=== PATIENT | female | born 1955 | race Caucasian/White ===

== ENCOUNTER 2019-11-18 14:46 | Emergency (ER) | payer MEDICARE, OTHER, SELFPAY ==
[2019-11-18] VITALS (7 sets, daily range): BP systolic 114–148; BP diastolic 52–115; PULSE 96–102; RESP 20–22; TEMP 37.2; O2SAT 92–94; BMI 24.9
--- NOTE | 2019-11-18 15:27 | XR_ITS ---
WS: [id number] PA and lateral chest, 11/18/2019 Clinical Data: SHORTNESS OF BREATH Comparison: Portable chest, 06/24/2019. Findings: No nodules, masses or effusions are seen. The heart is normal. The pulmonary vascularity is not increased. No pneumonia or pneumothorax is seen. There is blunting the left costophrenic angle f rom pleural reaction. There is a hiatal hernia behind the heart. The left diaphragm is elevated. The aortic arch and descending aorta is minimally tortuous. XR/XR chest 2V* [id number] Impression: 1. Negative for acute cardiopulmonary disease. 2. Hiatal hernia and left pleural reaction.
[2019-11-18 16:17] LABS: Basophils # 0.1 10^3/uL (0.0-0.1); Basophils % 0.7 %; Eosinophils % 0.4 %; Hematocrit 42.6 % (37.0-47.0); Hemoglobin 13.4 g/dL (11.5-15.3); Lymphocytes % 12.7 %; Mean Corpuscular HGB Conc 31.5 g/dL (30.0-36.0); Mean Corpuscular Hemoglobin 28.5 pg (28.0-34.0); Mean Corpuscular Volume 90.6 fL (81-99); Mean Platelet Volume 10.6 fL (7.4-10.4); Monocytes # 0.7 10^3/uL (0.2-0.9); Monocytes % 8.9 %; Neutrophils # 5.9 10^3/uL (1.8-7.7); Neutrophils % 76.6 %; Nucleated Red Blood Cells % 0 %; Platelet Count 240 10^3/cmm (130-400); Red Cell Distribution Width 13.2 % (12.1-15.1); White Blood Count 7.6 10^3/uL (4.0-10.0)
[2019-11-18 16:49] LABS: Alanine Aminotransferase 25 U/L (0-33); Albumin Level 4.2 g/dL (3.5-5.2); Alkaline Phosphatase 164 IU/L (35-105); Anion Gap 17.7 (5-19); Aspartate Amino Transferase 35 U/L (0-32); Blood Urea Nitrogen 8 mg/dL (8-23); Calcium 10.3 mg/Dl (8.8-10.2); Carbon Dioxide 28 mmol/L (22-29); Chloride 92 mmol/L (98-107); Globulin 3.4 g/dL (1.3-4.6); Glomerular Filtration Rate 55.5 mL/min (90-130); Glucose 83 mg/dL (74-106); Potassium 3.7 mmol/L (3.5-5.1); Sodium 134 mmol/L (136-145); Total Bilirubin 0.4 mg/dL (0.15-1.2); Total Protein 7.6 g/dL (6.6-8.7)
[2019-11-18] MEDS: azithromycin 250 mg Tablet 500 MG PO (19:57)
--- NOTE | 2019-11-18 20:05 | ED_ITS ---
HPI - General Adult General: Chief complaint: Shortness of Breath/Dyspnea Stated complaint: SOB Time Seen by Provider: 11/18/19 19:24 History of Present Illness: Associated symptoms: Reports dyspnea; Deny chest pain, headache(s), nausea, rash or vomiting Review of Systems Const: Reports: fever; Denies: chills or body aches Eyes: Denies: change in vision or blurry vision ENMT: Denies: throat pain or nasal congestion Card: Denies: chest pain or shortness of breath on exertion Resp: Reports: shortness of breath, non-productive cough, wheezing, pain on inspiration and chest congestion; Denies: productive cough or coughing up blood GI: Denies: abdominal pain, nausea or vomiting Musc: Denies: extremity pain Skin/Breast: Denies: rash Neuro: Denies: headache Psych: Denies: anxiety or depression Santos/Lymph: Denies: easy bruising PFSH ED PFSH: Statuses (acute, chronic, etc) shown below reflect problem list status as previously entered and may not be historically accurate Social History Smoking and tobacco status: former smoker Physical Exam Const: COMMON NORMALS: no apparent distress, average body habitus and oriented x3 HENMT: COMMON NORMALS: normocephalic HEAD & SCALP: normal to inspection and normocephalic FACE & SINUS: normal facial exam Eye: COMMON NORMALS: conjunctivae normal GENERAL EYE: normal appearance of both eyes CONJUNCTIVA: Yes conjunctivae normal Neck/C-Spine: COMMON NORMALS: no JVD Chest: COMMONS NORMALS: inspection of chest normal Resp: COMMON NORMALS: normal respiratory effort and no use of accessory muscles EFFORT & INSPECTION: No pursed lip breathing and No labored AUSCULTATION: rhonchi and wheezes expiratory wheezes, inspiratory wheezes and throughout Cardio: COMMON NORMALS: no JVD, regular rate and regular rhythm RATE: regular rate RHYTHM: regular rhythm GI: COMMON NORMALS: normal to inspection, nondistended, normoactive bowel sounds Extremity: COMMON NORMALS: normal to inspection and full ROM Neuro: COMMON NORMALS: oriented x3 Course Vital Signs: Vital signs: Vital Signs Temperature 98.9 F 11/18/19 15:22 Pulse Rate 100 11/18/19 20:29 Respiratory Rate 20 H 11/18/19 20:25 Blood Pressure 144/115 11/18/19 19:33 Pulse Oximetry 93 01/02/20 20:25 [facility] - General Adult Lab Data: Labs: Lab Results 11/18/19 11/18/19 11/18/19 Range/Units 16:08 16:08 20:05 WBC 7.6 (4.0-10.0) 10^3/ uL RBC 4.70 (4.1-5.3) 10^6/u L Hgb 13.4 (11.5-15.3) g/dL Hct 42.6 (37.0-47.0) % MCV 90.6 (81-99) fL MCH 28.5 (28.0-34.0) pg MCHC 31.5 (30.0-36.0) g/dL RDW 13.2 (12.1-15.1) % Plt Count 240 (130-400) 10^3/c mm MPV 10.6 H (7.4-10.4) fL Neut % (Auto) 76.6 % Lymph % (Auto) 12.7 % [place] % (Auto) 8.9 % Eos % (Auto) 0.4 % Baso % (Auto) 0.7 % Neut # (Auto) 5.9 (1.8-7.7) 10^3/u L Lymph # (Auto) 1.0 (0.8-4.8) 10^3/u L [place] # (Auto) 0.7 (0.2-0.9) 10^3/u L Eos # (Auto) 0.0 (0.0-0.8) 10^3/u L Baso # (Auto) 0.1 (0.0-0.1) 10^3/u L Nucleated RBC % (a uto) 0 % Nucleated RBCs # 0.0 /100WBC Sodium 134 L (136-145) mmol/L Potassium 3.7 (3.5-5.1) mmol/L Chloride 92 L (98-107) mmol/L Carbon Dioxide 28 (22-29) mmol/L Anion Gap 17.7 (5-19) BUN 8 (8-23) mg/dL Creatinine 1.0 H (0.5-0.9) mg/dL GFR Calculation 55.5 L (90-130) mL/min Glucose 83 (74-106) mg/dL Calcium 10.3 H (8.8-10.2) mg/Dl Total Bilirubin 0.4 (0.15-1.2) mg/dL AST 35 H (0-32) U/L ALT 25 (0-33) U/L Alkaline Phosphata se 164 H (35-105) IU/L Total Protein 7.6 (6.6-8.7) g/dL Albumin 4.2 (3.5-5.2) g/dL Globulin 3.4 (1.3-4.6) g/dL Influenza Type A A g Negative (Negative) POC Influenza B Ag Negative (Negative) Discharge Plan Discharge Patient Disposition: Home, Self-Care Clinical Impression: Acute exacerbation of chronic obstructive airways disease Condition: Stable Prescriptions: New azithromycin [Zithromax Z-He] 250 mg tablet See Rx Instructions .ROUTE .COMPLEX Qty: 6 RF: 0 prednisolone 5 mg tablet 10 mg PO DAILY Qty: 20 RF: 0 No Action Pending RF: 0 Referrals: Kanchan Park MD [Primary Care Provider] - Discharge Diet: Usual diet Discharge Activity: Resume usual activity Patient Instructions: Chronic Obstructive Pulmonary Disease (ED) Activity Restrictions/Additional Instructions: follow up here or PCP if not better Coding Level of Care Code ED [place] Operator for Chg Fwd Exam Problem Focused
[2019-11-18] MEDS: ipratropium-albuterol 3 mL Neb INHALATION (20:24)
[2019-11-18 20:41] LABS: Influenza A by IFA Negative (Negative); Influenza B by IFA Negative (Negative)
== END 2019-11-18 21:37 | disposition home or self-care (01) ==
PROVIDERS: Family Medicine; Emergency Provider Nurse Practitioner Family; Family Provider Family Medicine; PCP Family Medicine
DX: J44.1 Chronic obstructive pulmonary disease with (acute) exacerbation (principal); Z87.891 Personal history of nicotine dependence
CPT/HCPCS: 36415; 71046; 80053; 85025; 87804; 96374; 99000; 99282; J2930; Q0144

== ENCOUNTER → 2019-11-25 10:31 | Outpatient (BNVA) | payer MEDICARE, OTHER, SELFPAY | PROVIDERS: Family Provider Family Medicine; PCP Family Medicine; Visit Provider Internal Medicine Rheumatology | DX: M05.79 Rheumatoid arthritis with rheumatoid factor of multiple sites without organ or systems involvement (principal); Z79.52 Long term (current) use of systemic steroids; Z79.899 Other long term (current) drug therapy; J44.9 Chronic obstructive pulmonary disease, unspecified; Z87.891 Personal history of nicotine dependence | CPT/HCPCS: 99214 ==

== ENCOUNTER 2020-01-27 07:54 | Outpatient (CLI) | payer MEDICARE, OTHER, SELFPAY ==
--- NOTE | 2020-01-27 07:59 | MM_ITS ---
WS: [id number] SCREENING DIGITAL MAMMOGRAM WITH CAD HISTORY: SCREENING COMPARISON: 08/16/2019, 01/14/2019, 10/28/2018 and 04/26/2010. Bilateral CC and MLO views submitted. Computer aided detection analyzed. Breast composition: There are scattered areas of fibroglandular density. Previously described nodule posterior to the nipple measuring 6.3 mm is still identified. Diagnostic imaging and ultrasound were recommended of this nodule to document continued stability on the prior study. Otherwise the breast p arenchyma is stable. RIGHT breast: Spot compression views (CC and MLO). True ML. Ultrasound to follow if abnormality persi sts. Nodule in the anterior RIGHT breast has been undergoing follow-up. Diagnostic imaging was recommended on the prior examination of this nodule. Spot compression views and ultrasound evaluation are recomm ended. MM/[place] [id number] IMPRESSION: BI-RADS: 0-Incomplete: Need additional imaging evaluation FOLLOW UP: Need Additional Imaging
== END 2020-01-27 07:55 | disposition home or self-care (01) ==
LOC: RADSHAW 07:56
PROVIDERS: Family Provider Family Medicine; PCP Family Medicine; Visit Provider Family Medicine
DX: Z12.31 Encounter for screening mammogram for malignant neoplasm of breast (principal)
CPT/HCPCS: 77067

== ENCOUNTER 2020-02-03 15:00 | Outpatient (CLI) | payer MEDICARE, OTHER, SELFPAY ==
--- NOTE | 2020-02-03 15:30 | US_ITS ---
WS: [id number] RIGHT DIGITAL MAMMOGRAPHY WITH CAD CLINICAL INFORMATION: Abnormal Mammogram COMPARISON: January 27, 2020 TECHNIQUE: 3 views of the right breast were obtained. FINDINGS: The right breast is composed of heterogeneous fibroglandular density tissue, which can limit the dete ction of small underlying mass lesions. Again seen is the asymmetric density in the anterior right breast just above and posterior to the nip ple near the 12:00 position. This appears unchanged compared to previous. Ultrasound is pending. ULTRASOUND BREAST RIGHT TECHNIQUE: Ultrasound right breast focused area of concern. CLINICAL INFORMATION: Abnormal Mammogram COMPARISON: August 16, 2019 FINDINGS: In the anterior breast, at the 12:00 position, again seen is an ill-defined band of tissue with varia ble echogenicity. More focal vague hypoechoic area measuring 1.1 x 0.3 cm similar to previous. A few dilated ducts at the areola. Findings appear unchanged from previous. Recommend additional six-month follow-up right diagnostic mammography and ultrasound to confirm stability. US/US breast RT limited* [id number] IMPRESSION: BI-RADS: 3-Probably Benign FOLLOW UP: 6 Month Follow-up
== END 2020-02-03 15:01 | disposition home or self-care (01) ==
LOC: RADSHAW 15:00
PROVIDERS: Family Provider Family Medicine; PCP Family Medicine; Visit Provider Family Medicine
DX: N64.89 Other specified disorders of breast (principal); R92.8 Other abnormal and inconclusive findings on diagnostic imaging of breast
CPT/HCPCS: 76642; 77065

== ENCOUNTER → 2020-02-23 09:23 | Outpatient (BNVA) | payer MEDICARE, OTHER, SELFPAY | PROVIDERS: Family Provider Family Medicine; PCP Family Medicine; Visit Provider Internal Medicine Rheumatology | DX: Z79.899 Other long term (current) drug therapy (principal); M05.79 Rheumatoid arthritis with rheumatoid factor of multiple sites without organ or systems involvement | CPT/HCPCS: 82565; 84460; 85025; 85651; 86140 ==

== ENCOUNTER 2020-03-29 06:46 | Inpatient (IN) | payer MEDICARE, OTHER, SELFPAY ==
[2020-03-29] VITALS (19 sets, daily range): BP systolic 122–188; BP diastolic 74–106; PULSE 69–112; RESP 17–40; TEMP 36.7–37.2; O2SAT 76–98; BMI 25.2
--- NOTE | 2020-03-29 07:03 | W.ED.SOB ---
HPI - SOB/Dyspnea General: Chief Complaint: Shortness of Breath/Dyspnea Stated Complaint: SOB Time Seen by Provider: 03/29/20 07:03 History of Present Illness: HPI Narrative: 64 yo female 64-year-old female comes in complaining of dyspnea. She is brought in by ambulance states that at 2 AM she suddenly woke up and was short of breath. On arrival here when she is on room air for just a few minutes she desats to 76% on 3 L by nasal cannula she is 89 to 92% she did report a nonproductive cough and a low-grade fever. She denies any chest pain for the last 3 weeks she has had shoulder and neck pain this is been chronic and she relates it to her rheumatoid arthritis. She denies history of chest pain DVT or PE. She has not had any sick contacts in her home she has been conscientious about quarantining herself the last several weeks. She is on several inhaled medication she denies any recent medication changes or missing any doses of medications. Of interesting note she is on hydroxychloroquine for her rheumatoid arthritis. Associated symptoms: Deny abdominal pain, chest pain, fever(s), nausea, orthopnea or vomiting Review of Systems Const: Denies: fever(s), chills, body aches, change in appetite, fatigue or malaise ENMT: Denies: throat pain, ear or mastoid pain, nasal discharge or nasal congestion Card: Denies: chest pain, edema, dyspnea on exertion or orthopnea Resp: Reports: dyspnea and non-productive cough; Denies: productive cough GI: Denies: abdominal pain, nausea, vomiting, hematemesis, coffee ground emesis, diarrhea, constipation, bloating, hematochezia or melena : Denies: flank pain, difficulty voiding, dysuria, urinary frequency or urinary urgency Musc: Reports: neck pain and joint pain Skin/Breast: Denies: rash or pruritus PFSH ED PFSH: Medical History (Updated 04/01/20 @ 06:55 by Delroy Ching DO) COPD (chronic obstructive pulmonary disease) Uses home trilogy device, PRN oxygen Depression GERD (gastroesophageal reflux disease) History of aspiration pneumonia Hyperlipidemia Hypertension Hypothyroidism Immunization counseling Iron deficiency anemia Rheumatoid arthritis with rheumatoid factor of multiple sites without organ or systems involvement leflunomide, hydroxychloroquine, prn prednisone for flares Surgical History (Updated 03/29/20 @ 21:32 by Felicia Espinal MD) H/O arthroscopy of knee left knee H/O esophagectomy History of cataract surgery 2017 History of gastric surgery age 6 History of skin graft left knee History of tubal ligation Previous back surgery right L3-L4, right L5-S1 hemilaminotomy foraminotomy/ discectomy/ Family History Other CAD (coronary artery disease) Cancer Hypertension Denies family history of Rheumatoid arthritis Diabetes Chronic kidney disease (CKD) Systemic lupus erythematosus (SLE) in adult Lung disease Social History Smoking and tobacco status: former smoker Quit status (tobacco): has quit using tobacco Year quit tobacco: 2000 Alcohol intake: current Alcohol type: beer Lives independently: No (lives with boyfriend) Marital status: History of recent travel: No Physical Exam Const: COMMON NORMALS: no acute distress GENERAL APPEARANCE: cooperative and comfortable ORIENTATION/CONSCIOUSNESS: Yes awake, Yes oriented to person, Yes oriented to place and Yes oriented to time HENMT: COMMON NORMALS: normocephalic, atraumatic, hearing grossly normal bilaterally, external ears normal, EAC's normal, TM's normal bilaterally, Normal nasal mucous membranes and turbinates present, moist oral mucous membranes and oropharynx normal HEAD & SCALP: normocephalic and atraumatic NOSE: Normal nasal mucous membranes and turbinates present EXTERNAL EAR: Yes external ears normal EXTERNAL AUDITORY CANAL: EAC's normal TYMPANIC MEMBRANE: TM's normal bilaterally Eye: COMMON NORMALS: Equal, round and reactive pupils present, EOMs intact bilaterally, conjunctivae normal and no scleral icterus CONJUNCTIVA: Yes conjunctivae normal PUPIL: Yes Equal, round and reactive pupils present Neck/C-Spine: COMMON NORMALS: full ROM, no lymphadenopathy, supple and no JVD Lymph: LYMPHATIC: no lymphadenopathy noted and no lymphedema noted Resp: EFFORT & INSPECTION: Yes tachypneic, Yes respiratory distress and Yes Actively coughing AUSCULTATION: rhonchi throughout and wheezes expiratory wheezes and throughout Cardio: COMMON NORMALS: no JVD, regular rhythm and No murmurs present (Cardio) RATE: tachycardic RHYTHM: regular rhythm GI: COMMON NORMALS: Soft to palpation and No hepatosplenomegaly present AUSCULTATION: Yes normoactive bowel sounds PALPATION: Yes Soft to palpation, No Tenderness to palpation present (GI), No Guarding due to palpation present (GI) and Yes No hepatosplenomegaly present Extremity: COMMON NORMALS: normal to inspection, capillary refill normal, no clubbing, cyanosis or edema, no calf tenderness and no pedal edema Neuro: SENSORIUM/ORIENTATION: Yes oriented to person, Yes oriented to place and Yes oriented to time Skin: COMMON NORMALS: no rashes or lesions noted GENERAL SKIN EXAM: no rashes or lesions noted Course Vital Signs: Vital signs: Vital Signs Temperature 96.7 F L 04/01/20 04:00 Pulse Rate 73 04/01/20 04:00 Respiratory Rate 27 H 04/01/20 06:27 Blood Pressure 138/65 04/01/20 04:00 Pulse Oximetry 94 04/01/20 06:27 MDM - SOB/Dyspnea MDM Narrative: Medical decision making narrative: Patient comes in hypercapnic respiratory failure she is improving we will would start her on antibiotics and admit. Discussed Dr. Espinal she will be admitting physician. Lab Data: Labs: Lab Results 03/29/20 03/29/20 03/29/20 Range/Units 07:20 07:25 07:25 WBC 14.8 H (4.0-10.0) 10^3/ uL RBC 4.41 (4.1-5.3) 10^6/u L Hgb 12.9 (11.5-15.3) g/dL Hct 42.2 (37.0-47.0) % MCV 95.7 (81-99) fL MCH 29.3 (28.0-34.0) pg MCHC 30.6 (30.0-36.0) g/dL RDW 13.8 (12.1-15.1) % Plt Count 247 (130-400) 10^3/c mm MPV 11.5 H (7.4-10.4) fL Neut % (Auto) 91.1 % Lymph % (Auto) 2.5 % [place] % (Auto) 4.9 % Eos % (Auto) 0.6 % Baso % (Auto) 0.4 % Neut # (Auto) 13.5 H (1.8-7.7) 10^3/u L Lymph # (Auto) 0.4 L (0.8-4.8) 10^3/u L [place] # (Auto) 0.7 (0.2-0.9) 10^3/u L Eos # (Auto) 0.1 (0.0-0.8) 10^3/u L Baso # (Auto) 0.1 (0.0-0.1) 10^3/u L Nucleated RBC % (a uto) 0 % Nucleated RBCs # 0.0 /100WBC Specimen Type Arterial Sample Site Brachial, right ABG pH 7.40 (7.35-7.45) ABG pCO2 48.2 H (35-45) mmHg ABG pO2 77.4 L (80.0-100.0) mmH g ABG HCO3 30.1 H (22-26) mmol/L ABG O2 Saturation 94.0 ABG Base Excess 4.4 H (-2.0-2.0) mmol/ L Antony Test Pos A-a O2 Gradient 89.9 H (5-10) mmHg Hematocrit 40.8 (37-47) % Hgb O2 Saturation 93.3 L (95-100) % Methemoglobin 1.1 (0.4-1.5) % Total Hemoglobin 13.3 (12-16) g/dL Sodium 142.0 139 (131-143) mmol/L Potassium 3.5 3.7 (3.5-5.0) mmol/L Glucose 116.0 H 108 (70-115) mg/dL Ionized Calcium 1.2 (1.1-1.4) mmol/L O2 Delivery Device Nc O2 Liters/Min 3.0 % FiO2 32.0 % Compound Filler ID bd Chloride 102 (98-107) mmol/L Carbon Dioxide 27 (22-29) mmol/L Anion Gap 13.7 (5-19) BUN 16 (8-23) mg/dL Creatinine 0.9 (0.5-0.9) mg/dL GFR Calculation 62.6 L (90-130) mL/min Calculated Osmolal ity 285 (285-295) mOsm/k g Lactate (0.5-2.2) mmol/L Calcium 9.8 (8.5-10.5) mg/dL Total Bilirubin 0.3 (0.15-1.2) mg/dL AST 33 H (0-32) U/L ALT 29 (0-33) U/L Alkaline Phosphata se 141 H (35-105) IU/L Troponin T Baselin e (0-10) ng/mL Total Protein 5.5 L (6.6-8.7) g/dL Albumin 3.7 (3.5-5.2) g/dL Globulin 1.8 (1.3-4.6) g/dL Lipase 9 L (13-60) U/L Nasal/Oral COVID-1 9 PCR Influenza Type A A g (Negative) Influenza Type B A g (Negative) 03/29/20 03/29/20 03/29/20 Range/Units 07:25 07:25 07:25 WBC (4.0-10.0) 10^3/ uL RBC (4.1-5.3) 10^6/u L Hgb (11.5-15.3) g/dL Hct (37.0-47.0) % MCV (81-99) fL MCH (28.0-34.0) pg MCHC (30.0-36.0) g/dL RDW (12.1-15.1) % Plt Count (130-400) 10^3/c mm MPV (7.4-10.4) fL Neut % (Auto) % Lymph % (Auto) % [place] % (Auto) % Eos % (Auto) % Baso % (Auto) % Neut # (Auto) (1.8-7.7) 10^3/u L Lymph # (Auto) (0.8-4.8) 10^3/u L [place] # (Auto) (0.2-0.9) 10^3/u L Eos # (Auto) (0.0-0.8) 10^3/u L Baso # (Auto) (0.0-0.1) 10^3/u L Nucleated RBC % (a uto) % Nucleated RBCs # /100WBC Specimen Type Sample Site ABG pH (7.35-7.45) ABG pCO2 (35-45) mmHg ABG pO2 (80.0-100.0) mmH g ABG HCO3 (22-26) mmol/L ABG O2 Saturation ABG Base Excess (-2.0-2.0) mmol/ L Antony Test A-a O2 Gradient (5-10) mmHg Hematocrit (37-47) % Hgb O2 Saturation (95-100) % Methemoglobin (0.4-1.5) % Total Hemoglobin (12-16) g/dL Sodium (131-143) mmol/L Potassium (3.5-5.0) mmol/L Glucose (70-115) mg/dL Ionized Calcium (1.1-1.4) mmol/L O2 Delivery Device O2 Liters/Min % FiO2 % Compound Filler ID Chloride (98-107) mmol/L Carbon Dioxide (22-29) mmol/L Anion Gap (5-19) BUN (8-23) mg/dL Creatinine (0.5-0.9) mg/dL GFR Calculation (90-130) mL/min Calculated Osmolal ity (285-295) mOsm/k g Lactate 1.3 (0.5-2.2) mmol/L Calcium (8.5-10.5) mg/dL Total Bilirubin (0.15-1.2) mg/dL AST (0-32) U/L ALT (0-33) U/L Alkaline Phosphata se (35-105) IU/L Troponin T Baselin e 35 H (0-10) ng/mL Total Protein (6.6-8.7) g/dL Albumin (3.5-5.2) g/dL Globulin (1.3-4.6) g/dL Lipase (13-60) U/L Nasal/Oral COVID-1 9 PCR Influenza Type A A g Negative (Negative) Influenza Type B A g Negative (Negative) 03/29/20 Range/Units 08:15 WBC (4.0-10.0) 10^3/ uL RBC (4.1-5.3) 10^6/u L Hgb (11.5-15.3) g/dL Hct (37.0-47.0) % MCV (81-99) fL MCH (28.0-34.0) pg MCHC (30.0-36.0) g/dL RDW (12.1-15.1) % Plt Count (130-400) 10^3/c mm MPV (7.4-10.4) fL Neut % (Auto) % Lymph % (Auto) % [place] % (Auto) % Eos % (Auto) % Baso % (Auto) % Neut # (Auto) (1.8-7.7) 10^3/u L Lymph # (Auto) (0.8-4.8) 10^3/u L [place] # (Auto) (0.2-0.9) 10^3/u L Eos # (Auto) (0.0-0.8) 10^3/u L Baso # (Auto) (0.0-0.1) 10^3/u L Nucleated RBC % (a uto) % Nucleated RBCs # /100WBC Specimen Type Sample Site ABG pH (7.35-7.45) ABG pCO2 (35-45) mmHg ABG pO2 (80.0-100.0) mmH g ABG HCO3 (22-26) mmol/L ABG O2 Saturation ABG Base Excess (-2.0-2.0) mmol/ L Antony Test A-a O2 Gradient (5-10) mmHg Hematocrit (37-47) % Hgb O2 Saturation (95-100) % Methemoglobin (0.4-1.5) % Total Hemoglobin (12-16) g/dL Sodium (131-143) mmol/L Potassium (3.5-5.0) mmol/L Glucose (70-115) mg/dL Ionized Calcium (1.1-1.4) mmol/L O2 Delivery Device O2 Liters/Min % FiO2 % Compound Filler ID Chloride (98-107) mmol/L Carbon Dioxide (22-29) mmol/L Anion Gap (5-19) BUN (8-23) mg/dL Creatinine (0.5-0.9) mg/dL GFR Calculation (90-130) mL/min Calculated Osmolal ity (285-295) mOsm/k g Lactate (0.5-2.2) mmol/L Calcium (8.5-10.5) mg/dL Total Bilirubin (0.15-1.2) mg/dL AST (0-32) U/L ALT (0-33) U/L Alkaline Phosphata se (35-105) IU/L Troponin T Baselin e (0-10) ng/mL Total Protein (6.6-8.7) g/dL Albumin (3.5-5.2) g/dL Globulin (1.3-4.6) g/dL Lipase (13-60) U/L Nasal/Oral COVID-1 9 PCR Not detected Influenza Type A A g (Negative) Influenza Type B A g (Negative) Discharge Plan Discharge Patient Disposition: Admitted As Inpatient Admit Provider: Felicia Espinal Clinical Impression: Respiratory failure with hypoxia and hypercapnia, Rheumatoid arthritis with rheumatoid factor of multiple sites without organ or systems involvement, COPD (chronic obstructive pulmonary disease), Pneumonia Condition: Stable Referrals: Ladonna Rutledge MD [Primary Care Provider] - Interventions: ED Discharge Assessment Last Done: 03/29/20 11:37 ED Charges Last Done: 03/29/20 09:56 Discharge Date/Time: 03/29/20 12:00 Coding Level of Care Code ED Radiology Interventional Physician for Chg Fwd Exam Comprehensive
--- NOTE | 2020-03-29 07:05 | XR_ITS ---
WS: [id number] PORTABLE CHEST HISTORY: dyspnea/cough COMPARISON: 1 2019 New patchy consolidations bilaterally, greatest throughout the RIGHT lung. There are additional small nodules and more focal areas of consolidation. No pleural effusion or pneumothorax. Cardiac size: Normal. Mediastinum/Aorta: Mild atherosclerosis aorta. No osseous abnormality seen. Slight elevation LEFT hemidiaphragm. XR/XR chest 1V portable [id number] IMPRESSION: 1. New bilateral, multilobar consolidations and nodules. May all BE related to pneumonia and pneumonitis. 2. Recommend follow-up imaging to resolution. If the nodular opacities do not improve chest CT with IV contrast should be performed. Metastasis needs to be e xcluded.
--- NOTE | 2020-03-29 07:06 | ECG_ITS ---
Measurements Intervals [place] Rate: 105 P: 52 KS: 142 QRS: -56 QRSD: 105 T: 58 QT: 342 QTc: 452 SINUS TACHYCARDIA POSSIBLE LEFT ATRIAL ENLARGEMENT [-0.1mV P WAVE IN V1/V2] LEFT AXIS DEVIATION [QRS AXIS < -30] NONSPECIFIC ST & T-WAVE ABNORMALITY Compared to ECG 04/01/2019 14:46:49 Left-axis deviation now present T-wave abnormality now present Sinus rhythm no longer present Intraventricular conduction delay no longer present Electronically Signed On 03-29-2020 20:30:53 CDT by Luis Conde M.D. [email or web address]
--- NOTE | 2020-03-29 07:14 | ECG_ITS ---
Measurements Intervals [place] Rate: 114 P: 52 DE: 132 QRS: -58 QRSD: 106 T: 67 QT: 344 QTc: 475 SINUS TACHYCARDIA LEFT ATRIAL ENLARGEMENT [-0.15mV P WAVE IN V1/V2] LEFT AXIS DEVIATION [QRS AXIS < -30] INTERPRETATION BASED ON A DEFAULT AGE OF 40 YEARS Compared to ECG 04/01/2019 14:46:49 Left-axis deviation now present Sinus rhythm no longer present Intraventricular conduction delay no longer present Electronically Signed On 03-29-2020 20:30:23 CDT by Luis Conde M.D. [email or web address]
[2020-03-29 07:32] LABS: ABG PCO2 48.2 mmHg (35-45); Alveolar-Arterial Oxygen Gradi 89.9 mmHg (5-10); Arterial Blood Gas Hematocrit 40.8 % (37-47); Base Excess ABG 4.4 mmol/L (-2.0-2.0); Blood Gas Allen Test Pos; Blood Gas Sample Site Brachial, right; Blood Gas Sample Type Arterial; HCO3 ABG 30.1 mmol/L (22-26); HGB O2 Sat 93.3 % (95-100); Ionized Calcium Level - ABG 1.2 mmol/L (1.1-1.4); Methemoglobin 1.1 % (0.4-1.5); Oxygen Device NC; PO2 ABG 77.4 mmHg (80.0-100.0); Potassium Level - ABG 3.5 mmol/L (3.5-5.0); Total Hemoglobin 13.3 g/dL (12-16)
[2020-03-29] MEDS: cefTRIAXone 1,000 MG in sodium chloride 0.9% (plus) 50 ML 100 MG IV ×2 (08:14→20:45)
[2020-03-29 08:16] LABS: Basophils # 0.1 10^3/uL (0.0-0.1); Basophils % 0.4 %; Eosinophils # 0.1 10^3/uL (0.0-0.8); Eosinophils % 0.6 %; Hematocrit 42.2 % (37.0-47.0); Hemoglobin 12.9 g/dL (11.5-15.3); Lymphocytes # 0.4 10^3/uL (0.8-4.8); Lymphocytes % 2.5 %; Mean Corpuscular HGB Conc 30.6 g/dL (30.0-36.0); Mean Corpuscular Hemoglobin 29.3 pg (28.0-34.0); Mean Corpuscular Volume 95.7 fL (81-99); Mean Platelet Volume 11.5 fL (7.4-10.4); Monocytes # 0.7 10^3/uL (0.2-0.9); Monocytes % 4.9 %; Neutrophils # 13.5 10^3/uL (1.8-7.7); Neutrophils % 91.1 %; Nucleated Red Blood Cells % 0 %; Platelet Count 247 10^3/cmm (130-400); Red Blood Count 4.41 10^6/uL (4.1-5.3); Red Cell Distribution Width 13.8 % (12.1-15.1); White Blood Count 14.8 10^3/uL (4.0-10.0)
[2020-03-29 08:29] LABS: Lactate (Lactic Acid level) 1.3 mmol/L (0.5-2.2)
[2020-03-29 08:30] LABS: Alanine Aminotransferase 29 U/L (0-33); Albumin Level 3.7 g/dL (3.5-5.2); Alkaline Phosphatase 141 IU/L (35-105); Anion Gap 13.7 (5-19); Aspartate Amino Transferase 33 U/L (0-32); Blood Urea Nitrogen 16 mg/dL (8-23); Calcium 9.8 mg/dL (8.5-10.5); Carbon Dioxide 27 mmol/L (22-29); Chloride 102 mmol/L (98-107); Globulin 1.8 g/dL (1.3-4.6); Glomerular Filtration Rate 62.6 mL/min (90-130); Glucose 108 mg/dL (65-115); Lipase 9 U/L (13-60); Osmolality Calculated 285 mOsm/kg (285-295); Potassium 3.7 mmol/L (3.5-5.1); Sodium 139 mmol/L (136-145); Total Bilirubin 0.3 mg/dL (0.15-1.2); Total Protein 5.5 g/dL (6.6-8.7)
[2020-03-29 08:33] LABS: Troponin(5th) Baseline 35 ng/mL (0-10)
[2020-03-29 08:52] LABS: Influenza A by IFA Negative (Negative); Influenza B by IFA Negative (Negative)
[2020-03-29] MEDS: azithromycin 500 MG in sodium chloride 0.9% 250 ML 250 MG IV (09:47)
[2020-03-29 10:54] LABS: Troponin 5 2HR 27.21 ng/mL (0-10)
[2020-03-29 11:04] LABS: Troponin 5 2HR Delta -7.79 ABS# (0-10)
--- NOTE | 2020-03-29 11:27 | PC.NURSE ---
attempted to call report to ICU. Nurse will call back when ready for report
[2020-03-29 12:03] LABS: Add Urine Microscopic? YES; Bilirubin Urine 1+ (NEGATIVE); Blood Urine Neg (Negative); Glucose Urine UA Norm (Normal); Ketones Urine Negative (Negative); Leukocyte Esterase Urine Negative (Negative); Nitrate Urine Negative (Negative); Protein Urine Trace (Negative); Urine Appearance Clear (CLEAR); Urine Color Amber (Yellow); Urobilinogen Urine 1 mg/dL (Negative)
[2020-03-29 12:16] LABS: Bacteria Urine 1+; Mucus Urine 1+
[2020-03-29 12:17] LABS: Add Urine Culture? No
[2020-03-29] MEDS: sodium chloride 0.9% 1,000 ML 100 ML IV (16:30)
[2020-03-29] MEDS: albuterol 8 gm MDI 2 PUFF INHALATION ×2 (16:49→21:04)
--- NOTE | 2020-03-29 18:07 | PM.HP ---
Providers/Chief Complaint Admitting Physician: Felicia Espinal MD Primary Care Provider: Ladonna Rutledge MD Chief Complaint: SOB History of Present Illness Gabby Garcia is a 64 year old female who presented to the emergency room via EMS with a complaint of difficulty breathing. She states that she had a little bit of a cough and intermittent difficulty breathing over the last week or so. She woke up at around 2 AM with significant difficulty breathing last night. She started coughing and then got to place that she could not breathe. She notes that she got anxious. She vomited at least 3 times. From her description it sounds almost like the vomiting was posttussive in nature. She continued to struggle to breathe after this. She has had issues with reflux and aspiration in the past as well as hospitalizations for pneumonia. She has a pulse oximeter at home and at the peak of her difficulty breathing she noted her oxygen saturations were 72%. She does not wear oxygen [id number] but she does have oxygen available should it be needed. She tried to use the 2 to 3 L by nasal cannula that she had access to but saturations would only come up into the low to mid 80s. She tried to take a breathing treatment but was unable to really do any inhalation for this to be successful. She ultimately ended up having EMS be called by her son. On arrival to the emergency room, initial saturations were 76% by peripheral pulse oximetry. On 4 L by nasal cannula saturations have come up to the low to mid 90s. ABG showed 7. 40/48/77/30. Chest x-ray showed multi lobar consolidations related to pneumonia versus pneumonitis. Patient denies any fevers. She has been maintaining social distancing by her report. No known sick contacts. She denies any sore throat, upper respiratory symptoms. Her cough is occasionally productive but no hemoptysis. No chest pain apart from when she coughs. Patient does have rheumatoid arthritis and is on chronic immunosuppressive therapy including leflunomide and hydroxychloroquine along with prednisone as needed for flares. She has been in the midst of a flare lately and is currently on 10 mg of prednisone a day. She is not on a biologic agent. She denies any pulmonary involvement with her rheumatoid arthritis. She has regular appointments including telehealth visit last month. Patient being admitted for further evaluation and treatment. COVID testing was sent and she has been maintained in isolation. Review of Systems Const: Reports: chills; Denies: fever(s) or change in appetite Eyes: Denies: change in vision ENMT: Denies: throat pain, dry mouth or nasal congestion Card: Denies: chest pain, palpitations or edema Resp: Reports: dyspnea, productive cough, non-productive cough, wheezing and chest congestion; Denies: pain on inspiration, change in phlegm color or hemoptysis GI: Reports: abdominal pain, nausea and vomiting; Denies: diarrhea or constipation : Denies: difficulty voiding Skin/Breast: Reports: rash (Face is red); Denies: pruritus Neuro: Reports: weakness in extremities (General); Denies: headache(s), numbness in extremities or dizziness Psych: Reports: anxiety (Particularly when she cannot breathe); Denies: depression Santos/Lymph: Denies: easy bruising or easy bleeding Medications/Allergies Home Medications Medication Instructions Recorded Confirmed Last Taken Type albuterol sulfate 2.5 mg INHALATION QID PRN 11/19/19 03/29/20 Unknown History albuterol sulfate 90 mcg/actuation 2 puff INHALATION QID PRN 11/19/19 03/29/20 Unknown History aerosol inhaler aspirin 81 mg tablet,delayed 81 mg PO DAILY tab 11/19/19 03/29/20 Unknown History release ergocalciferol (vitamin D2) 1,250 50,000 unit PO .COMPLEX 11/19/19 03/29/20 Unknown History mcg (50,000 unit) capsule ferrous sulfate 325 mg (65 mg 325 mg PO DAILY tab 11/19/19 03/29/20 Unknown History iron) tablet furosemide 20 mg tablet 20 mg PO QAM 11/19/19 03/29/20 Unknown History levothyroxine 112 mcg tablet 112 mcg PO DAILY tab 11/19/19 03/29/20 Unknown History losartan 25 mg tablet 25 mg PO DAILY tab 11/19/19 03/29/20 Unknown History pantoprazole 40 mg tablet,delayed 40 mg PO BID tab 11/19/19 03/29/20 Unknown History release potassium chloride 10 mEq 10 meq PO DAILY cap 11/19/19 03/29/20 Unknown History capsule,extended release pravastatin 40 mg tablet 40 mg PO DAILY tab 11/19/19 03/29/20 Unknown History trazodone 100 mg tablet 100 mg PO .COMPLEX 11/19/19 03/29/20 Unknown History verapamil 180 mg tablet,extended 180 mg PO QAM 11/19/19 03/29/20 Unknown History release budesonide 0.5 mg/2 mL suspension 0.25 mg INHALATION BID 11/25/19 03/29/20 Unknown History for nebulization citalopram 20 mg tablet 20 mg PO DAILY tab 11/25/19 03/29/20 Unknown History fexofenadine 180 mg tablet 180 mg PO Q24H 11/25/19 03/29/20 Unknown History formoterol fumarate 20 mcg/2 mL 20 mcg INHALATION BID ml 11/25/19 03/29/20 Unknown History solution for nebulization umeclidinium 62.5 mcg-vilanterol 1 inh INHALATION Q24H 11/25/19 03/29/20 Unknown History 25 mcg/actuation powdr for inhalation hydroxychloroquine 200 mg tablet 400 mg PO DAILY #180 tab 03/07/20 03/29/20 Unknown Rx leflunomide 20 mg tablet 20 mg PO DAILY #30 tab 03/07/20 03/29/20 Unknown Rx prednisone 2.5 mg tablet 10 mg PO DAILY #120 tab 03/07/20 03/29/20 Unknown Rx Allergies Allergy/AdvReac Type Severity Reaction Status Date / Time REINA Inhibitors Allergy ADR-Cough Verified 03/29/20 08:03 codeine Allergy ADR-Nausea Verified 03/29/20 08:03 sulfamethoxazole Allergy ALGY-Anaphy Verified 03/29/20 08:03 [From Bactrim] laxis trimethoprim [From Bactrim] Allergy ALGY-Anaphy Verified 03/29/20 08:03 laxis PFSH Acute PFSH: Medical History (Updated 03/29/20 @ 21:45 by Felicia Espinal MD) COPD (chronic obstructive pulmonary disease) Uses home trilogy device, PRN oxygen Depression GERD (gastroesophageal reflux disease) History of aspiration pneumonia Hyperlipidemia Hypertension Hypothyroidism Immunization counseling Iron deficiency anemia Rheumatoid arthritis with rheumatoid factor of multiple sites without organ or systems involvement leflunomide, hydroxychloroquine, prn prednisone for flares Surgical History (Updated 03/29/20 @ 21:32 by Felicia Espinal MD) H/O arthroscopy of knee left knee H/O esophagectomy History of cataract surgery 2017 History of gastric surgery age 6 History of skin graft left knee History of tubal ligation Previous back surgery right L3-L4, right L5-S1 hemilaminotomy foraminotomy/ discectomy/ Family History Other CAD (coronary artery disease) Cancer Hypertension Denies family history of Rheumatoid arthritis Diabetes Chronic kidney disease (CKD) Systemic lupus erythematosus (SLE) in adult Lung disease Social History Smoking and tobacco status: former smoker Quit status (tobacco): has quit using tobacco Year quit tobacco: 2000 Alcohol intake: current Alcohol type: beer Lives independently: No (lives with boyfriend) Marital status: History of recent travel: No Vitals/I&O/Wt Last Vital Signs Temp 98.9 F 03/29/20 12:45 Pulse 80 03/29/20 16:58 Resp 20 H 03/29/20 16:58 BP 188/85 03/29/20 16:00 Pulse Ox 94 03/29/20 16:58 03/29/20 03/29/20 03/29/20 06:59 14:59 22:59 Intake Total 300 / 300 460 / 760 Balance 300 / 300 460 / 760 Weight last 48 hrs Weight 66.678 kg Physical Exam Const: OTHER: Alert, oriented x3, cooperative, ill-appearing HENMT: OTHER: Normocephalic atraumatic, flushed face with some broken vessels noted on both cheeks, moist mucus membranes Eye: OTHER: Pupils equally round and reactive to light, conjunctive a injected Neck/C-Spine: OTHER: supple Resp: OTHER: Diffuse wheezes, active cough, currently no accessory muscle use, but is tachypneic Cardio: OTHER: Tachycardic, regular rhythm GI: OTHER: Abdomen soft, nontender, nondistended with positive bowel sounds Extremity: NARRATIVE EXTREMITY EXAM: No pitting edema in the pretibial area, chronic bony changes Neuro: OTHER: Face symmetric, speech clear, moves all extremities Psych: OTHER: Normal affect, appropriate responses to questions Skin: OTHER: Flushed face as already noted, some petechial lesions on the cheeks, ask him, brisk capillary refill Data : 03/30/20 03:10 03/30/20 03:10 Micro: Microbiology 03/29/20 16:20 Blood Culture - Preliminary Blood SPECIMEN COLLECTED 03/29/20 07:25 Blood Culture - Preliminary Blood SPECIMEN COLLECTED A&P Assessment and plan (1) Respiratory failure with hypoxia and hypercapnia: Status: Acute Qualifiers: Chronicity: acute Qualified Code(s): J96.01 - Acute respiratory failure with hypoxia; J96.02 - Acute respiratory failure with hypercapnia (2) Suspected COVID-19 virus infection: Status: Acute (3) Pneumonia: Status: Acute Qualifiers: Laterality: bilateral Lung location: lower lobe of lung Pneumonia type: due to unspecified organism Qualified Code(s): J18.9 - Pneumonia, unspecified organism (4) COPD (chronic obstructive pulmonary disease): Status: Acute Qualifiers: COPD type: emphysema Emphysema type: panlobular Qualified Code(s): J43.1 - Panlobular emphysema (5) Rheumatoid arthritis with rheumatoid factor of multiple sites without organ or systems involvement: Status: Chronic (6) Current chronic use of systemic steroids: Status: Chronic (7) Hypertension: Status: Chronic Qualifiers: Hypertension type: essential hypertension Qualified Code(s): I10 - Essential (primary) hypertension (8) Hyperlipidemia: Status: Chronic Qualifiers: Hyperlipidemia type: unspecified Qualified Code(s): E78.5 - Hyperlipidemia, unspecified (9) Hypothyroidism: Status: Chronic Qualifiers: Hypothyroidism type: unspecified Qualified Code(s): E03.9 - Hypothyroidism, unspecified (10) GERD (gastroesophageal reflux disease): Status: Chronic Qualifiers: Esophagitis presence: without esophagitis Qualified Code(s): K21.9 - Gastro-esophageal reflux disease without esophagitis Additional A&P Information Inpatient admission Rocephin and doxycycline Continue home hydroxychloroquine and 10 mg p.o. prednisone but will hold leflunomide currently Inhalers currently with transition to nebulizer treatments if needed Continue oxygen therapy Pending results of COVID testing will need to make decision about trilogy device. She does not know her home settings. She understands that we are not using it currently Follow-up pending COVID results Check EKG in the morning Limit Zofran and other medicines that can contribute to QT prolongation in the setting of chronic hydroxychloroquine use. Telemetry monitoring Monitor for need for stress dose steroids Continue home statin, diuretic and verapamil Continue levothyroxine Chronically on PPI Add lactobacillus Lovenox for DVT prophylaxis Supportive care otherwise Currently anticipate disposition back home when medically stable Full code Attestations Medical Necessity Statement*: Anticipated stay greater than 2 midnights given the degree of respiratory distress patient presented with as well as findings on chest x-ray combined with comorbid chronic conditions. Plans are as noted above. Coding Level of Care Code Acute Porcelain Slusher for Chg Fwd Diagnoses Respiratory failure with hypoxia and hypercapnia J96.01; J96.02 Chronicity: acute Suspected COVID-19 virus infection Z20.828 Pneumonia J18.9 Laterality: bilateral Lung location: lower lobe of lung Pneumonia type: due to unspecified organism COPD (chronic obstructive pulmonary disease) J43.1 COPD type: emphysema Emphysema type: panlobular Rheumatoid arthritis with rheumatoid factor of multiple sites without organ or systems involvement M05.79 Current chronic use of systemic steroids Z79.52 Hypertension I10 Hypertension type: essential hypertension Hyperlipidemia E78.5 Hyperlipidemia type: unspecified Hypothyroidism E03.9 Hypothyroidism type: unspecified GERD (gastroesophageal reflux disease) K21.9 Esophagitis presence: without esophagitis
[2020-03-29] MEDS: trazodone 100 mg Tablet PO (20:46)
[2020-03-29] MEDS: enoxaparin 40 mg/0.4 mL Syringe SUBCUT (20:46)
--- NOTE | 2020-03-29 20:54 | PC.NURSE ---
Patient BP 175/98. Patient states that she takes Cozaar 25 mg PO at bedtime, med is currently ordered for 0900 03/30/2020. Dr Ferrari updated, orders received to change Cozaar 25 mg PO to be administered at 2100 daily.
[2020-03-29] MEDS: guaiFENesin 100 mg/5 mL UDC 10 mL 400 MG PO (21:15)
[2020-03-29] MEDS: losartan 50 mg Tablet 25 MG PO (21:16)
[2020-03-29] MEDS: FUROsemide 10 mg/mL SDV 4mL 40 MG IVP (22:01)
--- NOTE | 2020-03-29 22:12 | PC.NURSE ---
Dr Ferrari paged at [id number] regarding patient's increased RR and work of breathing. Orders received for 40 mg IV lasix, rasheed catheter placement, and BiPap.
[2020-03-30] VITALS (23 sets, daily range): BP systolic 136–173; BP diastolic 68–103; PULSE 70–106; RESP 16–22; TEMP 36.6–37.1; O2SAT 94–98
[2020-03-30 04:07] LABS: Basophils % 0.2 %; Hematocrit 39.3 % (37.0-47.0); Hemoglobin 11.9 g/dL (11.5-15.3); Lymphocytes # 0.6 10^3/uL (0.8-4.8); Lymphocytes % 2.5 %; Mean Corpuscular HGB Conc 30.3 g/dL (30.0-36.0); Mean Corpuscular Hemoglobin 28.3 pg (28.0-34.0); Mean Corpuscular Volume 93.3 fL (81-99); Mean Platelet Volume 11.6 fL (7.4-10.4); Monocytes # 0.9 10^3/uL (0.2-0.9); Monocytes % 3.9 %; Neutrophils # 22.1 10^3/uL (1.8-7.7); Neutrophils % 92.8 %; Nucleated Red Blood Cells % 0 %; Platelet Count 267 10^3/cmm (130-400); Red Blood Count 4.21 10^6/uL (4.1-5.3); Red Cell Distribution Width 13.8 % (12.1-15.1); White Blood Count 23.8 10^3/uL (4.0-10.0)
[2020-03-30] MEDS: albuterol 8 gm MDI 2 PUFF INHALATION ×5 (04:13→20:37)
[2020-03-30 04:28] LABS: Alanine Aminotransferase 24 U/L (0-33); Albumin Level 3.5 g/dL (3.5-5.2); Alkaline Phosphatase 120 IU/L (35-105); Anion Gap 17.9 (5-19); Aspartate Amino Transferase 23 U/L (0-32); Blood Urea Nitrogen 17 mg/dL (8-23); Calcium 10.4 mg/dL (8.5-10.5); Carbon Dioxide 27 mmol/L (22-29); Chloride 99 mmol/L (98-107); Glomerular Filtration Rate 71.8 mL/min (90-130); Glucose 101 mg/dL (65-115); Osmolality Calculated 287 mOsm/kg (285-295); Potassium 3.9 mmol/L (3.5-5.1); Sodium 140 mmol/L (136-145); Total Bilirubin 0.2 mg/dL (0.15-1.2); Total Protein 6.5 g/dL (6.6-8.7)
[2020-03-30 04:29] LABS: NT Pro B Type Natriuretic Pept 1528 pg/mL (0-125); Procalcitonin 4.29 ng/mL (0-0.5)
[2020-03-30 04:42] LABS: Lactate Dehydrogenase 282 U/L (135-214)
[2020-03-30] MEDS: verapamil ER 180 mg Tablet PO (05:39)
[2020-03-30] MEDS: FUROsemide 20 mg Tablet PO (05:39)
[2020-03-30] MEDS: cefTRIAXone 1,000 MG in sodium chloride 0.9% (plus) 50 ML 100 MG IV ×2 (07:43→20:05)
[2020-03-30] MEDS: ferrous sulfate EC 325 mg Tablet PO (07:45)
--- NOTE | 2020-03-30 08:43 | PM.PN ---
Subjective Subjective: Interval history: AM evaluation with nursing/Chart review: Patient required some IV Lasix last night. IV fluids were decreased. Vora catheter was placed. She is about 2500 cc of urine output after that. Procalcitonin level has come back elevated making COVID-19 less likely. Results are still pending however. Overall patient is doing better this morning. Will reevaluate later today pending official COVID results. PM visit: Patient is feeling much better. Has tolerated some oral intake. Occasionally with some nausea but not near like she had been. Breathing has improved significantly. No new complaints. COVID testing came back negative today Vitals/I&O/Wt Last Vital Signs Temp 98.3 F 03/30/20 06:00 Pulse 93 03/30/20 07:57 Resp 16 03/30/20 07:57 BP 145/72 03/30/20 07:57 Pulse Ox 97 03/30/20 07:57 03/29/20 03/30/20 03/30/20 22:59 06:59 14:59 Intake Total 750 / 1050 50 / 1100 Output Total 75 / 75 2300 / 2375 Balance 675 / 975 -2250 / -1275 Weight last 48 hrs Weight 66.406 kg Weight 66.678 kg Physical Exam Const: OTHER: Alert, oriented x3, cooperative, not near as ill-appearing HENMT: OTHER: Normocephalic atraumatic, cheeks are not as red Neck/C-Spine: OTHER: Supple Resp: OTHER: Decreased cough today, no accessory muscle use, scattered wheezes remain Cardio: OTHER: Regular rhythm GI: OTHER: Abdomen soft, nontender, positive bowel sounds : OTHER: Catheter noted Extremity: NARRATIVE EXTREMITY EXAM: No pitting edema Neuro: OTHER: Face symmetric, speech clear, moves all extremities Psych: OTHER: Normal affect, appropriate responses to questions, more eager to communicate today Skin: OTHER: Dry skin, no new findings l Urinary Catheter Management^: Vora: Cath Placed During This Visit: yes Reason for Continuing Indwelling Catheter: Accurate Measurement of Urinary Output in Critically Ill Patients Urinary Catheter Date of Insertion: 03/29/20 Urinary Catheter Time of Insertion: 21:45 Data : 03/30/20 03:10 03/30/20 03:10 Micro: Microbiology 03/29/20 07:25 Blood Culture - Preliminary Blood NEGATIVE TO DATE 03/29/20 16:20 Blood Culture - Preliminary Blood SPECIMEN COLLECTED A&P Assessment and plan (1) Respiratory failure with hypoxia and hypercapnia: Status: Acute Qualifiers: Chronicity: acute Qualified Code(s): J96.01 - Acute respiratory failure with hypoxia; J96.02 - Acute respiratory failure with hypercapnia (2) Pneumonia: Status: Acute Qualifiers: Pneumonia type: due to unspecified organism Laterality: bilateral Lung location: lower lobe of lung Qualified Code(s): J18.9 - Pneumonia, unspecified organism (3) COPD (chronic obstructive pulmonary disease): Status: Acute Qualifiers: COPD type: emphysema Emphysema type: panlobular Qualified Code(s): J43.1 - Panlobular emphysema (4) Rheumatoid arthritis with rheumatoid factor of multiple sites without organ or systems involvement: Status: Chronic (5) Current chronic use of systemic steroids: Status: Chronic (6) Hypertension: Status: Chronic Qualifiers: Hypertension type: essential hypertension Qualified Code(s): I10 - Essential (primary) hypertension (7) Hyperlipidemia: Status: Chronic Qualifiers: Hyperlipidemia type: unspecified Qualified Code(s): E78.5 - Hyperlipidemia, unspecified (8) Hypothyroidism: Status: Chronic Qualifiers: Hypothyroidism type: unspecified Qualified Code(s): E03.9 - Hypothyroidism, unspecified (9) GERD (gastroesophageal reflux disease): Status: Chronic Qualifiers: Esophagitis presence: without esophagitis Qualified Code(s): K21.9 - Gastro-esophageal reflux disease without esophagitis (10) Suspected COVID-19 virus infection: Status: Ruled-out Additional A&P Information Transfer to floor today Continue Rocephin and doxycycline Resume hydroxychloroquine as per my discussion with pharmacy, on home 10 mg p.o. prednisone dosing but currently holding leflunomide And nebulizer treatments if needed Continue oxygen therapy Resume trilogy use We will give an additional dose of IV Lasix and resume oral in the morning Likely discontinue catheter tomorrow Echocardiogram EKG in the morning Limit medicines that can contribute to QT prolongation in the setting of chronic hydroxychloroquine use Telemetry monitoring Monitor for need for stress dose steroids Continue home statin, diuretic and verapamil Continue levothyroxine Chronically on citalopram, aware of interaction with hydroxychloroquine Chronically on PPI On lactobacillus Lovenox for DVT prophylaxis Supportive care otherwise Currently anticipate disposition back home when medically stable Full code Attestations Medical Necessity Statement*: Requires ongoing inpatient stay for continued management as noted above Coding Level of Care Code Acute Scientist/Engineer for Chg Fwd Diagnoses Respiratory failure with hypoxia and hypercapnia J96.01; J96.02 Chronicity: acute Pneumonia J18.9 Pneumonia type: due to unspecified organism Laterality: bilateral Lung location: lower lobe of lung COPD (chronic obstructive pulmonary disease) J43.1 COPD type: emphysema Emphysema type: panlobular Rheumatoid arthritis with rheumatoid factor of multiple sites without organ or systems involvement M05.79 Current chronic use of systemic steroids Z79.52 Hypertension I10 Hypertension type: essential hypertension Hyperlipidemia E78.5 Hyperlipidemia type: unspecified Hypothyroidism E03.9 Hypothyroidism type: unspecified GERD (gastroesophageal reflux disease) K21.9 Esophagitis presence: without esophagitis Suspected COVID-19 virus infection Z20.828
--- NOTE | 2020-03-30 10:00 | ECG_ITS ---
"Measurements Intervals [place] Rate: 101 P: 57 IA: 135 QRS: -52 QRSD: 108 T: 78 QT: 366 QTc: 475 SINUS TACHYCARDIA POSSIBLE LEFT ATRIAL ENLARGEMENT [-0.1mV P WAVE IN V1/V2] MARKED LEFT AXIS DEVIATION [QRS AXIS < -30] Compared to ECG 03/29/2020 08:15:44 T-wave abnormality no longer present Electronically Signed On 03-30-2020 11:49:39 CDT by Tobi Phillips M.D. [email or web address]"
[2020-03-30] MEDS: atorvastatin 40 mg Tablet 20 MG PO (10:02)
[2020-03-30] MEDS: levothyroxine 112 mcg Tablet PO (10:03)
[2020-03-30] MEDS: lactobacillus 1 Tablet 1 TAB PO ×2 (10:03→17:32)
[2020-03-30] MEDS: pantoprazole DR 40 mg Tablet PO ×2 (10:03→17:32)
[2020-03-30] MEDS: predniSONE 10 mg Tablet PO (10:03)
[2020-03-30] MEDS: doxycycline 100 mg Tablet PO ×2 (10:03→17:32)
[2020-03-30] MEDS: fexofenadine 60 mg Tablet 180 MG PO (10:04)
[2020-03-30] MEDS: aspirin 81 mg EC Tablet PO (10:04)
[2020-03-30 12:02] LABS: Coronavirus Lab Test PTC NOT DETECTED
[2020-03-30] MEDS: trazodone 100 mg Tablet PO (20:04)
[2020-03-30] MEDS: losartan 50 mg Tablet 25 MG PO (20:04)
[2020-03-30] MEDS: enoxaparin 40 mg/0.4 mL Syringe SUBCUT (20:05)
[2020-03-30] MEDS: sodium chloride 0.9% 1,000 ML 25 ML IV (20:05)
[2020-03-30] MEDS: FUROsemide 10 mg/mL SDV 4mL 40 MG IVP (21:13)
--- NOTE | 2020-03-30 21:39 | PC.NURSE ---
Report called to AARON Wang on med-surg floor.
[2020-03-31] VITALS (12 sets, daily range): BP systolic 127–162; BP diastolic 73–81; PULSE 76–94; RESP 16–21; TEMP 36.4–36.7; O2SAT 92–97
[2020-03-31 05:21] LABS: Basophils % 0.2 %; Eosinophils % 0.1 %; Hematocrit 37.8 % (37.0-47.0); Hemoglobin 11.6 g/dL (11.5-15.3); Lymphocytes # 1.1 10^3/uL (0.8-4.8); Lymphocytes % 6.6 %; Mean Corpuscular HGB Conc 30.7 g/dL (30.0-36.0); Mean Corpuscular Hemoglobin 28.9 pg (28.0-34.0); Mean Platelet Volume 11.5 fL (7.4-10.4); Monocytes # 0.6 10^3/uL (0.2-0.9); Monocytes % 3.7 %; Neutrophils # 15.2 10^3/uL (1.8-7.7); Neutrophils % 88.6 %; Nucleated Red Blood Cells % 0 %; Platelet Count 228 10^3/cmm (130-400); Red Blood Count 4.02 10^6/uL (4.1-5.3); Red Cell Distribution Width 13.7 % (12.1-15.1); White Blood Count 17.1 10^3/uL (4.0-10.0)
[2020-03-31 05:41] LABS: Anion Gap 17.5 (5-19); Blood Urea Nitrogen 18 mg/dL (8-23); Calcium 9.9 mg/dL (8.5-10.5); Carbon Dioxide 28 mmol/L (22-29); Chloride 96 mmol/L (98-107); Glomerular Filtration Rate 71.8 mL/min (90-130); Glucose 95 mg/dL (65-115); Magnesium 1.9 mg/dL (1.7-2.3); Osmolality Calculated 282 mOsm/kg (285-295); Potassium 3.5 mmol/L (3.5-5.1); Sodium 138 mmol/L (136-145)
[2020-03-31] MEDS: FUROsemide 20 mg Tablet PO (06:11)
[2020-03-31] MEDS: acetaminophen 325 mg Tablet 650 MG PO ×2 (06:12→09:52)
[2020-03-31] MEDS: verapamil ER 180 mg Tablet PO (06:12)
--- NOTE | 2020-03-31 08:00 | ECG_ITS ---
Measurements Intervals [place] Rate: 89 P: 47 MA: 132 QRS: -44 QRSD: 110 T: 71 QT: 372 QTc: 454 SINUS RHYTHM LEFT ATRIAL ENLARGEMENT [-0.15mV P WAVE IN V1/V2] MARKED LEFT AXIS DEVIATION [QRS AXIS < -30] Compared to ECG 03/30/2020 09:07:21 Sinus tachycardia no longer present Electronically Signed On 04-01-2020 16:29:20 CDT by Sandy Glynn M.D. [email or web address]
[2020-03-31] MEDS: albuterol 8 gm MDI 2 PUFF INHALATION ×2 (08:02→20:07)
[2020-03-31] MEDS: doxycycline 100 mg Tablet PO ×2 (09:52→17:09)
[2020-03-31] MEDS: pantoprazole DR 40 mg Tablet PO ×2 (09:52→17:08)
[2020-03-31] MEDS: lactobacillus 1 Tablet 1 TAB PO ×2 (09:52→17:09)
[2020-03-31] MEDS: levothyroxine 112 mcg Tablet PO (09:53)
[2020-03-31] MEDS: aspirin 81 mg EC Tablet PO (09:53)
[2020-03-31] MEDS: ferrous sulfate EC 325 mg Tablet PO (09:53)
[2020-03-31] MEDS: predniSONE 10 mg Tablet PO (09:53)
[2020-03-31] MEDS: cefTRIAXone 1,000 MG in sodium chloride 0.9% (plus) 50 ML 100 MG IV ×2 (09:53→21:06)
[2020-03-31] MEDS: atorvastatin 40 mg Tablet 20 MG PO (09:53)
[2020-03-31] MEDS: citalopram 20 mg Tablet PO (09:53)
[2020-03-31] MEDS: hydroxychloroquine 200 mg Tablet 400 MG PO (09:58)
[2020-03-31] MEDS: fexofenadine 60 mg Tablet 180 MG PO (09:58)
[2020-03-31] MEDS: TRAMadol 50 mg Tablet PO ×3 (12:31→20:23)
[2020-03-31] MEDS: enoxaparin 40 mg/0.4 mL Syringe SUBCUT (17:09)
[2020-03-31] MEDS: losartan 50 mg Tablet 25 MG PO (20:22)
[2020-03-31] MEDS: trazodone 100 mg Tablet PO (20:23)
--- NOTE | 2020-03-31 20:35 | USCV_ITS ---
Gabby Garcia Age: 64 Gender: F : 1955 Exam Date: 03/31/2020 09:09 Ordering Phys: Felicia Espinal MD Technologist: Ana August Exam Location: [facility] [place] Indication: CHF, RESP DISTRESS BP: 144 / 81 HR: 90 Rhythm: Sinus Technical Quality: Fair MEASUREMENTS (Male / Female) Normal Values 2D ECHO LV Diastolic Diameter PLAX 3.8 cm 4.2 - 5.9 / 3.9 - 5.3 cm LV Systolic Diameter PLAX 2.5 cm LV Chamber Size 2.8 cm IVS Diastolic Thickness 1.8 cm 0.6 - 1.0 / 0.6 - 0.9 cm IVS Systolic Thickness 2.1 cm LVPW Diastolic Thickness 2.1 cm 0.6 - 1.0 / 0.6 - 0.9 cm LVPW Systolic Thickness 2.5 cm RV Chamber Size 2.6 cm LVOT Diameter 2.0 cm LV Ejection Fraction 2D Teich 64.9 % LV Ejection Fraction MOD 2C 42.2 % LV Ejection Fraction 2C AL 45.9 % LA Diameter 3.6 cm LA Width 4.5 cm LA Height 3.8 cm RA Width 3.3 cm RA Height 4.8 cm M-MODE LV Diastolic Diameter MM 4.6 cm 4.2 - 5.9 / 3.9 - 5.3 cm LV Systolic Diameter MM 2.9 cm LV Ejection Fraction MM Teich 65.5 % IVS Diastolic Thickness MM 1.1 cm 0.6 - 1.0 / 0.6 - 0.9 cm IVS Systolic Thickness MM 1.2 cm LVPW Diastolic Thickness MM 1.1 cm 0.6 - 1.0 / 0.6 - 0.9 cm LVPW Systolic Thickness MM 1.6 cm Aortic Annulus Diameter 3.5 cm LA Ao Ratio MM 1.1 MV E Point Septal Separation 0.5 cm DOPPLER AV Peak Velocity 184.0 cm/s LVOT Peak Velocity 128.0 cm/s AV Area Cont Eq vti 2.7 cm squared AV Area Cont Eq pk 2.2 cm squared MV Area PHT 4.5 cm squared Mitral E to A Ratio 0.7 MV E' Velocity 9.0 cm/s Mitral E to MV E' Ratio 11.2 Mitral E to LV E' Lateral Ratio 10.1 Mitral E to LV E' Septal Ratio 12.6 TR Peak Velocity 204.0 cm/s TR Peak Gradient 16.7 mmHg TV Peak E Velocity 53.0 cm/s Right Atrial Pressure 3.0 mmHg Pulmonary Artery Systolic Pressu 19.6 mmHg PV Peak Velocity 108.0 cm/s RV Acceleration Time 0.1 s RV Ejection Time 0.3 s RV AcT/ET 0.4 FINDINGS Left Ventricle Normal left ventricular cavity size. Normal left ventricular systolic function. Moderate concentric left ventricular hypertrophy. Left ventricular ejection fraction is estimated at 75%. No regional wall motion abnormalities. Grade I diastolic dysfunction (abnormal relaxation filling pattern), normal to mildly elevated filling pressures. Right Ventricle Normal right ventricular size and systolic function, RVSP 19.6 mmHg. Right Atrium Normal right atrial size. Right atrial pressure estimated at 3 mmHg. Left Atrium Normal left atrial size. Mitral Valve Structurally normal mitral valve. No mitral valve stenosis. No significant mitral valve regurgitation. Aortic Valve Aortic valve not well visualized. No aortic valve stenosis. No aortic valve regurgitation. Tricuspid Valve Structurally normal tricuspid valve. Trace tricuspid valve regurgitation. Pulmonic Valve Pulmonic valve not well visualized. No pulmonary valve stenosis. Pericardium No pericardial effusion. Aorta Normal-sized aortic root. CONCLUSIONS 1. Normal left ventricular cavity size and systolic function. Moderate concentric left ventricular hypertrophy. Left ventricular ejection fraction is estimated at 75%. No regional wall motion abnormalities. Grade I diastolic dysfunction (abnormal relaxation filling pattern), normal to mildly elevated filling pressures. 2. Normal right ventricular size and systolic function, RVSP 19.6 mmHg. 3. No significant valvular abnormality. 4. When compared to previous echocardiogram dated 11/21/2018, there has been no significant change. Sandy Glynn MD (Electronically Signed) Final Date: 31 Mar 2020 13:55 S
--- NOTE | 2020-03-31 21:21 | PM.PN ---
Subjective Subjective: Interval history: Patient overall doing better. She has not been up walking around very much. Still requiring oxygen around the clock. Cough is less productive. Tolerating oral intake Vitals/I&O/Wt Last Vital Signs Temp 97.9 F 03/31/20 19:56 Pulse 81 03/31/20 20:08 Resp 16 03/31/20 20:08 BP 127/75 03/31/20 20:22 Pulse Ox 95 03/31/20 20:08 03/31/20 03/31/20 03/31/20 06:59 14:59 22:59 Intake Total 490 / 490 240 / 730 Output Total 2250 / 2450 Balance -2250 / -1989 490 / 490 240 / 730 Weight last 48 hrs Weight 70.08 kg Weight 66.406 kg Physical Exam Const: OTHER: Alert, oriented x3 HENMT: OTHER: Cheeks less red today Eye: OTHER: P Neck/C-Spine: OTHER: Supple Resp: OTHER: Significant decrease in wheezing, still with some rhonchi at right base Cardio: OTHER: Regular rhythm GI: OTHER: Abdomen soft, nontender, positive bowel sounds Extremity: NARRATIVE EXTREMITY EXAM: No pitting edema Neuro: OTHER: Face symmetric, speech clear, moves all extremities Urinary Catheter Management^: Vora: Cath Placed During This Visit: yes, but has since been removed by the nurse Reason for Continuing Indwelling Catheter: Other Urinary Catheter Date of Insertion: 03/29/20 Urinary Catheter Time of Insertion: 21:45 Date Urinary Catheter Removed: 03/31/20 Data : 03/31/20 04:48 03/31/20 04:48 Micro: Microbiology 03/29/20 16:10 Gram Stain - Final Sputum - Expectorated Sputum 03/29/20 16:20 Blood Culture - Preliminary Blood NEGATIVE TO DATE A&P Assessment and plan (1) Respiratory failure with hypoxia and hypercapnia: Status: Acute Qualifiers: Chronicity: acute Qualified Code(s): J96.01 - Acute respiratory failure with hypoxia; J96.02 - Acute respiratory failure with hypercapnia (2) Pneumonia: Status: Acute Qualifiers: Pneumonia type: due to unspecified organism Laterality: bilateral Lung location: lower lobe of lung Qualified Code(s): J18.9 - Pneumonia, unspecified organism (3) COPD (chronic obstructive pulmonary disease): Status: Acute Qualifiers: COPD type: emphysema Emphysema type: panlobular Qualified Code(s): J43.1 - Panlobular emphysema (4) Rheumatoid arthritis with rheumatoid factor of multiple sites without organ or systems involvement: Status: Chronic (5) Current chronic use of systemic steroids: Status: Chronic (6) Hypertension: Status: Chronic Qualifiers: Hypertension type: essential hypertension Qualified Code(s): I10 - Essential (primary) hypertension (7) Hyperlipidemia: Status: Chronic Qualifiers: Hyperlipidemia type: unspecified Qualified Code(s): E78.5 - Hyperlipidemia, unspecified (8) Hypothyroidism: Status: Chronic Qualifiers: Hypothyroidism type: unspecified Qualified Code(s): E03.9 - Hypothyroidism, unspecified (9) GERD (gastroesophageal reflux disease): Status: Chronic Qualifiers: Esophagitis presence: without esophagitis Qualified Code(s): K21.9 - Gastro-esophageal reflux disease without esophagitis (10) Suspected COVID-19 virus infection: Status: Ruled-out Additional A&P Information Continue Rocephin and doxycycline Continue breathing treatments and oxygen therapy Discussed with patient she will need to wear oxygen [id number] at home Continue trilogy On home hydroxychloroquine and prednisone, currently holding leflunomide On home citalopram Vora catheter discontinue today Echocardiogram demonstrated ejection fraction at 75% with grade 1 diastolic dysfunction, normal right ventricular systolic pressures Limit medicines that can contribute to QT prolongation in the setting of chronic hydroxychloroquine use Telemetry monitoring Add tramadol for neck pain, encourage patient to discuss the development of neck pain with rheumatology upon follow-up Continue home statin and verapamil, resume oral Lasix Continue levothyroxine Chronically on citalopram, aware of interaction with hydroxychloroquine Chronically on PPI On lactobacillus Lovenox for DVT prophylaxis Supportive care otherwise Currently anticipate disposition back home, with home oxygen, likely tomorrow Full code Attestations Medical Necessity Statement*: Requires ongoing inpatient stay for continued treatment while patient increases her activity level gets back on her regular diuretic dosing Coding Level of Care Code Acute [employer] Diagnoses Respiratory failure with hypoxia and hypercapnia J96.01; J96.02 Chronicity: acute Pneumonia J18.9 Pneumonia type: due to unspecified organism Laterality: bilateral Lung location: lower lobe of lung COPD (chronic obstructive pulmonary disease) J43.1 COPD type: emphysema Emphysema type: panlobular Rheumatoid arthritis with rheumatoid factor of multiple sites without organ or systems involvement M05.79 Current chronic use of systemic steroids Z79.52 Hypertension I10 Hypertension type: essential hypertension Hyperlipidemia E78.5 Hyperlipidemia type: unspecified Hypothyroidism E03.9 Hypothyroidism type: unspecified GERD (gastroesophageal reflux disease) K21.9 Esophagitis presence: without esophagitis Suspected COVID-19 virus infection Z20.828
[2020-04-01] VITALS (10 sets, daily range): BP systolic 123–145; BP diastolic 64–81; PULSE 65–84; RESP 16–27; TEMP 35.9–36.8; O2SAT 92–97
[2020-04-01] MEDS: morphine 4 mg/mL SDV 1 mL 2 MG IVP ×2 (00:41→06:27)
[2020-04-01 05:29] LABS: Add Urine Microscopic? YES; Bilirubin Urine Neg (NEGATIVE); Blood Urine 3+ (Negative); Glucose Urine UA Norm (Normal); Ketones Urine Negative (Negative); Leukocyte Esterase Urine 1+ (Negative); Nitrate Urine Negative (Negative); Protein Urine 1+ (Negative); Urine Appearance Cloudy (CLEAR); Urine Color Red (Yellow); Urobilinogen Urine Norm (Negative); pH Urine 5 (5-7)
[2020-04-01 05:30] LABS: Add Urine Culture? Yes; Bacteria Urine 1+; RBC Urine >100 /hpf (0-2); Squamous Epithelial Cell Urine 0-4 (0-5)
[2020-04-01] MEDS: FUROsemide 20 mg Tablet PO (06:18)
[2020-04-01] MEDS: verapamil ER 180 mg Tablet PO (06:18)
[2020-04-01] MEDS: albuterol 8 gm MDI 2 PUFF INHALATION ×3 (07:55→12:55)
[2020-04-01] MEDS: cefTRIAXone 1,000 MG in sodium chloride 0.9% (plus) 50 ML 100 MG IV (08:35)
[2020-04-01] MEDS: lactobacillus 1 Tablet 1 TAB PO (08:36)
[2020-04-01] MEDS: predniSONE 10 mg Tablet PO (08:36)
[2020-04-01] MEDS: pantoprazole DR 40 mg Tablet PO (08:36)
[2020-04-01] MEDS: aspirin 81 mg EC Tablet PO (08:36)
[2020-04-01] MEDS: levothyroxine 112 mcg Tablet PO (08:36)
[2020-04-01] MEDS: citalopram 20 mg Tablet PO (08:36)
[2020-04-01] MEDS: hydroxychloroquine 200 mg Tablet 400 MG PO (08:37)
[2020-04-01] MEDS: doxycycline 100 mg Tablet PO (08:37)
[2020-04-01] MEDS: fexofenadine 60 mg Tablet 180 MG PO (08:37)
[2020-04-01] MEDS: atorvastatin 40 mg Tablet 20 MG PO (08:38)
[2020-04-01] MEDS: ferrous sulfate EC 325 mg Tablet PO (08:43)
--- NOTE | 2020-04-01 11:32 | PC.NURSE ---
Doctor at bedside and order for discontinuation of catheter and walk patient. Catheter was removed with no complications and patient tolerated well. Balloon intact and 400mL output recorded.
--- NOTE | 2020-04-01 12:05 | PC.SOCIAL ---
Pg 2 IMM Explained to Pt Pg 2 IMM. Pt verbally understands. No questions voiced. Provided pt a copy & left on pt's bedside table. Signed, dated, & timed a copy & placed in pt's chart.
--- NOTE | 2020-04-01 12:42 | PM.DCS ---
Discharge Providers Date of Admission: 03/29/20 10:04 Date of Discharge: April 01, 2020 Attending Provider at Admission: Felicia Espinal MD Attending Provider at Discharge: Felicia Espinal MD Primary Care Provider: Ladonna Rutledge MD Diagnoses at Discharge Discharge Diagnosis (1) Respiratory failure with hypoxia and hypercapnia: Status: Resolved (2) Pneumonia: Status: Acute (3) COPD (chronic obstructive pulmonary disease): Status: Chronic Problem details: Uses home trilogy device, PRN oxygen (4) Rheumatoid arthritis with rheumatoid factor of multiple sites without organ or systems involvement: Status: Chronic Problem details: leflunomide, hydroxychloroquine, prn prednisone for flares (5) Current chronic use of systemic steroids: Status: Chronic (6) Hypertension: Status: Chronic Qualifiers: Hypertension type: essential hypertension Qualified Code(s): I10 - Essential (primary) hypertension (7) Hyperlipidemia: Status: Chronic Qualifiers: Hyperlipidemia type: unspecified Qualified Code(s): E78.5 - Hyperlipidemia, unspecified (8) Hypothyroidism: Status: Chronic Qualifiers: Hypothyroidism type: unspecified Qualified Code(s): E03.9 - Hypothyroidism, unspecified (9) GERD (gastroesophageal reflux disease): Status: Chronic Qualifiers: Esophagitis presence: without esophagitis Qualified Code(s): K21.9 - Gastro-esophageal reflux disease without esophagitis (10) Suspected COVID-19 virus infection: Status: Ruled-out Reason for Visit Reason for Visit: Reason For Visit: SOB Hospital Course Hospital Course: her usual steroid dose.Mrs. Garcia presented to the emergency room with significant shortness of breath and difficulty breathing. Episode of shortness of breath was preceded by some vomiting. She attributes that to her severe reflux. She has had a history of aspiration events in the past and felt like she had aspirated again. With the difficulty breathing she had some further vomiting and struggled to breathe even more prompting the EMS visit. She was noted to be in significant distress by ED. She does not normally wear oxygen during the day, usually just at night but she was requiring 4 L. Initial ABG showed 7.40/48/77/30. Saturations in the field were as low as 72 to 76%. Patient was found to have evidence right lower lobe pneumonia felt to be aspiration pneumonia. She is chronically on immunosuppressive therapy with leflunomide, hydroxychloroquine and prednisone. She is admitted for further care. She was tested for COVID-19 and was found to be negative. She received antibiotics of clindamycin and Rocephin. She received her usual prednisone dosing. I did not increase it at this time as she showed improvement and did not have any significant changes in heart rate or blood pressure. She remained afebrile throughout the stay. She did require some Lasix. Vora catheter was placed when the Lasix was given. She had significant output from this and in some respects I think the diuresis probably helped her as much if not more than anything. Echocardiogram was done that showed normal left ventricular size and systolic function although she was noted to have moderate concentric left ventricular hypertrophy. Left ventricular ejection fraction was estimated at 75%. No regional wall motion abnormalities were noted. She did have grade 1 diastolic dysfunction with normal to mildly elevated filling pressures. Normal right ventricular systolic function was also noted at 19 mmHg. No valve abnormalities were identified. Later in the hospital stay she started having some neck discomfort. She attributed it to the pillows here at the hospital. I asked her to make sure to let Rheumatology know about the neck pain. That is not an area that she has been previously known to have issues with but as all people with rheumatoid arthritis are she is at risk of complications there. Count trended down but was not back to normal prior to discharge. Electrolytes were normal. Physical Exam Narrative: EXAM NARRATIVE: Patient was awake and alert. Much less ill-appearing. Still has slightly flushed cheeks but she later told me that that was baseline for her. She has some scattered wheezes and some persistent rhonchi at the right base but no accessory muscle use, not tachypneic. She has a regular rhythm. Episode of shortness of breath was preceded by some vomiting. She attributes that to her severe reflux. She has had a history of aspiration events in the past and felt like she had aspirated again. With the difficulty breathing she had some further vomiting and struggled to breathe even more prompting the EMS visit. Urinary Catheter Management^: Vora: Cath Placed During This Visit: yes, but has since been removed by the nurse Reason for Continuing Indwelling Catheter: Decision to DC Catheter Urinary Catheter Date of Insertion: 03/29/20 Urinary Catheter Time of Insertion: 21:45 Date Urinary Catheter Removed: 04/01/20 Time Urinary Catheter Discontinued: 11:46 Discharge Data Data Completed and Pending: Completed Studies During Hospitalization Category Date Time Status XR chest 1V quang ble [id number] Stat Exams 03/29/20 07:05 Completed CV echo complete* [id number] Routine Ultrasound 03/31/20 20:35 Completed Pending at discharge Category Date Time Status Arterial Blood Ga s Full Stat Lab 03/29/20 07:20 Results Blood Culture Sta t Lab 03/29/20 16:20 Results Sputum Culture an d Gram Stain Stat Lab 03/29/20 16:10 Results Urine Culture Rou bonilla Lab 04/01/20 04:30 Received Labs from last 24 hours 04/01/20 04:30 Urine Color Red Urine Appearance Cloudy Urine pH 5 Ur Specific Gravit y 1.030 Urine Protein 1+ H Urine Glucose (UA) Norm Urine Ketones Negative Urine Blood 3+ H Urine Nitrate Negative Urine Bilirubin Neg Urine Urobilinogen Norm Ur Leukocyte Gillian ase 1+ H Urine RBC >100 H Urine WBC 10-15 H Ur Squamous Epith Cells 0-4 H Urine Bacteria 1+ H Laboratory Tests 04/01/19 03/29/20 03/29/20 08:11 07:20 07:25 WBC Hgb Hct Plt Count D-Dimer 3.16 H ABG pH 7.40 ABG pCO2 48.2 H ABG pO2 77.4 L ABG HCO3 30.1 H Sodium Potassium Chloride Carbon Dioxide Anion Gap BUN Creatinine GFR Calculation Glucose Calculated Osmolal ity Calcium Magnesium Lactate Dehydrogen ase Troponin T Baselin e 35 H Troponin T 120 Min sh[place]cock Delta Troponin T NT-Pro-B Natriuret Pep Procalcitonin Nasal/Oral COVID-1 9 PCR Influenza Type A A g Influenza Type B A g 03/29/20 03/29/20 03/29/20 07:25 08:15 10:30 WBC Hgb Hct Plt Count D-Dimer ABG pH ABG pCO2 ABG pO2 ABG HCO3 Sodium Potassium Chloride Carbon Dioxide Anion Gap BUN Creatinine GFR Calculation Glucose Calculated Osmolal ity Calcium Magnesium Lactate Dehydrogen ase Troponin T Baselin e Troponin T 120 Min [place] 27.21 H Delta Troponin T -7.79 L NT-Pro-B Natriuret Pep Procalcitonin Nasal/Oral COVID-1 9 PCR Not detected Influenza Type A A g Negative Influenza Type B A g Negative 05/14/20 05/14/20 05/15/20 03:10 03:10 04:48 WBC 23.8 H 17.1 H Hgb 11.6 Hct 37.8 Plt Count 228 D-Dimer ABG pH ABG pCO2 ABG pO2 ABG HCO3 Sodium Potassium Chloride Carbon Dioxide Anion Gap BUN Creatinine GFR Calculation Glucose Calculated Osmolal ity Calcium Magnesium Lactate Dehydrogen ase 282 H Troponin T Baselin e Troponin T 120 Min [place] Delta Troponin T NT-Pro-B Natriuret Pep 1528 H Procalcitonin 4.29 H Nasal/Oral COVID-1 9 PCR Influenza Type A A g Influenza Type B A g 03/31/20 04:48 WBC Hgb Hct Plt Count D-Dimer ABG pH ABG pCO2 ABG pO2 ABG HCO3 Sodium 138 Potassium 3.5 Chloride 96 L Carbon Dioxide 28 Anion Gap 17.5 BUN 18 Creatinine 0.8 GFR Calculation 71.8 L Glucose 95 Calculated Osmolal ity 282 L Calcium 9.9 Magnesium 1.9 Lactate Dehydrogen ase Troponin T Baselin e Troponin T 120 Min [place] Delta Troponin T NT-Pro-B Natriuret Pep Procalcitonin Nasal/Oral COVID-1 9 PCR Influenza Type A A g Influenza Type B A g Vitals: Last Vital Signs Temp 97.8 F 04/01/20 11:22 Pulse 79 04/01/20 11:49 Resp 16 04/01/20 11:49 BP 123/64 04/01/20 11:22 Pulse Ox 97 04/01/20 11:49 Discharge Plan Discharge Patient Disposition: Home, Self-Care Condition: Stable Prescriptions: New acetaminophen 325 mg Tablet 650 mg PO Q6H PRN (Reason: Mild/Mod Pain Or Temp >/= 101) Qty: 0 RF: 0 doxycycline monohydrate 100 mg Tablet 100 mg PO BID Qty: 14 RF: 0 tramadol 50 mg Tablet 50 mg PO Q4H PRN (Reason: Moderate Pain) Qty: 10 RF: 0 Floranex 1 million cell Tablet 1 tab PO BID Qty: 30 RF: 0 cefdinir 300 mg capsule 300 mg PO BID 7 Days Qty: 14 RF: 0 Continued hydroxychloroquine 200 mg tablet 400 mg PO DAILY Qty: 180 RF: 1 prednisone 2.5 mg tablet 10 mg PO DAILY Qty: 120 RF: 2 ergocalciferol (vitamin D2) 50,000 unit capsule 50,000 unit PO .COMPLEX RF: 0 albuterol sulfate [ProAir HFA] 90 mcg/actuation HFA aerosol inhaler 2 puff INHALATION QID PRN (Reason: Shortness Of Breath) RF: 0 pantoprazole [Protonix] 40 mg tablet,delayed release (DR/EC) 40 mg PO BID RF: 0 furosemide [Lasix] 20 mg tablet 20 mg PO QAM RF: 0 levothyroxine [Synthroid] 112 mcg tablet 112 mcg PO DAILY RF: 0 potassium chloride 10 mEq capsule, extended release 10 meq PO DAILY RF: 0 verapamil 180 mg tablet extended release 180 mg PO QAM RF: 0 losartan 25 mg tablet 25 mg PO DAILY RF: 0 pravastatin 40 mg tablet 40 mg PO DAILY RF: 0 trazodone 100 mg tablet 100 mg PO .COMPLEX RF: 0 albuterol sulfate 2.5 mg /3 mL (0.083 %) solution for nebulization 2.5 mg INHALATION QID PRN (Reason: Shortness Of Breath) RF: 0 ferrous sulfate 325 mg (65 mg iron) tablet 325 mg PO DAILY RF: 0 aspirin [Adult Aspirin Regimen] 81 mg tablet,delayed release (DR/EC) 81 mg PO DAILY RF: 0 Perforomist 20 mcg/2 mL solution for nebulization 20 mcg INHALATION BID RF: 0 budesonide 0.5 mg/2 mL suspension for nebulization 0.25 mg INHALATION BID RF: 0 umeclidinium-vilanterol 62.5-25 mcg/actuation blister with device 1 inh INHALATION Q24H RF: 0 citalopram 20 mg tablet 20 mg PO DAILY RF: 0 fexofenadine 180 mg tablet 180 mg PO Q24H RF: 0 Held leflunomide 20 mg tablet 20 mg PO DAILY Qty: 30 RF: 3 Hold Instructions: Resume on 04/10/20. or when directed by Rheumatology Discharge Orders: Discharge Order (Routine); Ordered 04/01/20 Ordered By: Felicia Espinal Referrals: Gerson Esparza MD [Physician] - (You have an appointment with Dr. Esparza and we want you to keep it as scheduled.) Ladonna Rutledge MD [Primary Care Provider] - 7-10 days (Call Friday and schedule a hospital follow up appoinment with Dr. Rutledge in 7-10 days.) Discharge Diet: Usual diet Discharge Activity: Increase activity as tolerated Patient Instructions: Doxycycline (By mouth), Tramadol (By mouth), Cefdinir (By mouth), Viral Pneumonia (DC), Chronic Obstructive Pulmonary Disease (DC), COPD Stoplight Activity Restrictions/Additional Instructions: Wear oxygen at all times presently rather than just at night Use home trilogy as prescribed Discharge Date/Time: 04/01/20 16:08 Discharge Attestations Time Spent in Discharge Care*: greater than 30 min Specific Discharge Activities: Specific discharge activities: educating patient, discussing with director case management/social workers/dc planners, documenting/other paperwork and evaluating patient/reviewing data Quality Metrics Clinical Quality Measures During this hospital stay, did patient experience: None Coding Level of Care Code Acute [employer] for [employer] Diagnoses Respiratory failure with hypoxia and hypercapnia J96.91; J96.92 Pneumonia J18.9 COPD (chronic obstructive pulmonary disease) J44.9 Rheumatoid arthritis with rheumatoid factor of multiple sites without organ or systems involvement M05.79 Current chronic use of systemic steroids Z79.52 Hypertension I10 Hypertension type: essential hypertension Hyperlipidemia E78.5 Hyperlipidemia type: unspecified Hypothyroidism E03.9 Hypothyroidism type: unspecified GERD (gastroesophageal reflux disease) K21.9 Esophagitis presence: without esophagitis Suspected COVID-19 virus infection Z20.828
--- NOTE | 2020-04-01 13:27 | PC.RESP ---
Pulmonary Rehab information given to patient.
--- NOTE | 2020-04-01 14:47 | PC.NURSE ---
Pt. up ambulating around the nurse's station with no difficulties noted at this time. Patient's oxygen remained stable. Already had oxygen at home and family member to pick her up at discharge. Discharge note: Patient discharged via wheelchair and private vehicle with all belongings. IV discontinued, catheter intact.
== END 2020-04-01 16:08 | disposition home or self-care (01) | DRG 177 ==
LOC: ER 09:25 → ICU 12:04 → MEDSURG 03-30 21:50
PROVIDERS: Family Medicine; Internal Medicine; Admitting Provider Hospitalist; PCP Family Medicine; Visit Provider Hospitalist
DX: J69.0 Pneumonitis due to inhalation of food and vomit (principal); J96.02 Acute respiratory failure with hypercapnia; J96.01 Acute respiratory failure with hypoxia; Z87.01 Personal history of pneumonia (recurrent); M06.9 Rheumatoid arthritis, unspecified; D89.9 Disorder involving the immune mechanism, unspecified; Z20.828 Contact with and (suspected) exposure to other viral communicable diseases; F32.9 Major depressive disorder, single episode, unspecified; K21.9 Gastro-esophageal reflux disease without esophagitis; E78.5 Hyperlipidemia, unspecified; I10 Essential (primary) hypertension; E03.9 Hypothyroidism, unspecified; D50.9 Iron deficiency anemia, unspecified; Z98.1 Arthrodesis status; Z87.891 Personal history of nicotine dependence; Z72.89 Other problems related to lifestyle; J43.9 Emphysema, unspecified; Z79.52 Long term (current) use of systemic steroids; Z79.51 Long term (current) use of inhaled steroids
CPT/HCPCS: 12345; 36415; 36600; 51702; 71045; 80048; 80051; 80053; 81001; 82810; 83605; 83615; 83690; 83735; 83880; 83986; 84145; 84484; 85025; 87040; 87070; 87077; 87086; 87186; 87205; 87635; 87804; 93005; 93306; 94640; 96372; 96375; 99284; J0456; J0696; J1650; J1940; J2270; J2930; J3535; J7030; J7050; J7512

== ENCOUNTER 2020-04-07 10:45 | Outpatient (CLI) | payer MEDICARE, OTHER, SELFPAY ==
--- NOTE | 2020-04-07 15:30 | XR_ITS ---
WS: [id number] DEXA (DUAL ENERGY X-RAY ABSORPTIOMETRY) Bone mineral density was performed using a [employer] machine. HISTORY: Chronic steroid use COMPARISON: None available. Lumbar spine BMD (L1-L4): 1.074 g/cm2 T score: -0.9 Z score: 0.7 Total hip BMD: Left: 0.844 g/cm2. T score: -1.3 Z score: -0.1 Right: 0.841 g/cm2. T score: -1.3 Z score: -0.1 10 year probability of a major osteoporotic fracture is 21%. XR/XR DEXA axial skeleton* [id number] IMPRESSION: OSTEOPENIA based upon the WHO classification for females.
== END 2020-04-07 10:46 | disposition home or self-care (01) ==
LOC: RADWPI 10:50
PROVIDERS: PCP Family Medicine; Visit Provider Internal Medicine Rheumatology
DX: Z79.52 Long term (current) use of systemic steroids (principal); M85.89 Other specified disorders of bone density and structure, multiple sites
CPT/HCPCS: 77080

== ENCOUNTER → 2020-04-14 11:57 | Outpatient (BNVA) | payer MEDICARE, OTHER, SELFPAY | PROVIDERS: PCP Family Medicine; Visit Provider Family Medicine | DX: E78.5 Hyperlipidemia, unspecified (principal); E03.9 Hypothyroidism, unspecified; I10 Essential (primary) hypertension; K21.9 Gastro-esophageal reflux disease without esophagitis; J44.9 Chronic obstructive pulmonary disease, unspecified; F32.9 Major depressive disorder, single episode, unspecified | CPT/HCPCS: 80053; 80061; 84443; 85025 ==

== ENCOUNTER → 2020-05-30 10:02 | Outpatient (BNVA) | payer MEDICARE, OTHER, SELFPAY | PROVIDERS: PCP Family Medicine; Visit Provider Internal Medicine Rheumatology | DX: M05.79 Rheumatoid arthritis with rheumatoid factor of multiple sites without organ or systems involvement (principal); E03.9 Hypothyroidism, unspecified; E78.5 Hyperlipidemia, unspecified; K21.9 Gastro-esophageal reflux disease without esophagitis; F32.9 Major depressive disorder, single episode, unspecified; Z79.899 Other long term (current) drug therapy; Z79.52 Long term (current) use of systemic steroids | CPT/HCPCS: 36415; 80076; 82565; 85025; 85651; 86140 ==

== ENCOUNTER → 2020-06-06 15:23 | Outpatient (BNVA) | payer MEDICARE, OTHER, SELFPAY | PROVIDERS: PCP Family Medicine; Visit Provider Internal Medicine Rheumatology | DX: M05.79 Rheumatoid arthritis with rheumatoid factor of multiple sites without organ or systems involvement (principal); Z79.899 Other long term (current) drug therapy; Z79.52 Long term (current) use of systemic steroids | CPT/HCPCS: 99214 ==

== ENCOUNTER → 2020-06-20 09:12 | Outpatient (BNVA) | payer MEDICARE, OTHER, SELFPAY | PROVIDERS: PCP Family Medicine; Visit Provider Internal Medicine Rheumatology | DX: Z79.899 Other long term (current) drug therapy (principal); I10 Essential (primary) hypertension | CPT/HCPCS: 82306; 85025 ==

== ENCOUNTER 2020-06-22 04:55 | Emergency (ER) | payer MEDICARE, OTHER, SELFPAY ==
[2020-06-22] VITALS (13 sets, daily range): BP systolic 103–183; BP diastolic 54–97; PULSE 104–131; RESP 22–29; TEMP 37.1–39.6; O2SAT 90–98; BMI 25.7
--- NOTE | 2020-06-22 05:19 | XRR_ITS ---
PROCEDURE INFORMATION: Exam: XR Chest, 1 View Exam date and time: 06/22/2020 6:09 AM Age: 64 years old Clinical indication: Cough and fever and shortness of breath; Prior surgery; Surgery type: Esophagus; Additional info: Cough/fever, SOB, n/v TECHNIQUE: Imaging protocol: XR of the chest Views: 1 view. COMPARISON: CR XR chest 1V portable [id number] 03/29/2020 7:28 AM FINDINGS: Lungs: Reticular nodular pattern within the lung parenchyma less conspicuous than the prior exam dated 03-29-20. Pleural space: Unremarkable. No pleural effusion. No pneumothorax. Heart/Mediastinum: Unremarkable. No cardiomegaly. Diaphragm: Elevation left hemidiaphragm. Subtle airspace disease versus atelectasis left retrocardiac region and right lung base. Bones/joints: Unremarkable. XR/XR chest 1V portable [id number] IMPRESSION: 1. Elevation left hemidiaphragm. Subtle airspace disease versus atelectasis left retrocardiac region and right lung base. 2. Reticular nodular pattern within the lung parenchyma less conspicuous than the prior exam dated 03-29-20.
--- NOTE | 2020-06-22 05:20 | ECG_ITS ---
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 Measurements Intervals [place] Rate: 120 P: 59 AL: 137 QRS: -79 QRSD: 100 T: 75 QT: 313 QTc: 443 Interpretive Statements SINUS TACHYCARDIA LEFT AXIS DEVIATION [QRS AXIS < -30] Compared to ECG 03/31/2020 10:29:23 Sinus rhythm no longer present Atrial abnormality no longer present Electronically Signed On 06-22-2020 21:06:29 CDT by Luis Conde M.D. [email or web address]
[2020-06-22] MEDS: piperacillin-tazobactam 3.375 GM in sodium chloride 0.9% (plus) 50 ML IV (05:30)
--- NOTE | 2020-06-22 05:36 | W.ED.SOB ---
Documented by User: Gracy Marshall 06/22/20 05:43 HPI - SOB/Dyspnea General: Chief Complaint: Shortness of Breath/Dyspnea Stated Complaint: SOB FEVER Time Seen by Provider: 06/22/20 05:07 Source: patient Mode of arrival: ambulatory Limitations: no limitations History of Present Illness: HPI Narrative: Gabby is a nice 64-year-old female who comes in complaining of fever, shortness of breath, cough and vomiting. Patient states that she woke up feeling this way and is vomited several times. She denies any abdominal pain or diarrhea. Patient denies any vomiting of blood. Patient denies any known covert exposures or other ill type exposures. Patient is currently on prednisone 2.5 mg daily and Enbrel. Patient has history of rheumatoid arthritis and that is why she takes his medications. Patient denies any headache or diarrhea. She denies any abdominal pain. She denies any other complaints. Patient's history is somewhat limited secondary to her shortness of breath at this time. Associated symptoms: Reports diaphoresis, fever(s), nausea and vomiting; Deny abdominal pain, chest pain, dizziness, extremity pain, hemoptysis, lightheadedness, orthopnea, palpitations or syncope Review of Systems Const: Reports: fever(s), chills, body aches, fatigue, malaise and diaphoresis Eyes: Denies: change in vision, blurry vision, blind spots, photophobia, eye discharge or eye redness ENMT: Denies: throat pain, odynophagia, hoarseness, swelling of lips/tongue, oral sores, ear or mastoid pain, ear discharge, change in hearing or nasal discharge Card: Denies: chest pain, palpitations, irregular heart rhythm, edema, lightheadedness, syncope, pre-syncope, dyspnea on exertion or orthopnea Resp: Reports: dyspnea, productive cough and wheezing; Denies: non-productive cough or hemoptysis GI: Reports: nausea and vomiting; Denies: abdominal pain, hematemesis, coffee ground emesis, heartburn, diarrhea, constipation, GI cramping, hematochezia or melena : Denies: flank pain, dysuria, urinary frequency, urinary urgency or hematuria Musc: Denies: neck pain, back pain, extremity pain, extremity swelling, joint pain, joint swelling, joint redness, joint warmth or joint stiffness Skin/Breast: Denies: rash, pruritus, erythema, skin tenderness or jaundice Neuro: Denies: headache(s), numbness in extremities, weakness in extremities, sensory changes, lack of coordination, difficulty walking, dizziness, vertigo, confusion, Slurred speech present or seizure-like activity Santos/Lymph: Denies: easy bruising, easy bleeding, petechiae, purpura or enlarged lymph nodes All/Imm: Denies: urticaria, throat swelling, tongue swelling, facial swelling or acute wheezing PFSH ED PFSH: Medical History Chronic steroid use COPD (chronic obstructive pulmonary disease) Uses home trilogy device, PRN oxygen Depression GERD (gastroesophageal reflux disease) History of aspiration pneumonia Hyperlipidemia Hypertension Hypothyroidism Immunization counseling Iron deficiency anemia Rheumatoid arthritis with rheumatoid factor of multiple sites without organ or systems involvement Surgical History H/O arthroscopy of knee left knee H/O esophagectomy History of cataract surgery 2017 History of gastric surgery age 6 History of skin graft left knee History of tubal ligation Previous back surgery right L3-L4, right L5-S1 hemilaminotomy foraminotomy/ discectomy/ Family History (Updated 06/22/20 @ 09:59 by Amie Christie DO) Father Cancer Pancreatic cancer Mother Cancer Lung cancer with brain mets Daughter Cancer Lung cancer with brain mets Other CAD (coronary artery disease) Hypertension Denies family history of Rheumatoid arthritis Diabetes Chronic kidney disease (CKD) Systemic lupus erythematosus (SLE) in adult Lung disease Social History Smoking and tobacco status: former smoker Quit status (tobacco): has quit using tobacco Year quit tobacco: 2000 Alcohol intake: current Alcohol type: beer Lives independently: No (lives with boyfriend) Marital status: History of recent travel: No Physical Exam Const: COMMON NORMALS: patient oriented x3 GENERAL APPEARANCE: in distress, ill appearing and diaphoretic HENMT: COMMON NORMALS: normocephalic, atraumatic, external ears normal, EAC's normal and Normal external nose present HEAD & SCALP: normal to inspection, normocephalic and atraumatic FACE & SINUS: normal facial exam and face symmetric NOSE: Normal external nose present and Normal nares present EXTERNAL EAR: Yes external ears normal EXTERNAL AUDITORY CANAL: EAC's normal MOUTH: Normal oral and palatal mucosa present, lip normal and tongue normal Eye: COMMON NORMALS: Equal, round and reactive pupils present and conjunctivae normal GENERAL EYE: appearance normal, both eyes and all related structures ALIGNMENT: Yes alignment normal PERIORBITAL: periorbital findings normal EYELID: eyelids normal CONJUNCTIVA: Yes conjunctivae normal SCLERA: sclerae normal PUPIL: Yes Equal, round and reactive pupils present Neck/C-Spine: COMMON NORMALS: full ROM, no lymphadenopathy, supple, no meningeal signs and no JVD GENERAL: Yes normal visual inspection and Yes trachea midline Chest: COMMONS NORMALS: normal inspection of the chest and normal palpation of entire chest wall Resp: EFFORT & INSPECTION: Yes able to speak in complete sentences, Yes symmetric chest movement, Yes respiratory distress, Yes labored and Yes Actively coughing AUSCULTATION: no crackles, no rales, rhonchi and wheezes Cardio: COMMON NORMALS: no JVD, regular rhythm, S1 normal heart sound present and S2 normal heart sound present RATE: tachycardic RHYTHM: regular rhythm HEART SOUNDS: S1 normal heart sound present, S2 normal heart sound present, no click, no gallops, no murmurs, no rubs and abnormal split S2 GI: COMMON NORMALS: Soft to palpation and No hepatosplenomegaly present PALPATION: Yes Soft to palpation, No Tenderness to palpation present (GI), No Guarding due to palpation present (GI), No Rigid due to palpation, Yes No hepatosplenomegaly present, No Hernia present, No Palpable mass present and No Pulsatile mass present : COMMON NORMALS: Yes no CVA tenderness BLADDER/KIDNEY EXAM: Yes no CVA tenderness EXTERNAL FEMALE EXAM: No Hernia present Back/Pelvis: COMMON NORMALS: no CVA tenderness, thoracic and lumbar spine normal to inspection, no thoracic nor lumbar tenderness and thoraco-lumbar ROM normal Extremity: COMMON NORMALS: normal to inspection, full ROM, capillary refill normal, no joint enlargement, no clubbing, cyanosis or edema and no calf tenderness Neuro: COMMON NORMALS: patient oriented x3, CN's II-XII intact bilaterally, moves all extremities, no focal motor deficits and no sensory deficits noted MENINGEAL SIGNS: Yes no meningeal signs SPEECH: speech normal Psych: COMMON NORMALS: mental status grossly normal, Normal thought process present, cooperative, normal affect, speech normal and activity/motor behavior normal SPEECH: Yes normal speech THOUGHT PROCESS: Normal thought process present Skin: COMMON NORMALS: no rashes or lesions noted, turgor normal, no jaundice, no petechiae and no mottling GENERAL SKIN EXAM: no rashes or lesions noted and turgor normal Course Vital Signs: Vital signs: Vital Signs Temperature 98.7 F 06/22/20 08:17 Pulse Rate 104 H 06/22/20 09:46 Respiratory Rate 29 H 06/22/20 09:46 Blood Pressure 103/57 06/22/20 09:46 Pulse Oximetry 95 06/22/20 09:46 MDM - SOB/Dyspnea Lab Data: Labs: Lab Results 06/22/20 06/22/20 06/22/20 Range/Units 05:12 05:15 05:15 WBC 0.5 L* (4.0-10.0) 10^3/ uL RBC 4.25 (4.1-5.3) 10^6/u L Hgb 12.3 (11.5-15.3) g/dL Hct 40.2 (37.0-47.0) % MCV 94.6 (81-99) fL MCH 28.9 (28.0-34.0) pg MCHC 30.6 (30.0-36.0) g/dL RDW 13.4 (12.1-15.1) % Plt Count 172 (130-400) 10^3/c mm MPV 10.2 (7.4-10.4) fL Neut % (Auto) 21.5 % Lymph % (Auto) 56.9 % [place] % (Auto) 9.8 % Eos % (Auto) 9.8 % Baso % (Auto) 2.0 % Neut # (Auto) 0.11 L* (1.8-7.7) 10^3/u L Lymph # (Auto) 0.3 L (0.8-4.8) 10^3/u L [place] # (Auto) 0.1 L (0.2-0.9) 10^3/u L Eos # (Auto) 0.1 (0.0-0.8) 10^3/u L Baso # (Auto) 0.0 (0.0-0.1) 10^3/u L Nucleated RBC % (a uto) 0 % Nucleated RBCs # 0.0 /100WBC PT 11.90 L (12.1-14.9) SECO NDS INR 0.85 (0.8-1.2) Fibrinogen (174-498) mg/dL D-Dimer (0-0.59) ug/mIFE U Specimen Type Sample Site ABG pH (7.35-7.45) ABG pCO2 (35-45) mmHg ABG pO2 (80.0-100.0) mmH g ABG HCO3 (22-26) mmol/L ABG Base Excess (-2.0-2.0) mmol/ L Antony Test Hematocrit (37-47) % O2 Delivery Device O2 Liters/Min % Administrative Appeals Tribunal Member ID Sodium (136-145) mmol/L Potassium (3.5-5.1) mmol/L Chloride (98-107) mmol/L Carbon Dioxide (22-29) mmol/L Anion Gap (5-19) BUN (8-23) mg/dL Creatinine (0.5-0.9) mg/dL GFR Calculation (90-130) mL/min Glucose (65-115) mg/dL Calculated Osmolal ity (285-295) mOsm/k g Lactic Acid (0.5-2.2) mmol/L Calcium (8.5-10.5) mg/dL Magnesium (1.7-2.3) mg/dL Ferritin (15-150) ng/mL Total Bilirubin (0.15-1.2) mg/dL AST (0-32) U/L ALT (0-33) U/L Alkaline Phosphata se (35-105) IU/L Lactate Dehydrogen ase (135-214) U/L Troponin T Baselin e (0-10) ng/L Troponin T 120 Min [place] (0-10) ng/L Delta Troponin T (0-10) ABS# C-Reactive Protein (0.0-4.9) mg/L NT-Pro-B Natriuret Pep (0-125) pg/mL Total Protein (6.6-8.7) g/dL Albumin (3.5-5.2) g/dL Globulin (1.3-4.6) g/dL Lipase (13-60) U/L Procalcitonin (0-0.5) ng/mL Urine Color Yellow (Yellow) Urine Appearance Clear (CLEAR) Urine pH 6 (5-7) Ur Specific Gravit y 1.010 (1.005-1.030) Urine Protein Neg (Negative) Urine Glucose (UA) Norm (Normal) Urine Ketones Negative (Negative) Urine Blood 2+ H (Negative) Urine Nitrate Negative (Negative) Urine Bilirubin Neg (NEGATIVE) Urine Urobilinogen Norm (Negative) mg/dL Ur Leukocyte Gillian ase Negative (Negative) Urine RBC 0-4 H (0-2) /hpf Urine WBC 0-4 H (0-5) /hpf Ur Squamous Epith Cells 10-15 H (0-5) Amorphous Sediment Not Reportable Urine Bacteria Trace (NONE) Urine Mucus Trace Influenza Type A A g (Negative) Influenza Type B A g (Negative) SARS-CoV-2 Ag (Rap id) (Negative) 06/22/20 06/22/20 06/22/20 Range/Units 05:15 05:15 05:15 WBC (4.0-10.0) 10^3/ uL RBC (4.1-5.3) 10^6/u L Hgb (11.5-15.3) g/dL Hct (37.0-47.0) % MCV (81-99) fL MCH (28.0-34.0) pg MCHC (30.0-36.0) g/dL RDW (12.1-15.1) % Plt Count (130-400) 10^3/c mm MPV (7.4-10.4) fL Neut % (Auto) % Lymph % (Auto) % [place] % (Auto) % Eos % (Auto) % Baso % (Auto) % Neut # (Auto) (1.8-7.7) 10^3/u L Lymph # (Auto) (0.8-4.8) 10^3/u L [place] # (Auto) (0.2-0.9) 10^3/u L Eos # (Auto) (0.0-0.8) 10^3/u L Baso # (Auto) (0.0-0.1) 10^3/u L Nucleated RBC % (a uto) % Nucleated RBCs # /100WBC PT (12.1-14.9) SECO NDS INR (0.8-1.2) Fibrinogen (174-498) mg/dL D-Dimer (0-0.59) ug/mIFE U Specimen Type Sample Site ABG pH (7.35-7.45) ABG pCO2 (35-45) mmHg ABG pO2 (80.0-100.0) mmH g ABG HCO3 (22-26) mmol/L ABG Base Excess (-2.0-2.0) mmol/ L Antony Test Hematocrit (37-47) % O2 Delivery Device O2 Liters/Min % Administrative Appeals Tribunal Member ID Sodium 139 (136-145) mmol/L Potassium 3.7 (3.5-5.1) mmol/L Chloride 105 (98-107) mmol/L Carbon Dioxide 25 (22-29) mmol/L Anion Gap 12.7 (5-19) BUN 12 (8-23) mg/dL Creatinine 0.9 (0.5-0.9) mg/dL GFR Calculation 62.6 L (90-130) mL/min Glucose 112 (65-115) mg/dL Calculated Osmolal ity 285 (285-295) mOsm/k g Lactic Acid 1.9 (0.5-2.2) mmol/L Calcium 9.1 (8.5-10.5) mg/dL Magnesium 1.7 (1.7-2.3) mg/dL Ferritin (15-150) ng/mL Total Bilirubin 0.3 (0.15-1.2) mg/dL AST 25 (0-32) U/L ALT 29 (0-33) U/L Alkaline Phosphata se 129 H (35-105) IU/L Lactate Dehydrogen ase (135-214) U/L Troponin T Baselin e 30 H (0-10) ng/L Troponin T 120 Min [place] (0-10) ng/L Delta Troponin T (0-10) ABS# C-Reactive Protein (0.0-4.9) mg/L NT-Pro-B Natriuret Pep 301 H (0-125) pg/mL Total Protein 6.7 (6.6-8.7) g/dL Albumin 3.7 (3.5-5.2) g/dL Globulin 3.0 (1.3-4.6) g/dL Lipase 16 (13-60) U/L Procalcitonin (0-0.5) ng/mL Urine Color (Yellow) Urine Appearance (CLEAR) Urine pH (5-7) Ur Specific Gravit y (1.005-1.030) Urine Protein (Negative) Urine Glucose (UA) (Normal) Urine Ketones (Negative) Urine Blood (Negative) Urine Nitrate (Negative) Urine Bilirubin (NEGATIVE) Urine Urobilinogen (Negative) mg/dL Ur Leukocyte Gillian ase (Negative) Urine RBC (0-2) /hpf Urine WBC (0-5) /hpf Ur Squamous Epith Cells (0-5) Amorphous Sediment Urine Bacteria (NONE) Urine Mucus Influenza Type A A g (Negative) Influenza Type B A g (Negative) SARS-CoV-2 Ag (Rap id) (Negative) 06/22/20 06/22/20 06/22/20 Range/Units 05:15 05:15 05:25 WBC (4.0-10.0) 10^3/ uL RBC (4.1-5.3) 10^6/u L Hgb (11.5-15.3) g/dL Hct (37.0-47.0) % MCV (81-99) fL MCH (28.0-34.0) pg MCHC (30.0-36.0) g/dL RDW (12.1-15.1) % Plt Count (130-400) 10^3/c mm MPV (7.4-10.4) fL Neut % (Auto) % Lymph % (Auto) % [place] % (Auto) % Eos % (Auto) % Baso % (Auto) % Neut # (Auto) (1.8-7.7) 10^3/u L Lymph # (Auto) (0.8-4.8) 10^3/u L [place] # (Auto) (0.2-0.9) 10^3/u L Eos # (Auto) (0.0-0.8) 10^3/u L Baso # (Auto) (0.0-0.1) 10^3/u L Nucleated RBC % (a uto) % Nucleated RBCs # /100WBC PT (12.1-14.9) SECO NDS INR (0.8-1.2) Fibrinogen 452 (174-498) mg/dL D-Dimer 3.71 H (0-0.59) ug/mIFE U Specimen Type Sample Site ABG pH (7.35-7.45) ABG pCO2 (35-45) mmHg ABG pO2 (80.0-100.0) mmH g ABG HCO3 (22-26) mmol/L ABG Base Excess (-2.0-2.0) mmol/ L Antony Test Hematocrit (37-47) % O2 Delivery Device O2 Liters/Min % Administrative Appeals Tribunal Member ID Sodium (136-145) mmol/L Potassium (3.5-5.1) mmol/L Chloride (98-107) mmol/L Carbon Dioxide (22-29) mmol/L Anion Gap (5-19) BUN (8-23) mg/dL Creatinine (0.5-0.9) mg/dL GFR Calculation (90-130) mL/min Glucose (65-115) mg/dL Calculated Osmolal ity (285-295) mOsm/k g Lactic Acid (0.5-2.2) mmol/L Calcium (8.5-10.5) mg/dL Magnesium (1.7-2.3) mg/dL Ferritin 206 H (15-150) ng/mL Total Bilirubin (0.15-1.2) mg/dL AST (0-32) U/L ALT (0-33) U/L Alkaline Phosphata se (35-105) IU/L Lactate Dehydrogen ase 241 H (135-214) U/L Troponin T Baselin e (0-10) ng/L Troponin T 120 Min [place] (0-10) ng/L Delta Troponin T (0-10) ABS# C-Reactive Protein 38.2 H (0.0-4.9) mg/L NT-Pro-B Natriuret Pep (0-125) pg/mL Total Protein (6.6-8.7) g/dL Albumin (3.5-5.2) g/dL Globulin (1.3-4.6) g/dL Lipase (13-60) U/L Procalcitonin (0-0.5) ng/mL Urine Color (Yellow) Urine Appearance (CLEAR) Urine pH (5-7) Ur Specific Gravit y (1.005-1.030) Urine Protein (Negative) Urine Glucose (UA) (Normal) Urine Ketones (Negative) Urine Blood (Negative) Urine Nitrate (Negative) Urine Bilirubin (NEGATIVE) Urine Urobilinogen (Negative) mg/dL Ur Leukocyte Gillian ase (Negative) Urine RBC (0-2) /hpf Urine WBC (0-5) /hpf Ur Squamous Epith Cells (0-5) Amorphous Sediment Urine Bacteria (NONE) Urine Mucus Influenza Type A A g Negative (Negative) Influenza Type B A g Negative (Negative) SARS-CoV-2 Ag (Rap id) (Negative) 06/22/20 06/22/20 06/22/20 Range/Units 05:30 05:34 08:44 WBC (4.0-10.0) 10^3/ uL RBC (4.1-5.3) 10^6/u L Hgb (11.5-15.3) g/dL Hct (37.0-47.0) % MCV (81-99) fL MCH (28.0-34.0) pg MCHC (30.0-36.0) g/dL RDW (12.1-15.1) % Plt Count (130-400) 10^3/c mm MPV (7.4-10.4) fL Neut % (Auto) % Lymph % (Auto) % [place] % (Auto) % Eos % (Auto) % Baso % (Auto) % Neut # (Auto) (1.8-7.7) 10^3/u L Lymph # (Auto) (0.8-4.8) 10^3/u L [place] # (Auto) (0.2-0.9) 10^3/u L Eos # (Auto) (0.0-0.8) 10^3/u L Baso # (Auto) (0.0-0.1) 10^3/u L Nucleated RBC % (a uto) % Nucleated RBCs # /100WBC PT (12.1-14.9) SECO NDS INR (0.8-1.2) Fibrinogen (174-498) mg/dL D-Dimer (0-0.59) ug/mIFE U Specimen Type Arterial Sample Site Radial, right ABG pH 7.41 (7.35-7.45) ABG pCO2 39.6 (35-45) mmHg ABG pO2 93.6 (80.0-100.0) mmH g ABG HCO3 25.3 (22-26) mmol/L ABG Base Excess 0.7 (-2.0-2.0) mmol/ L Antony Test Pos Hematocrit 39.4 (37-47) % O2 Delivery Device Nc O2 Liters/Min 4.0 % Administrative Appeals Tribunal Member ID ellpe Sodium (136-145) mmol/L Potassium (3.5-5.1) mmol/L Chloride (98-107) mmol/L Carbon Dioxide (22-29) mmol/L Anion Gap (5-19) BUN (8-23) mg/dL Creatinine (0.5-0.9) mg/dL GFR Calculation (90-130) mL/min Glucose (65-115) mg/dL Calculated Osmolal ity (285-295) mOsm/k g Lactic Acid (0.5-2.2) mmol/L Calcium (8.5-10.5) mg/dL Magnesium (1.7-2.3) mg/dL Ferritin (15-150) ng/mL Total Bilirubin (0.15-1.2) mg/dL AST (0-32) U/L ALT (0-33) U/L Alkaline Phosphata se (35-105) IU/L Lactate Dehydrogen ase (135-214) U/L Troponin T Baselin e (0-10) ng/L Troponin T 120 Min [place] 56.47 H (0-10) ng/L Delta Troponin T 26.47 H* (0-10) ABS# C-Reactive Protein (0.0-4.9) mg/L NT-Pro-B Natriuret Pep (0-125) pg/mL Total Protein (6.6-8.7) g/dL Albumin (3.5-5.2) g/dL Globulin (1.3-4.6) g/dL Lipase (13-60) U/L Procalcitonin (0-0.5) ng/mL Urine Color (Yellow) Urine Appearance (CLEAR) Urine pH (5-7) Ur Specific Gravit y (1.005-1.030) Urine Protein (Negative) Urine Glucose (UA) (Normal) Urine Ketones (Negative) Urine Blood (Negative) Urine Nitrate (Negative) Urine Bilirubin (NEGATIVE) Urine Urobilinogen (Negative) mg/dL Ur Leukocyte Gillian ase (Negative) Urine RBC (0-2) /hpf Urine WBC (0-5) /hpf Ur Squamous Epith Cells (0-5) Amorphous Sediment Urine Bacteria (NONE) Urine Mucus Influenza Type A A g (Negative) Influenza Type B A g (Negative) SARS-CoV-2 Ag (Rap id) Negative (Negative) 06/22/20 Range/Units 08:44 WBC (4.0-10.0) 10^3/ uL RBC (4.1-5.3) 10^6/u L Hgb (11.5-15.3) g/dL Hct (37.0-47.0) % MCV (81-99) fL MCH (28.0-34.0) pg MCHC (30.0-36.0) g/dL RDW (12.1-15.1) % Plt Count (130-400) 10^3/c mm MPV (7.4-10.4) fL Neut % (Auto) % Lymph % (Auto) % [place] % (Auto) % Eos % (Auto) % Baso % (Auto) % Neut # (Auto) (1.8-7.7) 10^3/u L Lymph # (Auto) (0.8-4.8) 10^3/u L [place] # (Auto) (0.2-0.9) 10^3/u L Eos # (Auto) (0.0-0.8) 10^3/u L Baso # (Auto) (0.0-0.1) 10^3/u L Nucleated RBC % (a uto) % Nucleated RBCs # /100WBC PT (12.1-14.9) SECO NDS INR (0.8-1.2) Fibrinogen (174-498) mg/dL D-Dimer (0-0.59) ug/mIFE U Specimen Type Sample Site ABG pH (7.35-7.45) ABG pCO2 (35-45) mmHg ABG pO2 (80.0-100.0) mmH g ABG HCO3 (22-26) mmol/L ABG Base Excess (-2.0-2.0) mmol/ L Antony Test Hematocrit (37-47) % O2 Delivery Device O2 Liters/Min % Administrative Appeals Tribunal Member ID Sodium (136-145) mmol/L Potassium (3.5-5.1) mmol/L Chloride (98-107) mmol/L Carbon Dioxide (22-29) mmol/L Anion Gap (5-19) BUN (8-23) mg/dL Creatinine (0.5-0.9) mg/dL GFR Calculation (90-130) mL/min Glucose (65-115) mg/dL Calculated Osmolal ity (285-295) mOsm/k g Lactic Acid (0.5-2.2) mmol/L Calcium (8.5-10.5) mg/dL Magnesium (1.7-2.3) mg/dL Ferritin (15-150) ng/mL Total Bilirubin (0.15-1.2) mg/dL AST (0-32) U/L ALT (0-33) U/L Alkaline Phosphata se (35-105) IU/L Lactate Dehydrogen ase (135-214) U/L Troponin T Baselin e (0-10) ng/L Troponin T 120 Min [place] (0-10) ng/L Delta Troponin T (0-10) ABS# C-Reactive Protein (0.0-4.9) mg/L NT-Pro-B Natriuret Pep (0-125) pg/mL Total Protein (6.6-8.7) g/dL Albumin (3.5-5.2) g/dL Globulin (1.3-4.6) g/dL Lipase (13-60) U/L Procalcitonin 4.68 H (0-0.5) ng/mL Urine Color (Yellow) Urine Appearance (CLEAR) Urine pH (5-7) Ur Specific Gravit y (1.005-1.030) Urine Protein (Negative) Urine Glucose (UA) (Normal) Urine Ketones (Negative) Urine Blood (Negative) Urine Nitrate (Negative) Urine Bilirubin (NEGATIVE) Urine Urobilinogen (Negative) mg/dL Ur Leukocyte Gillian ase (Negative) Urine RBC (0-2) /hpf Urine WBC (0-5) /hpf Ur Squamous Epith Cells (0-5) Amorphous Sediment Urine Bacteria (NONE) Urine Mucus Influenza Type A A g (Negative) Influenza Type B A g (Negative) SARS-CoV-2 Ag (Rap id) (Negative) EKG Data^: EKG 1: Attestation: I personally reviewed and interpreted this EKG as follows: EKG Interpretation Date: 06/22/20 EKG interpretation time: 05:20 Interpretation: Normal sinus rhythm at 120 beats a minute, no acute ST or T wave changes. Left axis deviation. Discharge Plan Discharge Prescriptions: No Action magnesium oxide 400 mg magnesium capsule 400 mg PO DAILY Qty: 90 RF: 3 citalopram 20 mg tablet 20 mg PO DAILY Qty: 90 RF: 1 ergocalciferol (vitamin D2) 1,250 mcg (50,000 unit) capsule 50,000 unit PO .COMPLEX Qty: 30 RF: 2 ferrous sulfate 325 mg (65 mg iron) tablet 325 mg PO DAILY Qty: 90 RF: 1 fexofenadine 180 mg tablet 180 mg PO Q24H Qty: 90 RF: 1 furosemide [Lasix] 20 mg tablet 20 mg PO QAM Qty: 90 RF: 1 levothyroxine [Synthroid] 112 mcg tablet 112 mcg PO DAILY Qty: 90 RF: 1 losartan 25 mg tablet 25 mg PO DAILY Qty: 90 RF: 1 pravastatin 40 mg tablet 40 mg PO DAILY Qty: 90 RF: 1 trazodone 100 mg tablet 100 mg PO .COMPLEX Qty: 90 RF: 1 verapamil 180 mg tablet extended release 180 mg PO QAM Qty: 90 RF: 1 albuterol sulfate [ProAir HFA] 90 mcg/actuation HFA aerosol inhaler 2 puff INHALATION QID PRN (Reason: Shortness Of Breath) RF: 0 albuterol sulfate 2.5 mg /3 mL (0.083 %) solution for nebulization 2.5 mg INHALATION QID PRN (Reason: Shortness Of Breath) RF: 0 aspirin [Adult Aspirin Regimen] 81 mg tablet,delayed release (DR/EC) 81 mg PO DAILY RF: 0 Perforomist 20 mcg/2 mL solution for nebulization 20 mcg INHALATION BID RF: 0 umeclidinium-vilanterol 62.5-25 mcg/actuation blister with device 1 inh INHALATION Q24H RF: 0 alendronate 70 mg tablet 70 mg PO .every 7 days Qty: 15 RF: 1 Enbrel SureClick 50 mg/mL (1 mL) pen injector 50 mg SUBCUT .Q7days Qty: 4 RF: 3 doxycycline monohydrate 100 mg Tablet 100 mg PO BID Qty: 14 RF: 0 Lactobacillus acidoph-L.bulgar [Floranex] 1 million cell Tablet 1 tab PO BID Qty: 30 RF: 0 potassium chloride 10 mEq Tablet Extended Release 10 meq PO DAILY RF: 0 prednisone 2.5 mg tablet 2.5 mg PO DAILY RF: 0 Protonix 40 mg tablet,delayed release (DR/EC) 40 mg PO BID RF: 0 Coding Level of Care Code ED Surgical Appliance Fitter for Chg Fwd Exam Comprehensive Documented by User: Jacqueline Carr MD 06/22/20 10:14 HPI - SOB/Dyspnea General: Chief Complaint: Shortness of Breath/Dyspnea Stated Complaint: SOB FEVER Time Seen by Provider: 06/22/20 05:07 PFSH ED PFSH: Medical History Chronic steroid use COPD (chronic obstructive pulmonary disease) Uses home trilogy device, PRN oxygen Depression GERD (gastroesophageal reflux disease) History of aspiration pneumonia Hyperlipidemia Hypertension Hypothyroidism Immunization counseling Iron deficiency anemia Rheumatoid arthritis with rheumatoid factor of multiple sites without organ or systems involvement Surgical History H/O arthroscopy of knee left knee H/O esophagectomy History of cataract surgery 2017 History of gastric surgery age 6 History of skin graft left knee History of tubal ligation Previous back surgery right L3-L4, right L5-S1 hemilaminotomy foraminotomy/ discectomy/ Family History (Updated 06/22/20 @ 09:59 by Amie Christie DO) Father Cancer Pancreatic cancer Mother Cancer Lung cancer with brain mets Daughter Cancer Lung cancer with brain mets Other CAD (coronary artery disease) Hypertension Denies family history of Rheumatoid arthritis Diabetes Chronic kidney disease (CKD) Systemic lupus erythematosus (SLE) in adult Lung disease Social History Smoking and tobacco status: former smoker Quit status (tobacco): has quit using tobacco Year quit tobacco: 2000 Alcohol intake: current Alcohol type: beer Lives independently: No (lives with boyfriend) Marital status: History of recent travel: No Course ED course: Assumed care of the patient from Dr. Day. She was found to have some infiltrates on chest x-ray although improved from a prior x-ray from March. She also was noted to have a white count of 0.5 and absolute neutrophil count of 0.1. Electrolytes were normal. BNP was slightly elevated at 301. Rapid COVID testing was negative and influenza was negative. Patient remained awake and alert. Her vital signs remained good with normal blood pressure and normal saturation on 3 L. Her heart rate remained around 100. Her symptoms do not suggest necessarily COVID and with the negative COVID test I think she is probably not infected however PCT COVID test was also sent. I consulted the hospitalist here for admission and she felt the patient should have ICU level care. We had no ICU beds here and I tried to transfer to [facility]. The ICU attending there did not feel like ICU was necessary. The hospitalist here again saw the patient and plan to admit her here but due to bed shortage is we have no private rooms or any way to put her in a reverse isolation situation. Called back to [facility] and she was accepted to the ER there is a transfer. Vital Signs: Vital signs: Vital Signs Temperature 98.7 F 06/22/20 08:17 Pulse Rate 104 H 06/22/20 09:46 Respiratory Rate 29 H 06/22/20 09:46 Blood Pressure 103/57 06/22/20 09:46 Pulse Oximetry 95 06/22/20 09:46 MDM - SOB/Dyspnea Lab Data: Labs: Lab Results 06/22/20 06/22/20 06/22/20 Range/Units 05:12 05:15 05:15 WBC 0.5 L* (4.0-10.0) 10^3/ uL RBC 4.25 (4.1-5.3) 10^6/u L Hgb 12.3 (11.5-15.3) g/dL Hct 40.2 (37.0-47.0) % MCV 94.6 (81-99) fL MCH 28.9 (28.0-34.0) pg MCHC 30.6 (30.0-36.0) g/dL RDW 13.4 (12.1-15.1) % Plt Count 172 (130-400) 10^3/c mm MPV 10.2 (7.4-10.4) fL Neut % (Auto) 21.5 % Lymph % (Auto) 56.9 % [place] % (Auto) 9.8 % Eos % (Auto) 9.8 % Baso % (Auto) 2.0 % Neut # (Auto) 0.11 L* (1.8-7.7) 10^3/u L Lymph # (Auto) 0.3 L (0.8-4.8) 10^3/u L [place] # (Auto) 0.1 L (0.2-0.9) 10^3/u L Eos # (Auto) 0.1 (0.0-0.8) 10^3/u L Baso # (Auto) 0.0 (0.0-0.1) 10^3/u L Nucleated RBC % (a uto) 0 % Nucleated RBCs # 0.0 /100WBC PT 11.90 L (12.1-14.9) SECO NDS INR 0.85 (0.8-1.2) Fibrinogen (174-498) mg/dL D-Dimer (0-0.59) ug/mIFE U Specimen Type Sample Site ABG pH (7.35-7.45) ABG pCO2 (35-45) mmHg ABG pO2 (80.0-100.0) mmH g ABG HCO3 (22-26) mmol/L ABG Base Excess (-2.0-2.0) mmol/ L Antony Test Hematocrit (37-47) % O2 Delivery Device O2 Liters/Min % Administrative Appeals Tribunal Member ID Sodium (136-145) mmol/L Potassium (3.5-5.1) mmol/L Chloride (98-107) mmol/L Carbon Dioxide (22-29) mmol/L Anion Gap (5-19) BUN (8-23) mg/dL Creatinine (0.5-0.9) mg/dL GFR Calculation (90-130) mL/min Glucose (65-115) mg/dL Calculated Osmolal ity (285-295) mOsm/k g Lactic Acid (0.5-2.2) mmol/L Calcium (8.5-10.5) mg/dL Magnesium (1.7-2.3) mg/dL Ferritin (15-150) ng/mL Total Bilirubin (0.15-1.2) mg/dL AST (0-32) U/L ALT (0-33) U/L Alkaline Phosphata se (35-105) IU/L Lactate Dehydrogen ase (135-214) U/L Troponin T Baselin e (0-10) ng/L Troponin T 120 Min [place] (0-10) ng/L Delta Troponin T (0-10) ABS# C-Reactive Protein (0.0-4.9) mg/L NT-Pro-B Natriuret Pep (0-125) pg/mL Total Protein (6.6-8.7) g/dL Albumin (3.5-5.2) g/dL Globulin (1.3-4.6) g/dL Lipase (13-60) U/L Procalcitonin (0-0.5) ng/mL Urine Color Yellow (Yellow) Urine Appearance Clear (CLEAR) Urine pH 6 (5-7) Ur Specific Gravit y 1.010 (1.005-1.030) Urine Protein Neg (Negative) Urine Glucose (UA) Norm (Normal) Urine Ketones Negative (Negative) Urine Blood 2+ H (Negative) Urine Nitrate Negative (Negative) Urine Bilirubin Neg (NEGATIVE) Urine Urobilinogen Norm (Negative) mg/dL Ur Leukocyte Gillian ase Negative (Negative) Urine RBC 0-4 H (0-2) /hpf Urine WBC 0-4 H (0-5) /hpf Ur Squamous Epith Cells 10-15 H (0-5) Amorphous Sediment Not Reportable Urine Bacteria Trace (NONE) Urine Mucus Trace Influenza Type A A g (Negative) Influenza Type B A g (Negative) SARS-CoV-2 Ag (Rap id) (Negative) 06/22/20 06/22/20 06/22/20 Range/Units 05:15 05:15 05:15 WBC (4.0-10.0) 10^3/ uL RBC (4.1-5.3) 10^6/u L Hgb (11.5-15.3) g/dL Hct (37.0-47.0) % MCV (81-99) fL MCH (28.0-34.0) pg MCHC (30.0-36.0) g/dL RDW (12.1-15.1) % Plt Count (130-400) 10^3/c mm MPV (7.4-10.4) fL Neut % (Auto) % Lymph % (Auto) % [place] % (Auto) % Eos % (Auto) % Baso % (Auto) % Neut # (Auto) (1.8-7.7) 10^3/u L Lymph # (Auto) (0.8-4.8) 10^3/u L [place] # (Auto) (0.2-0.9) 10^3/u L Eos # (Auto) (0.0-0.8) 10^3/u L Baso # (Auto) (0.0-0.1) 10^3/u L Nucleated RBC % (a uto) % Nucleated RBCs # /100WBC PT (12.1-14.9) SECO NDS INR (0.8-1.2) Fibrinogen (174-498) mg/dL D-Dimer (0-0.59) ug/mIFE U Specimen Type Sample Site ABG pH (7.35-7.45) ABG pCO2 (35-45) mmHg ABG pO2 (80.0-100.0) mmH g ABG HCO3 (22-26) mmol/L ABG Base Excess (-2.0-2.0) mmol/ L Antony Test Hematocrit (37-47) % O2 Delivery Device O2 Liters/Min % Administrative Appeals Tribunal Member ID Sodium 139 (136-145) mmol/L Potassium 3.7 (3.5-5.1) mmol/L Chloride 105 (98-107) mmol/L Carbon Dioxide 25 (22-29) mmol/L Anion Gap 12.7 (5-19) BUN 12 (8-23) mg/dL Creatinine 0.9 (0.5-0.9) mg/dL GFR Calculation 62.6 L (90-130) mL/min Glucose 112 (65-115) mg/dL Calculated Osmolal ity 285 (285-295) mOsm/k g Lactic Acid 1.9 (0.5-2.2) mmol/L Calcium 9.1 (8.5-10.5) mg/dL Magnesium 1.7 (1.7-2.3) mg/dL Ferritin (15-150) ng/mL Total Bilirubin 0.3 (0.15-1.2) mg/dL AST 25 (0-32) U/L ALT 29 (0-33) U/L Alkaline Phosphata se 129 H (35-105) IU/L Lactate Dehydrogen ase (135-214) U/L Troponin T Baselin e 30 H (0-10) ng/L Troponin T 120 Min [place] (0-10) ng/L Delta Troponin T (0-10) ABS# C-Reactive Protein (0.0-4.9) mg/L NT-Pro-B Natriuret Pep 301 H (0-125) pg/mL Total Protein 6.7 (6.6-8.7) g/dL Albumin 3.7 (3.5-5.2) g/dL Globulin 3.0 (1.3-4.6) g/dL Lipase 16 (13-60) U/L Procalcitonin (0-0.5) ng/mL Urine Color (Yellow) Urine Appearance (CLEAR) Urine pH (5-7) Ur Specific Gravit y (1.005-1.030) Urine Protein (Negative) Urine Glucose (UA) (Normal) Urine Ketones (Negative) Urine Blood (Negative) Urine Nitrate (Negative) Urine Bilirubin (NEGATIVE) Urine Urobilinogen (Negative) mg/dL Ur Leukocyte Gillian ase (Negative) Urine RBC (0-2) /hpf Urine WBC (0-5) /hpf Ur Squamous Epith Cells (0-5) Amorphous Sediment Urine Bacteria (NONE) Urine Mucus Influenza Type A A g (Negative) Influenza Type B A g (Negative) SARS-CoV-2 Ag (Rap id) (Negative) 06/22/20 06/22/20 06/22/20 Range/Units 05:15 05:15 05:25 WBC (4.0-10.0) 10^3/ uL RBC (4.1-5.3) 10^6/u L Hgb (11.5-15.3) g/dL Hct (37.0-47.0) % MCV (81-99) fL MCH (28.0-34.0) pg MCHC (30.0-36.0) g/dL RDW (12.1-15.1) % Plt Count (130-400) 10^3/c mm MPV (7.4-10.4) fL Neut % (Auto) % Lymph % (Auto) % [place] % (Auto) % Eos % (Auto) % Baso % (Auto) % Neut # (Auto) (1.8-7.7) 10^3/u L Lymph # (Auto) (0.8-4.8) 10^3/u L [place] # (Auto) (0.2-0.9) 10^3/u L Eos # (Auto) (0.0-0.8) 10^3/u L Baso # (Auto) (0.0-0.1) 10^3/u L Nucleated RBC % (a uto) % Nucleated RBCs # /100WBC PT (12.1-14.9) SECO NDS INR (0.8-1.2) Fibrinogen 452 (174-498) mg/dL D-Dimer 3.71 H (0-0.59) ug/mIFE U Specimen Type Sample Site ABG pH (7.35-7.45) ABG pCO2 (35-45) mmHg ABG pO2 (80.0-100.0) mmH g ABG HCO3 (22-26) mmol/L ABG Base Excess (-2.0-2.0) mmol/ L Antony Test Hematocrit (37-47) % O2 Delivery Device O2 Liters/Min % Administrative Appeals Tribunal Member ID Sodium (136-145) mmol/L Potassium (3.5-5.1) mmol/L Chloride (98-107) mmol/L Carbon Dioxide (22-29) mmol/L Anion Gap (5-19) BUN (8-23) mg/dL Creatinine (0.5-0.9) mg/dL GFR Calculation (90-130) mL/min Glucose (65-115) mg/dL Calculated Osmolal ity (285-295) mOsm/k g Lactic Acid (0.5-2.2) mmol/L Calcium (8.5-10.5) mg/dL Magnesium (1.7-2.3) mg/dL Ferritin 206 H (15-150) ng/mL Total Bilirubin (0.15-1.2) mg/dL AST (0-32) U/L ALT (0-33) U/L Alkaline Phosphata se (35-105) IU/L Lactate Dehydrogen ase 241 H (135-214) U/L Troponin T Baselin e (0-10) ng/L Troponin T 120 Min [place] (0-10) ng/L Delta Troponin T (0-10) ABS# C-Reactive Protein 38.2 H (0.0-4.9) mg/L NT-Pro-B Natriuret Pep (0-125) pg/mL Total Protein (6.6-8.7) g/dL Albumin (3.5-5.2) g/dL Globulin (1.3-4.6) g/dL Lipase (13-60) U/L Procalcitonin (0-0.5) ng/mL Urine Color (Yellow) Urine Appearance (CLEAR) Urine pH (5-7) Ur Specific Gravit y (1.005-1.030) Urine Protein (Negative) Urine Glucose (UA) (Normal) Urine Ketones (Negative) Urine Blood (Negative) Urine Nitrate (Negative) Urine Bilirubin (NEGATIVE) Urine Urobilinogen (Negative) mg/dL Ur Leukocyte Gillian ase (Negative) Urine RBC (0-2) /hpf Urine WBC (0-5) /hpf Ur Squamous Epith Cells (0-5) Amorphous Sediment Urine Bacteria (NONE) Urine Mucus Influenza Type A A g Negative (Negative) Influenza Type B A g Negative (Negative) SARS-CoV-2 Ag (Rap id) (Negative) 06/22/20 06/22/20 06/22/20 Range/Units 05:30 05:34 08:44 WBC (4.0-10.0) 10^3/ uL RBC (4.1-5.3) 10^6/u L Hgb (11.5-15.3) g/dL Hct (37.0-47.0) % MCV (81-99) fL MCH (28.0-34.0) pg MCHC (30.0-36.0) g/dL RDW (12.1-15.1) % Plt Count (130-400) 10^3/c mm MPV (7.4-10.4) fL Neut % (Auto) % Lymph % (Auto) % [place] % (Auto) % Eos % (Auto) % Baso % (Auto) % Neut # (Auto) (1.8-7.7) 10^3/u L Lymph # (Auto) (0.8-4.8) 10^3/u L [place] # (Auto) (0.2-0.9) 10^3/u L Eos # (Auto) (0.0-0.8) 10^3/u L Baso # (Auto) (0.0-0.1) 10^3/u L Nucleated RBC % (a uto) % Nucleated RBCs # /100WBC PT (12.1-14.9) SECO NDS INR (0.8-1.2) Fibrinogen (174-498) mg/dL D-Dimer (0-0.59) ug/mIFE U Specimen Type Arterial Sample Site Radial, right ABG pH 7.41 (7.35-7.45) ABG pCO2 39.6 (35-45) mmHg ABG pO2 93.6 (80.0-100.0) mmH g ABG HCO3 25.3 (22-26) mmol/L ABG Base Excess 0.7 (-2.0-2.0) mmol/ L Antony Test Pos Hematocrit 39.4 (37-47) % O2 Delivery Device Nc O2 Liters/Min 4.0 % Administrative Appeals Tribunal Member ID ellpe Sodium (136-145) mmol/L Potassium (3.5-5.1) mmol/L Chloride (98-107) mmol/L Carbon Dioxide (22-29) mmol/L Anion Gap (5-19) BUN (8-23) mg/dL Creatinine (0.5-0.9) mg/dL GFR Calculation (90-130) mL/min Glucose (65-115) mg/dL Calculated Osmolal ity (285-295) mOsm/k g Lactic Acid (0.5-2.2) mmol/L Calcium (8.5-10.5) mg/dL Magnesium (1.7-2.3) mg/dL Ferritin (15-150) ng/mL Total Bilirubin (0.15-1.2) mg/dL AST (0-32) U/L ALT (0-33) U/L Alkaline Phosphata se (35-105) IU/L Lactate Dehydrogen ase (135-214) U/L Troponin T Baselin e (0-10) ng/L Troponin T 120 Min [place] 56.47 H (0-10) ng/L Delta Troponin T 26.47 H* (0-10) ABS# C-Reactive Protein (0.0-4.9) mg/L NT-Pro-B Natriuret Pep (0-125) pg/mL Total Protein (6.6-8.7) g/dL Albumin (3.5-5.2) g/dL Globulin (1.3-4.6) g/dL Lipase (13-60) U/L Procalcitonin (0-0.5) ng/mL Urine Color (Yellow) Urine Appearance (CLEAR) Urine pH (5-7) Ur Specific Gravit y (1.005-1.030) Urine Protein (Negative) Urine Glucose (UA) (Normal) Urine Ketones (Negative) Urine Blood (Negative) Urine Nitrate (Negative) Urine Bilirubin (NEGATIVE) Urine Urobilinogen (Negative) mg/dL Ur Leukocyte Gillian ase (Negative) Urine RBC (0-2) /hpf Urine WBC (0-5) /hpf Ur Squamous Epith Cells (0-5) Amorphous Sediment Urine Bacteria (NONE) Urine Mucus Influenza Type A A g (Negative) Influenza Type B A g (Negative) SARS-CoV-2 Ag (Rap id) Negative (Negative) 06/22/20 Range/Units 08:44 WBC (4.0-10.0) 10^3/ uL RBC (4.1-5.3) 10^6/u L Hgb (11.5-15.3) g/dL Hct (37.0-47.0) % MCV (81-99) fL MCH (28.0-34.0) pg MCHC (30.0-36.0) g/dL RDW (12.1-15.1) % Plt Count (130-400) 10^3/c mm MPV (7.4-10.4) fL Neut % (Auto) % Lymph % (Auto) % [place] % (Auto) % Eos % (Auto) % Baso % (Auto) % Neut # (Auto) (1.8-7.7) 10^3/u L Lymph # (Auto) (0.8-4.8) 10^3/u L [place] # (Auto) (0.2-0.9) 10^3/u L Eos # (Auto) (0.0-0.8) 10^3/u L Baso # (Auto) (0.0-0.1) 10^3/u L Nucleated RBC % (a uto) % Nucleated RBCs # /100WBC PT (12.1-14.9) SECO NDS INR (0.8-1.2) Fibrinogen (174-498) mg/dL D-Dimer (0-0.59) ug/mIFE U Specimen Type Sample Site ABG pH (7.35-7.45) ABG pCO2 (35-45) mmHg ABG pO2 (80.0-100.0) mmH g ABG HCO3 (22-26) mmol/L ABG Base Excess (-2.0-2.0) mmol/ L Antony Test Hematocrit (37-47) % O2 Delivery Device O2 Liters/Min % Administrative Appeals Tribunal Member ID Sodium (136-145) mmol/L Potassium (3.5-5.1) mmol/L Chloride (98-107) mmol/L Carbon Dioxide (22-29) mmol/L Anion Gap (5-19) BUN (8-23) mg/dL Creatinine (0.5-0.9) mg/dL GFR Calculation (90-130) mL/min Glucose (65-115) mg/dL Calculated Osmolal ity (285-295) mOsm/k g Lactic Acid (0.5-2.2) mmol/L Calcium (8.5-10.5) mg/dL Magnesium (1.7-2.3) mg/dL Ferritin (15-150) ng/mL Total Bilirubin (0.15-1.2) mg/dL AST (0-32) U/L ALT (0-33) U/L Alkaline Phosphata se (35-105) IU/L Lactate Dehydrogen ase (135-214) U/L Troponin T Baselin e (0-10) ng/L Troponin T 120 Min [place] (0-10) ng/L Delta Troponin T (0-10) ABS# C-Reactive Protein (0.0-4.9) mg/L NT-Pro-B Natriuret Pep (0-125) pg/mL Total Protein (6.6-8.7) g/dL Albumin (3.5-5.2) g/dL Globulin (1.3-4.6) g/dL Lipase (13-60) U/L Procalcitonin 4.68 H (0-0.5) ng/mL Urine Color (Yellow) Urine Appearance (CLEAR) Urine pH (5-7) Ur Specific Gravit y (1.005-1.030) Urine Protein (Negative) Urine Glucose (UA) (Normal) Urine Ketones (Negative) Urine Blood (Negative) Urine Nitrate (Negative) Urine Bilirubin (NEGATIVE) Urine Urobilinogen (Negative) mg/dL Ur Leukocyte Gillian ase (Negative) Urine RBC (0-2) /hpf Urine WBC (0-5) /hpf Ur Squamous Epith Cells (0-5) Amorphous Sediment Urine Bacteria (NONE) Urine Mucus Influenza Type A A g (Negative) Influenza Type B A g (Negative) SARS-CoV-2 Ag (Rap id) (Negative) Discharge Plan Discharge Prescriptions: No Action magnesium oxide 400 mg magnesium capsule 400 mg PO DAILY Qty: 90 RF: 3 citalopram 20 mg tablet 20 mg PO DAILY Qty: 90 RF: 1 ergocalciferol (vitamin D2) 1,250 mcg (50,000 unit) capsule 50,000 unit PO .COMPLEX Qty: 30 RF: 2 ferrous sulfate 325 mg (65 mg iron) tablet 325 mg PO DAILY Qty: 90 RF: 1 fexofenadine 180 mg tablet 180 mg PO Q24H Qty: 90 RF: 1 furosemide [Lasix] 20 mg tablet 20 mg PO QAM Qty: 90 RF: 1 levothyroxine [Synthroid] 112 mcg tablet 112 mcg PO DAILY Qty: 90 RF: 1 losartan 25 mg tablet 25 mg PO DAILY Qty: 90 RF: 1 pravastatin 40 mg tablet 40 mg PO DAILY Qty: 90 RF: 1 trazodone 100 mg tablet 100 mg PO .COMPLEX Qty: 90 RF: 1 verapamil 180 mg tablet extended release 180 mg PO QAM Qty: 90 RF: 1 albuterol sulfate [ProAir HFA] 90 mcg/actuation HFA aerosol inhaler 2 puff INHALATION QID PRN (Reason: Shortness Of Breath) RF: 0 albuterol sulfate 2.5 mg /3 mL (0.083 %) solution for nebulization 2.5 mg INHALATION QID PRN (Reason: Shortness Of Breath) RF: 0 aspirin [Adult Aspirin Regimen] 81 mg tablet,delayed release (DR/EC) 81 mg PO DAILY RF: 0 Perforomist 20 mcg/2 mL solution for nebulization 20 mcg INHALATION BID RF: 0 umeclidinium-vilanterol 62.5-25 mcg/actuation blister with device 1 inh INHALATION Q24H RF: 0 alendronate 70 mg tablet 70 mg PO .every 7 days Qty: 15 RF: 1 Enbrel SureClick 50 mg/mL (1 mL) pen injector 50 mg SUBCUT .Q7days Qty: 4 RF: 3 doxycycline monohydrate 100 mg Tablet 100 mg PO BID Qty: 14 RF: 0 Lactobacillus acidoph-L.bulgar [Floranex] 1 million cell Tablet 1 tab PO BID Qty: 30 RF: 0 potassium chloride 10 mEq Tablet Extended Release 10 meq PO DAILY RF: 0 prednisone 2.5 mg tablet 2.5 mg PO DAILY RF: 0 Protonix 40 mg tablet,delayed release (DR/EC) 40 mg PO BID RF: 0 Coding Level of Care Code ED Surgical [employer]liance [employer] for [employer] Fwd Exam Comprehensive
[2020-06-22] MEDS: albuterol 8 gm MDI 6 PUFF INHALATION (05:37)
[2020-06-22 05:42] LABS: ABG PCO2 39.6 mmHg (35-45); ABG PH Result 7.41 (7.35-7.45); Arterial Blood Gas Hematocrit 39.4 % (37-47); Base Excess ABG 0.7 mmol/L (-2.0-2.0); Blood Gas Allen Test Pos; Blood Gas Sample Site Radial, right; Blood Gas Sample Type Arterial; HCO3 ABG 25.3 mmol/L (22-26); Oxygen Device NC; PO2 ABG 93.6 mmHg (80.0-100.0)
[2020-06-22 05:47] LABS: Eosinophils # 0.1 10^3/uL (0.0-0.8); Eosinophils % 9.8 %; Hematocrit 40.2 % (37.0-47.0); Hemoglobin 12.3 g/dL (11.5-15.3); Lymphocytes # 0.3 10^3/uL (0.8-4.8); Lymphocytes % 56.9 %; Mean Corpuscular HGB Conc 30.6 g/dL (30.0-36.0); Mean Corpuscular Hemoglobin 28.9 pg (28.0-34.0); Mean Corpuscular Volume 94.6 fL (81-99); Mean Platelet Volume 10.2 fL (7.4-10.4); Monocytes # 0.1 10^3/uL (0.2-0.9); Monocytes % 9.8 %; Neutrophils % 21.5 %; Nucleated Red Blood Cells % 0 %; Platelet Count 172 10^3/cmm (130-400); Positive M 1; Red Blood Count 4.25 10^6/uL (4.1-5.3); Red Cell Distribution Width 13.4 % (12.1-15.1)
[2020-06-22] MEDS: ondansetron 2 mg/ML SDV 2 mL 4 MG IVP (05:57)
[2020-06-22] MEDS: sodium chloride 0.9% 1,000 ML 999 ML IV ×2 (05:58→08:05)
[2020-06-22 06:10] LABS: Bilirubin Urine Neg (NEGATIVE); Blood Urine 2+ (Negative); Glucose Urine UA Norm (Normal); Ketones Urine Negative (Negative); Leukocyte Esterase Urine Negative (Negative); Nitrate Urine Negative (Negative); Protein Urine Neg (Negative); Urine Appearance Clear (CLEAR); Urine Color Yellow (Yellow); Urobilinogen Urine Norm (Negative); pH Urine 6 (5-7)
[2020-06-22 06:11] LABS: Lactic Sepsis W/Reflex 1.9 mmol/L (0.5-2.2); Troponin(5th) Baseline 30 ng/L (0-10)
[2020-06-22 06:12] LABS: Add Urine Culture? No; Bacteria Urine TRACE; Mucus Urine TRACE; RBC Urine 0-4 /hpf (0-2); WBC Urine 0-4 /hpf (0-5)
[2020-06-22 06:15] LABS: Influenza A by IFA Negative (Negative); Influenza B by IFA Negative (Negative)
[2020-06-22 06:15] LABS: Alanine Aminotransferase 29 U/L (0-33); Albumin Level 3.7 g/dL (3.5-5.2); Alkaline Phosphatase 129 IU/L (35-105); Anion Gap 12.7 (5-19); Aspartate Amino Transferase 25 U/L (0-32); Blood Urea Nitrogen 12 mg/dL (8-23); Calcium 9.1 mg/dL (8.5-10.5); Carbon Dioxide 25 mmol/L (22-29); Chloride 105 mmol/L (98-107); Glomerular Filtration Rate 62.6 mL/min (90-130); Glucose 112 mg/dL (65-115); Lipase 16 U/L (13-60); Magnesium 1.7 mg/dL (1.7-2.3); NT Pro B Type Natriuretic Pept 301 pg/mL (0-125); Osmolality Calculated 285 mOsm/kg (285-295); Potassium 3.7 mmol/L (3.5-5.1); Sodium 139 mmol/L (136-145); Total Bilirubin 0.3 mg/dL (0.15-1.2); Total Protein 6.7 g/dL (6.6-8.7)
[2020-06-22 06:15] LABS: SARS Covid-2 Antigen Negative (Negative)
[2020-06-22 06:18] LABS: INR 0.85 (0.8-1.2)
[2020-06-22 06:26] LABS: Neutrophils # 0.11 10^3/uL (1.8-7.7); White Blood Count 0.5 10^3/uL (4.0-10.0)
[2020-06-22 06:27] LABS: Slide Review Slide Review Perform
--- NOTE | 2020-06-22 07:02 | PC.NURSE ---
Rounded on patient. Patient resting in bed. No distress noted. Patient has no needs at this time. Will continue to monitor patient.
--- NOTE | 2020-06-22 07:20 | ECG_ITS ---
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 Measurements Intervals [place] Rate: 110 P: 28 AK: 147 QRS: -40 QRSD: 98 T: 72 QT: 303 QTc: 411 Interpretive Statements SINUS TACHYCARDIA LEFT AXIS DEVIATION [QRS AXIS < -30] PATTERN CONSISTENT WITH PULMONARY DISEASE NONSPECIFIC T-WAVE ABNORMALITY Compared to ECG 03/31/2020 10:29:23 T-wave abnormality now present Sinus rhythm no longer present Atrial abnormality no longer present Electronically Signed On 06-22-2020 21:15:25 CDT by Luis Conde M.D. [email or web address]
[2020-06-22 08:24] LABS: D Dimer 3.71 ug/mIFEU (0-0.59); Fibrinogen 452 mg/dL (174-498)
[2020-06-22 08:25] LABS: C Reactive Protein 38.2 mg/L (0.0-4.9); Ferritin 206 ng/mL (15-150); Lactate Dehydrogenase 241 U/L (135-214)
--- NOTE | 2020-06-22 08:44 | PC.NURSE ---
COVID swabbed collected and sent to lab at this time.
[2020-06-22 09:17] LABS: Troponin 5 2HR 56.47 ng/L (0-10)
--- NOTE | 2020-06-22 09:31 | CT_ITS ---
WS: [id number] CT CHEST ANGIOGRAPHY WITH REFORMATS HISTORY: hypoxia, lung nodules, elevated d-dimer, COPD TECHNIQUE: Contiguous axial images are obtained through the chest during arterial injection of intrav enous contrast. Images are reconstructed to evaluate the pulmonary arteries. MIP imaging also reviewe d. All CT scans at [facility] use at least one of these dose optimization techniques: aut omated exposure control; mA and/or kV adjustment per patient size (includes targeted exams where dose is matched to clinical indication); or iterative reconstruction. CONTRAST: Omnipaque 350; 95 mL IV. DLP: 547.61 mGy.cm COMPARISON: 07/26/2019 Patient is status post esophagectomy with gastric pull-through. As compared to 07/26/2019 the postsurgi chepe changes are stable. There is air, fluid and debris in the gastric pull-through as seen on the chadd or study. No recurrent mass or stricture at the surgical anastomosis. Good opacification of the pulmonary arteries through the segmental branches. No emboli are identified . Pulmonary artery size is slightly enlarged measuring 3.0 cm. Mild atherosclerosis aorta with no ane urysm. No dissection. Mild enlargement of the LEFT heart chambers with no pericardial effusion. Progression of the tree-in-bud opacification since 07/26/2019. There are scattered opacifications and m ild groundglass attenuation bilaterally. More focal consolidation at the RIGHT lung base. Minimal ate lectasis at the LEFT lung base is probably due to the elevated LEFT hemidiaphragm which is chronic. N o adenopathy. Visualized liver is negative. Negative gallbladder. No adrenal mass. Healed rib fractures in the posterior LEFT thorax. CT/CT angio chest PE protcl [id number] IMPRESSION: 1. No pulmonary embolism through the segmental branches. 2. Diffuse tree-in-bud airspace disease with additional multilobar groundglass attenuation and focal areas of more dense consolidation at the RIGHT lung base . Consider atypical pneumonia or pneumonitis. 3. Status post esophagectomy with gastric pull-through which is stable. 4. Mild atherosclerosis aorta.
[2020-06-22 09:35] LABS: Troponin 5 2HR Delta 26.47 ABS# (0-10)
--- NOTE | 2020-06-22 09:52 | P.HP_ITS ---
Providers/Chief Complaint Admitting Physician: Amie Christie DO Primary Care Provider: Ladonna Rutledge MD Chief Complaint: SOB FEVER History of Present Illness Gabby Garcia is a 64 year old female with a past medical history of COPD, chronic steroid use and immunocompromised status with rheumatoid arthritis. She reports that suddenly last night she began to have increasing shortness of breath, cough, dry cough with no sputum and no hemoptysis. She reports a fever of at home of 102 ?F, increased nausea vomiting. She denies any abdominal pain, no diarrhea or constipation. She reports that she has been out in public, to [employer] and other stores but denies any known exposure to anyone under investigation are positive for COVID-19. Patient denies any recent fevers other than what started last night, she does report that she is on chronic steroids, azithromycin but also has doxycycline listed. She stated that she is on this from her corn cutter in [facility]. She stated that she has been diagnosed with COPD she denies being on any oxygen at home but is currently on 3 L by nasal cannula. She does report that she uses a home trilogy while sleepi ng. Patient reports that she follows closely with rheumatology, is on immunocompromising medications and her last white blood cell count was around 3. She denies any history of neutropenic fever. Patient was seen and evaluated in the emergency department noted to have concern for sepsis secondary to respiratory illness with concern for atypical pneumonia versus viral pneumonia. Patient was given broad-spectrum IV antibiotics and called for admission. Patient remains on isolation precautions for COVID-19 testing and due to neutropenic fever. Review of Systems Const: Reports: fever(s), chills, body aches, fatigue and malaise Eyes: Denies: change in vision ENMT: Denies: nasal congestion Card: Denies: chest pain, palpitations or edema Resp: Reports: dyspnea and non-productive cough; Denies: productive cough or hemoptysis GI: Reports: nausea and vomiting; Denies: abdominal pain, diarrhea, constipation, hematochezia or melena : Denies: dysuria or hematuria Musc: Denies: extremity pain Skin/Breast: Denies: rash or new lesions Neuro: Denies: headache(s) or dizziness Psych: Denies: anxiety or depression Endo: Denies: polyuria or hot flashes Santos/Lymph: Denies: easy bruising or easy bleeding Medications/Allergies Home Medications Medication Instructions Recorded Confirmed Last Taken Type albuterol sulfate 2.5 mg INHALATION QID PRN 11/19/19 06/22/20 06/22/20 History albuterol sulfate 90 mcg/actuation 2 puff INHALATION QID PRN 11/19/19 06/22/20 Unknown History aerosol inhaler aspirin 81 mg tablet,delayed 81 mg PO DAILY tab 11/19/19 06/22/20 06/21/20 History release formoterol fumarate 20 mcg/2 mL 20 mcg INHALATION BID ml 11/25/19 06/22/20 06/21/20 History solution for nebulization umeclidinium 62.5 mcg-vilanterol 1 inh INHALATION Q24H 11/25/19 06/22/20 06/21/20 History 25 mcg/actuation powdr for inhalation Lactobacillus acidoph-L.bulgar 1 tab PO BID #30 tab 04/01/20 06/22/20 06/21/20 Rx [Floranex] doxycycline monohydrate 100 mg PO BID #14 tab 04/01/20 06/22/20 Unknown Rx citalopram 20 mg tablet 20 mg PO DAILY #90 tab 04/14/20 06/22/20 06/21/20 Rx ergocalciferol (vitamin D2) 1,250 50,000 unit PO .COMPLEX #30 cap 04/14/20 06/22/20 06/18/20 Rx mcg (50,000 unit) capsule ferrous sulfate 325 mg (65 mg 325 mg PO DAILY #90 tab 04/14/20 06/22/20 06/21/20 Rx iron) tablet fexofenadine 180 mg tablet 180 mg PO Q24H #90 tab 04/14/20 06/22/20 06/21/20 Rx furosemide 20 mg tablet 20 mg PO QAM #90 tab 04/14/20 06/22/20 06/21/20 Rx levothyroxine 112 mcg tablet 112 mcg PO DAILY #90 tab 04/14/20 06/22/20 06/21/20 Rx losartan 25 mg tablet 25 mg PO DAILY #90 tab 04/14/20 06/22/20 06/21/20 Rx magnesium oxide 400 mg PO DAILY #90 cap 05/29/20 08/06/20 08/05/20 Rx pravastatin 40 mg tablet 40 mg PO DAILY #90 tab 04/14/20 06/22/20 06/21/20 Rx trazodone 100 mg tablet 100 mg PO .COMPLEX #90 tab 04/14/20 06/22/20 06/21/20 Rx verapamil 180 mg tablet,extended 180 mg PO QAM #90 tab 04/14/20 06/22/20 06/21/20 Rx release alendronate 70 mg tablet 70 mg PO .every 7 days #15 tab 06/06/20 06/22/20 06/17/20 Rx etanercept 50 mg/mL (1 mL) 50 mg SUBCUT .Q7days #4 ml 06/06/20 06/22/20 06/21/20 Rx subcutaneous pen injector Protonix 40 mg PO BID 06/22/20 06/22/20 06/21/20 History potassium chloride 10 meq PO DAILY 06/22/20 06/22/20 06/21/20 History prednisone 2.5 mg PO DAILY 06/22/20 06/22/20 06/21/20 History Allergies Allergy/AdvReac Type Severity Reaction Status Date / Time REINA Inhibitors Allergy ADR-Cough Verified 06/22/20 08:29 codeine Allergy ADR-Nausea Verified 06/22/20 08:29 sulfamethoxazole Allergy ALGY-Anaphy Verified 06/22/20 08:29 [From Bactrim] laxis trimethoprim [From Bactrim] Allergy ALGY-Anaphy Verified 06/22/20 08:29 laxis PFSH Acute PFSH: Medical History Chronic steroid use COPD (chronic obstructive pulmonary disease) Uses home trilogy device, PRN oxygen Depression GERD (gastroesophageal reflux disease) History of aspiration pneumonia Hyperlipidemia Hypertension Hypothyroidism Immunization counseling Iron deficiency anemia Rheumatoid arthritis with rheumatoid factor of multiple sites without organ or systems involvement Surgical History H/O arthroscopy of knee left knee H/O esophagectomy History of cataract surgery 2017 History of gastric surgery age 6 History of skin graft left knee History of tubal ligation Previous back surgery right L3-L4, right L5-S1 hemilaminotomy foraminotomy/ discectomy/ Family History (Updated 06/22/20 @ 09:59 by Amie Christie DO) Father Cancer Pancreatic cancer Mother Cancer Lung cancer with brain mets Daughter Cancer Lung cancer with brain mets Other CAD (coronary artery disease) Hypertension Denies family history of Rheumatoid arthritis Diabetes Chronic kidney disease (CKD) Systemic lupus erythematosus (SLE) in adult Lung disease Social History Smoking and tobacco status: former smoker Quit status (tobacco): has quit using tobacco Year quit tobacco: 2000 Alcohol intake: current Alcohol type: beer Lives independently: No (lives with boyfriend) Marital status: History of recent travel: No Vitals/I&O/Wt Last Vital Signs Temp 98.7 F 06/22/20 08:17 Pulse 104 H 06/22/20 09:46 Resp 29 H 06/22/20 09:46 BP 103/57 06/22/20 09:46 Pulse Ox 95 06/22/20 09:46 06/21/20 06/22/20 06/22/20 22:59 06:59 14:59 Intake Total 1400 / 1400 Balance 1400 / 1400 Weight last 48 hrs Weight 65.771 kg Physical Exam Const: COMMON NORMALS: patient oriented x3 and alert GENERAL APPEARANCE: cooperative and ill appearing ORIENTATION/CONSCIOUSNESS: Yes awake, Yes oriented to person, Yes oriented to place and Yes oriented to time HENMT: COMMON NORMALS: normocephalic and atraumatic HEAD & SCALP: normocephalic and atraumatic Eye: COMMON NORMALS: Equal, round and reactive pupils present PUPIL: Yes Equal, round and reactive pupils present Neck/C-Spine: COMMON NORMALS: supple GENERAL: Yes normal visual inspection Resp: OTHER: Patient on 3 L nasal cannula at time of exam, mild accessory muscle use, diminished breath sounds bilaterally with prolonged expiratory phase with coarse breath sounds in the bases bilaterally, no appreciable wheezing Cardio: COMMON NORMALS: regular rhythm and No murmurs present (Cardio) RATE: tachycardic RHYTHM: regular rhythm GI: COMMON NORMALS: Soft to palpation and non-tender INSPECTION: No abdominal distension AUSCULTATION: Yes normoactive bowel sounds PALPATION: Yes Soft to palpation : COMMON NORMALS: Yes no CVA tenderness BLADDER/KIDNEY EXAM: Yes no CVA tenderness Back/Pelvis: COMMON NORMALS: no CVA tenderness Extremity: COMMON NORMALS: no clubbing, cyanosis or edema and no calf tenderness Neuro: COMMON NORMALS: patient oriented x3, CN's II-XII intact bilaterally, moves all extremities and no focal motor deficits SENSORIUM/ORIENTATION: Yes alert, Yes oriented to person, Yes oriented to place and Yes oriented to time SPEECH: speech normal Psych: COMMON NORMALS: mental status grossly normal and cooperative Skin: COMMON NORMALS: no rashes or lesions noted GENERAL SKIN EXAM: no rashes or lesions noted Data : 06/22/20 05:15 06/22/20 05:15 Micro: Microbiology 06/22/20 05:15 Blood Culture - Preliminary Blood SPECIMEN COLLECTED 06/22/20 05:20 Blood Culture - Preliminary Blood SPECIMEN COLLECTED CXR: I personally reviewed and interpreted this imaging study as follows: Radiologist's impression: FINDINGS: Lungs: Reticular nodular pattern within the lung parenchyma less conspicuous than the prior exam dated 03-29-20. Pleural space: Unremarkable. No pleural effusion. No pneumothorax. Heart/Mediastinum: Unremarkable. No cardiomegaly. Diaphragm: Elevation left hemidiaphragm. Subtle airspace disease versus atelectasis left retrocardiac region and right lung base. Bones/joints: Unremarkable. XR/XR chest 1V portable [id number] IMPRESSION: 1. Elevation left hemidiaphragm. Subtle airspace disease versus atelectasis left retrocardiac region and right lung base. 2. Reticular nodular pattern within the lung parenchyma less conspicuous than the prior exam dated 03-29-20. A&P Assessment and plan (1) Atypical pneumonia: With chronic immunocompromise state and sepsis as well as neutropenic fever Given broad-spectrum antibiotics in the ED, continued on vancomycin and Zosyn COVID-19 testing ordered and pending by PCR, patient reports nausea, vomiting, cough and generalized malaise and body aches History of Pseudomonas on prior sputum culture, history of aspiration pneumonia. Status: Acute (2) Sepsis: Continue with broad-spectrum antibiotics, gentle IV fluids, blood pressure stable at this time. With history of diastolic congestive heart failure will be cautious with IV fluids Status: Acute (3) Neutropenic fever: Continue on contact and droplet precautions due to concern for and testing for COVID-19. Patient with chronic immunocompromise state and neutropenic fever Checking procalcitonin Status: Acute (4) Chronic steroid use: On prednisone 2.5 mg daily Status: Acute (5) Hypertension: Blood pressure on the lower side at this time, holding home ARB Status: Chronic Qualifiers: Hypertension type: essential hypertension Qualified Code(s): I10 - Ess ential (primary) hypertension (6) COPD (chronic obstructive pulmonary disease): With acute exacerbation Evaluating with CT scan of the chest with PE protocol due to elevated d-dimer and chronic nodular changes on prior imaging. Patient has not had any CT scan of her chest recently also with history of immunocompromise state concern for atypical pneumonia Status: Chronic (7) Depression: Continue on home citalopram Status: Chronic (8) Hypothyroidism: Continue on home levothyroxine 112 mcg daily Status: Chronic Qualifiers: Hypothyroidism type: unspecified Qualified Code(s): E03.9 - Hypothyroidism, unspecified (9) Hyperlipidemia: Continue on home statin Status: Chronic Qualifiers: Hyperlipidemia type: unspecified Qualified Code(s): E78.5 - Hyperlipidemia, unspecified (10) Rheumatoid arthritis with rheumatoid factor of multiple sites without organ or systems involvement: Followed closely by Dr. Esparza, last seen on 06/06/20. She is on chronic leflunomide 20mg daily, prednisone daily, hydroxychloroquine 200mg BID. She had TB quant and hep panel negative in 2018 Status: Chronic Additional A&P Information Elevated troponin delta: likely secondary to hypoxia on admission, continue close monitoring on telemetry, Serial EKG and troponin. Elevated D-Dimer: with chronic COPD, testing with concern for COVID-19 and also evaluating with CTA PE protocol to rule out PE due to acute onset of dyspnea. Diastolic CHF: Euvolemic at this time, contiue home lasix DVT ppx: Lovenox Diet: Cardiac Code status: Full code, discussed with patient while in the ED UPDATE: After further discussion with the ER physician and warehouse freight handler no isolation rooms available in the hospital at this time due to significantly elevated census. Patient requires contact and isolation precautions due to testing for COVID-19 and neutropenic fever. Therefore patient transferred from ER to ER to outside facility due to bed being unavailable for patient Attestations Medical Necessity Statement*: Patient requires inpatient admission due to neutropenic fever, sepsis. Expected stay greater than 2 midnights Coding Level of Care Code Acute Director Of Knowledge Management for [facility] [place] Fwd Diagnoses Atypical pneumonia J18.9 Sepsis A41.9 Neutropenic fever D70.9; R50.81 Chronic steroid use Hypertension I10 Hypertension type: essential hypertension COPD (chronic obstructive pulmonary disease) J44.9 Depression F32.9 Hypothyroidism E03.9 Hypothyroidism type: unspecified Hyperlipidemia E78.5 Hyperlipidemia type: unspecified Rheumatoid arthritis with rheumatoid factor of multiple sites without organ or systems involvement M05.79
[2020-06-22 10:08] LABS: Procalcitonin 4.68 ng/mL (0-0.5)
[2020-06-22] MEDS: iohexol 350 mg/mL 100 mL Btl IV (10:11)
[2020-06-22] MEDS: enoxaparin 40 mg/0.4 mL Syringe SUBCUT (10:15)
[2020-06-22 10:18] LABS: Magnesium 1.6 mg/dL (1.7-2.3); Phosphorus 2.2 mg/dL (2.5-4.5)
--- NOTE | 2020-06-22 23:06 | PC.NURSE ---
lab called 2 positive preliminary results on blood cultures. Notified Dr. Marshall. Advised to wait until final blood culture reports.
[2020-06-24 11:11] LABS: Coronavirus Lab Test PTC SEE REPORT
== END 2020-06-22 11:11 | disposition short-term general hospital (02) ==
PROVIDERS: Emergency Medicine; Family Medicine; Emergency Provider Emergency Medicine; PCP Family Medicine
DX: R06.02 Shortness of breath (principal); Z79.82 Long term (current) use of aspirin; J44.9 Chronic obstructive pulmonary disease, unspecified; E78.5 Hyperlipidemia, unspecified; I10 Essential (primary) hypertension; Z87.891 Personal history of nicotine dependence; Z79.899 Other long term (current) drug therapy; R11.10 Vomiting, unspecified
CPT/HCPCS: 12345; 36600; 71045; 71275; 80053; 81001; 82728; 82803; 83605; 83615; 83690; 83735; 83880; 84100; 84145; 84484; 85025; 85378; 85384; 85610; 86140; 87040; 87077; 87086; 87186; 87205; 87426; 87635; 87804; 93005; 94640; 96360; 96361; 96365; 96366; 96368; 96372; 96375; 99284; 99285; J0131; J1650; J2405; J2543; J3370; J3535; J7030; J7050; Q9967

== ENCOUNTER 2020-08-30 11:53 | Outpatient (CLI) | payer MEDICARE, OTHER, SELFPAY ==
--- NOTE | 2020-08-30 12:00 | MM_ITS ---
WS: [id number] DIAGNOSTIC RIGHT DIGITAL MAMMOGRAM WITH CAD RIGHT breast ultrasound, limited HISTORY: 6 MO F/U HYPOECHOIC AREA RT BREAST COMPARISON: 02/03/2020, 01/27/2020 and 10/28/2018 Technique: CC, MLO and ML views. Spot compression RIGHT MLO and RIGHT CC Breast composition: There are scattered areas of fibroglandular density. Focal asymmetry persists in the anterior superior RIGHT breast. Nodular densities ill-defined greatest posterior to the nipple. On the compression views and becomes less defined and normal elongated may be a duct. There are vascu lar calcifications. RIGHT breast ultrasound limited. Ultrasound directed to the posterior nipple and at 12:00. There is fibrocystic changes and mild dilat ed ducts. No shadowing or mass. MM/[place] [id number] IMPRESSION: BI-RADS: 3-Probably Benign FOLLOW UP: 6 Month Follow-up Patient to return in January 2021 for annual mammogram. At that time additional i maging of the anterior RIGHT breast asymmetry should be performed to demonstrat e continued stability.
== END 2020-08-30 11:54 | disposition home or self-care (01) ==
LOC: RADSHAW 11:58
PROVIDERS: PCP Family Medicine; Visit Provider Family Medicine
DX: R92.8 Other abnormal and inconclusive findings on diagnostic imaging of breast (principal); Z79.899 Other long term (current) drug therapy; N64.89 Other specified disorders of breast
CPT/HCPCS: 36415; 76642; 77065; 80076; 82565; 85025; 85651; 86140

== ENCOUNTER → 2020-10-03 09:38 | Outpatient (BNVA) | payer MEDICARE, OTHER, SELFPAY | PROVIDERS: PCP Family Medicine; Visit Provider Internal Medicine Rheumatology | DX: M05.79 Rheumatoid arthritis with rheumatoid factor of multiple sites without organ or systems involvement (principal); J18.9 Pneumonia, unspecified organism; Z79.52 Long term (current) use of systemic steroids; Z87.891 Personal history of nicotine dependence; Z79.899 Other long term (current) drug therapy | CPT/HCPCS: 99214 ==

== ENCOUNTER → 2020-10-16 10:29 | Outpatient (BNVA) | payer MEDICARE, OTHER, SELFPAY | PROVIDERS: PCP Family Medicine; Visit Provider Family Medicine | DX: J18.9 Pneumonia, unspecified organism (principal); J44.9 Chronic obstructive pulmonary disease, unspecified; E03.9 Hypothyroidism, unspecified; I10 Essential (primary) hypertension; E78.5 Hyperlipidemia, unspecified; E55.9 Vitamin D deficiency, unspecified; D50.9 Iron deficiency anemia, unspecified; F51.01 Primary insomnia | CPT/HCPCS: 80053; 80061; 82306; 84443; 85025 ==

== ENCOUNTER → 2020-10-19 11:21 | Outpatient (BNVA) | payer MEDICARE, OTHER, SELFPAY | PROVIDERS: PCP Family Medicine; Visit Provider Internal Medicine Pulmonary Disease | DX: R06.02 Shortness of breath (principal) | CPT/HCPCS: 87635 ==

== ENCOUNTER 2020-10-24 08:02 | Outpatient (CLI) | payer MEDICARE, OTHER, SELFPAY ==
--- NOTE | 2020-10-24 08:37 | PFTS_ITS ---
Date of Study:10/24/20 Date of Dictation: MECHANICS: Forced vital capacity (FVC) is reduced. Forced expiratory volume in one second (FEV1) is reduced. FEV1/FVC is reduced. FLOW VOLUME LOOP: Narrow with scooping. LUNG VOLUMES: Total lung capacity (TLC) is reduced. Residual volume (RV) is normal. DIFFUSING CAPACITY FOR CARBON MONOXIDE: Mild reduced. INTERPRETATION: The pulmonary function tests are consistent with both obstructive and restrictive ventilatory defect. Spirometry is consistent with severe obstruction. The lung volumes are consistent with mild restriction. Gas exchange (DLCO) is mildly reduced. MTDD
== END 2020-10-24 08:03 | disposition home or self-care (01) ==
LOC: RT 08:06
PROVIDERS: PCP Family Medicine; Visit Provider Internal Medicine Pulmonary Disease
DX: J44.9 Chronic obstructive pulmonary disease, unspecified (principal)
CPT/HCPCS: 94010; 94618; 94726; 94729

== ENCOUNTER → 2020-12-20 09:58 | Outpatient (BNVA) | payer MEDICARE, OTHER, SELFPAY | PROVIDERS: PCP Family Medicine; Visit Provider Internal Medicine Rheumatology | DX: M05.79 Rheumatoid arthritis with rheumatoid factor of multiple sites without organ or systems involvement (principal); Z79.899 Other long term (current) drug therapy | CPT/HCPCS: 80076; 82565; 85025; 85651; 86140 ==

== ENCOUNTER → 2021-01-08 11:42 | Outpatient (BNVA) | payer MEDICARE, OTHER, SELFPAY | PROVIDERS: PCP Family Medicine; Visit Provider Family Medicine | DX: E03.9 Hypothyroidism, unspecified (principal); F51.01 Primary insomnia; E78.5 Hyperlipidemia, unspecified; I10 Essential (primary) hypertension; J98.4 Other disorders of lung | CPT/HCPCS: 80053; 80061; 84443; 85025 ==

== ENCOUNTER → 2021-02-14 14:38 | Outpatient (BNVA) | payer MEDICARE, OTHER, SELFPAY | PROVIDERS: PCP Family Medicine; Visit Provider Internal Medicine Rheumatology | DX: M05.79 Rheumatoid arthritis with rheumatoid factor of multiple sites without organ or systems involvement (principal); Z79.899 Other long term (current) drug therapy; R74.01 Elevation of levels of liver transaminase levels; Z87.891 Personal history of nicotine dependence | CPT/HCPCS: 99214 ==

== ENCOUNTER 2021-03-30 14:10 | Outpatient (CLI) | payer MEDICARE, OTHER, SELFPAY ==
--- NOTE | 2021-03-30 14:30 | MM_ITS ---
WS: [id number] BILATERAL SCREENING DIGITAL MAMMOGRAM WITH CAD HISTORY: R92.8 - Other abnormal and inconclusive findings on diagnostic imaging of breast COMPARISON: 01/27/2020, 10/28/2018 Bilateral CC and MLO views submitted. Computer aided detection analyzed. Breast composition: There are scattered areas of fibroglandular density. No suspicious masses, microc alcifications or architectural distortion. MM/[place] [id number] IMPRESSION: BI-RADS: 1-Negative FOLLOW UP: 1 Year Follow-up
== END 2021-03-30 14:11 | disposition home or self-care (01) ==
LOC: RADSHAW 14:16
PROVIDERS: PCP Family Medicine; Visit Provider Family Medicine
DX: R92.8 Other abnormal and inconclusive findings on diagnostic imaging of breast (principal)
CPT/HCPCS: 77066

== ENCOUNTER → 2021-04-12 12:30 | Outpatient (BNVA) | payer MEDICARE, OTHER, SELFPAY | PROVIDERS: PCP Family Medicine; Visit Provider Family Medicine | DX: I10 Essential (primary) hypertension (principal); E03.9 Hypothyroidism, unspecified; E78.5 Hyperlipidemia, unspecified; Z12.11 Encounter for screening for malignant neoplasm of colon; G56.01 Carpal tunnel syndrome, right upper limb; J30.9 Allergic rhinitis, unspecified | CPT/HCPCS: 80053; 80061; 84443; 85025 ==

== ENCOUNTER → 2021-04-25 09:09 | Outpatient (BNVA) | payer MEDICARE, OTHER, SELFPAY | PROVIDERS: PCP Family Medicine; Visit Provider Family Medicine | DX: E87.1 Hypo-osmolality and hyponatremia (principal); E03.9 Hypothyroidism, unspecified; E78.5 Hyperlipidemia, unspecified; I10 Essential (primary) hypertension | CPT/HCPCS: 80048; 85025 ==

== ENCOUNTER → 2021-05-08 10:24 | Outpatient (BNVA) | payer MEDICARE, OTHER, SELFPAY | PROVIDERS: PCP Family Medicine; Visit Provider Internal Medicine Rheumatology | DX: M05.79 Rheumatoid arthritis with rheumatoid factor of multiple sites without organ or systems involvement (principal); Z79.899 Other long term (current) drug therapy | CPT/HCPCS: 36415; 80076; 82565; 85025; 86140 ==

== ENCOUNTER → 2021-05-14 10:56 | Outpatient (BNVA) | payer MEDICARE, OTHER, SELFPAY | PROVIDERS: PCP Family Medicine; Visit Provider Internal Medicine | DX: Z01.812 Encounter for preprocedural laboratory examination (principal); Z86.010 Personal history of colon polyps | CPT/HCPCS: 87635 ==

== ENCOUNTER 2021-05-21 12:26 | Inpatient (IN) | payer MEDICARE, OTHER, SELFPAY ==
[2021-05-21] VITALS (10 sets, daily range): BP systolic 97–137; BP diastolic 64–79; PULSE 72–99; RESP 17–28; TEMP 36.6–37.4; O2SAT 90–98; BMI 26.0
--- NOTE | 2021-05-21 13:02 | ECG_ITS ---
[facility] Test Date: 2021-05-21 Pat Name: Gabby Garcia Department: Room: Gender: Female Team Facilitator: : 1955 Requested By: Kalia Koch Order Number: [id number] Reading MD: JESSICA GANNON Measurements Intervals [place] Rate: 96 P: 52 ND: 154 QRS: -31 QRSD: 112 T: 59 QT: 355 QTc: 450 Interpretive Statements SINUS RHYTHM INDETERMINATE AXIS MODERATE INTRAVENTRICULAR CONDUCTION DELAY [110+ ms QRS DURATION] Compared to ECG 06/22/2020 07:17:05 Indeterminate axis now present Intraventricular conduction delay now present Sinus tachycardia no longer present Left-axis deviation no longer present T-wave abnormality no longer present Electronically Signed On 05-21-2021 18:48:43 CDT by JESSICA GANNON [email or web address]
--- NOTE | 2021-05-21 13:02 | XRR_ITS ---
PROCEDURE INFORMATION: Exam: XR Chest Exam date and time: 05/21/2021 1:02 PM Age: 65 years old Clinical indication: Dyspnea TECHNIQUE: Imaging protocol: XR of the chest. Views: 1 view. COMPARISON: CR XR chest 1V portable [id number] 06/22/2020 5:56 AM FINDINGS: Lungs: Unremarkable. No consolidation. Pleural spaces: Elevated left hemidiaphragm No pleural effusion. No pneumothorax. Heart/Mediastinum: Unremarkable. No cardiomegaly. Bones/joints: Unremarkable. XR/XR chest 1V portable [id number] IMPRESSION: 1. No acute findings. 2. Elevated left hemidiaphragm
--- NOTE | 2021-05-21 13:15 | ED_ITS ---
HPI - SOB/Dyspnea General: Chief Complaint: Shortness of Breath/Dyspnea Stated Complaint: SOB Time Seen by Provider: 05/21/21 12:52 Source: patient Mode of arrival: ambulatory Limitations: other (mild sob) History of Present Illness: HPI Narrative: Patient reports she has been short of breath since yesterday. She states she had a fever to 100 degrees on Friday. She reports on Friday 1 week ago she had a negative Covid test. Complains of bilateral posterior pleuritic chest wall pain with deep breaths. She also complains of myalgias in her upper back. She denies any peripheral edema. She has had a cough productive of yellow sputum at times. Possible history includes COPD with pulmonary fibrosis, rheumatoid arthritis, essential hypertension, depression MD elicited complaint: shortness of breath, cough and pain with inspiration Pertinent past history: COPD and other (Rheumatoid arthritis, essential h ypertension) Onset (ago): day(s) (1) Context: recent illness and other (Fever to 100 degrees 3 days ago) Timing: constant Severity: moderate Exacerbating factors: nothing Relieving factors: oxygen Known history of: COPD Associated symptoms: Reports chest congestion, cough, fever(s) and myalgias; Deny abdominal pain, chest pain, nausea, palpitations or vomiting Treatment prior to arrival: none Related Data: Home oxygen amount: none Review of Systems Const: Reports: fever(s) and body aches Eyes: Denies: change in vision ENMT: Denies: throat pain Card: Denies: chest pain or palpitations Resp: Reports: productive cough, pain on inspiration and chest congestion; Denies: dyspnea or wheezing GI: Denies: abdominal pain, nausea or vomiting : Denies: flank pain Musc: Reports: back pain and other (myalgias); Denies: neck pain Skin/Breast: Denies: rash or pruritus Neuro: Denies: headache(s) or numbness in extremities Psych: Denies: anxiety Satnos/Lymph: Denies: enlarged lymph nodes PFSH ED PFSH: Medical History Chronic steroid use COPD (chronic obstructive pulmonary disease) Uses home trilogy device, PRN oxygen COVID-19 vaccine administered Depression GERD (gastroesophageal reflux disease) History of aspiration pneumonia Hyperlipidemia Hypertension Hypothyroidism Immunization counseling Iron deficiency anemia Rheumatoid arthritis with rheumatoid factor of multiple sites without organ or systems involvement Transaminitis Surgical History H/O arthroscopy of knee left knee H/O esophagectomy History of cataract surgery 2017 History of gastric surgery age 6 History of skin graft left knee History of tubal ligation Previous back surgery right L3-L4, right L5-S1 hemilaminotomy foraminotomy/ discectomy/ Family History Father Cancer Pancreatic cancer Mother Cancer Lung cancer with brain mets Daughter Cancer Lung cancer with brain mets Other CAD (coronary artery disease) Hypertension Denies family history of Rheumatoid arthritis Diabetes Chronic kidney disease (CKD) Systemic lupus erythematosus (SLE) in adult Lung disease Social History Smoking and tobacco status: former smoker Quit status (tobacco): has quit using tobacco Year quit tobacco: 2000 [id number] Second hand smoke exposure: No Smoking risk assessment/counseling performed?: Yes Alcohol intake: current Alcohol type: beer Lives independently: Yes Household members: children Housing: House Marital status: Current occupational status: retired Pets and animals: Yes History of recent travel: No Current gender identity: Female Physical Exam Const: COMMON NORMALS: patient oriented x3 and well nourished GENERAL APPEARANCE: cooperative and in distress (Mild respiratory distress) HENMT: COMMON NORMALS: normocephalic and atraumatic HEAD & SCALP: normocephalic and atraumatic FACE & SINUS: normal facial exam MOUTH: Normal oral and palatal mucosa present THROAT: posterior oropharynx normal Eye: COMMON NORMALS: EOMs intact bilaterally Neck/C-Spine: COMMON NORMALS: full ROM, no lymphadenopathy, supple, no menin geal signs and no JVD GENERAL: Yes normal visual inspection Lymph: LYMPHATIC: no lymphadenopathy noted Chest: COMMONS NORMALS: normal inspection of the chest and normal palpation of entire chest wall CHEST: No Ecchymosis present and No rash Resp: COMMON NORMALS: No retractions EFFORT & INSPECTION: Yes tachypneic, Yes respiratory distress and No retractions AUSCULTATION: rales diffuse Cardio: COMMON NORMALS: no JVD, regular rate, regular rhythm and Peripheral pulses 2+ throughout JUGULAR VENOUS DISTENTION: no JVD RATE: regular rate RHYTHM: regular rhythm PERIPHERAL PULSES: Peripheral pulses 2+ throughout OTHER: No peripheral edema GI: COMMON NORMALS: Normal to inspection, nondistended, normoactive bowel sounds present and non-tender : COMMON NORMALS: Yes no CVA tenderness (Mild pain along the paraspinous muscles of the thoracic spine.) BLADDER/KIDNEY EXAM: Yes no CVA tenderness (Mild pain along the paraspinous muscles of the thoracic spine.) Back/Pelvis: COMMON NORMALS: no CVA tenderness (Mild pain along the paraspinous muscles of the thoracic spine.) Extremity: COMMON NORMALS: normal to inspection, full ROM, capillary refill normal and no pedal edema Neuro: COMMON NORMALS: patient oriented x3, CN's II-XII intact bilaterally, no focal motor deficits and no sensory deficits noted MENINGEAL SIGNS: Yes no meningeal signs Psych: COMMON NORMALS: mental status grossly normal, Normal thought process present, cooperative, normal affect, speech normal and activity/motor behavior normal SPEECH: Yes normal speech THOUGHT PROCESS: Normal thought process present Skin: COMMON NORMALS: no rashes or lesions noted, no wounds and no jaundice GENERAL SKIN EXAM: no rashes or lesions noted Course Vital Signs: Vital signs: Vital Signs Temperature 99.4 F 05/21/21 12:45 Pulse Rate 95 05/21/21 13:44 Respiratory Rate 18 05/21/21 13:44 Blood Pressure 137/74 05/21/21 13:44 Pulse Oximetry 98 05/21/21 13:44 MDM - SOB/Dyspnea MDM Narrative: Medical decision making narrative: 1450: will get hospitalist to admit pt due to hypoxia of 88% on room air. will discuss with hospitalist to see if cta of chest is desired. 1509: d/w Dr. Mars. Will observe to telemetry bed. We will hold off on CT angiogram at this time. Lab Data: Attestation: I reviewed the patient's lab results. Labs: Lab Results 05/21/21 05/21/21 05/21/21 Range/Units 13:28 13:28 13:28 WBC (4.0-10.0) 10^3/ uL RBC (4.1-5.3) 10^6/u L Hgb (11.5-15.3) g/dL Hct (37.0-47.0) % MCV (81-99) fL MCH (28.0-34.0) pg MCHC (30.0-36.0) g/dL RDW (12.1-15.1) % Plt Count (130-400) 10^3/c mm MPV (7.4-10.4) fL Neut % (Auto) % Lymph % (Auto) % [place] % (Auto) % Eos % (Auto) % Baso % (Auto) % Neut # (Auto) (1.8-7.7) 10^3/u L Lymph # (Auto) (0.8-4.8) 10^3/u L [place] # (Auto) (0.2-0.9) 10^3/u L Eos # (Auto) (0.0-0.8) 10^3/u L Baso # (Auto) (0.0-0.1) 10^3/u L Nucleated RBC % (a uto) % Nucleated RBCs # /100WBC Specimen Type Sample Site ABG pH (7.35-7.45) ABG pCO2 (35-45) mmHg ABG pO2 (80.0-100.0) mmH g ABG HCO3 (22-26) mmol/L ABG O2 Saturation ABG Base Excess (-2.0-2.0) mmol/ L Antony Test A-a O2 Gradient (5-10) mmHg Hematocrit (37-47) % Hgb O2 Saturation (95-100) % Carboxyhemoglobin (0.4-20.1) %THgb Methemoglobin (0.4-1.5) % Total Hemoglobin (12-16) g/dL Ionized Calcium (1.1-1.4) mmol/L O2 Delivery Device O2 Liters/Min % FiO2 % Rip Machine Operator ID Sodium (136-145) mmol/L Potassium (3.5-5.1) mmol/L Chloride (98-107) mmol/L Carbon Dioxide (22-29) mmol/L Anion Gap (5-19) BUN (8-23) mg/dL Creatinine (0.5-0.9) mg/dL GFR Calculation (90-130) mL/min Glucose (65-115) mg/dL Calculated Osmolal ity (285-295) mOsm/k g Lactate (0.5-2.2) mmol/L Calcium (8.5-10.5) mg/dL Total Bilirubin (0.15-1.2) mg/dL AST (0-32) U/L ALT (0-33) U/L Alkaline Phosphata se (35-105) IU/L Troponin T Baselin e (0-10) ng/L NT-Pro-B Natriuret Pep (0-125) pg/mL Total Protein (6.6-8.7) g/dL Albumin (3.5-5.2) g/dL Globulin (1.3-4.6) g/dL Urine Color Yellow (Yellow) Urine Appearance Clear (CLEAR) Urine pH 6 (5-7) Ur Specific Gravit y 1.010 (1.005-1.030) Urine Protein Neg (Negative) Urine Glucose (UA) Norm (Normal) Urine Ketones 1+ H (Negative) Urine Blood Neg (Negative) Urine Nitrate Negative (Negative) Urine Bilirubin Neg (Negative) Urine Urobilinogen Norm (Negative) mg/dL Ur Leukocyte Gillian ase Negative (Negative) Urine RBC None (0-2) /hpf Urine WBC 0-4 H (0-5) /hpf Ur Squamous Epith Cells 0-4 H (0-5) /hpf Amorphous Sediment Not Reportable Urine Bacteria Trace (NONE) /hpf Influenza Type A A g Negative (Negative) Influenza Type B A g Negative (Negative) SARS-CoV-2 Ag (Rap id) Negative (Negative) 05/21/21 05/21/21 05/21/21 Range/Units 13:30 13:30 13:30 WBC 12.5 H (4.0-10.0) 10^3/ uL RBC 3.99 L (4.1-5.3) 10^6/u L Hgb 11.9 (11.5-15.3) g/dL Hct 37.0 (37.0-47.0) % MCV 92.7 (81-99) fL MCH 29.8 (28.0-34.0) pg MCHC 32.2 (30.0-36.0) g/dL RDW 13.2 (12.1-15.1) % Plt Count 239 (130-400) 10^3/c mm MPV 9.5 (7.4-10.4) fL Neut % (Auto) 89.9 % Lymph % (Auto) 3.5 % [place] % (Auto) 4.9 % Eos % (Auto) 0.3 % Baso % (Auto) 0.6 % Neut # (Auto) 11.20 H (1.8-7.7) 10^3/u L Lymph # (Auto) 0.4 L (0.8-4.8) 10^3/u L [place] # (Auto) 0.6 (0.2-0.9) 10^3/u L Eos # (Auto) 0.0 (0.0-0.8) 10^3/u L Baso # (Auto) 0.1 (0.0-0.1) 10^3/u L Nucleated RBC % (a uto) 0 % Nucleated RBCs # 0.0 /100WBC Specimen Type Sample Site ABG pH (7.35-7.45) ABG pCO2 (35-45) mmHg ABG pO2 (80.0-100.0) mmH g ABG HCO3 (22-26) mmol/L ABG O2 Saturation ABG Base Excess (-2.0-2.0) mmol/ L Antony Test A-a O2 Gradient (5-10) mmHg Hematocrit (37-47) % Hgb O2 Saturation (95-100) % Carboxyhemoglobin (0.4-20.1) %THgb Methemoglobin (0.4-1.5) % Total Hemoglobin (12-16) g/dL Ionized Calcium (1.1-1.4) mmol/L O2 Delivery Device O2 Liters/Min % FiO2 % Rip Machine Operator ID Sodium 129 L (136-145) mmol/L Potassium 4.3 (3.5-5.1) mmol/L Chloride 92 L (98-107) mmol/L Carbon Dioxide 23 (22-29) mmol/L Anion Gap 18.3 (5-19) BUN 6 L (8-23) mg/dL Creatinine 0.7 (0.5-0.9) mg/dL GFR Calculation 83.5 L (90-130) mL/min Glucose 65 (65-115) mg/dL Calculated Osmolal ity 264 L (285-295) mOsm/k g Lactate 1.1 (0.5-2.2) mmol/L Calcium 9.3 (8.5-10.5) mg/dL Total Bilirubin 0.5 (0.15-1.2) mg/dL AST 21 (0-32) U/L ALT 14 (0-33) U/L Alkaline Phosphata se 146 H (35-105) IU/L Troponin T Baselin e (0-10) ng/L NT-Pro-B Natriuret Pep 481 H (0-125) pg/mL Total Protein 6.9 (6.6-8.7) g/dL Albumin 3.4 L (3.5-5.2) g/dL Globulin 3.5 (1.3-4.6) g/dL Urine Color (Yellow) Urine Appearance (CLEAR) Urine pH (5-7) Ur Specific Gravit y (1.005-1.030) Urine Protein (Negative) Urine Glucose (UA) (Normal) Urine Ketones (Negative) Urine Blood (Negative) Urine Nitrate (Negative) Urine Bilirubin (Negative) Urine Urobilinogen (Negative) mg/dL Ur Leukocyte Gillian ase (Negative) Urine RBC (0-2) /hpf Urine WBC (0-5) /hpf Ur Squamous Epith Cells (0-5) /hpf Amorphous Sediment Urine Bacteria (NONE) /hpf Influenza Type A A g (Negative) Influenza Type B A g (Negative) SARS-CoV-2 Ag (Rap id) (Negative) 05/21/21 05/21/21 Range/Units 13:30 14:04 WBC (4.0-10.0) 10^3/ uL RBC (4.1-5.3) 10^6/u L Hgb (11.5-15.3) g/dL Hct (37.0-47.0) % MCV (81-99) fL MCH (28.0-34.0) pg MCHC (30.0-36.0) g/dL RDW (12.1-15.1) % Plt Count (130-400) 10^3/c mm MPV (7.4-10.4) fL Neut % (Auto) % Lymph % (Auto) % [place] % (Auto) % Eos % (Auto) % Baso % (Auto) % Neut # (Auto) (1.8-7.7) 10^3/u L Lymph # (Auto) (0.8-4.8) 10^3/u L [place] # (Auto) (0.2-0.9) 10^3/u L Eos # (Auto) (0.0-0.8) 10^3/u L Baso # (Auto) (0.0-0.1) 10^3/u L Nucleated RBC % (a uto) % Nucleated RBCs # /100WBC Specimen Type Arterial Sample Site Radial, left ABG pH 7.42 (7.35-7.45) ABG pCO2 36.6 (35-45) mmHg ABG pO2 103.0 H (80.0-100.0) mmH g ABG HCO3 23.8 (22-26) mmol/L ABG O2 Saturation 98.1 ABG Base Excess -0.3 (-2.0-2.0) mmol/ L Antony Test Pos A-a O2 Gradient 6.5 (5-10) mmHg Hematocrit 37.2 (37-47) % Hgb O2 Saturation 96.9 (95-100) % Carboxyhemoglobin 0.4 (0.4-20.1) %THgb Methemoglobin 0.8 (0.4-1.5) % Total Hemoglobin 12.1 (12-16) g/dL Ionized Calcium 1.2 (1.1-1.4) mmol/L O2 Delivery Device Nc O2 Liters/Min 2.0 % FiO2 28.0 % Rip Machine Operator ID glc Sodium 129.0 L (136-145) mmol/L Potassium 4.4 (3.5-5.1) mmol/L Chloride (98-107) mmol/L Carbon Dioxide (22-29) mmol/L Anion Gap (5-19) BUN (8-23) mg/dL Creatinine (0.5-0.9) mg/dL GFR Calculation (90-130) mL/min Glucose 69.0 L (65-115) mg/dL Calculated Osmolal ity (285-295) mOsm/k g Lactate (0.5-2.2) mmol/L Calcium (8.5-10.5) mg/dL Total Bilirubin (0.15-1.2) mg/dL AST (0-32) U/L ALT (0-33) U/L Alkaline Phosphata se (35-105) IU/L Troponin T Baselin e 9 (0-10) ng/L NT-Pro-B Natriuret Pep (0-125) pg/mL Total Protein (6.6-8.7) g/dL Albumin (3.5-5.2) g/dL Globulin (1.3-4.6) g/dL Urine Color (Yellow) Urine Appearance (CLEAR) Urine pH (5-7) Ur Specific Gravit y (1.005-1.030) Urine Protein (Negative) Urine Glucose (UA) (Normal) Urine Ketones (Negative) Urine Blood (Negative) Urine Nitrate (Negative) Urine Bilirubin (Negative) Urine Urobilinogen (Negative) mg/dL Ur Leukocyte Gillian ase (Negative) Urine RBC (0-2) /hpf Urine WBC (0-5) /hpf Ur Squamous Epith Cells (0-5) /hpf Amorphous Sediment Urine Bacteria (NONE) /hpf Influenza Type A A g (Negative) Influenza Type B A g (Negative) SARS-CoV-2 Ag (Rap id) (Negative) Imaging Data^: CXR: Attestation: I personally reviewed and interpreted this imaging study as follows: My impression: Portable chest x-ray shows diffuse pneumonitis likely viral in origin. Elevated left hemidiaphragm. Patient does have a history of COPD and pulmonary fibrosis also. Radiologist's impression: Gabby Garcia #: [id number]: 1955cct#:[id number]/Sex: 65 / FADM Date: 05/21/21Loc: ERRoom/Bed:Attending Dr: Ordering Provider/Ordering MD: Kalia Burgos MD Date of Service: 05/21/21 Procedure(s): XR chest 1V portable [id number] Accession Number(s): [id number] Report Number: [id number] PROCEDURE INFORMATION: Exam: XR Chest Exam date and time: 05/21/2021 1:02 PM Age: 65 years old Clinical indication: Dyspnea TECHNIQUE: Imaging protocol: XR of the chest. Views: 1 view. COMPARISON: CR XR chest 1V portable [id number] 06/22/2020 5:56 AM FINDINGS: Lungs: Unremarkable. No consolidation. Pleural spaces: Elevated left hemidiaphragm No pleural effusion. No pneumothorax. Heart/Mediastinum: Unremarkable. No cardiomegaly. Bones/joints: Unremarkable. XR/XR chest 1V portable [id number] IMPRESSION: 1. No acute findings. 2. Elevated left hemidiaphragm Dictated By:Levi Carver By:Levi Carver Date/Time:05/21/21 1350 EKG Data^: EKG 1: Attestation: I personally reviewed and interpreted this EKG as follows: EKG Interpretation Date: 05/21/21 EKG interpretation time: 13:38 Prior EKG tracings: not available for review Interpretation: Normal sinus rhythm with left IVCD, normal P wave, normal UT interval, normal T wave, normal ST segment, left axis, impression normal sinus rhythm with left IVCD, left axis Critical Care Time Critical Care Time: Critical Care Time: Yes Total Critical Care Time: 45 Attestation: Hypoxia, see orders, oxygen therapy, IV antibiotics Discharge Plan Discharge Patient Disposition: Placed in Observation Clinical Impression: Acute dyspnea, Hypoxia, Hyponatremia, Fever, COPD (chronic obstructive pulmonary disease), Acute bronchitis Coding Level of Care Code ED Jawbone Puller for Chg Fwd Exam Comprehensive
[2021-05-21 13:48] LABS: Basophils # 0.1 10^3/uL (0.0-0.1); Basophils % 0.6 %; Eosinophils % 0.3 %; Hemoglobin 11.9 g/dL (11.5-15.3); Lymphocytes # 0.4 10^3/uL (0.8-4.8); Lymphocytes % 3.5 %; Mean Corpuscular HGB Conc 32.2 g/dL (30.0-36.0); Mean Corpuscular Hemoglobin 29.8 pg (28.0-34.0); Mean Corpuscular Volume 92.7 fL (81-99); Mean Platelet Volume 9.5 fL (7.4-10.4); Monocytes # 0.6 10^3/uL (0.2-0.9); Monocytes % 4.9 %; Neutrophils % 89.9 %; Nucleated Red Blood Cells % 0 %; Platelet Count 239 10^3/cmm (130-400); Red Blood Count 3.99 10^6/uL (4.1-5.3); Red Cell Distribution Width 13.2 % (12.1-15.1); White Blood Count 12.5 10^3/uL (4.0-10.0)
[2021-05-21] MEDS: acetaminophen 325 mg Tablet 650 MG PO (13:50)
[2021-05-21 14:05] LABS: Lactate (Lactic Acid level) 1.1 mmol/L (0.5-2.2)
[2021-05-21 14:07] LABS: Troponin(5th) Baseline 9 ng/L (0-10)
[2021-05-21 14:10] LABS: ABG PCO2 36.6 mmHg (35-45); ABG PH Result 7.42 (7.35-7.45); Alveolar-Arterial Oxygen Gradi 6.5 mmHg (5-10); Arterial Blood Gas Hematocrit 37.2 % (37-47); Base Excess ABG -0.3 mmol/L (-2.0-2.0); Blood Gas Allen Test Pos; Blood Gas Operator Identificat glc; Blood Gas Sample Site Radial, left; Blood Gas Sample Type Arterial; Carboxyhemoglobin 0.4 %THgb (0.4-20.1); HCO3 ABG 23.8 mmol/L (22-26); HGB O2 Sat 96.9 % (95-100); Ionized Calcium Level - ABG 1.2 mmol/L (1.1-1.4); Methemoglobin 0.8 % (0.4-1.5); Oxygen Device NC; Oxygen Saturation ABG 98.1; Potassium Level - ABG 4.4 mmol/L (3.5-5.0); Total Hemoglobin 12.1 g/dL (12-16)
[2021-05-21 14:13] LABS: Alanine Aminotransferase 14 U/L (0-33); Albumin Level 3.4 g/dL (3.5-5.2); Alkaline Phosphatase 146 IU/L (35-105); Anion Gap 18.3 (5-19); Aspartate Amino Transferase 21 U/L (0-32); Blood Urea Nitrogen 6 mg/dL (8-23); Calcium 9.3 mg/dL (8.5-10.5); Carbon Dioxide 23 mmol/L (22-29); Chloride 92 mmol/L (98-107); Creatinine Clr Calc Pharmacy 62.6007; Globulin 3.5 g/dL (1.3-4.6); Glomerular Filtration Rate 83.5 mL/min (90-130); Glucose 65 mg/dL (65-115); NT Pro B Type Natriuretic Pept 481 pg/mL (0-125); Osmolality Calculated 264 mOsm/kg (285-295); Potassium 4.3 mmol/L (3.5-5.1); Sodium 129 mmol/L (136-145); Total Bilirubin 0.5 mg/dL (0.15-1.2); Total Protein 6.9 g/dL (6.6-8.7)
[2021-05-21 14:17] LABS: Urine Appearance Clear (CLEAR); Urine Color Yellow (Yellow); pH Urine 6 (5-7)
[2021-05-21 14:18] LABS: Add Urine Culture? No; Bacteria Urine TRACE /hpf; Bilirubin Urine Neg (Negative); Blood Urine Neg (Negative); Glucose Urine UA Norm (Normal); Ketones Urine 1+ (Negative); Leukocyte Esterase Urine Negative (Negative); Nitrate Urine Negative (Negative); Protein Urine Neg (Negative); Squamous Epithelial Cell Urine 0-4 /hpf (0-5); Urobilinogen Urine Norm (Negative); WBC Urine 0-4 /hpf (0-5)
[2021-05-21 14:19] LABS: Influenza A by IFA Negative (Negative); Influenza B by IFA Negative (Negative); SARS Covid-2 Antigen Negative (Negative)
[2021-05-21] MEDS: cefTRIAXone 1,000 MG in sodium chloride 0.9% (plus) 50 ML 100 MG IV (15:06)
[2021-05-21] MEDS: dextrose 50% syringe 50 mL 25 ML IVP (15:06)
[2021-05-21 15:50] LABS: D Dimer 0.79 ug/mIFEU (0-0.59)
[2021-05-21 15:59] LABS: Troponin 5 2HR 8.19 ng/L (0-10)
[2021-05-21] MEDS: azithromycin 500 MG in sodium chloride 0.9% 250 ML 250 MG IV (16:01)
[2021-05-21 16:02] LABS: Troponin 5 2HR Delta -0.81 ABS# (0-10)
--- NOTE | 2021-05-21 16:33 | PC.PHAR ---
pt states she takes care of her own medications-waiting for to fax med list-pt verified medications entered
--- NOTE | 2021-05-21 16:55 | CTR_ITS ---
PROCEDURE INFORMATION: Exam: CTA Chest With Contrast Exam date and time: 05/21/2021 4:55 PM Age: 65 years old Clinical indication: Shortness of breath; Additional info: Acute onset of SOB TECHNIQUE: Imaging protocol: Computed tomographic angiography of the chest with contrast. 3D rendering (Not supervised by radiologist): MIP and/or 3D reconstructed images were created by the technologist. Total images: 748 Radiation optimization: All CT scans at this facility use at least one of these dose optimization techniques: automated exposure control; mA and/or kV adjustment per patient size (includes targeted exams where dose is matched to clinical indication); or iterative reconstruction. Contrast material: OMNI 350; Contrast volume: 62 ml; Contrast route: INTRAVENOUS (IV); COMPARISON: CT angio chest PE protcl [id number] 06/22/2020 9:55 AM RADIATION DOSE METRICS: Total DLP (mGy-cm): 502.68 FINDINGS: Pulmonary arteries: No visible evidence of pulmonary embolism/pulmonary arterial thrombus. Aorta: The thoracic aorta is nonaneurysmal. No visible intimal flap or dissection. Mild arteriosclerosis. Tortuous thoracic aorta which can be seen in hypertensive cardiovascular disease. Lungs: Patches of bilateral ground-glass interstitial lung disease with subsegmental consolidated alveolar airspace disease medial segment right lower lobe. Findings would be consistent with active pneumonitis/pneumonia. Calcified granulomas of antecedent disease. Pleural spaces: Unremarkable. No pneumothorax. No pleural effusion. Heart: No cardiomegaly. No visible pericardial effusion. Mild coronary artery disease. Mediastinal space: Previous gastric pull-up for esophageal carcinoma status post esophagectomy stable. Lymph nodes: Few marginally prominent mediastinal and hilar lymph nodes which may be reactive in nature. Calcified complexes of antecedent granulomatous disease. Bones/joints: No visible active or acute osseous pathology. Old posterior left 8th rib fracture. Soft tissues: Unremarkable. CT/CT angio chest PE protcl [id number] IMPRESSION: 1. No visible evidence of pulmonary embolism/pulmonary arterial thrombus. 2. Patches of bilateral ground-glass interstitial lung disease with subsegmental consolidated alveolar airspace disease medial segment right lower lobe. Findings would be consistent with active pneumonitis/pneumonia. Radiation Dose CTDIVOL = (mGy): DLP = 502.68 (mGy-cm)
--- NOTE | 2021-05-21 16:58 | P.HP_ITS ---
Providers/Chief Complaint Admitting Physician: Shun Mars MD Primary Care Provider: Ladonna Rutledge MD Chief Complaint: SOB History of Present Illness Gabby Garcia is a 65 year old female with past medical history of COPD not regularly on home oxygen, use oxygen as needed.chronic steroid use and immunocompromised status with rheumatoid arthritis, Covid, post Covid she has taken her 2 dose of Covid vaccine, hypertension, hypothyroidism, came in with chief complaint of worsening shortness of breath of 2 days duration, worsening cough, with occasional yellow sputum production, runny nose, fever at home, Generalized body pain, nausea as well as 1 episode of vomiting this morning. Upon arrival in the ER she was worked up for above-mentioned complaint: Imaging studies: Chronic emphysematous changes, no infiltrates. CTA chest pending: Pertinent labs: WBC 12.5 thousand, H&H:11.9/37, platelet count:239, serum sodium;129, BUN and creatinine:6/0.7, lactic acid:1.1 Troponin trend has been flat, proBNP:481, rapid Covid negative, Covid PCR pending, influenza a and B- negative D-dimer:0.79 ABG: pH 7.42 PCO2 36 PO2 103, FiO2: 28% Review of Systems Const: Denies: change in appetite or diaphoresis Card: Denies: palpitations, edema, swelling of feet/ankles or leg pain with exertion Resp: Denies: wheezing or pain on inspiration GI: Denies: abdominal pain, diarrhea or constipation : Denies: flank pain Musc: Denies: back pain, extremity pain or extremity swelling Neuro: Denies: headache(s), difficulty walking or confusion Medications/Allergies Home Medications Medication Instructions Recorded Confirmed Last Taken Type albuterol sulfate 90 mcg/actuation 2 puff INHALATION QID PRN 11/19/19 05/21/21 Unknown History aerosol inhaler aspirin 81 mg tablet,delayed 81 mg PO QAM tab 11/19/19 05/21/21 05/21/21 07:00 History release prednisone 10 mg tablet See Rx Instructions PO .COMPLEX 10/03/20 05/21/21 Unknown Rx PRN #30 tab hydroxychloroquine 200 mg tablet See Rx Instructions PO .COMPLEX 02/14/21 05/21/21 05/20/21 Rx #135 tab 1 tab furosemide 20 mg tablet 20 mg PO QAM #90 tab 04/12/21 05/21/21 05/21/21 Rx pantoprazole 40 mg tablet,delayed 40 mg PO BID #180 tab 04/12/21 05/21/21 05/21/21 07:00 Rx release Flonase Allergy Relief 2 spray INTRANASAL QAM 05/21/21 05/21/21 05/21/21 History Restoril 30 mg PO BEDTIME 05/21/21 05/21/21 05/20/21 History Singulair 10 mg PO QAM 05/21/21 05/21/21 05/21/21 07:00 History Synthroid 112 mcg PO QAM 05/21/21 05/21/21 05/21/21 History alendronate 70 mg PO Q7D 05/21/21 05/21/21 05/19/21 History citalopram 20 mg PO QAM 05/21/21 05/21/21 05/21/21 07:00 History ergocalciferol (vitamin D2) 50,000 unit PO Q14D 05/21/21 05/21/21 Unknown History etanercept [Enbrel SureClick] 50 mg SUBCUT Q7D 05/21/21 05/21/21 05/19/21 History ferrous sulfate 325 mg PO DAILY@18 05/21/21 05/21/21 05/20/21 History fexofenadine 180 mg PO QAM 05/21/21 05/21/21 05/21/21 History ayhxkwwjwzf-awlfayyal-kqetpzhi 1 inh INHALATION QAM 05/21/21 05/21/21 05/21/21 History [Trelegy Ellipta] leflunomide 10 mg PO DAILY@18 05/21/21 05/21/21 05/20/21 History losartan 100 mg PO DAILY@18 05/21/21 05/21/21 05/20/21 History magnesium oxide 400 mg PO DAILY@18 05/21/21 05/21/21 05/20/21 History potassium chloride 10 meq PO QAM 05/21/21 05/21/21 05/21/21 07:00 History pravastatin 40 mg PO QPM 05/21/21 05/21/21 05/20/21 History verapamil 240 mg PO QAM 05/21/21 05/21/21 05/21/21 History Allergies Allergy/AdvReac Type Severity Reaction Status Date / Time REINA Inhibitors Allergy ADR-Cough Verified 05/21/21 16:33 codeine Allergy ADR-Nausea Verified 05/21/21 16:33 sulfamethoxazole Allergy ALGY-Anaphy Verified 05/21/21 16:33 [From Bactrim] laxis trimethoprim [From Bactrim] Allergy ALGY-Anaphy Verified 05/21/21 16:33 laxis PFSH Acute PFSH: Medical History Chronic steroid use COPD (chronic obstructive pulmonary disease) Uses home trilogy device, PRN oxygen COVID-19 vaccine administered Depression GERD (gastroesophageal reflux disease) History of aspiration pneumonia Hyperlipidemia Hypertension Hypothyroidism Immunization counseling Iron deficiency anemia Rheumatoid arthritis with rheumatoid factor of multiple sites without organ or systems involvement Transaminitis Surgical History H/O arthroscopy of knee left knee H/O esophagectomy History of cataract surgery 2017 History of gastric surgery age 6 History of skin graft left knee History of tubal ligation Previous back surgery right L3-L4, right L5-S1 hemilaminotomy foraminotomy/ discectomy/ Family History Father Cancer Pancreatic cancer Mother Cancer Lung cancer with brain mets Daughter Cancer Lung cancer with brain mets Other CAD (coronary artery disease) Hypertension Denies family history of Rheumatoid arthritis Diabetes Chronic kidney disease (CKD) Systemic lupus erythematosus (SLE) in adult Lung disease Social History Smoking and tobacco status: former smoker Quit status (tobacco): has quit using tobacco Year quit tobacco: 2000 [id number] Second hand smoke exposure: No Smoking risk assessment/counseling performed?: Yes Alcohol intake: current Alcohol type: beer Lives independently: Yes Household members: children Housing: House Marital status: Current occupational status: retired Pets and animals: Yes History of recent travel: No Current gender identity: Female Vitals/I&O/Wt Last Vital Signs Temp 99.4 F 05/21/21 12:45 Pulse 86 05/21/21 14:00 Resp 18 05/21/21 14:00 BP 114/77 05/21/21 14:00 Pulse Ox 98 05/21/21 14:00 05/21/21 05/21/21 05/21/21 06:59 14:59 22:59 Intake Total 50 / 50 Balance 50 / 50 Weight last 48 hrs Weight 66.678 kg Physical Exam Const: COMMON NORMALS: patient oriented x3 HENMT: COMMON NORMALS: normocephalic and atraumatic HEAD & SCALP: normocephalic and atraumatic EXTERNAL EAR: Yes external ears normal Chest: CHEST: Yes Symmetrical chest wall rise Resp: COMMON NORMALS: clear to auscultation bilaterally EFFORT & INSPECTION: Yes symmetric chest movement AUSCULTATION: clear to auscultation bilaterally Cardio: COMMON NORMALS: regular rate, regular rhythm, S1 normal heart sound pr esent, S2 normal heart sound present, No gallops present (Cardio), No murmurs present (Cardio), No rub (Cardio) and Peripheral pulses 2+ throughout RATE: regular rate RHYTHM: regular rhythm HEART SOUNDS: S1 normal heart sound present and S2 normal heart sound present PERIPHERAL PULSES: Peripheral pulses 2+ throughout GI: COMMON NORMALS: Normal to inspection, nondistended, normoactive bowel sounds present, Soft to palpation, non-tender, No hepatosplenomegaly present and no masses AUSCULTATION: Yes normoactive bowel sounds PALPATION: Yes Soft to palpation and Yes No hepatosplenomegaly present RECTAL EXAM: deferred Extremity: COMMON NORMALS: no clubbing, cyanosis or edema and no pedal edema Neuro: COMMON NORMALS: patient oriented x3 Data : 05/21/21 13:30 05/21/21 13:30 Micro: Microbiology 05/21/21 15:17 Blood Culture - Preliminary Blood SPECIMEN COLLECTED 05/21/21 15:28 Blood Culture - Preliminary Blood SPECIMEN COLLECTED A&P Assessment and plan (1) Pneumonia: Blood culture Urine Legionella antigen Bacterial antigen panel Procalcitonin CTA chest Continue ceftriaxone for now Status: Acute (2) COPD exacerbation: COPD exacerbation likely secondary to pneumonia: Duo nebs Solu-Medrol 60 IV daily Incentive spirometer Supplemental oxygen as needed to maintain SPO2 greater than 92% Status: Acute (3) Hyponatremia: Hypovolemic hyponatremia likely secondary to poor oral intake. Continue normal saline at the rate of 30 cc an hour Status: Acute (4) Hypertension: Continue losartan and verapamil. Monitor blood pressure for now Status: Chronic Qualifiers: Hypertension type: essential hypertension Qualified Code(s): I10 - Essential (primary) hypertension (5) Hypothyroidism: Continue levothyroxine 112 mcg p.o. daily Status: Chronic Qualifiers: Hypothyroidism type: unspecified Qualified Code(s): E03.9 - Hypothyroidism, unspecified (6) Rheumatoid arthritis with rheumatoid factor of multiple sites without organ or systems involvement: Status: Chronic Attestations Medical Necessity Statement*: Patient needs to be in hospital for management of pneumonia and COPD exacerbation.Anticipated length of stay greater than 2 midnight Coding Level of Care Code Acute Personnel Research Psychologist for [facility] Fwd Diagnoses Pneumonia J18.9 COPD exacerbation J44.1 Hyponatremia E87.1 Hypertension I10 Hypertension type: essential hypertension Hypothyroidism E03.9 Hypothyroidism type: unspecified Rheumatoid arthritis with rheumatoid factor of multiple sites without organ or systems involvement M05.79
[2021-05-21 17:02] LABS: Glucose Point of Care 84 mg/dL (70-110)
--- NOTE | 2021-05-21 17:10 | PC.NURSE ---
report to Jessica WALKER
[2021-05-21] MEDS: sodium chloride 0.9% 1,000 ML 30 ML IV (18:05)
[2021-05-21] MEDS: pantoprazole DR 40 mg Tablet PO (18:06)
[2021-05-21] MEDS: atorvastatin 40 mg Tablet 20 MG PO (18:06)
[2021-05-21] MEDS: ferrous sulfate EC 325 mg Tablet PO (18:07)
[2021-05-21] MEDS: losartan 50 mg Tablet 100 MG PO (18:07)
[2021-05-21] MEDS: enoxaparin 40 mg/0.4 mL Syringe SUBCUT (18:08)
[2021-05-21] MEDS: ergocalciferol (vitamin D2) 50,000 Unit Capsule 50000 UNIT PO (18:15)
[2021-05-21] MEDS: ipratropium-albuterol 3 mL Neb INHALATION ×2 (20:04→23:36)
[2021-05-21 21:49] LABS: Glucose Point of Care 173 mg/dL (70-110)
[2021-05-21] MEDS: iohexol 350 mg/mL 100 mL Btl IV (23:09)
[2021-05-22] VITALS (16 sets, daily range): BP systolic 104–156; BP diastolic 68–94; PULSE 69–102; RESP 16–24; TEMP 36.3–37.1; O2SAT 88–96
[2021-05-22] MEDS: ipratropium-albuterol 3 mL Neb INHALATION ×5 (03:23→20:37)
[2021-05-22 05:38] LABS: Basophils % 0.3 %; Hemoglobin 10.9 g/dL (11.5-15.3); Lymphocytes # 0.2 10^3/uL (0.8-4.8); Lymphocytes % 3.4 %; Mean Corpuscular HGB Conc 32.1 g/dL (30.0-36.0); Mean Corpuscular Hemoglobin 29.5 pg (28.0-34.0); Mean Corpuscular Volume 92.1 fL (81-99); Mean Platelet Volume 9.9 fL (7.4-10.4); Monocytes # 0.1 10^3/uL (0.2-0.9); Neutrophils # 5.85 10^3/uL (1.8-7.7); Neutrophils % 94.8 %; Nucleated Red Blood Cells % 0 %; Platelet Count 241 10^3/cmm (130-400); Red Blood Count 3.69 10^6/uL (4.1-5.3); Red Cell Distribution Width 13.2 % (12.1-15.1); White Blood Count 6.2 10^3/uL (4.0-10.0)
[2021-05-22 05:58] LABS: Anion Gap 14.6 (5-19); Blood Urea Nitrogen 8 mg/dL (8-23); Calcium 9.2 mg/dL (8.5-10.5); Carbon Dioxide 23 mmol/L (22-29); Chloride 97 mmol/L (98-107); Creatinine Clr Calc Pharmacy 62.6007; Glomerular Filtration Rate 99.7 mL/min (90-130); Glucose 160 mg/dL (65-115); Magnesium 1.9 mg/dL (1.7-2.3); Osmolality Calculated 272 mOsm/kg (285-295); Potassium 4.6 mmol/L (3.5-5.1); Sodium 130 mmol/L (136-145)
[2021-05-22] MEDS: levothyroxine 112 mcg Tablet PO (06:08)
[2021-05-22] MEDS: citalopram 20 mg Tablet PO (06:08)
[2021-05-22] MEDS: montelukast sodium 10 mg Tablet PO (06:08)
[2021-05-22] MEDS: verapamil ER 240 mg Tablet PO (06:08)
[2021-05-22] MEDS: aspirin 81 mg EC Tablet PO (06:08)
[2021-05-22 06:37] LABS: Procalcitonin 0.16 ng/mL (0-0.5)
[2021-05-22] MEDS: pantoprazole DR 40 mg Tablet PO ×2 (09:25→18:52)
[2021-05-22] MEDS: FUROsemide 40 mg Tablet PO (15:11)
[2021-05-22] MEDS: cefTRIAXone 1,000 MG in sodium chloride 0.9% (plus) 50 ML 100 MG IV (15:11)
[2021-05-22 15:54] LABS: Coronavirus Test Green County Not Detected
--- NOTE | 2021-05-22 16:30 | PM.PN ---
Subjective Subjective: Interval history: Patient was seen and examined this morning. Still complaining of shortness of breath with exertion. Vitals/I&O/Wt Last Vital Signs Temp 98.4 F 05/22/21 11:32 Pulse 87 05/22/21 11:58 Resp 20 H 05/22/21 11:50 BP 156/94 05/22/21 11:32 Pulse Ox 94 05/22/21 11:50 05/22/21 05/22/21 05/22/21 06:59 14:59 22:59 Intake Total 240 / 740 Balance 240 / 740 Weight last 48 hrs Weight 66.678 kg Physical Exam Const: COMMON NORMALS: patient oriented x3 HENMT: COMMON NORMALS: normocephalic and atraumatic HEAD & SCALP: normocephalic and atraumatic Chest: CHEST: Yes Symmetrical chest wall rise Resp: EFFORT & INSPECTION: Yes symmetric chest movement OTHER: Bilateral crackles present in both lung medrano. Cardio: COMMON NORMALS: regular rate, regular rhythm, S1 normal heart sound present, S2 normal heart sound present, No gallops present (Cardio), No murmurs present (Cardio), No rub (Cardio) and Peripheral pulses 2+ throughout RATE: regular rate RHYTHM: regular rhythm HEART SOUNDS: S1 normal heart sound present and S2 normal heart sound present PERIPHERAL PULSES: Peripheral pulses 2+ throughout GI: COMMON NORMALS: Normal to inspection, nondistended, normoactive bowel sounds present, Soft to palpation, non-tender, No hepatosplenomegaly present and no masses AUSCULTATION: Yes normoactive bowel sounds PALPATION: Yes Soft to palpation and Yes No hepatosplenomegaly present RECTAL EXAM: deferred Extremity: COMMON NORMALS: no clubbing, cyanosis or edema and no pedal edema Neuro: COMMON NORMALS: patient oriented x3 Data : 05/22/21 05:06 05/22/21 05:06 Micro: Microbiology 05/21/21 15:17 Blood Culture - Preliminary Blood NEGATIVE TO DATE 05/21/21 15:28 Blood Culture - Preliminary Blood NEGATIVE TO DATE 05/21/21 13:28 Urine Culture - Preliminary Urine,Clean Catch A&P Assessment and plan (1) Pneumonia: Blood culture: NTD Urine Legionella antigen: Negative Urine culture: Bacterial antigen panel Procalcitonin:0.16 CTA chest: : No PE: Patches of bilateral ground-glass interstitial lung disease with subsegmental consolidated alveolar airspace disease medial segment right lower lobe. Continue ceftriaxone for now Status: Acute (2) COPD exacerbation: COPD exacerbation likely secondary to pneumonia: Duo nebs Solu-Medrol 60 IV daily Lasix 40 mg p.o. daily Incentive spirometer Supplemental oxygen as needed to maintain SPO2 greater than 92% 2D Echo Status: Acute (3) Hyponatremia: Hypovolemic hyponatremia likely secondary to poor oral intake. Continue normal saline at the rate of 30 cc an hour Status: Acute (4) Hypertension: Continue losartan and verapamil. Monitor blood pressure for now Status: Chronic Qualifiers: Hypertension type: essential hypertension Qualified Code(s): I10 - Essential (primary) hypertension (5) Hypothyroidism: Continue levothyroxine 112 mcg p.o. daily Status: Chronic Qualifiers: Hypothyroidism type: unspecified Qualified Code(s): E03.9 - Hypothyroidism, unspecified (6) Rheumatoid arthritis with rheumatoid factor of multiple sites without organ or systems involvement: Status: Chronic Attestations Medical Necessity Statement*: Patient needs to be in the hospital for management of pneumonia. Coding Level of Care Code Acute [facility] House Supervisor for [facility] Fwd Diagnoses Pneumonia J18.9 COPD exacerbation J44.1 Hyponatremia E87.1 Hypertension I10 Hypertension type: essential hypertension Hypothyroidism E03.9 Hypothyroidism type: unspecified Rheumatoid arthritis with rheumatoid factor of multiple sites without organ or systems involvement M05.79
--- NOTE | 2021-05-22 16:32 | PC.NURSE ---
After the patient sat and rested for a couple minutes rechecked the 02 level. 93%
[2021-05-22] MEDS: losartan 50 mg Tablet 100 MG PO (18:50)
[2021-05-22] MEDS: atorvastatin 40 mg Tablet 20 MG PO (18:50)
[2021-05-22] MEDS: enoxaparin 40 mg/0.4 mL Syringe SUBCUT (18:51)
[2021-05-22] MEDS: ferrous sulfate EC 325 mg Tablet PO (18:52)
[2021-05-22] MEDS: temazepam 15 mg Capsule 30 MG PO (20:56)
[2021-05-23] VITALS (15 sets, daily range): BP systolic 114–133; BP diastolic 65–81; PULSE 77–114; RESP 15–20; TEMP 36.4–36.9; O2SAT 86–98
[2021-05-23] MEDS: ipratropium-albuterol 3 mL Neb INHALATION ×4 (00:59→11:54)
[2021-05-23] MEDS: verapamil ER 240 mg Tablet PO (05:48)
[2021-05-23] MEDS: citalopram 20 mg Tablet PO (05:48)
[2021-05-23] MEDS: montelukast sodium 10 mg Tablet PO (05:48)
[2021-05-23] MEDS: levothyroxine 112 mcg Tablet PO (05:49)
[2021-05-23] MEDS: aspirin 81 mg EC Tablet PO (05:49)
--- NOTE | 2021-05-23 06:00 | USCV_ITS ---
Gabby Garcia Age: 65 Gender: F : 1955 Exam Date: 05/23/2021 09:18 Ordering Phys: Shun Mars MD Technologist: Exam Location: [facility] Indication: Shortness of breath BP: 130 / 79 HR: 93 Rhythm: Sinus Technical Quality: Technically difficult study MEASUREMENTS (Male / Female) Normal Values 2D ECHO LV Diastolic Diameter PLAX 2.5 cm 4.2 - 5.9 / 3.9 - 5.3 cm LV Systolic Diameter PLAX 1.5 cm IVS Diastolic Thickness 0.7 cm 0.6 - 1.0 / 0.6 - 0.9 cm IVS Systolic Thickness 0.9 cm LVPW Diastolic Thickness 0.8 cm 0.6 - 1.0 / 0.6 - 0.9 cm LVPW Systolic Thickness 1.1 cm LVOT Diameter 2.0 cm LV Ejection Fraction 2D Teich 75.6 % LV Ejection Fraction MOD 2C 68.3 % LV Ejection Fraction 2C AL 68.3 % LA Diameter 2.8 cm LA Width 3.8 cm LA Height 3.6 cm RA Width 3.5 cm RA Height 3.4 cm Aorta at Sinotubular Diameter 2.1 cm DOPPLER AV Peak Velocity 186.0 cm/s LVOT Peak Velocity 108.0 cm/s AV Area Cont Eq vti 2.2 cm squared AV Area Cont Eq pk 1.8 cm squared MV Area PHT 5.0 cm squared Mitral E to A Ratio 0.9 MV E' Velocity 59.0 cm/s Mitral E to MV E' Ratio 13.1 Mitral E to LV E' Lateral Ratio 10.8 Mitral E to LV E' Septal Ratio 16.7 TR Peak Velocity 137.0 cm/s TR Peak Gradient 7.5 mmHg TV Peak E Velocity 80.0 cm/s Right Atrial Pressure 3.0 mmHg Pulmonary Artery Systolic Pressu 10.5 mmHg FINDINGS Left Ventricle Normal left ventricular size, increased left ventricular wall thickness and systolic function with no regional wall motion abnormalities. Left ventricular ejection fraction is estimated at 70 %. Grade II diastolic dysfunction, moderately elevated filling pressures. Right Ventricle Normal right ventricular size and systolic function. RVSP could not be calculated due to incomplete tricuspid regurgitation velocity profile. Right Atrium Normal right atrial size. Right atrial pressure estimated at 3 mmHg. Left Atrium Left atrium not well visualized. Probably mildly increased left atrial size. Mitral Valve Moderate mitral annular calcification. Thickened mitral valve. No mitral valve stenosis. Trace mitral valve regurgitation. Aortic Valve Aortic valve not well visualized. No aortic valve stenosis. No aortic valve regurgitation. Tricuspid Valve Structurally normal tricuspid valve. Mild tricuspid valve regurgitation. Pulmonic Valve Pulmonic valve not well visualized. No pulmonary valve stenosis. Trace pulmonary valve regurgitation. Pericardium No pericardial effusion. Aorta Normal size aortic root and proximal ascending aorta. CONCLUSIONS 1. This is a technically difficult study. 2. Normal left ventricular size, increased left ventricle wall thickness and systolic function with no regional wall motion abnormalities. Left ventricular ejection fraction is estimated at 70 %. Grade II diastolic dysfunction, moderately elevated filling pressures. 3. Mild tricuspid valve regurgitation. 4. There may not have been any significant change when compared to echocardiogram dated 03/31/2020. Sandy Glynn MD (Electronically Signed) Final Date: 23 May 2021 12:31 S
[2021-05-23 06:41] LABS: Basophils % 0.2 %; Hematocrit 33.7 % (37.0-47.0); Hemoglobin 10.7 g/dL (11.5-15.3); Lymphocytes # 0.3 10^3/uL (0.8-4.8); Lymphocytes % 2.8 %; Mean Corpuscular HGB Conc 31.8 g/dL (30.0-36.0); Mean Corpuscular Hemoglobin 29.5 pg (28.0-34.0); Mean Corpuscular Volume 92.8 fL (81-99); Mean Platelet Volume 9.4 fL (7.4-10.4); Monocytes # 0.8 10^3/uL (0.2-0.9); Monocytes % 7.6 %; Neutrophils # 9.26 10^3/uL (1.8-7.7); Nucleated Red Blood Cells % 0 %; Platelet Count 263 10^3/cmm (130-400); Red Blood Count 3.63 10^6/uL (4.1-5.3); Red Cell Distribution Width 13.3 % (12.1-15.1); White Blood Count 10.5 10^3/uL (4.0-10.0)
[2021-05-23 07:21] LABS: Anion Gap 12.3 (5-19); Blood Urea Nitrogen 16 mg/dL (8-23); Calcium 9.2 mg/dL (8.5-10.5); Carbon Dioxide 26 mmol/L (22-29); Chloride 99 mmol/L (98-107); Creatinine Clr Calc Pharmacy 62.6007; Glomerular Filtration Rate 71.5 mL/min (90-130); Glucose 120 mg/dL (65-115); Osmolality Calculated 278 mOsm/kg (285-295); Potassium 4.3 mmol/L (3.5-5.1); Sodium 133 mmol/L (136-145)
[2021-05-23] MEDS: FUROsemide 40 mg Tablet PO (09:24)
[2021-05-23] MEDS: pantoprazole DR 40 mg Tablet PO (09:25)
--- NOTE | 2021-05-23 09:25 | PC.NURSE ---
Unable to get barcode to scan for patient or medication (Solumedrol). Verified patient by name and and verified with the EMR as well as medication dose, route, frequency, and strength via EMR.
--- NOTE | 2021-05-23 12:35 | P.DS_ITS ---
Discharge Providers Date of Admission: 05/21/21 15:11 Date of Discharge: May 23, 2021 Attending Provider at Admission: Shun Mars MD Attending Provider at Discharge: Shun Mars MD Primary Care Provider: Ladonna Rutledge MD Diagnoses at Discharge Discharge Diagnosis (1) Pneumonia: Status: Acute (2) COPD exacerbation: Status: Acute (3) Hyponatremia: Status: Acute (4) Hypertension: Status: Chronic Qualifiers: Hypertension type: essential hypertension Qualified Code(s): I10 - Essential (primary) hypertension (5) Hypothyroidism: Status: Chronic Qualifiers: Hypothyroidism type: unspecified Qualified Code(s): E03.9 - Hypothyroidism, unspecified (6) Rheumatoid arthritis with rheumatoid factor of multiple sites without organ or systems involvement: Status: Chronic Reason for Visit Reason for Visit: SOB Hospital Course Hospital Course Gabby Garcia is a 65 year old female with past medical history of COPD not regularly on home oxygen, use oxygen as needed.chronic steroid use and immunocompromised status with rheumatoid arthritis, Covid, post Covid she has taken her 2 dose of Covid vaccine, hypertension, hypothyroidism, came in with chief complaint of worsening shortness of breath of 2 days duration, worsening cough, with occasional yellow sputum production, runny nose, fever at home. Generalized body pain, nausea as well as 1 episode of vomiting this morning. Upon arrival in the ER she was worked up for above-mentioned complaint: Imaging studies: X-ray chest : chronic emphysematous changes, no infiltrates. CTA chest:No PE: Patches of bilateral ground-glass interstitial lung disease with subsegmental consolidated alveolar airspace disease medial segment right lower lobe. Pertinent labs: WBC 12.5 thousand, H&H:11.9/37, platelet count:239, serum sodium;129, BUN and creatinine:6/0.7, lactic acid:1.1. Troponin trend has been flat, proBNP:481, rapid Covid negative, Covid PCR: Negative, influenza a and B- negative D- dimer:0.79 . ABG: pH 7.42 PCO2 36 PO2 103, FiO2: 28%. She was admitted for the management of pneumonia as well as COPD exacerbation. She was kept on antibiotics, steroids, inhalers, nebs, supplemental oxygen as needed.Incentive spirometer. Blood culture was negative at the time of discharge, Legionella urinary antigen was negative, bacterial antigen panel was negative, Urine culture was negative, procalcitonin was normal. 2D echo done during the hospital stay:Normal left ventricular size, increased left ventricle wall, thickness and systolic function with no regional wall motion abnormalities. Left ventricular ejection fraction is estimated, at 70 %. Grade II diastolic dysfunction, moderately elevated filling pressures. Mild tricuspid valve regurgitation.It was a technically difficult study. Patient was discharged on levofloxacin 750 mg p.o. daily for 7 days as well as prednisone 20 mg p.o. daily for 7 days. Hypovolemic hyponatremia resolved with gentle IV hydration.Patient responded well to the above medical management and was discharged in stable condition to home.She will continue to follow as an outpatient. Physical Exam Const: COMMON NORMALS: patient oriented x3 HENMT: COMMON NORMALS: normocephalic and atraumatic HEAD & SCALP: normocephalic and atraumatic Chest: CHEST: Yes Symmetrical chest wall rise Resp: COMMON NORMALS: clear to auscultation bilaterally EFFORT & INSPECTION: Yes symmetric chest movement AUSCULTATION: clear to auscultation bilaterally Cardio: COMMON NORMALS: regular rate, regular rhythm, S1 normal heart sound present, S2 normal heart sound present, No gallops present (Cardio), No murmurs present (Cardio), No rub (Cardio) and Peripheral pulses 2+ throughout RATE: regular rate RHYTHM: regular rhythm HEART SOUNDS: S1 normal heart sound present and S2 normal heart sound present PERIPHERAL PULSES: Peripheral pulses 2+ throughout GI: COMMON NORMALS: Normal to inspection, nondistended, normoactive bowel sounds present, Soft to palpation, non-tender, No hepatosplenomegaly present and no masses AUSCULTATION: Yes normoactive bowel sounds PALPATION: Yes Soft to palpation and Yes No hepatosplenomegaly present RECTAL EXAM: deferred Extremity: COMMON NORMALS: no clubbing, cyanosis or edema and no pedal edema Neuro: COMMON NORMALS: patient oriented x3 Discharge Data Data Completed and Pending: Completed Studies During Hospitalization Category Date Time Status CT angio chest PE protcl [id number] Rout ine Cat Scan 05/21/21 16:55 Completed XR chest 1V quang ble [id number] Urgent Exams 05/21/21 13:02 Completed CV. echo complete * [id number] Routine Ultrasound 05/23/21 06:00 Completed Pending at discharge Category Date Time Status Basic Metabolic P irene AM LABS Lab 05/24/21 04:00 Ordered Blood Culture Sta t Lab 05/21/21 15:17 Results Complete Blood Co unt w/Auto AM LABS Lab 05/24/21 04:00 Ordered Labs from last 24 hours 05/23/21 05/23/21 05/21/21 06:30 06:30 15:28 WBC 10.5 H RBC 3.63 L Hgb 10.7 L Hct 33.7 L MCV 92.8 MCH 29.5 MCHC 31.8 RDW 13.3 Plt Count 263 MPV 9.4 Neut % (Auto) 88.0 Lymph % (Auto) 2.8 [place] % (Auto) 7.6 Eos % (Auto) 0.0 Baso % (Auto) 0.2 Neut # (Auto) 9.26 H Lymph # (Auto) 0.3 L [place] # (Auto) 0.8 Eos # (Auto) 0.0 Baso # (Auto) 0.0 Nucleated RBC % (a uto) 0 Nucleated RBCs # 0.0 Sodium 133 L Potassium 4.3 Chloride 99 Carbon Dioxide 26 Anion Gap 12.3 BUN 16 Creatinine 0.8 GFR Calculation 71.5 L Glucose 120 H Calculated Osmolal ity 278 L Calcium 9.2 Nasal/Oral COVID-1 9 PCR Not detected Vitals: Last Vital Signs Temp 98.2 F 05/23/21 11:05 Pulse 79 05/23/21 12:02 Resp 20 H 05/23/21 11:54 BP 114/76 05/23/21 11:05 Pulse Ox 96 05/23/21 11:54 Discharge Plan Discharge Patient Disposition: Home Condition: Stable Prescriptions: New levofloxacin 750 mg tablet 750 mg PO DAILY 7 Days Qty: 7 RF: 0 prednisone 20 mg tablet 20 mg PO DAILY 7 Days Qty: 7 RF: 0 Continued prednisone 10 mg tablet See Rx Instructions PO .COMPLEX PRN (Reason: joint pain) Qty: 30 RF: 1 hydroxychloroquine 200 mg tablet See Rx Instructions PO .COMPLEX Qty: 135 RF: 1 albuterol sulfate [ProAir HFA] 90 mcg/actuation HFA aerosol inhaler 2 puff INHALATION QID PRN (Reason: Shortness Of Breath) RF: 0 aspirin [Aspirin Low Dose] 81 mg tablet,delayed release (DR/EC) 81 mg PO QAM RF: 0 Protonix 40 mg tablet,delayed release (DR/EC) 40 mg PO BID Qty: 180 RF: 3 furosemide [Lasix] 20 mg tablet 20 mg PO QAM Qty: 90 RF: 1 pravastatin 40 mg tablet 40 mg PO QPM RF: 0 alendronate 70 mg tablet 70 mg PO Q7D RF: 0 leflunomide 10 mg tablet 10 mg PO DAILY@18 RF: 0 potassium chloride 10 mEq tablet extended release 10 meq PO QAM RF: 0 fexofenadine 180 mg tablet 180 mg PO QAM RF: 0 citalopram 20 mg tablet 20 mg PO QAM RF: 0 Restoril 30 mg capsule 30 mg PO BEDTIME RF: 0 ferrous sulfate 325 mg (65 mg iron) tablet 325 mg PO DAILY@18 RF: 0 Singulair 10 mg tablet 10 mg PO QAM RF: 0 ergocalciferol (vitamin D2) 1,250 mcg (50,000 unit) capsule 50,000 unit PO Q14D RF: 0 losartan 100 mg tablet 100 mg PO DAILY@18 RF: 0 Flonase Allergy Relief 50 mcg/actuation spray,suspension 2 spray intranasal QAM RF: 0 verapamil 240 mg capsule,ext rel. pellets 24 hr 240 mg PO QAM RF: 0 Synthroid 112 mcg tablet 112 mcg PO QAM RF: 0 Enbrel SureClick 50 mg/mL (1 mL) pen injector 50 mg SUBCUT Q7D RF: 0 magnesium oxide 400 mg magnesium capsule 400 mg PO DAILY@18 RF: 0 Trelegy Ellipta 100-62.5-25 mcg blister with device 1 inh inhalation QAM RF: 0 Discharge Orders: Discharge Order (Routine); Ordered 05/23/21 Ordered By: Shun Mars Referrals: Cesar Abrams MD [Physician] - 06/25/21 9:30 am Ladonna Rutledge MD [Primary Care Provider] - 06/04/21 3:40 pm Discharge Diet: Regular Discharge Activity: Resume usual activity Patient Instructions: Opioid Safety Discharge Attestations Time Spent in Discharge Care*: less than 30 min Specific Discharge Activities: educating patient, educating and/or supporting family/caregiver, discussing with pcp/other providers, discussing with cyanide case hardener/social workers/dc planners, documenting/other paperwork and evaluating patient/reviewing data Status at Discharge: Cognitive status at discharge: cognitively intact , Behavioral status at discharge: cooperative , Functional status at discharge: independent ambulation Overall status at discharge: patient is back to baseline Quality Metrics Clinical Quality Measures During this hospital stay, did patient experience: None Coding Level of Care Code Acute g FW AK note Exam Detailed Diagnoses Pneumonia J18.9 COPD exacerbation J44.1 Hyponatremia E87.1 Hypertension I10 Hypertension type: essential hypertension Hypothyroidism E03.9 Hypothyroidism type: unspecified Rheumatoid arthritis with rheumatoid factor of multiple sites without organ or systems involvement M05.79
--- NOTE | 2021-05-23 16:48 | PC.NURSE ---
Patient discharged via wheelchair taken to patients vehicle with spouse by [employer]. IV catheter removed and in tact. Discharge orders discussed with patient full understanding.
--- NOTE | 2021-05-24 06:50 | PC.RESP ---
PULMONARY REHAB INFORMATION SENT TO PATIENT.
== END 2021-05-23 15:30 | disposition home or self-care (01) | DRG 194 ==
LOC: ER 15:09 → MEDSURG 21:16
PROVIDERS: Admitting Provider Internal Medicine; Emergency Provider Family Medicine; PCP Family Medicine; Visit Provider Internal Medicine
DX: J18.9 Pneumonia, unspecified organism (principal); J44.1 Chronic obstructive pulmonary disease with (acute) exacerbation; J44.0 Chronic obstructive pulmonary disease with (acute) lower respiratory infection; E87.1 Hypo-osmolality and hyponatremia; Z99.81 Dependence on supplemental oxygen; Z79.52 Long term (current) use of systemic steroids; M05.9 Rheumatoid arthritis with rheumatoid factor, unspecified; I10 Essential (primary) hypertension; E03.9 Hypothyroidism, unspecified; F32.9 Major depressive disorder, single episode, unspecified; K21.9 Gastro-esophageal reflux disease without esophagitis; E78.5 Hyperlipidemia, unspecified; D50.9 Iron deficiency anemia, unspecified; Z98.1 Arthrodesis status; Z87.891 Personal history of nicotine dependence; Z79.82 Long term (current) use of aspirin; Z79.51 Long term (current) use of inhaled steroids; Z79.4 Long term (current) use of insulin
CPT/HCPCS: 36415; 36416; 36600; 71045; 71275; 80048; 80051; 80053; 81001; 82330; 82805; 82962; 83605; 83735; 83880; 84145; 84484; 85025; 85378; 86403; 87040; 87086; 87426; 87449; 87635; 87804; 93005; 93306; 94640; 96365; 96367; 96372; 96375; 99285; J0456; J0696; J1650; J2930; J7030; J7050; Q9967

== ENCOUNTER → 2021-05-29 08:47 | Outpatient (BNVA) | payer MEDICARE, OTHER, SELFPAY | PROVIDERS: PCP Family Medicine; Visit Provider Internal Medicine Rheumatology | DX: M05.79 Rheumatoid arthritis with rheumatoid factor of multiple sites without organ or systems involvement (principal); Z79.52 Long term (current) use of systemic steroids; Z79.899 Other long term (current) drug therapy; M19.90 Unspecified osteoarthritis, unspecified site | CPT/HCPCS: 80076; 86140 ==

== ENCOUNTER → 2021-06-04 15:29 | Outpatient (BNVA) | payer MEDICARE, OTHER, SELFPAY | PROVIDERS: PCP Family Medicine; Visit Provider Internal Medicine | DX: Z20.822 Contact with and (suspected) exposure to COVID-19 (principal); Z11.52 Encounter for screening for COVID-19 | CPT/HCPCS: 87635 ==

== ENCOUNTER → 2021-06-06 15:55 | Outpatient (BNVA) | payer MEDICARE, OTHER, SELFPAY | PROVIDERS: PCP Family Medicine; Visit Provider Family Medicine | DX: J18.9 Pneumonia, unspecified organism (principal); Z09 Encounter for follow-up examination after completed treatment for conditions other than malignant neoplasm | CPT/HCPCS: 85025 ==

== ENCOUNTER 2021-06-08 08:20 | Day surgery (SDC) | payer MEDICARE, OTHER, SELFPAY ==
[2021-05-15 09:32] VITALS: BMI 26.0
[2021-06-06 11:12] VITALS: BMI 26.0
[2021-06-08 08:44] VITALS: BP 140/77; PULSE 87; RESP 20; TEMP 36.1; O2SAT 97
[2021-06-08] MEDS: sodium chloride 0.9% 1,000 ML 30 ML IV (08:49)
--- NOTE | 2021-06-08 09:11 | W.PM.OPSFHP ---
Same Day Surgery H&P Indication for Procedure/HPI DATE OF PROCEDURE: June 08, 2021 CHIEF COMPLAINT/INDICATIONFOR SURGICAL PROCEDURE: History of polyps PREOP DIAGNOSIS: History of colon polyps. PLANNED PROCEDRUE: Operation Date: 05/18/21 09:30 Proposed Procedures p Colonoscopy G0105 Z86.010(Not Applicable) - Pete Perez MD Operation Date: 06/08/21 09:30 Proposed Procedures p Colonoscopy G0105 Z86.010(Not Applicable) - Pete Perez MD Medications/Allergies* Home Medications Medication Instructions Recorded Confirmed Type albuterol sulfate 90 mcg/actuation 2 puff INHALATION QID PRN 11/19/19 06/06/21 History aerosol inhaler aspirin 81 mg tablet,delayed 81 mg PO QAM tab 11/19/19 06/06/21 History release Trelegy Ellipta 1 inh INHALATION QAM 05/21/21 06/06/21 History alendronate 70 mg PO Q7D 05/21/21 06/08/21 History citalopram 20 mg PO QAM 05/21/21 06/06/21 History ergocalciferol (vitamin D2) 50,000 unit PO Q14D 05/21/21 06/08/21 History ferrous sulfate 325 mg PO DAILY@18 05/21/21 06/06/21 History fexofenadine 180 mg PO QAM 05/21/21 06/06/21 History fluticasone propionate [Flonase 2 spray INTRANASAL QAM 05/21/21 06/06/21 History Allergy Relief] levothyroxine [Synthroid] 112 mcg PO QAM 05/21/21 06/06/21 History losartan 100 mg PO DAILY@18 05/21/21 06/06/21 History magnesium oxide 400 mg PO DAILY@18 05/21/21 06/06/21 History montelukast [Singulair] 10 mg PO QAM 05/21/21 06/06/21 History potassium chloride 10 meq PO QAM 05/21/21 06/06/21 History pravastatin 40 mg PO QPM 05/21/21 06/06/21 History temazepam [Restoril] 30 mg PO BEDTIME 05/21/21 06/06/21 History verapamil 240 mg PO QAM 05/21/21 06/06/21 History Allergies/Adverse Reactions Allergy/AdvReac Type Severity Reaction Status Date / Time REINA Inhibitors Allergy ADR-Cough Verified 06/06/21 15:49 codeine Allergy ADR-Nausea Verified 06/06/21 15:49 hydrocodone Allergy ADR-Nausea Verified 06/08/21 08:36 sulfamethoxazole Allergy ALGY-Anaphy Verified 06/06/21 15:49 [From Bactrim] laxis trimethoprim [From Bactrim] Allergy ALGY-Anaphy Verified 06/06/21 15:49 laxis Current Medications: Generic Name Dose Route Start Last Admin Trade Name Freq PRN Reason Stop Dose Admin Sodium Chloride 1,000 mls @ 30 mls/hr 06/08/21 08:30 06/08/21 08:49 Sodium Chloride 0.9% IV 06/09/21 08:29 30 mls/hr .Q24H BYRON Administration Pertinent History/Comorbid Conditions* Medical History (Updated 06/06/21 @ 15:55 by Ladonna Rutledge MD) Acute bronchitis Acute dyspnea Chronic steroid use COPD (chronic obstructive pulmonary disease) Uses home trilogy device, PRN oxygen COPD (chronic obstructive pulmonary disease) COPD exacerbation COVID-19 vaccine administered Depression Fever GERD (gastroesophageal reflux disease) History of aspiration pneumonia Hyperlipidemia Hypertension Hyponatremia Hypothyroidism Hypoxia Immunization counseling Iron deficiency anemia Pneumonia Rheumatoid arthritis with rheumatoid factor of multiple sites without organ or systems involvement Transaminitis Surgical History (Updated 03/29/20 @ 21:32 by Felicia Espinal MD) H/O arthroscopy of knee left knee H/O esophagectomy History of cataract surgery 2017 History of gastric surgery age 6 History of skin graft left knee History of tubal ligation Previous back surgery right L3-L4, right L5-S1 hemilaminotomy foraminotomy/ discectomy/ Family History (Updated 06/22/20 @ 09:59 by Amie Christie DO) CAD (coronary artery disease) Cancer Father Pancreatic cancer Mother Lung cancer with brain mets Daughter Lung cancer with brain mets Hypertension Denies family history of Rheumatoid arthritis Diabetes Chronic kidney disease (CKD) Systemic lupus erythematosus (SLE) in adult Lung disease Social History Smoking and tobacco status: former smoker Quit status (tobacco): has quit using tobacco Year quit tobacco: 2000 [id number] Second hand smoke exposure: No Smoking risk assessment/counseling performed?: Yes Alcohol intake: current Alcohol type: beer Lives independently: Yes Household members: children Housing: House Marital status: Current occupational status: retired Pets and animals: Yes History of recent travel: No Current gender identity: Female Pertinent Exam Findings alert, oriented x 3, clear to auscultation bilaterally, regular rate & rhythm, operative site marked and procedure specific exam findings Recommendations Surgery/Procedure today Coding Level of Care Code Acute Instrumentation Fitter for Carrillo Medina
--- NOTE | 2021-06-08 10:03 | ANES.PREANE2 ---
Pre-Anesthetic Assessment Pre-Anesthetic Assessment: Height/Weight: Height 1.6 m Weight 66.678 kg Temp Pulse Resp BP Pulse Ox 97 F L 87 20 H 140/77 97 06/08/21 08:44 06/08/21 08:44 06/08/21 08:44 06/08/21 08:44 06/08/21 08:44 Preop Diagnosis: History of colon polyps. Proposed Procedure: Operation Date: 05/18/21 09:30 Proposed Procedures p Colonoscopy G0105 Z86.010(Not Applicable) - Pete Perez MD Operation Date: 06/08/21 09:30 Proposed Procedures p Colonoscopy G0105 Z86.010(Not Applicable) - Pete Perez MD Familial anesthetic complications: None Was Beta Brittany taken within 24 hours: N/A Was Clonidine taken within 24 hours: N/A Last intake: Intake Last Liquid Date 06/07/21 Last Liquid Time 18:30 Last Solid Date 06/06/21 Last Solid Time 18:00 Social: Social History: Alcohol, No alcohol and No tobacco Comment: 6 pack of beer weekly Exam: Pre-Anes Outpt Exam: alert, oriented x 3, clear to auscultation bilaterally and regular rate & rhythm Airway: Cervical ROM: WNL MP: 3 Dentition: Other (missing) Pulmonary: Pulmonary: COPD Comments: restrictive lung disease, hx atypical pneumonia CV/HEM: CV/HEM: HTN GI: GI: GERD Metabolic: Metabolic: Hyperlipidemia and Thyroid Musc/skel: Musc/skel: RA (steroid and chemotherapy - w/ immunosuppression in past) Anesthetic Plan: ASA status: 3 Anesthesia: MAC Risk of > 500 ml blood loss (7ml/kg in children): No Meds/Allergies Current Medications: Current Medications Generic Name Dose Route Start Last Admin Trade Name Freq PRN Reason Stop Dose Admin Sodium Chloride 1,000 mls @ 30 ml s/hr 06/08/21 08:30 06/08/21 08:49 Sodium Chloride 0.9% IV 06/09/21 08:29 30 mls/hr .Q24H [place]RON Administration PFSH Anesthesia PFSH: Medical History Acute bronchitis Acute dyspnea Chronic steroid use COPD (chronic obstructive pulmonary disease) Uses home trilogy device, PRN oxygen COPD (chronic obstructive pulmonary disease) COPD exacerbation COVID-19 vaccine administered Depression Fever GERD (gastroesophageal reflux disease) History of aspiration pneumonia Hyperlipidemia Hypertension Hyponatremia Hypothyroidism Hypoxia Immunization counseling Iron deficiency anemia Pneumonia Rheumatoid arthritis with rheumatoid factor of multiple sites without organ or systems involvement Transaminitis Surgical History H/O arthroscopy of knee left knee H/O esophagectomy History of cataract surgery 2017 History of gastric surgery age 6 History of skin graft left knee History of tubal ligation Previous back surgery right L3-L4, right L5-S1 hemilaminotomy foraminotomy/ discectomy/ Family History Father Cancer Pancreatic cancer Mother Cancer Lung cancer with brain mets Daughter Cancer Lung cancer with brain mets Other CAD (coronary artery disease) Hypertension Denies family history of Rheumatoid arthritis Diabetes Chronic kidney disease (CKD) Systemic lupus erythematosus (SLE) in adult Lung disease Social History Smoking and tobacco status: former smoker Quit status (tobacco): has quit using tobacco Year quit tobacco: 2000 [id number] Second hand smoke exposure: No Smoking risk assessment/counseling performed?: Yes Alcohol intake: current Alcohol type: beer Lives independently: Yes Household members: children Housing: House Marital status: Current occupational status: retired Pets and animals: Yes History of recent travel: No Current gender identity: Female Data Anesthesia Cardiac Studies: Echocardiogram 05/23/21
[2021-06-08 10:37] VITALS: BP 120/78; PULSE 80; RESP 18; TEMP 36.1; O2SAT 100
[2021-06-08 10:50] VITALS: BP 119/72; PULSE 82; RESP 20; O2SAT 100
--- NOTE | 2021-06-08 14:20 | ANE.PACU2 ---
Inpatient post-anesthesia follow up: Airway intact: Yes Vital signs: Temperature 97 F Pulse Rate 82 Respiratory Rate 20 Blood Pressure 119/72 Pulse Oximetry 100 Oxygen Delivery Me thod Room Air Oxygen Flow Rate Fraction of Inspir ed Oxygen Hydration adequate: Yes Nausea and vomiting: No Pain level: 2 Mental status: Baseline
== END 2021-06-08 11:05 | disposition home or self-care (01) ==
PROVIDERS: PCP Family Medicine; Visit Provider Internal Medicine
PROC: 0DJD8ZZ Inspection of Lower Intestinal Tract, Via Natural or Artificial Opening Endoscopic (ICD-10-PCS; CPT 45378; principal; 2021-06-08 09:30)
DX: Z86.010 Personal history of colon polyps (principal); Z79.82 Long term (current) use of aspirin; J44.9 Chronic obstructive pulmonary disease, unspecified; E78.5 Hyperlipidemia, unspecified; E03.9 Hypothyroidism, unspecified; M06.9 Rheumatoid arthritis, unspecified; Z87.891 Personal history of nicotine dependence; I10 Essential (primary) hypertension; Z79.52 Long term (current) use of systemic steroids
CPT/HCPCS: 96360; 96361; G0121; J7030

== ENCOUNTER → 2021-07-10 14:27 | Outpatient (BNVA) | payer MEDICARE, OTHER, SELFPAY | PROVIDERS: PCP Family Medicine; Visit Provider Internal Medicine Rheumatology | DX: M05.79 Rheumatoid arthritis with rheumatoid factor of multiple sites without organ or systems involvement (principal); M54.16 Radiculopathy, lumbar region; Z79.899 Other long term (current) drug therapy; Z79.52 Long term (current) use of systemic steroids; Z71.89 Other specified counseling; Z87.891 Personal history of nicotine dependence | CPT/HCPCS: 99214 ==

== ENCOUNTER → 2021-07-11 12:30 | Outpatient (BNVA) | payer MEDICARE, OTHER, SELFPAY | PROVIDERS: PCP Family Medicine; Visit Provider Family Medicine | DX: E03.9 Hypothyroidism, unspecified (principal); E78.5 Hyperlipidemia, unspecified; G56.02 Carpal tunnel syndrome, left upper limb; J44.9 Chronic obstructive pulmonary disease, unspecified; K21.9 Gastro-esophageal reflux disease without esophagitis; I10 Essential (primary) hypertension | CPT/HCPCS: 80053; 80061; 84443; 85025 ==

== ENCOUNTER 2021-07-24 09:24 | Emergency (ER) | payer MEDICARE, OTHER, SELFPAY ==
[2021-07-24] VITALS (7 sets, daily range): BP systolic 112–154; BP diastolic 60–85; PULSE 81–92; RESP 18–22; TEMP 36.9–37.2; O2SAT 93–100; BMI 25.7
--- NOTE | 2021-07-24 13:59 | XRR_ITS ---
PROCEDURE INFORMATION: Exam: XR Chest Exam date and time: 07/24/2021 1:59 PM Age: 65 years old Clinical indication: Shortness of breath; Additional info: SOB TECHNIQUE: Imaging protocol: XR of the chest. Views: 1 view. COMPARISON: CR XR chest 1V portable [id number] 05/21/2021 1:07 PM FINDINGS: Lungs: Left lower lung opacity consistent with consolidation versus Large hiatal hernia Pleural spaces: Probable small left pleural effusion. Heart/Mediastinum: Normal heart size. Bones/joints: No acute findings. XR/XR chest 1V portable [id number] IMPRESSION: Left lower lung consolidation versus large hernia, possible small left pleural effusion.
[2021-07-24 16:15] LABS: Basophils # 0.1 10^3/uL (0.0-0.1); Basophils % 0.8 %; Eosinophils # 0.2 10^3/uL (0.0-0.8); Hematocrit 41.1 % (37.0-47.0); Hemoglobin 12.8 g/dL (11.5-15.3); Lymphocytes # 1.3 10^3/uL (0.8-4.8); Lymphocytes % 7.3 %; Mean Corpuscular HGB Conc 31.1 g/dL (30.0-36.0); Mean Corpuscular Hemoglobin 29.4 pg (28.0-34.0); Mean Corpuscular Volume 94.5 fl (81-99); Mean Platelet Volume 10.5 fL (7.4-10.4); Monocytes # 1.2 10^3/uL (0.2-0.9); Monocytes % 6.7 %; Neutrophils # 14.82 10^3/uL (1.8-7.7); Neutrophils % 83.8 %; Nucleated Red Blood Cells % 0 %; Platelet Count 269 10^3/cmm (130-400); Red Blood Count 4.35 10^6/uL (4.1-5.3); Red Cell Distribution Width 14.1 % (12.1-15.1); White Blood Count 17.7 10^3/uL (4.0-10.0)
[2021-07-24 16:45] LABS: Alanine Aminotransferase 11 U/L (0-33); Albumin Level 3.5 g/dL (3.5-5.2); Alkaline Phosphatase 106 IU/L (35-105); Anion Gap 16.1 (5-19); Aspartate Amino Transferase 16 U/L (0-32); Blood Urea Nitrogen 11 mg/dL (8-23); Calcium 9.5 mg/dL (8.5-10.5); Carbon Dioxide 26 mmol/L (22-29); Chloride 96 mmol/L (98-107); Globulin 3.3 g/dL (1.3-4.6); Glomerular Filtration Rate 83.5 mL/min (90-130); Glucose 79 mg/dL (65-115); Osmolality Calculated 276 mOsm/kg (285-295); Potassium 4.1 mmol/L (3.5-5.1); Sodium 134 mmol/L (136-145); Total Bilirubin 0.4 mg/dL (0.15-1.2); Total Protein 6.8 g/dL (6.6-8.7)
[2021-07-24 17:00] LABS: SARS Covid-2 Antigen Negative (Negative)
--- NOTE | 2021-07-24 19:54 | ED_ITS ---
HPI - SOB/Dyspnea General: Chief Complaint: Shortness of Breath/Dyspnea Stated Complaint: SOB (ON 2L O2) Time Seen by Provider: 07/24/21 19:48 History of Present Illness: HPI Narrative: Patient states that her COPD is been getting worse. Says she has had some shortness of breath. Has been hurting when room for 10 hours. Patient has no complaints of acute distress. MD elicited complaint: shortness of breath and cough Pertinent past history: COPD Timing: constant Severity: mild Exacerbating factors: nothing Associated symptoms: Reports no associated symptoms; Deny abdominal pain, chest pain, extremity pain, fever(s), nausea or vomiting Treatment prior to arrival: oxygen (Has home O2) Review of Systems Const: Denies: fever(s), chills or body aches Eyes: Denies: change in vision or blurry vision ENMT: Denies: throat pain or nasal congestion Card: Denies: chest pain or dyspnea on exertion Resp: Reports: dyspnea and non-productive cough; Denies: productive cough GI: Denies: abdominal pain, nausea or vomiting Musc: Denies: extremity pain Skin/Breast: Denies: rash Neuro: Denies: headache(s) Psych: Denies: anxiety or depression Santos/Lymph: Denies: easy bruising PFSH ED PFSH: Medical History (Updated 07/24/21 @ 20:31 by RAAD Flores) Acute bronchitis Acute dyspnea Chronic steroid use COPD (chronic obstructive pulmonary disease) Uses home trilogy device, PRN oxygen COPD (chronic obstructive pulmonary disease) COPD exacerbation COVID-19 vaccine administered Depression Fever GERD (gastroesophageal reflux disease) High risk medication use History of aspiration pneumonia Hyperlipidemia Hypertension Hyponatremia Hypothyroidism Hypoxia Immunization counseling Immunization counseling Iron deficiency anemia Lumbar radiculopathy Pneumonia Rheumatoid arthritis with rheumatoid factor of multiple sites without organ or systems involvement Seropositive rheumatoid arthritis of multiple sites Transaminitis Surgical History H/O arthroscopy of knee left knee H/O esophagectomy History of cataract surgery 2017 History of gastric surgery age 6 History of skin graft left knee History of tubal ligation Previous back surgery right L3-L4, right L5-S1 hemilaminotomy foraminotomy/ discectomy/ Family History Father Cancer Pancreatic cancer Mother Cancer Lung cancer with brain mets Daughter Cancer Lung cancer with brain mets Other CAD (coronary artery disease) Hypertension Denies family history of Rheumatoid arthritis Diabetes Chronic kidney disease (CKD) Systemic lupus erythematosus (SLE) in adult Lung disease Social History Smoking and tobacco status: former smoker Quit status (tobacco): has quit using tobacco Year quit tobacco: 2000 [id number] Second hand smoke exposure: No Smoking risk assessment/counseling performed?: Yes Alcohol intake: current Alcohol type: beer Lives independently: Yes Household members: children Housing: House Marital status: Current occupational status: retired Pets and animals: Yes History of recent travel: No Current gender identity: Female Physical Exam Const: COMMON NORMALS: no acute distress, average body habitus and patient oriented x3 HENMT: COMMON NORMALS: normocephalic HEAD & SCALP: normal to inspection and normocephalic FACE & SINUS: normal facial exam Eye: COMMON NORMALS: conjunctivae normal GENERAL EYE: appearance normal, both eyes and all related structures CONJUNCTIVA: Yes conjunctivae normal Neck/C-Spine: COMMON NORMALS: no JVD Chest: COMMONS NORMALS: normal inspection of the chest Resp: COMMON NORMALS: normal respiratory effort EFFORT & INSPECTION: Yes able to speak in complete sentences AUSCULTATION: rhonchi throughout and diminished lung sounds diffuse Cardio: COMMON NORMALS: no JVD, regular rate and regular rhythm RATE: regular rate RHYTHM: regular rhythm GI: COMMON NORMALS: Normal to inspection, nondistended, normoactive bowel sounds present Extremity: COMMON NORMALS: normal to inspection and full ROM Neuro: COMMON NORMALS: patient oriented x3 Course Vital Signs: Vital signs: Vital Signs Temperature 98.4 F 07/24/21 19:26 Pulse Rate 81 07/24/21 22:13 Respiratory Rate 22 H 07/24/21 22:13 Blood Pressure 112/63 07/24/21 22:13 Pulse Oximetry 100 07/24/21 22:13 MDM - SOB/Dyspnea MDM Narrative: Medical decision making narrative: COPD exacerbation. Labs past x-rays and today's x-ray reviewed with Dr. Shields. Patient responded well to breathing treatment steroids and antibiotic infusion. Patient desired to go home. Patient no distress. Patient has oxygen at home to take. Patient given strict instructions to return here for worsening symptoms. Use her inhaler/nebulizer she has at home. Take your steroids as prescribed antibiotic. Patient agrees to instructions and will return if worsening symptoms. at bedside. Lab Data: Labs: Lab Results 07/24/21 07/24/21 07/24/21 Range/Units 16:03 16:03 16:03 WBC 17.7 H (4.0-10.0) 10^3/ uL RBC 4.35 (4.1-5.3) 10^6/u L Hgb 12.8 (11.5-15.3) g/dL Hct 41.1 (37.0-47.0) % MCV 94.5 (81-99) fl MCH 29.4 (28.0-34.0) pg MCHC 31.1 (30.0-36.0) g/dL RDW 14.1 (12.1-15.1) % Plt Count 269 (130-400) 10^3/c mm MPV 10.5 H (7.4-10.4) fL Neut % (Auto) 83.8 % Lymph % (Auto) 7.3 % [place] % (Auto) 6.7 % Eos % (Auto) 1.0 % Baso % (Auto) 0.8 % Neut # (Auto) 14.82 H (1.8-7.7) 10^3/u L Lymph # (Auto) 1.3 (0.8-4.8) 10^3/u L [place] # (Auto) 1.2 H (0.2-0.9) 10^3/u L Eos # (Auto) 0.2 (0.0-0.8) 10^3/u L Baso # (Auto) 0.1 (0.0-0.1) 10^3/u L Nucleated RBC % (a uto) 0 % Nucleated RBCs # 0.0 /100WBC Sodium 134 L (136-145) mmol/L Potassium 4.1 (3.5-5.1) mmol/L Chloride 96 L (98-107) mmol/L Carbon Dioxide 26 (22-29) mmol/L Anion Gap 16.1 (5-19) BUN 11 (8-23) mg/dL Creatinine 0.7 (0.5-0.9) mg/dL GFR Calculation 83.5 L (90-130) mL/min Glucose 79 (65-115) mg/dL Calculated Osmolal ity 276 L (285-295) mOsm/k g Calcium 9.5 (8.5-10.5) mg/dL Total Bilirubin 0.4 (0.15-1.2) mg/dL AST 16 (0-32) U/L ALT 11 (0-33) U/L Alkaline Phosphata se 106 H (35-105) IU/L Total Protein 6.8 (6.6-8.7) g/dL Albumin 3.5 (3.5-5.2) g/dL Globulin 3.3 (1.3-4.6) g/dL SARS-CoV-2 Ag (Rap id) Negative (Negative) Discharge Plan Discharge Patient Disposition: Home Clinical Impression: COPD (chronic obstructive pulmonary disease) Qualifiers: COPD type: COPD with acute exacerbation Qualified Code(s): J44.1 - Chronic obstructive pulmonary disease with (acute) exacerbation Condition: Stable Prescriptions: New prednisone 20 mg tablet See Rx Instructions .ROUTE .COMPLEX Qty: 31 RF: 0 Zithromax Z-He 250 mg tablet See Rx Instructions PO .COMPLEX Qty: 6 RF: 0 ipratropium-albuterol 0.5 mg-3 mg(2.5 mg base)/3 mL solution for nebulization 3 ml inhalation Q4H PRN (Reason: shortness of breath or wheezing) Qty: 90 RF: 0 Held hydroxychloroquine 200 mg tablet See Rx Instructions PO .COMPLEX Qty: 135 RF: 1 Hold Instructions: Resume on 07/31/21. No Action fluticasone propionate [Flonase Allergy Relief] 50 mcg/actuation spray,suspension 2 spray intranasal QAM Qty: 16 RF: 3 verapamil 240 mg capsule,ext rel. pellets 24 hr 240 mg PO QAM Qty: 90 RF: 2 losartan 100 mg tablet 100 mg PO DAILY@18 Qty: 90 RF: 2 aspirin [Aspirin Low Dose] 81 mg tablet,delayed release (DR/EC) 81 mg PO QAM RF: 0 Protonix 40 mg tablet,delayed release (DR/EC) 40 mg PO BID Qty: 180 RF: 3 furosemide [Lasix] 20 mg tablet 20 mg PO QAM Qty: 90 RF: 1 Enbrel SureClick 50 mg/mL (1 mL) pen injector 50 mg SUBCUT Q7D Qty: 4 RF: 3 gabapentin 300 mg capsule See Rx Instructions PO BID Qty: 60 RF: 3 leflunomide 10 mg tablet 10 mg PO DAILY@18 Qty: 30 RF: 3 prednisone 10 mg tablet See Rx Instructions PO .COMPLEX PRN (Reason: joint pain) Qty: 30 RF: 1 alendronate 70 mg tablet 70 mg PO Q7D Qty: 15 RF: 1 albuterol sulfate [ProAir HFA] 90 mcg/actuation HFA aerosol inhaler 2 puff INHALATION QID PRN (Reason: Shortness Of Breath) Qty: 6.7 RF: 2 Trelegy Ellipta 100-62.5-25 mcg blister with device 1 inh inhalation QAM Qty: 28 RF: 2 levothyroxine 125 mcg tablet 125 mcg PO DAILY Qty: 90 RF: 0 pravastatin 40 mg tablet 40 mg PO QPM RF: 0 potassium chloride 10 mEq tablet extended release 10 meq PO QAM RF: 0 fexofenadine 180 mg tablet 180 mg PO QAM RF: 0 citalopram 20 mg tablet 20 mg PO QAM RF: 0 temazepam [Restoril] 30 mg capsule 30 mg PO BEDTIME RF: 0 ferrous sulfate 325 mg (65 mg iron) tablet 325 mg PO DAILY@18 RF: 0 montelukast [Singulair] 10 mg tablet 10 mg PO QAM RF: 0 ergocalciferol (vitamin D2) 1,250 mcg (50,000 unit) capsule 50,000 unit PO Q14D RF: 0 magnesium oxide 400 mg magnesium capsule 400 mg PO DAILY@18 RF: 0 Discharge Orders: Discharge ED (Routine); Ordered 07/24/21 Ordered By: Robbie Hadley Referrals: Ladonna Rutledge MD [Primary Care Provider] - Discharge Diet: Usual diet Discharge Activity: Increase activity as tolerated Patient Instructions: Chronic Obstructive Pulmonary Disease (ED) Activity Restrictions/Additional Instructions: Follow-up with medical provider as directed. Take medications as prescribed. Return to the ER or your medical provider if condition worsens. Please read and understand discharge instructions. If any questions ask please. 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
[2021-07-24] MEDS: ipratropium-albuterol 3 mL Neb INHALATION (20:13)
[2021-07-24] MEDS: azithromycin 500 MG in sodium chloride 0.9% 250 ML 250 MG IV (20:52)
== END 2021-07-24 22:14 | disposition home or self-care (01) ==
PROVIDERS: Physician Assistant; Emergency Provider Nurse Practitioner Family; PCP Family Medicine
DX: J44.1 Chronic obstructive pulmonary disease with (acute) exacerbation (principal); Z79.82 Long term (current) use of aspirin; E78.5 Hyperlipidemia, unspecified; I10 Essential (primary) hypertension; Z87.891 Personal history of nicotine dependence; Z20.822 Contact with and (suspected) exposure to COVID-19
CPT/HCPCS: 71045; 80053; 85025; 87426; 94640; 96365; 96375; 99284; J0456; J2930; J7050

== ENCOUNTER 2021-07-28 13:51 | Observation (INO) | payer MEDICARE, OTHER, SELFPAY ==
[2021-07-28] VITALS (20 sets, daily range): BP systolic 90–162; BP diastolic 63–88; PULSE 82–85; RESP 18; TEMP 36.6–37; O2SAT 94–100; BMI 25.7
--- NOTE | 2021-07-28 13:56 | ECG_ITS ---
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 Measurements Intervals [place] Rate: 78 P: 51 NE: 143 QRS: -27 QRSD: 118 T: 70 QT: 399 QTc: 457 Interpretive Statements SINUS RHYTHM BORDERLINE LEFT AXIS DEVIATION [QRS AXIS < -20] MODERATE INTRAVENTRICULAR CONDUCTION DELAY [110+ ms QRS DURATION] Compared to ECG 07/28/2021 15:31:06 Intraventricular conduction delay now present Electronically Signed On 07-30-2021 19:17:05 CDT by Sandy Glynn M.D. [id number]
--- NOTE | 2021-07-28 13:56 | XRR_ITS ---
PROCEDURE INFORMATION: Exam: XR Chest Exam date and time: 07/28/2021 1:56 PM Age: 65 years old Clinical indication: Dyspnea TECHNIQUE: Imaging protocol: XR of the chest. Views: 1 view. COMPARISON: 1. CR XR chest 1V portable [id number] 07/24/2021 2:[address] angio chest PE protcl [id number] 07/28/2021 5:10:20 PM FINDINGS: Lungs: Mild atelectasis in the left lung base. Calcified granuloma in the left lung. Faint ground-glass opacities in both lungs are better visualized on the CT. Pleural spaces: Unremarkable. No pleural effusion. No pneumothorax. Heart/Mediastinum: Unremarkable. No cardiomegaly. Diaphragm: Elevation of the left diaphragm. Bones/joints: Unremarkable. XR/XR chest 1V portable [id number] IMPRESSION: 1. Faint ground-glass opacities in both lungs are better visualized on the CT, and consistent with endobronchial infection.
[2021-07-28 15:27] LABS: Basophils # 0.1 10^3/uL (0.0-0.1); Basophils % 0.5 %; Hematocrit 40.5 % (37.0-47.0); Hemoglobin 12.8 g/dL (11.5-15.3); Lymphocytes # 0.3 10^3/uL (0.8-4.8); Lymphocytes % 1.4 %; Mean Corpuscular HGB Conc 31.6 g/dL (30.0-36.0); Mean Corpuscular Hemoglobin 29.8 pg (28.0-34.0); Mean Corpuscular Volume 94.2 fl (81-99); Mean Platelet Volume 10.4 fL (7.4-10.4); Monocytes # 1.4 10^3/uL (0.2-0.9); Neutrophils # 20.91 10^3/uL (1.8-7.7); Neutrophils % 91.4 %; Nucleated Red Blood Cells % 0 %; Platelet Count 262 10^3/cmm (130-400); Red Cell Distribution Width 13.8 % (12.1-15.1); White Blood Count 22.9 10^3/uL (4.0-10.0)
--- NOTE | 2021-07-28 15:32 | ED_ITS ---
HPI - General Adult General: Chief complaint: Shortness of Breath/Dyspnea Stated complaint: sob Time Seen by Provider: 07/28/21 14:39 History of Present Illness: HPI narrative: Patient is a 65-year-old female history of COPD, aspiration pneumonia, bronchitis, rheumatoid arthritis who was recently seen and evaluated on 07/24/2021 for COPD exacerbation and was prescribed Z-He, prednisone and inhaler with outpatient followup. Since discharge from home, patient says that her symptoms has not improved despite taking these medicine. Patient presents emergency room with worsening shortness of breath cough. Last time, patient had a negative Covid test. Denies any orthopnea, proximal nocturnal dyspnea, leg swelling, abdominal complaints including nausea/vomiting, diarrhea, melena or hematochezia. No symptoms at this time. Onset: 4 days ago Duration:4 days Location:home Severity:moderate Review of Systems Narrative: Constitutional: No fever, no chills. HEENT: No vision changes CV: No chest pain, no palpitations PULM: +cough, +dyspnea. GI: No abdominal pain, no N/V/D. : No dysuria MSKEL: No muscle pain SKIN: No new rashes, no lesions. NEURO: No headache, no focal weakness. HEME: No visible bruises PSYCH: Normal mood PFSH ED PFSH: Medical History Acute bronchitis Acute dyspnea Chronic steroid use COPD (chronic obstructive pulmonary disease) Uses home trilogy device, PRN oxygen COPD (chronic obstructive pulmonary disease) COPD exacerbation COVID-19 vaccine administered Depression Fever GERD (gastroesophageal reflux disease) High risk medication use History of aspiration pneumonia Hyperlipidemia Hypertension Hyponatremia Hypothyroidism Hypoxia Immunization counseling Immunization counseling Iron deficiency anemia Lumbar radiculopathy Pneumonia Rheumatoid arthritis with rheumatoid factor of multiple sites without organ or systems involvement Seropositive rheumatoid arthritis of multiple sites Transaminitis Surgical History H/O arthroscopy of knee left knee H/O esophagectomy History of cataract surgery 2017 History of gastric surgery age 6 History of skin graft left knee History of tubal ligation Previous back surgery right L3-L4, right L5-S1 hemilaminotomy foraminotomy/ discectomy/ Family History Father Cancer Pancreatic cancer Mother Cancer Lung cancer with brain mets Daughter Cancer Lung cancer with brain mets Other CAD (coronary artery disease) Hypertension Denies family history of Rheumatoid arthritis Diabetes Chronic kidney disease (CKD) Systemic lupus erythematosus (SLE) in adult Lung disease Social History Smoking and tobacco status: former smoker Quit status (tobacco): has quit using tobacco Year quit tobacco: 2000 [id number] Second hand smoke exposure: No Smoking risk assessment/counseling performed?: Yes Alcohol intake: current Alcohol type: beer Lives independently: Yes Household members: children Housing: House Marital status: Current occupational status: retired Pets and animals: Yes History of recent travel: No Current gender identity: Female Female Reproductive History: Date of last menstrual period: 02/08/21 Physical Exam Narrative: EXAM NARRATIVE: Head: Atraumatic Eyes: PERRL, conjunctiva without injection ENT: Mucous membrane moist NECK: Supple, ROM intact LUNGS: +Wheezes b/l, +coarse breath sounds CV: RRR ABDOMEN: Soft, nontender in all quadrants EXTREMITY: Normal ROM SKIN: No rash or erythema NEURO: Awake and alert, no focal motor deficits PSYCH: Normal mood and affect Course Vital Signs: Vital signs: Vital Signs Temperature 98 F 07/29/21 13:47 Pulse Rate 96 07/29/21 13:47 Respiratory Rate 18 07/29/21 13:47 Blood Pressure 138/89 07/29/21 13:47 Pulse Oximetry 96 07/29/21 13:47 MDM - General Adult MDM Narrative: Medical decision making narrative: 65M w/ history of COPD who was recently evaluated in the emergency room for dry cough and shortness of breath on . On arrival, patient has coarse breath sounds with wheezing bilaterally. No increased work of breathing was observed today. White count of 22K from 17 K on 07/24. Patient still continues to have persistent and now wosrsening symptoms. Initial Covid incision from 07/24 was negative. Pending repeat antigen swabs. Patient received DuoNeb, steroids, azithromycin and ceftriaxone in the emergency room. Patient will be admitted to hospital for evaluation of pneumonia failure of outpatient treatment. Disposition: Admission Lab Data: Labs: Lab Results 07/28/21 07/28/21 07/28/21 Range/Units 15:15 15:15 15:15 WBC 22.9 H (4.0-10.0) 10^3/ uL RBC 4.30 (4.1-5.3) 10^6/u L Hgb 12.8 (11.5-15.3) g/dL Hct 40.5 (37.0-47.0) % MCV 94.2 (81-99) fl MCH 29.8 (28.0-34.0) pg MCHC 31.6 (30.0-36.0) g/dL RDW 13.8 (12.1-15.1) % Plt Count 262 (130-400) 10^3/c mm MPV 10.4 (7.4-10.4) fL Neut % (Auto) 91.4 % Lymph % (Auto) 1.4 % [place] % (Auto) 6.0 % Eos % (Auto) 0.0 % Baso % (Auto) 0.5 % Neut # (Auto) 20.91 H (1.8-7.7) 10^3/u L Lymph # (Auto) 0.3 L (0.8-4.8) 10^3/u L [place] # (Auto) 1.4 H (0.2-0.9) 10^3/u L Eos # (Auto) 0.0 (0.0-0.8) 10^3/u L Baso # (Auto) 0.1 (0.0-0.1) 10^3/u L Nucleated RBC % (a uto) 0 % Nucleated RBCs # 0.0 /100WBC Sodium 131 L (136-145) mmol/L Potassium 4.3 (3.5-5.1) mmol/L Chloride 93 L (98-107) mmol/L Carbon Dioxide 26 (22-29) mmol/L Anion Gap 16.3 (5-19) BUN 14 (8-23) mg/dL Creatinine 0.8 (0.5-0.9) mg/dL GFR Calculation 71.5 L (90-130) mL/min Glucose 109 (65-115) mg/dL Calculated Osmolal ity 273 L (285-295) mOsm/k g Calcium 8.5 (8.5-10.5) mg/dL Troponin T Baselin e 10 (0-10) ng/L NT-Pro-B Natriuret Pep 455 H (0-125) pg/mL Procalcitonin (0-0.5) ng/mL SARS-CoV-2 RNA (RT -PCR) (NOT DETECTED) SARS-CoV-2 Ag (Rap id) (Negative) 07/28/21 07/28/21 07/28/21 Range/Units 15:15 15:15 15:15 WBC (4.0-10.0) 10^3/ uL RBC (4.1-5.3) 10^6/u L Hgb (11.5-15.3) g/dL Hct (37.0-47.0) % MCV (81-99) fl MCH (28.0-34.0) pg MCHC (30.0-36.0) g/dL RDW (12.1-15.1) % Plt Count (130-400) 10^3/c mm MPV (7.4-10.4) fL Neut % (Auto) % Lymph % (Auto) % [place] % (Auto) % Eos % (Auto) % Baso % (Auto) % Neut # (Auto) (1.8-7.7) 10^3/u L Lymph # (Auto) (0.8-4.8) 10^3/u L [place] # (Auto) (0.2-0.9) 10^3/u L Eos # (Auto) (0.0-0.8) 10^3/u L Baso # (Auto) (0.0-0.1) 10^3/u L Nucleated RBC % (a uto) % Nucleated RBCs # /100WBC Sodium (136-145) mmol/L Potassium (3.5-5.1) mmol/L Chloride (98-107) mmol/L Carbon Dioxide (22-29) mmol/L Anion Gap (5-19) BUN (8-23) mg/dL Creatinine (0.5-0.9) mg/dL GFR Calculation (90-130) mL/min Glucose (65-115) mg/dL Calculated Osmolal ity (285-295) mOsm/k g Calcium (8.5-10.5) mg/dL Troponin T Baselin e (0-10) ng/L NT-Pro-B Natriuret Pep (0-125) pg/mL Procalcitonin 0.22 (0-0.5) ng/mL SARS-CoV-2 RNA (RT -PCR) Not detected (NOT DETECTED) SARS-CoV-2 Ag (Rap id) Negative (Negative) Imaging Data^: Other Imaging: Radiologist's impression: [address], [place] [address]BI Scan ReportSigned Patient: Gabby Garcia #: [id number]: 1955cct#:[id number]/Sex: 65 / FADM Date: 07/28/21Loc: [facility]/Bed: 263-1Attending Dr: Nguyễn Rodriguez MD Ordering Provider/Ordering MD: Maria C Padilla MD Date of Service: 07/28/21 Procedure(s): CT angio chest PE protcl [id number] Accession Number(s): [id number] Report Number: [id number] PROCEDURE INFORMATION: Exam: CTA Chest With Contrast Exam date and time: 07/28/2021 4:34 PM Age: 65 years old Clinical indication: Shortness of breath; Patient HX: SOB; Additional info: L lower evaluation TECHNIQUE: Imaging protocol: Computed tomographic angiography of the chest with contrast. 3D rendering (Not supervised by radiologist): MIP and/or 3D reconstructed images were created by the technologist. Radiation optimization: All CT scans at this facility use at least one of these dose optimization techniques: automated exposure control; mA and/or kV adjustment per patient size (includes targeted exams where dose is matched to clinical indication); or iterative reconstruction. Contrast material: OMNI 350; Contrast volume: 65 ml; Contrast route: INTRAVENOUS (IV); COMPARISON: CT angio chest PE protcl [id number] 05/21/2021 11:07 PM RADIATION DOSE METRICS: Total DLP (mGy-cm): 534.61 FINDINGS: Pulmonary arteries: Normal. No pulmonary emboli. Aorta: Unremarkable. No aortic aneurysm. No aortic dissection. Lungs: Multiple calcified granulomas in both lungs. Patchy ground-glass and tree-in-bud type opacities scattered throughout all lung lobes. Small nodular consolidations in the peripheral lungs. Pleural spaces: Trace left pleural effusion. Heart: Unremarkable. No cardiomegaly. No pericardial effusion. Mediastinal space: Resection of the distal esophagus with gastric pull-through procedure. Lymph nodes: Calcified hilar lymph nodes. Liver: Calcified granulomas in the liver. The calcified granulomas in the liver. Kidneys and ureters: Hypodensity in the left kidney is too small to characterize but is most likely a cyst. No follow-up imaging is recommended. Stomach and bowel: Diverticulosis of the colon. Bones/joints: Stable mild T3, T6 and T9 compression fractures. Soft tissues: Unremarkable. Other findings: Elevation of the left diaphragm. CT/CT angio chest PE protcl [id number] IMPRESSION: 1. No evidence for pulmonary embolus. 2. Improved multilobar ground-glass opacities in both lungs, but with increased tree-in-bud type opacities throughout both lungs. This could indicate improving viral pneumonia, now with superimposed endobronchial infection. COMMENTS: Consistent with the [employer]'s Incidental Findings Committee white paper (J Am Jaswinder Radiol 2018): Any incidental renal lesion less than 1 cm or classified as too small to characterize, or any incidental cystic renal lesion characterized as simple-appearing, is likely benign. No follow-up imaging is recommended for these lesions per consensus recommendations based on imaging criteria. Radiation Dose CTDIVOL = (mGy): DLP = 534.61 (mGy-cm) Dictated By:Shavonne Chong By:Shavonne Chogn Date/Time:07/28/211744DD/ 43 Discharge Plan Discharge Patient Disposition: Admitted As Inpatient Admit Provider: Nguyễn Rodriguez Clinical Impression: Pneumonia, Hypoxemia, COPD exacerbation Condition: Stable Discharge Diet: Cardiac Discharge Activity: Increase activity as tolerated Coding Level of Care Code ED Biomedical Engineering Professor for Carrillo Medina
[2021-07-28 15:49] LABS: SARS Covid-2 Antigen Negative (Negative)
--- NOTE | 2021-07-28 15:56 | ECG_ITS ---
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 Measurements Intervals [place] Rate: 74 P: 54 [place]: 138 QRS: -8 QRSD: 108 T: 68 QT: 402 QTc: 449 Interpretive Statements SINUS RHYTHM INTERPRETATION BASED ON A DEFAULT AGE OF 40 YEARS Compared to ECG 05/21/2021 13:32:46 Indeterminate axis no longer present Intraventricular conduction delay no longer present Electronically Signed On 07-30-2021 21:40:22 CDT by Sandy Glynn M.D. [id number]
[2021-07-28 16:05] LABS: Troponin(5th) Baseline 10 ng/L (0-10)
[2021-07-28 16:14] LABS: Blood Urea Nitrogen 14 mg/dL (8-23); Calcium 8.5 mg/dL (8.5-10.5); Carbon Dioxide 26 mmol/L (22-29); Chloride 93 mmol/L (98-107); Glomerular Filtration Rate 71.5 mL/min (90-130); Glucose 109 mg/dL (65-115); NT Pro B Type Natriuretic Pept 455 pg/mL (0-125); Osmolality Calculated 273 mOsm/kg (285-295); Sodium 131 mmol/L (136-145)
[2021-07-28 16:20] LABS: Anion Gap 16.3 (5-19); Potassium 4.3 mmol/L (3.5-5.1)
--- NOTE | 2021-07-28 16:34 | CTR_ITS ---
PROCEDURE INFORMATION: Exam: CTA Chest With Contrast Exam date and time: 07/28/2021 4:34 PM Age: 65 years old Clinical indication: Shortness of breath; Patient HX: SOB; Additional info: L lower evaluation TECHNIQUE: Imaging protocol: Computed tomographic angiography of the chest with contrast. 3D rendering (Not supervised by radiologist): MIP and/or 3D reconstructed images were created by the technologist. Radiation optimization: All CT scans at this facility use at least one of these dose optimization techniques: automated exposure control; mA and/or kV adjustment per patient size (includes targeted exams where dose is matched to clinical indication); or iterative reconstruction. Contrast material: OMNI 350; Contrast volume: 65 ml; Contrast route: INTRAVENOUS (IV); COMPARISON: CT angio chest PE protcl [id number] 05/21/2021 11:07 PM RADIATION DOSE METRICS: Total DLP (mGy-cm): 534.61 FINDINGS: Pulmonary arteries: Normal. No pulmonary emboli. Aorta: Unremarkable. No aortic aneurysm. No aortic dissection. Lungs: Multiple calcified granulomas in both lungs. Patchy ground-glass and tree-in-bud type opacities scattered throughout all lung lobes. Small nodular consolidations in the peripheral lungs. Pleural spaces: Trace left pleural effusion. Heart: Unremarkable. No cardiomegaly. No pericardial effusion. Mediastinal space: Resection of the distal esophagus with gastric pull-through procedure. Lymph nodes: Calcified hilar lymph nodes. Liver: Calcified granulomas in the liver. The calcified granulomas in the liver. Kidneys and ureters: Hypodensity in the left kidney is too small to characterize but is most likely a cyst. No follow-up imaging is recommended. Stomach and bowel: Diverticulosis of the colon. Bones/joints: Stable mild T3, T6 and T9 compression fractures. Soft tissues: Unremarkable. Other findings: Elevation of the left diaphragm. CT/CT angio chest PE protcl [id number] IMPRESSION: 1. No evidence for pulmonary embolus. 2. Improved multilobar ground-glass opacities in both lungs, but with increased tree-in-bud type opacities throughout both lungs. This could indicate improving viral pneumonia, now with superimposed endobronchial infection. COMMENTS: Consistent with the [employer]'s Incidental Findings Committee white paper (J Am Jaswinder Radiol 2018): Any incidental renal lesion less than 1 cm or classified as too small to characterize, or any incidental cystic renal lesion characterized as simple-appearing, is likely benign. No follow-up imaging is recommended for these lesions per consensus recommendations based on imaging criteria. Radiation Dose CTDIVOL = (mGy): DLP = 534.61 (mGy-cm)
[2021-07-28] MEDS: cefTRIAXone 1,000 MG in lidocaine 1% 2.1 ML 2.1 MG IM (16:36)
[2021-07-28] MEDS: azithromycin 250 mg Tablet 500 MG PO (16:41)
[2021-07-28] MEDS: predniSONE 20 mg Tablet 60 MG PO (16:41)
[2021-07-28] MEDS: iohexol 350 mg/mL 100 mL Btl IV (17:20)
--- NOTE | 2021-07-28 17:20 | P.HP_ITS ---
Providers/Chief Complaint Admitting Physician: Nguyễn Rodriguez MD Primary Care Provider: Ladonna Rutledge MD Chief Complaint: sob History of Present Illness Gabby Garcia is a 65 year old female who carries history of rheumatoid arthritis on disease modifying agents presented today with chief complaint of shortness of breath lethargy and fatigue. Patient is stating that her symptoms started on Friday with worsening shortness of breath, at baseline she sometimes experiences wheezing but this time she noticed that it was very harder for her to keep up the daily activities. She was seen in the ER 2 days ago and was discharged home with Z-He. However at home her symptoms were not improving she noticed worsening of wheezing, productive cough which is yellow color. She has not noticed any fever diarrhea or chest pain. She is vaccinated for COVID-19 Diagnostics in the ER revealed sepsis secondary to community-acquired pneumonia she is getting ceftriaxone and azithromycin, CT was requested which ruled out PE however it showed tree in bud appearance Covid PCR is pending Review of Systems Const: Reports: chills, body aches, change in weight and fatigue Eyes: Denies: change in vision ENMT: Denies: throat pain Card: Denies: chest pain Resp: Reports: dyspnea, productive cough, wheezing and change in phlegm color GI: Denies: abdominal pain : Denies: flank pain Musc: Denies: neck pain Skin/Breast: Reports: lesions Neuro: Denies: headache(s) Psych: Denies: anxiety Endo: Denies: polyuria Santos/Lymph: Denies: easy bruising All/Imm: Denies: urticaria Medications/Allergies Home Medications Medication Instructions Recorded Confirmed Last Taken Type aspirin 81 mg tablet,delayed 81 mg PO QAM tab 11/19/19 07/28/21 07/27/21 History release furosemide 20 mg tablet 20 mg PO QAM #90 tab 04/12/21 07/28/21 07/27/21 Rx pantoprazole 40 mg tablet,delayed 40 mg PO BID #180 tab 04/12/21 07/28/21 07/27/21 Rx release citalopram 20 mg PO QAM 05/21/21 07/28/21 07/27/21 History ergocalciferol (vitamin D2) 50,000 unit PO Q14D 05/21/21 07/28/21 07/22/21 History ferrous sulfate 325 mg PO DAILY@18 05/21/21 07/28/21 07/27/21 History fexofenadine 180 mg PO QAM 05/21/21 07/28/21 07/27/21 History magnesium oxide 400 mg PO DAILY@18 05/21/21 07/28/21 07/27/21 History montelukast [Singulair] 10 mg PO QAM 05/21/21 07/28/21 07/27/21 History potassium chloride 10 meq PO QAM 05/21/21 07/28/21 07/27/21 History pravastatin 40 mg PO QPM 05/21/21 07/28/21 07/27/21 History temazepam [Restoril] 30 mg PO BEDTIME 05/21/21 07/28/21 07/27/21 History etanercept 50 mg/mL (1 mL) 50 mg SUBCUT Q7D #4 ml 05/29/21 07/28/21 07/21/21 Rx subcutaneous pen injector albuterol sulfate 90 mcg/actuation 2 puff INHALATION QID PRN #6.7 g 07/05/21 07/28/21 Unknown Rx aerosol inhaler fluticasone fur. 100 mcg-umeclid 1 inh INHALATION QAM #28 ea 07/05/21 07/28/21 07/27/21 Rx 62.5 mcg-vilant 25 mcg inhalat.powder alendronate 70 mg tablet 70 mg PO Q7D #15 tab 07/10/21 07/28/21 07/21/21 Rx gabapentin 300 mg capsule See Rx Instructions PO BID #60 cap 07/10/21 07/28/21 07/27/21 Rx hydroxychloroquine 200 mg tablet See Rx Instructions PO .COMPLEX 07/10/21 07/28/21 07/27/21 Rx #135 tab leflunomide 10 mg tablet 10 mg PO DAILY@18 #30 tab 07/10/21 07/28/21 07/27/21 Rx fluticasone propionate 50 2 spray INTRANASAL QAM #16 g 07/11/21 07/28/21 Rx mcg/actuation nasal spray,suspension losartan 100 mg tablet 100 mg PO DAILY@18 #90 tab 07/11/21 07/28/21 07/27/21 Rx levothyroxine 125 mcg tablet 125 mcg PO DAILY #90 tab 07/17/21 07/28/21 07/27/21 Rx azithromycin [Zithromax Z-He] See Rx Instructions PO .COMPLEX #6 07/24/21 07/28/21 07/27/21 Rx tab ipratropium-albuterol 3 ml INHALATION Q4H PRN #90 ml 07/24/21 07/28/21 Unknown Rx prednisone See Rx Instructions .ROUTE 07/24/21 07/28/21 Unknown Rx .COMPLEX #31 tab verapamil 240 mg PO QAM 07/28/21 07/28/21 07/27/21 History Allergies Allergy/AdvReac Type Severity Reaction Status Date / Time REINA Inhibitors Allergy ADR-Cough Verified 07/11/21 11:27 codeine Allergy ADR-Nausea Verified 07/11/21 11:27 hydrocodone Allergy ADR-Nausea Verified 07/11/21 11:27 sulfamethoxazole Allergy ALGY-Anaphy Verified 07/11/21 11:27 [From Bactrim] laxis trimethoprim [From Bactrim] Allergy ALGY-Anaphy Verified 07/11/21 11:27 laxis PFSH Acute PFSH: Medical History Acute bronchitis Acute dyspnea Chronic steroid use COPD (chronic obstructive pulmonary disease) Uses home trilogy device, PRN oxygen COPD (chronic obstructive pulmonary disease) COPD exacerbation COVID-19 vaccine administered Depression Fever GERD (gastroesophageal reflux disease) High risk medication use History of aspiration pneumonia Hyperlipidemia Hypertension Hyponatremia Hypothyroidism Hypoxia Immunization counseling Immunization counseling Iron deficiency anemia Lumbar radiculopathy Pneumonia Rheumatoid arthritis with rheumatoid factor of multiple sites without organ or s ystems involvement Seropositive rheumatoid arthritis of multiple sites Transaminitis Surgical History H/O arthroscopy of knee left knee H/O esophagectomy History of cataract surgery 2017 History of gastric surgery age 6 History of skin graft left knee History of tubal ligation Previous back surgery right L3-L4, right L5-S1 hemilaminotomy foraminotomy/ discectomy/ Family History Father Cancer Pancreatic cancer Mother Cancer Lung cancer with brain mets Daughter Cancer Lung cancer with brain mets Other CAD (coronary artery disease) Hypertension Denies family history of Rheumatoid arthritis Diabetes Chronic kidney disease (CKD) Systemic lupus erythematosus (SLE) in adult Lung disease Social History Smoking and tobacco status: former smoker Quit status (tobacco): has quit using tobacco Year quit tobacco: 2000 [id number] Second hand smoke exposure: No Smoking risk assessment/counseling performed?: Yes Alcohol intake: current Alcohol type: beer Lives independently: Yes Household members: children Housing: House Marital status: Current occupational status: retired Pets and animals: Yes History of recent travel: No Current gender identity: Female Female Reproductive History: Date of last menstrual period: 02/08/21 Vitals/I&O/Wt Last Vital Signs Temp 97.9 F 07/28/21 14:32 Pulse 85 07/28/21 14:32 Resp 18 07/28/21 14:32 BP 145/88 07/28/21 17:00 Pulse Ox 99 07/28/21 17:00 Weight last 48 hrs Weight 65.771 kg Physical Exam Narrative: EXAM NARRATIVE: Patient was seen when she was eating dinner she was saturating well on 2 L Very pleasant and cooperative Noticed rash around her cheeks No sign of cellulitis S1, S2 sinus rhythm Inspiratory and expiratory wheezing noticed bilaterally No audible wheezing or stridor Abdomen soft Lower extremity no edema No signs of heart cellulitis No signs of cyanosis or gangrene of lower extremities EOMI, PERRLA no neurological deficit Data : 07/28/21 15:15 07/28/21 15:15 A&P Assessment and plan (1) Pneumonia: Status: Acute (2) Hypoxemia: Status: Acute (3) COPD exacerbation: Status: Acute (4) Hypothyroidism: Status: Acute Qualifiers: Hypothyroidism type: unspecified Qualified Code(s): E03.9 - Hypothyroidism, unspecified (5) Seropositive rheumatoid arthritis of multiple sites: Status: Acute (6) Lumbar radiculopathy: Status: Acute Additional A&P Information Community-acquired pneumonia CTA rule out PE Continue ceftriaxone and azithromycin she will consider immunocompromise secondary to use of immunosuppressive agent with history of rheumatoid arthritis I will add prednisone 40 mg daily for wheezing Requested ABG Currently saturating well on 2 L nasal cannula Requested procalcitonin urine antigens MRSA PCR She is vaccinated for COVID-19, requested PCR Acute on chronic hypoxia: Patient is stating that she uses oxygen on as needed basis at home currently requiring 2 L and she has active wheezing secondary to COPD exacerbation due to pneumonia DuoNeb every 4 as needed and steroids for now Full code Cardiac diet DVT prophylaxis Lovenox Attestations Medical Necessity Statement*: Anticipating discharge within 48 hours need IV antibiotics for community-acquired pneumonia COPD exacerbation Time Spent in Patient Care: Greater than 35 minutes Coding Level of Care Code Acute [employer] Machine for [facility] Fwd Diagnoses Pneumonia J18.9 Hypoxemia R09.02 COPD exacerbation J44.1 Hypothyroidism E03.9 Hypothyroidism type: unspecified Seropositive rheumatoid arthritis of multiple sites M05.79 Lumbar radiculopathy M54.16
--- NOTE | 2021-07-28 17:25 | PC.NURSE ---
I have attempted to all report a total of four times without success.
[2021-07-28 18:02] LABS: Procalcitonin 0.22 ng/mL (0-0.5)
[2021-07-28] MEDS: ferrous sulfate EC 325 mg Tablet PO (18:25)
[2021-07-28] MEDS: bumetanide 1 mg Tablet PO (18:25)
[2021-07-28] MEDS: cefTRIAXone 1,000 MG in sodium chloride 0.9% (plus) 50 ML 100 MG IV (18:25)
[2021-07-28] MEDS: gabapentin 300 mg Capsule PO (18:25)
[2021-07-28] MEDS: pantoprazole DR 40 mg Tablet PO (18:30)
[2021-07-28 18:39] LABS: ABG PCO2 43.8 mmHg (35-45); ABG PH Result 7.42 (7.35-7.45); Arterial Blood Gas Hematocrit 37.6 % (37-47); Base Excess ABG 3.6 mmol/L (-2.0-2.0); Blood Gas Allen Test Pos; Blood Gas Sample Type Arterial; HCO3 ABG 28.6 mmol/L (22-26); PO2 ABG 72.9 mmHg (80.0-100.0)
[2021-07-28 18:41] LABS: Blood Gas Operator Identificat ED; Blood Gas Sample Site Radial, right; Oxygen Device NC
[2021-07-28] MEDS: temazepam 15 mg Capsule 30 MG PO (21:00)
[2021-07-28] MEDS: magnesium oxide 400 mg tablet PO (21:00)
[2021-07-29] VITALS (8 sets, daily range): BP systolic 131–141; BP diastolic 74–89; PULSE 76–97; RESP 16–18; TEMP 36.3–36.7; O2SAT 96–98
[2021-07-29] MEDS: montelukast sodium 10 mg Tablet PO (05:35)
[2021-07-29] MEDS: FUROsemide 20 mg Tablet PO (05:35)
[2021-07-29] MEDS: aspirin 81 mg EC Tablet PO (05:35)
[2021-07-29] MEDS: citalopram 20 mg Tablet PO (05:36)
[2021-07-29 07:10] LABS: Basophils % 0.2 %; Hematocrit 36.5 % (37.0-47.0); Hemoglobin 11.4 g/dL (11.5-15.3); Lymphocytes # 0.7 10^3/uL (0.8-4.8); Lymphocytes % 6.5 %; Mean Corpuscular HGB Conc 31.2 g/dL (30.0-36.0); Mean Corpuscular Hemoglobin 29.2 pg (28.0-34.0); Mean Corpuscular Volume 93.6 fl (81-99); Mean Platelet Volume 10.5 fL (7.4-10.4); Monocytes # 0.5 10^3/uL (0.2-0.9); Monocytes % 4.6 %; Neutrophils # 9.14 10^3/uL (1.8-7.7); Neutrophils % 87.5 %; Nucleated Red Blood Cells % 0 %; Platelet Count 234 10^3/cmm (130-400); White Blood Count 10.5 10^3/uL (4.0-10.0)
[2021-07-29 07:46] LABS: Alanine Aminotransferase 11 U/L (0-33); Albumin Level 3.1 g/dL (3.5-5.2); Alkaline Phosphatase 83 IU/L (35-105); Anion Gap 11.4 (5-19); Aspartate Amino Transferase 13 U/L (0-32); Blood Urea Nitrogen 14 mg/dL (8-23); Calcium 8.9 mg/dL (8.5-10.5); Carbon Dioxide 30 mmol/L (22-29); Chloride 97 mmol/L (98-107); Globulin 2.6 g/dL (1.3-4.6); Glomerular Filtration Rate 71.5 mL/min (90-130); Glucose 106 mg/dL (65-115); Osmolality Calculated 279 mOsm/kg (285-295); Potassium 4.4 mmol/L (3.5-5.1); Sodium 134 mmol/L (136-145); Total Bilirubin 0.2 mg/dL (0.15-1.2); Total Protein 5.7 g/dL (6.6-8.7)
[2021-07-29] MEDS: levothyroxine 125 mcg Tablet PO (09:57)
[2021-07-29] MEDS: azithromycin 250 mg Tablet 500 MG PO (09:57)
[2021-07-29] MEDS: pantoprazole DR 40 mg Tablet PO (09:58)
[2021-07-29] MEDS: gabapentin 300 mg Capsule PO (09:58)
[2021-07-29] MEDS: predniSONE 20 mg Tablet 40 MG PO (09:58)
--- NOTE | 2021-07-29 10:44 | PM.DCS ---
Discharge Providers Date of Admission: 07/28/21 16:32 Date of Discharge: July 29, 2021 Attending Provider at Admission: Nguyễn Rodriguez MD Attending Provider at Discharge: Nguyễn Rodriguez MD Primary Care Provider: Ladonna Rutledge MD Diagnoses at Discharge Discharge Diagnosis (1) Pneumonia: Status: Acute (2) Hypoxemia: Status: Acute (3) COPD exacerbation: Status: Acute (4) Hypothyroidism: Status: Acute Qualifiers: Hypothyroidism type: unspecified Qualified Code(s): E03.9 - Hypothyroidism, unspecified (5) Seropositive rheumatoid arthritis of multiple sites: Status: Acute (6) Lumbar radiculopathy: Status: Acute Reason for Visit Reason for Visit: sob Hospital Course Hospital Course 65-year female with history of rheumatoid arthritis on disease modifying agents, presented with worsening of shortness of breath she was seen in the ER few days ago and was discharged home with Z-He. Her symptoms worsened and required admission to the hospital because of worsening of wheezing. Her wheezing improved with steroids albuterol ceftriaxone and azithromycin regimen. CTA chest ruled out PE however showed tree-in-bud appearance she is vaccinated for COVID-19, at the time of admission she was requiring 4 L of oxygen for acute COPD exacerbation however next day she was saturating well on 2 L nasal cannula which is her baseline, her wheezing improved and patient wanted to go home. She will be discharged home with Levaquin Medrol pack. She has remained afebrile leukocytosis improved. Physical Exam Narrative: EXAM NARRATIVE: Patient was sitting comfortably in her bed saturating well on 2 L No sign of cellulitis S1, S2 sinus rhythm Inspiratory and expiratory wheezing improved since yesterday No audible wheezing or stridor Abdomen soft Lower extremity no edema No signs of heart cellulitis No signs of cyanosis or gangrene of lower extremities EOMI, PERRLA no neurological deficit Discharge Data Data Completed and Pending: Completed Studies During Hospitalization Category Date Time Status CT angio chest PE protcl [id number] Urge nt Cat Scan 07/28/21 16:34 Completed XR chest 1V quang ble [id number] Urgent Exams 07/28/21 13:56 Completed Pending at discharge Category Date Time Status Bacterial Antigen Routine Lab 07/28/21 18:03 Uncollected Blood Culture Sta t Lab 07/28/21 18:50 Results Influenza A&B by IFA Routine Lab 07/28/21 18:17 Uncollected Legionella Antige n STAT Routine Lab 07/28/21 18:03 Uncollected MRSA by PCR Routi ne Lab 07/28/21 18:17 Uncollected [facility] SARS-CoV-2 RNA Stat Lab 07/28/21 15:15 Received Sputum Culture an d Gram Stain Stat Lab 07/28/21 18:17 Uncollected Labs from last 24 hours 07/29/21 07/29/21 07/28/21 06:32 06:32 18:29 WBC 10.5 H RBC 3.90 L Hgb 11.4 L Hct 36.5 L MCV 93.6 MCH 29.2 MCHC 31.2 RDW 14.0 Plt Count 234 MPV 10.5 H Neut % (Auto) 87.5 Lymph % (Auto) 6.5 [place] % (Auto) 4.6 Eos % (Auto) 0.0 Baso % (Auto) 0.2 Neut # (Auto) 9.14 H Lymph # (Auto) 0.7 L [place] # (Auto) 0.5 Eos # (Auto) 0.0 Baso # (Auto) 0.0 Nucleated RBC % (a uto) 0 Nucleated RBCs # 0.0 Specimen Type Arterial Sample Site Radial, right ABG pH 7.42 ABG pCO2 43.8 ABG pO2 72.9 L ABG HCO3 28.6 H ABG Base Excess 3.6 H Antony Test Pos Hematocrit 37.6 O2 Delivery Device Nc O2 Liters/Min 2.0 FiO2 28.0 Java Designer ID Ed Sodium 134 L Potassium 4.4 Chloride 97 L Carbon Dioxide 30 H Anion Gap 11.4 BUN 14 Creatinine 0.8 GFR Calculation 71.5 L Glucose 106 Calculated Osmolal ity 279 L Calcium 8.9 Total Bilirubin 0.2 AST 13 ALT 11 Alkaline Phosphata se 83 Troponin T Baselin e Troponin T 120 Min dolores Delta Troponin T NT-Pro-B Natriuret Pep Total Protein 5.7 L Albumin 3.1 L Globulin 2.6 Procalcitonin SARS-CoV-2 RNA (RT -PCR) SARS-CoV-2 Ag (Rap id) 07/28/21 07/28/21 07/28/21 17:28 15:15 15:15 WBC RBC Hgb Hct MCV MCH MCHC RDW Plt Count MPV Neut % (Auto) Lymph % (Auto) [place] % (Auto) Eos % (Auto) Baso % (Auto) Neut # (Auto) Lymph # (Auto) [place] # (Auto) Eos # (Auto) Baso # (Auto) Nucleated RBC % (a uto) Nucleated RBCs # Specimen Type Sample Site ABG pH ABG pCO2 ABG pO2 ABG HCO3 ABG Base Excess Antony Test Hematocrit O2 Delivery Device O2 Liters/Min FiO2 Java Designer ID Sodium Potassium Chloride Carbon Dioxide Anion Gap BUN Creatinine GFR Calculation Glucose Calculated Osmolal ity Calcium Total Bilirubin AST ALT Alkaline Phosphata se Troponin T Baselin e Troponin T 120 Min dolores 9.40 Delta Troponin T -0.60 L NT-Pro-B Natriuret Pep Total Protein Albumin Globulin Procalcitonin 0.22 SARS-CoV-2 RNA (RT -PCR) Pending SARS-CoV-2 Ag (Rap id) 07/28/21 07/28/21 07/28/21 15:15 15:15 15:15 WBC RBC Hgb Hct MCV MCH MCHC RDW Plt Count MPV Neut % (Auto) Lymph % (Auto) [place] % (Auto) Eos % (Auto) Baso % (Auto) Neut # (Auto) Lymph # (Auto) [place] # (Auto) Eos # (Auto) Baso # (Auto) Nucleated RBC % (a uto) Nucleated RBCs # Specimen Type Sample Site ABG pH ABG pCO2 ABG pO2 ABG HCO3 ABG Base Excess Antony Test Hematocrit O2 Delivery Device O2 Liters/Min FiO2 Java Designer ID Sodium 131 L Potassium 4.3 Chloride 93 L Carbon Dioxide 26 Anion Gap 16.3 BUN 14 Creatinine 0.8 GFR Calculation 71.5 L Glucose 109 Calculated Osmolal ity 273 L Calcium 8.5 Total Bilirubin AST ALT Alkaline Phosphata se Troponin T Baselin e 10 Troponin T 120 Min dolores Delta Troponin T NT-Pro-B Natriuret Pep 455 H Total Protein Albumin Globulin Procalcitonin SARS-CoV-2 RNA (RT -PCR) SARS-CoV-2 Ag (Rap id) Negative 07/28/21 15:15 WBC 22.9 H RBC 4.30 Hgb 12.8 Hct 40.5 MCV 94.2 MCH 29.8 MCHC 31.6 RDW 13.8 Plt Count 262 MPV 10.4 Neut % (Auto) 91.4 Lymph % (Auto) 1.4 [place] % (Auto) 6.0 Eos % (Auto) 0.0 Baso % (Auto) 0.5 Neut # (Auto) 20.91 H Lymph # (Auto) 0.3 L [place] # (Auto) 1.4 H Eos # (Auto) 0.0 Baso # (Auto) 0.1 Nucleated RBC % (a uto) 0 Nucleated RBCs # 0.0 Specimen Type Sample Site ABG pH ABG pCO2 ABG pO2 ABG HCO3 ABG Base Excess Antony Test Hematocrit O2 Delivery Device O2 Liters/Min FiO2 Java Designer ID Sodium Potassium Chloride Carbon Dioxide Anion Gap BUN Creatinine GFR Calculation Glucose Calculated Osmolal ity Calcium Total Bilirubin AST ALT Alkaline Phosphata se Troponin T Baselin e Troponin T 120 Min dolores Delta Troponin T NT-Pro-B Natriuret Pep Total Protein Albumin Globulin Procalcitonin SARS-CoV-2 RNA (RT -PCR) SARS-CoV-2 Ag (Rap id) Vitals: Last Vital Signs Temp 97.7 F 07/29/21 07:31 Pulse 87 07/29/21 08:15 Resp 18 07/29/21 08:08 BP 141/84 07/29/21 07:31 Pulse Ox 96 07/29/21 08:08 Discharge Plan Discharge Patient Disposition: Home Condition: Stable Prescriptions: New Medrol (He) 4 mg tablets,dose pack See Rx Instructions .ROUTE .COMPLEX Qty: 21 RF: 0 levofloxacin 750 mg tablet 750 mg PO DAILY 7 Days RF: 0 Continued fluticasone propionate [Flonase Allergy Relief] 50 mcg/actuation spray,suspension 2 spray intranasal QAM Qty: 16 RF: 3 losartan 100 mg tablet 100 mg PO DAILY@18 Qty: 90 RF: 2 aspirin [Aspirin Low Dose] 81 mg tablet,delayed release (DR/EC) 81 mg PO QAM RF: 0 Protonix 40 mg tablet,delayed release (DR/EC) 40 mg PO BID Qty: 180 RF: 3 furosemide [Lasix] 20 mg tablet 20 mg PO QAM Qty: 90 RF: 1 Enbrel SureClick 50 mg/mL (1 mL) pen injector 50 mg SUBCUT Q7D Qty: 4 RF: 3 gabapentin 300 mg capsule See Rx Instructions PO BID Qty: 60 RF: 3 hydroxychloroquine 200 mg tablet See Rx Instructions PO .COMPLEX Qty: 135 RF: 1 Hold Instructions: Resume on 07/31/21. leflunomide 10 mg tablet 10 mg PO DAILY@18 Qty: 30 RF: 3 alendronate 70 mg tablet 70 mg PO Q7D Qty: 15 RF: 1 albuterol sulfate [ProAir HFA] 90 mcg/actuation HFA aerosol inhaler 2 puff INHALATION QID PRN (Reason: Shortness Of Breath) Qty: 6.7 RF: 2 Trelegy Ellipta 100-62.5-25 mcg blister with device 1 inh inhalation QAM Qty: 28 RF: 2 levothyroxine 125 mcg tablet 125 mcg PO DAILY Qty: 90 RF: 0 prednisone 20 mg tablet See Rx Instructions .ROUTE .COMPLEX Qty: 31 RF: 0 ipratropium-albuterol 0.5 mg-3 mg(2.5 mg base)/3 mL solution for nebulization 3 ml inhalation Q4H PRN (Reason: shortness of breath or wheezing) Qty: 90 RF: 0 pravastatin 40 mg tablet 40 mg PO QPM RF: 0 potassium chloride 10 mEq tablet extended release 10 meq PO QAM RF: 0 fexofenadine 180 mg tablet 180 mg PO QAM RF: 0 citalopram 20 mg tablet 20 mg PO QAM RF: 0 temazepam [Restoril] 30 mg capsule 30 mg PO BEDTIME RF: 0 ferrous sulfate 325 mg (65 mg iron) tablet 325 mg PO DAILY@18 RF: 0 montelukast [Singulair] 10 mg tablet 10 mg PO QAM RF: 0 ergocalciferol (vitamin D2) 1,250 mcg (50,000 unit) capsule 50,000 unit PO Q14D RF: 0 magnesium oxide 400 mg magnesium capsule 400 mg PO DAILY@18 RF: 0 verapamil 240 mg capsule,ext rel. pellets 24 hr 240 mg PO QAM RF: 0 Discontinued azithromycin [Zithromax Z-He] 250 mg tablet See Rx Instructions PO .COMPLEX Qty: 6 RF: 0 Discharge Orders: Discharge Order (Routine); Ordered 07/29/21 Ordered By: Nguyễn Rodriguez Referrals: Ladonna Rutledge MD [Primary Care Provider] - (Please call Friday and make followup appointment for 1 week.) Discharge Diet: Cardiac Discharge Activity: Increase activity as tolerated Patient Instructions: COPD, Methylprednisolone (By mouth), Levofloxacin (By mouth), Pneumonia (DC), COPD Stoplight, Opioid Safety, Pneumonia Stoplight Discharge Attestations Time Spent in Discharge Care*: less than 30 min Status at Discharge: Cognitive status at discharge: cognitively intact, Behavioral status at discharge: cooperative, Quality Metrics Clinical Quality Measures During this hospital stay, did patient experience: None Coding Level of Care Code Acute Chg FW SHAVON note Diagnoses Pneumonia J18.9 Hypoxemia R09.02 COPD exacerbation J44.1 Hypothyroidism E03.9 Hypothyroidism type: unspecified Seropositive rheumatoid arthritis of multiple sites M05.79 Lumbar radiculopathy M54.16
[2021-07-29] MEDS: verapamil ER 240 mg Tablet PO (10:55)
[2021-07-29] MEDS: ipratropium-albuterol 3 mL Neb INHALATION (12:02)
[2021-07-29 18:28] LABS: Quest SARS-CoV-2 RNA NOT DETECTED (NOT DETECTED)
--- NOTE | 2021-07-31 11:49 | PC.SOCIAL ---
discharge follow up call made. patient picked up new medications from the pharmacy and is taking as directed. patient given follow up appointment date and time to see Dr. Rutledge. Patient voices no concerns.
== END 2021-07-29 13:00 | disposition home or self-care (01) ==
LOC: ER 16:38 → MEDSURG 17:06
PROVIDERS: Admitting Provider Internal Medicine; Emergency Provider Emergency Medicine; PCP Family Medicine; Visit Provider Internal Medicine
DX: J18.9 Pneumonia, unspecified organism (principal); R09.02 Hypoxemia; J44.1 Chronic obstructive pulmonary disease with (acute) exacerbation; E03.9 Hypothyroidism, unspecified; M05.79 Rheumatoid arthritis with rheumatoid factor of multiple sites without organ or systems involvement; M54.16 Radiculopathy, lumbar region; Z79.82 Long term (current) use of aspirin; K21.9 Gastro-esophageal reflux disease without esophagitis; E78.5 Hyperlipidemia, unspecified; I10 Essential (primary) hypertension; Z87.891 Personal history of nicotine dependence
CPT/HCPCS: 36415; 36600; 71045; 71275; 80048; 80053; 82803; 83880; 84145; 84484; 85025; 87040; 87426; 87635; 93005; 94640; 96365; 96372; 99285; G0378; J0696; J7512; Q0144; Q9967

== ENCOUNTER → 2021-08-13 11:37 | Outpatient (BNVA) | payer MEDICARE, OTHER, SELFPAY | PROVIDERS: PCP Family Medicine; Visit Provider Internal Medicine Rheumatology | DX: Z79.899 Other long term (current) drug therapy (principal); M05.79 Rheumatoid arthritis with rheumatoid factor of multiple sites without organ or systems involvement | CPT/HCPCS: 80076; 82565; 85025; 86140 ==

== ENCOUNTER 2021-08-28 17:27 | Emergency (ER) | payer MEDICARE, OTHER, SELFPAY ==
[2021-08-28 17:36] VITALS: BP 110/69; PULSE 89; RESP 16; TEMP 36.7; O2SAT 94
--- NOTE | 2021-08-28 18:00 | USR_ITS ---
PROCEDURE INFORMATION: Exam: US Duplex Left Lower Extremity Veins, Limited Exam date and time: 08/28/2021 6:00 PM Age: 65 years old Clinical indication: Pain; Leg, lower; Left; Additional info: Pain and swelling in leg TECHNIQUE: Imaging protocol: Real-time Duplex ultrasound of the Left Lower Extremity with 2-D todd scale, color Doppler flow and spectral waveform analysis with image documentation. Limited exam focused on the left lower extremity veins. COMPARISON: CR Knee 2 views, LEFT [id number] 05/06/2018 5:30 PM FINDINGS: Left deep veins: Unremarkable. The common femoral, femoral, proximal profunda femoral and popliteal veins are patent without thrombus. Normal Doppler waveforms. Normal compressibility and/or augmentation response. Left superficial veins: Unremarkable. Saphenofemoral junction is patent without thrombus. Soft tissues: Unremarkable. US/CV venous duplex [facility] [id number] IMPRESSION: Negative for deep venous thrombosis Radiation Dose CTDIVOL = (mGy): DLP = (mGy-cm)
--- NOTE | 2021-08-28 19:58 | W.ED.GENADLT ---
HPI - General Adult General: Chief complaint: General Medical Stated complaint: Left Leg Pain, sent by Dr guero marquez Time Seen by Provider: 08/28/21 19:57 History of Present Illness: HPI narrative: Patient is a 65-year-old female comes to the ED with left leg pain and swelling. Symptoms have been going on for the past 6 weeks and have progressed and gotten worse. Denies any known injury or trauma. Patient was seen by her PCP and sent here to the ED to rule out a blood clot. Patient says pain starts in her left lower back and then radiates down the back of her leg and into her calf. Denies any bladder or bowel incontinence, lower extremity weakness, pelvic anesthesia. Associated symptoms: Deny chest pain, dyspnea, headache(s), nausea, rash, palpitations or vomiting Review of Systems Const: Denies: fever(s), chills or fatigue Eyes: Denies: change in vision or eye discomfort ENMT: Denies: throat pain, odynophagia, nasal discharge or nasal congestion Card: Denies: chest pain, palpitations, edema, swelling of feet/ankles, dyspnea on exertion or orthopnea Resp: Denies: dyspnea, productive cough or non-productive cough GI: Denies: abdominal pain, nausea, vomiting, diarrhea, constipation or hematochezia : Denies: flank pain, dysuria or hematuria Musc: Reports: back pain, extremity pain (left lower leg) and extremity swelling (left lower leg); Denies: neck pain Skin/Breast: Denies: rash or new lesions Neuro: Denies: headache(s), numbness in extremities or weakness in extremities PFS ED PFSH: Medical History Acute bronchitis Acute dyspnea Chronic steroid use COPD (chronic obstructive pulmonary disease) Uses home trilogy device, PRN oxygen COPD (chronic obstructive pulmonary disease) COPD exacerbation COVID-19 vaccine administered Depression Fever GERD (gastroesophageal reflux disease) High risk medication use History of aspiration pneumonia Hyperlipidemia Hypertension Hyponatremia Hypothyroidism Hypoxia Immunization counseling Immunization counseling Iron deficiency anemia Lumbar radiculopathy Pneumonia Rheumatoid arthritis with rheumatoid factor of multiple sites without organ or systems involvement Seropositive rheumatoid arthritis of multiple sites Transaminitis Surgical History H/O arthroscopy of knee left knee H/O esophagectomy History of cataract surgery 2017 History of gastric surgery age 6 History of skin graft left knee History of tubal ligation Previous back surgery right L3-L4, right L5-S1 hemilaminotomy foraminotomy/ discectomy/ Family History Father Cancer Pancreatic cancer Mother Cancer Lung cancer with brain mets Daughter Cancer Lung cancer with brain mets Other CAD (coronary artery disease) Hypertension Denies family history of Rheumatoid arthritis Diabetes Chronic kidney disease (CKD) Systemic lupus erythematosus (SLE) in adult Lung disease Social History Smoking and tobacco status: former smoker Quit status (tobacco): has quit using tobacco Year quit tobacco: 2000 [id number] Second hand smoke exposure: No Smoking risk assessment/counseling performed?: Yes Alcohol intake: current Alcohol type: beer Lives independently: Yes Household members: children Housing: House Marital status: Current occupational status: retired Pets and animals: Yes History of recent travel: No Current gender identity: Female Female Reproductive History: Date of last menstrual period: 02/08/21 Physical Exam Const: COMMON NORMALS: no acute distress, patient oriented x3, healthy appearing and alert GENERAL APPEARANCE: cooperative and comfortable HENMT: COMMON NORMALS: normocephalic HEAD & SCALP: normocephalic MOUTH: Normal oral and palatal mucosa present THROAT: posterior oropharynx normal and uvula midline Neck/C-Spine: COMMON NORMALS: supple GENERAL: Yes normal visual inspection Resp: COMMON NORMALS: normal respiratory effort, No retractions, No use of accessory muscles and clear to auscultation bilaterally AUSCULTATION: clear to auscultation bilaterally Cardio: COMMON NORMALS: regular rate, regular rhythm, S1 normal heart sound present, S2 normal heart sound present, No gallops present (Cardio), No clicks present (Cardio), No murmurs present (Cardio) and Peripheral pulses 2+ throughout RATE: regular rate RHYTHM: regular rhythm HEART SOUNDS: S1 normal heart sound present and S2 normal heart sound present PERIPHERAL PULSES: Peripheral pulses 2+ throughout GI: COMMON NORMALS: Normal to inspection, nondistended, normoactive bowel sounds present, Soft to palpation, non-tender and no masses PALPATION: Yes Soft to palpation : COMMON NORMALS: Yes no CVA tenderness BLADDER/KIDNEY EXAM: Yes no CVA tenderness Back/Pelvis: COMMON NORMALS: no CVA tenderness LUMBAR SPINE/LOWER BACK: Yes pain with ROM, Yes paraspinal muscle tenderness Lumbar paraspinal muscle tenderness: left left lumbar paraspinal muscle tenderness: L4 and L5 and Yes straight leg raise positive left Extremity: COMMON NORMALS: full ROM and no pedal edema GENERAL: Yes calf tenderness (Left calf) Neuro: COMMON NORMALS: patient oriented x3 and moves all extremities SENSORIUM/ORIENTATION: Yes alert Skin: GENERAL SKIN EXAM: dry skin Course Vital Signs: Vital signs: Vital Signs Temperature 98.0 F 08/28/21 17:36 Pulse Rate 78 08/28/21 20:46 Respiratory Rate 18 08/28/21 20:46 Blood Pressure 110/69 08/28/21 17:36 Pulse Oximetry 96 08/28/21 20:46 MDM - General Adult MDM Narrative: Medical decision making narrative: Patient is a 65-year-old female comes to the ED with some left lower extremity pain. She was sent by her PCP to evaluate her for blood clot. Patient says symptoms have been going on for approximately 6 weeks and have progressed. Pain starts at left lumbar spine and then radiates down into her leg. Denies any cauda equina symptoms or acute injury. Exam findings suggestive of lumbar radiculopathy. Ultrasound venous duplex of left lower extremity showed no DVTs or blood clots seen. Patient was diagnosed with lumbar radiculopathy and discharged home with a prescription for Celebrex, prednisone and methocarbamol. Follow-up with PCP in 7 to 10 days reevaluation. Return to ED precautions given. Patient understood agree with plan. Imaging Data^: US Vascular: Attestation: I personally reviewed and interpreted this imaging study as follows: Radiologist's impression: [address] [id number] ReportSigned Patient: Gabby Garcia #: [id number]: 1955cct#:[id number]/Sex: 65 / FADM Date: 08/28/21Loc: ERRoom/Bed:Attending Dr: Ordering Provider/Ordering MD: Edison Kahn Date of Service: 08/28/21 Procedure(s): [place] [id number] Accession Number(s): [id number] Report Number: [id number] PROCEDURE INFORMATION: Exam: US Duplex Left Lower Extremity Veins, Limited Exam date and time: 08/28/2021 6:00 PM Age: 65 years old Clinical indication: Pain; Leg, lower; Left; Additional info: Pain and swelling in leg TECHNIQUE: Imaging protocol: Real-time Duplex ultrasound of the Left Lower Extremity with 2-D todd scale, color Doppler flow and spectral waveform analysis with image documentation. Limited exam focused on the left lower extremity veins. COMPARISON: CR Knee 2 views, LEFT [id number] 05/06/2018 5:30 PM FINDINGS: Left deep veins: Unremarkable. The common femoral, femoral, proximal profunda femoral and popliteal veins are patent without thrombus. Normal Doppler waveforms. Normal compressibility and/or augmentation response. Left superficial veins: Unremarkable. Saphenofemoral junction is patent without thrombus. Soft tissues: Unremarkable. US/CV venous duplex [facility] [id number] IMPRESSION: Negative for deep venous thrombosis Radiation Dose CTDIVOL = (mGy): DLP = (mGy-cm) Dictated By:Govind Ribeiro MDSigned By:Govind Ribeiro MDSigned Date/Time:08/28/21 1916DD/ 1800 Discharge Plan Discharge Patient Disposition: Home Clinical Impression: Lumbar radiculopathy Condition: Stable Prescriptions: New Celebrex 100 mg capsule 100 mg PO BID PRN (Reason: pain) Qty: 20 RF: 0 prednisone 20 mg tablet 20 mg PO BID 7 Days Qty: 14 RF: 0 methocarbamol 750 mg tablet 750 mg PO Q8H PRN (Reason: Back pain and muscle spasms) Qty: 20 RF: 0 No Action fluticasone propionate [Flonase Allergy Relief] 50 mcg/actuation spray,suspension 2 spray intranasal QAM Qty: 16 RF: 3 losartan 100 mg tablet 100 mg PO DAILY@18 Qty: 90 RF: 2 levofloxacin 750 mg tablet 750 mg PO DAILY Qty: 10 RF: 0 promethazine-DM 6.25-15 mg/5 mL syrup 5 ml PO Q6H Qty: 160 RF: 0 gabapentin 100 mg capsule 100 mg PO BID Qty: 180 RF: 1 escitalopram oxalate [Lexapro] 10 mg tablet 10 mg PO DAILY Qty: 90 RF: 2 aspirin [Aspirin Low Dose] 81 mg tablet,delayed release (DR/EC) 81 mg PO QAM RF: 0 Protonix 40 mg tablet,delayed release (DR/EC) 40 mg PO BID Qty: 180 RF: 3 furosemide [Lasix] 20 mg tablet 20 mg PO QAM Qty: 90 RF: 1 Enbrel SureClick 50 mg/mL (1 mL) pen injector 50 mg SUBCUT Q7D Qty: 4 RF: 3 hydroxychloroquine 200 mg tablet See Rx Instructions PO .COMPLEX Qty: 135 RF: 1 Hold Instructions: Resume on 07/31/21. leflunomide 10 mg tablet 10 mg PO DAILY@18 Qty: 30 RF: 3 alendronate 70 mg tablet 70 mg PO Q7D Qty: 15 RF: 1 albuterol sulfate [ProAir HFA] 90 mcg/actuation HFA aerosol inhaler 2 puff INHALATION QID PRN (Reason: Shortness Of Breath) Qty: 6.7 RF: 2 Trelegy Ellipta 100-62.5-25 mcg blister with device 1 inh inhalation QAM Qty: 28 RF: 2 ipratropium-albuterol 0.5 mg-3 mg(2.5 mg base)/3 mL solution for nebulization 3 ml inhalation Q4H PRN (Reason: shortness of breath or wheezing) Qty: 90 RF: 0 pravastatin 40 mg tablet 40 mg PO QPM RF: 0 potassium chloride 10 mEq tablet extended release 10 meq PO QAM RF: 0 fexofenadine 180 mg tablet 180 mg PO QAM RF: 0 temazepam [Restoril] 30 mg capsule 30 mg PO BEDTIME RF: 0 ferrous sulfate 325 mg (65 mg iron) tablet 325 mg PO DAILY@18 RF: 0 montelukast [Singulair] 10 mg tablet 10 mg PO QAM RF: 0 ergocalciferol (vitamin D2) 1,250 mcg (50,000 unit) capsule 50,000 unit PO Q14D RF: 0 magnesium oxide 400 mg magnesium capsule 400 mg PO DAILY@18 RF: 0 verapamil 240 mg capsule,ext rel. pellets 24 hr 240 mg PO QAM RF: 0 Discharge Orders: Discharge ED (Routine); Ordered 08/28/21 Ordered By: Edison Femi Referrals: Ladonna Rutledge MD [Primary Care Provider] - Discharge Diet: Regular Discharge Activity: Increase activity as tolerated Patient Instructions: Lumbar Radiculopathy (ED) Activity Restrictions/Additional Instructions: Follow-up with medical provider as directed in 7-10 days for reevaluation. Take medications as prescribed. Return to the ER or your medical provider if condition worsens. Please read and understand discharge instructions. Thank you for choosing [facility] for your healthcare needs today. Please realize this is an emergency room and that we are providing you with a medical screening exam and this may not be complete and all inclusive of all the testing and or work up that you may need to determine your ailment or severity of your illness. It is very important that you follow up as instructed or that you return to the Emergency Department should you have concerns or if your condition changes or worsens in any way. Coding Level of Care Code ED Manager Functional for Eryng Fwd Exam Comprehensive
[2021-08-28 20:46] VITALS: PULSE 78; RESP 18; O2SAT 96
== END 2021-08-28 20:56 | disposition home or self-care (01) ==
PROVIDERS: Emergency Provider Physician Assistant; PCP Family Medicine
DX: M54.16 Radiculopathy, lumbar region (principal); Z79.82 Long term (current) use of aspirin; J44.9 Chronic obstructive pulmonary disease, unspecified; E78.5 Hyperlipidemia, unspecified; I10 Essential (primary) hypertension; Z87.891 Personal history of nicotine dependence
CPT/HCPCS: 93971; 99282

== ENCOUNTER 2021-09-06 13:11 | Outpatient (CLI) | payer MEDICARE, OTHER, SELFPAY ==
--- NOTE | 2021-09-06 13:00 | XR_ITS ---
WS: [id number] LUMBAR SPINE: 5 VIEWS TECHNIQUE: AP, obliques, lateral and L5-S1 spot. HISTORY: M54.50 - Low back pain, unspecified COMPARISON: 05/09/2016 Mild LEFT curvature lumbar spine. Mild increase in the lordosis. Posterior lumbar alignment is normal . With flexion and extension no instability. Spaces are mildly narrowed with small hypertrophic osteophytes throughout the lumbar spine. Moderate facet joint arthritis from L3-4 through L5-S1. SI joints are symmetric bilaterally. No soft tissue abnormalities. Mild atherosclerosis aorta. XR/XR lumbar spine min 4V [id number] IMPRESSION: 1. No lumbar spine instability. 2. Mild LEFT scoliosis and increased lumbar lordosis. 3. No fractures. 4. Moderate facet joint arthritis from L3-4 to L5-S1.
== END 2021-09-06 13:12 | disposition home or self-care (01) ==
PROVIDERS: PCP Family Medicine; Visit Provider Family Medicine
DX: M41.86 Other forms of scoliosis, lumbar region (principal); M47.817 Spondylosis without myelopathy or radiculopathy, lumbosacral region; M47.816 Spondylosis without myelopathy or radiculopathy, lumbar region
CPT/HCPCS: 72110

== ENCOUNTER → 2021-09-11 11:42 | Outpatient (BNVA) | payer MEDICARE, OTHER, SELFPAY | PROVIDERS: PCP Family Medicine; Visit Provider Internal Medicine Rheumatology | DX: M19.90 Unspecified osteoarthritis, unspecified site (principal); R74.01 Elevation of levels of liver transaminase levels; Z79.899 Other long term (current) drug therapy; M05.79 Rheumatoid arthritis with rheumatoid factor of multiple sites without organ or systems involvement | CPT/HCPCS: 80076; 82565; 85025; 86140 ==

== ENCOUNTER 2021-09-18 09:32 | Emergency (ER) | payer MEDICARE, OTHER, SELFPAY ==
[2021-09-18 09:46] VITALS: BP 132/88; PULSE 116; RESP 30; TEMP 36.9; O2SAT 98; BMI 25.4
--- NOTE | 2021-09-18 09:46 | ECG_ITS ---
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 Measurements Intervals [place] Rate: 111 P: 58 NV: 162 QRS: 263 QRSD: 98 T: 75 QT: 333 QTc: 454 Interpretive Statements SINUS TACHYCARDIA POSSIBLE LEFT ATRIAL ENLARGEMENT [-0.1mV P-WAVE IN V1/V2] POSSIBLE RIGHT VENTRICULAR HYPERTROPHY [SOME/ALL OF: PROMINENT R IN V1, LATE TRANSITION, RAD, ASH, SSS] MINIMAL ST DEPRESSION [0.025+ mV ST DEPRESSION] Compared to ECG 07/28/2021 16:16:41 ST (T wave) deviation now present Sinus rhythm no longer present Intraventricular conduction delay no longer present Electronically Signed On 09-18-2021 22:02:24 CDT by Sandy Glynn M.D. [id number]
--- NOTE | 2021-09-18 09:46 | XRR_ITS ---
PROCEDURE INFORMATION: Exam: XR Chest Exam date and time: 09/18/2021 9:46 AM Age: 65 years old Clinical indication: Cough and dyspnea; Additional info: Dyspnea/cough TECHNIQUE: Imaging protocol: XR of the chest. Views: 1 view. COMPARISON: CR XR chest 1V portable [id number] 07/28/2021 3:33 PM FINDINGS: Lungs: A small benign calcified granuloma is present in the left mid lung field. There is stable chronic elevation of the left hemidiaphragm. No pneumonia is seen. Pleural spaces: Unremarkable. No pleural effusion. No pneumothorax. Heart/Mediastinum: The heart is not enlarged. There is a benign calcified mediastinal lymph node. Bones/joints: Unremarkable. XR/XR chest 1V portable [id number] IMPRESSION: No acute abnormalities are seen in the chest. Radiation Dose CTDIVOL = (mGy): DLP = (mGy-cm)
[2021-09-18 10:33] LABS: ABG PCO2 43.9 mmHg (35-45); ABG PH Result 7.43 (7.35-7.45); Arterial Blood Gas Hematocrit 39.3 % (37-47); Base Excess ABG 3.8 mmol/L (-2.0-2.0); Blood Gas Allen Test Pos; Blood Gas Sample Type Arterial; HCO3 ABG 28.8 mmol/L (22-26); HGB O2 Sat 97.6 % (95-100); Ionized Calcium Level - ABG 1.2 mmol/L (1.1-1.4); Methemoglobin 0.6 % (0.4-1.5); Oxygen Saturation ABG 98.1; Potassium Level - ABG 3.8 mmol/L (3.5-5.0); Total Hemoglobin 12.8 g/dL (12-16)
--- NOTE | 2021-09-18 10:34 | PC.NURSE ---
no report assumed care of pt.
--- NOTE | 2021-09-18 10:35 | PC.NURSE ---
pt is on continuous spo2, nibp, and cm.
[2021-09-18 10:36] LABS: Blood Gas Sample Site Radial, right; Oxygen Device NC
[2021-09-18] MEDS: dexamethasone 10 mg/mL INJ IVP (10:49)
[2021-09-18 10:52] VITALS: BP 121/78; PULSE 113; RESP 33; O2SAT 93
--- NOTE | 2021-09-18 11:02 | PC.NURSE ---
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
[2021-09-18 11:05] LABS: Basophils # 0.1 10^3/uL (0.0-0.1); Basophils % 0.4 %; Eosinophils % 0.1 %; Hematocrit 41.7 % (37.0-47.0); Hemoglobin 13.1 g/dL (11.5-15.3); Lymphocytes # 0.8 10^3/uL (0.8-4.8); Lymphocytes % 5.8 %; Mean Corpuscular HGB Conc 31.4 g/dL (30.0-36.0); Mean Corpuscular Hemoglobin 29.2 pg (28.0-34.0); Mean Corpuscular Volume 92.9 fl (81-99); Mean Platelet Volume 10.4 fL (7.4-10.4); Monocytes # 0.7 10^3/uL (0.2-0.9); Monocytes % 4.8 %; Neutrophils # 12.32 10^3/uL (1.8-7.7); Neutrophils % 88.3 %; Nucleated Red Blood Cells % 0 %; Platelet Count 210 10^3/cmm (130-400); Red Blood Count 4.49 10^6/uL (4.1-5.3); Red Cell Distribution Width 14.1 % (12.1-15.1)
--- NOTE | 2021-09-18 11:17 | PC.PHAR ---
PT STATES SHE TAKES CARE OF HER OWN MEDICATIONS-PT STATES SHE IS STILL TAKING VIT D 50,000 UNITS Q14D STATES THEY LAST FILLED OCT 2020-NOTES ARE MADE IN THE PHARMACY COMMENTS
[2021-09-18 11:29] LABS: Alanine Aminotransferase 9 U/L (0-33); Albumin Level 3.5 g/dL (3.5-5.2); Alkaline Phosphatase 145 IU/L (35-105); Aspartate Amino Transferase 18 U/L (0-32); Blood Urea Nitrogen 9 mg/dL (8-23); Calcium 8.9 mg/dL (8.5-10.5); Carbon Dioxide 30 mmol/L (22-29); Chloride 93 mmol/L (98-107); Globulin 3.2 g/dL (1.3-4.6); Glomerular Filtration Rate 99.7 mL/min (90-130); Glucose 106 mg/dL (65-115); Osmolality Calculated 275 mOsm/kg (285-295); Sodium 133 mmol/L (136-145); Total Bilirubin 0.5 mg/dL (0.15-1.2); Total Protein 6.7 g/dL (6.6-8.7)
--- NOTE | 2021-09-18 11:30 | CT_ITS ---
WS: [id number] CTA OF THE CHEST WITH PULMONARY EMBOLISM PROTOCOL TECHNIQUE: High-resolution contrast enhanced CTA of the chest with coronal and sagittal reformatted i mages with pulmonary embolism protocol. MIP images are also reviewed. CLINICAL INFORMATION: dyspnea/ back pain/ hypoxia COMPARISON: CTA July 28, 2021 DLP: 497.[address] scans at [facility] use at least one of these dose optimization techniques: automated e xposure control; mA and/or kV adjustment per patient size (includes targeted exams where dose is matc hed to clinical indication); or iterative reconstruction. FINDINGS: Proximal main pulmonary arteries are normal. Normal segmental and subsegmental pulmonary arteries. No evidence of pulmonary embolus. Normal caliber thoracic aorta. Aortic calcification. Prior postoperat santino changes esophagectomy with gastric pull-through. This is unchanged from previous. No mediastinal or hilar lymphadenopathy. No axillary lymphadenopathy. Chronic elevation left hemidiaphragm unchanged . Diffuse interstitial thickening throughout both lungs with tree-in-bud type infiltrates likely due t o small airways disease. This is unchanged from the prior examination. No focal pneumonia or pleural fluid. Indeterminant slightly spiculated subpleural opacities in the right lower lobe and right middl e lobe progressed compared to previous. This may be due to focal atelectasis but neoplasm not entirel y excluded. Recommend 6 week follow-up after treatment. Larger right lower lobe opacity measures 2.2 x 1.5 cm and right middle lobe subpleural opacity measures 1.6 cm. Adrenal glands are normal. Small left renal cyst. Right adrenal gland is normal. Splenic granulomas. Mild thoracic kyphosis. CT/CT angio chest PE protcl [id number] IMPRESSION: 1. No evidence of pulmonary embolus. 2. Diffuse bilateral tree-in-bud infiltrates throughout both lungs likely due to infectious or inflammatory small airway disease, endobronchial infection, or viral pneumonia. This is similar in appearance compared to previous. 3. Subpleural spiculated opacity right lower lobe laterally measuring 2.2 x 1. 4 cm progressed from previous. This may represent focal atelectasis but neoplas m not entirely excluded. Similar-appearing smaller subpleural opacity right mid dle lobe measuring 1.6 cm. Recommend 6 week follow-up after treatment. 4. Stable postoperative changes partial esophagectomy with gastric pull-throug h.
[2021-09-18 11:35] LABS: SARS Covid-2 Antigen Negative (Negative)
[2021-09-18] MEDS: iohexol 350 mg/mL 100 mL Btl IV (12:19)
--- NOTE | 2021-09-18 12:19 | W.ED.SOB ---
HPI - SOB/Dyspnea General: Chief Complaint: Shortness of Breath/Dyspnea Stated Complaint: SOB, DIFF BREATHING Time Seen by Provider: 09/18/21 10:09 History of Present Illness: HPI Narrative: 65-year-old female presents emergency room with cough shortness of breath began 2 days ago. Has some mid back pain as well will have posttussive coughing cough is moderately productive at times. She does have COPD. She uses a trilogy device at home. She is chronically on oxygen. She denies any chest pain no history of coronary artery disease MD elicited complaint: shortness of breath and cough Pertinent past history: COPD Onset (ago): day(s) Timing: constant Severity: moderate Exacerbating factors: exertion and coughing Relieving factors: oxygen, rest and bronchodilators Known history of: COPD Associated symptoms: Reports cough; Deny abdominal pain, chest congestion, chest pain, diaphoresis, dizziness, extremity pain, fever(s), hemoptysis, lightheadedness, myalgias, nausea, orthopnea, palpitations, paresthesias, polydipsia, polyuria, rash, syncope or vomiting Treatment prior to arrival: oxygen and bronchodilator Review of Systems Const: Denies: fever(s) or diaphoresis ENMT: Denies: throat pain, ear or mastoid pain, nasal discharge or nasal congestion Card: Denies: chest pain, palpitations, lightheadedness, syncope or orthopnea Resp: Denies: hemoptysis or chest congestion GI: Denies: abdominal pain, nausea or vomiting : Denies: flank pain, difficulty voiding, dysuria, urinary frequency or urinary urgency Musc: Denies: extremity pain Skin/Breast: Denies: rash or pruritus Neuro: Denies: dizziness Endo: Denies: polyuria or polydipsia PFS ED PFSH: Medical History Acute bronchitis Acute dyspnea Chronic steroid use COPD (chronic obstructive pulmonary disease) Uses home trilogy device, PRN oxygen COPD (chronic obstructive pulmonary disease) COPD exacerbation COVID-19 vaccine administered Depression Fever GERD (gastroesophageal reflux disease) High risk medication use History of aspiration pneumonia Hyperlipidemia Hypertension Hyponatremia Hypothyroidism Hypoxia Immunization counseling Immunization counseling Iron deficiency anemia Lumbar radiculopathy Pneumonia Rheumatoid arthritis with rheumatoid factor of multiple sites without organ or systems involvement Seropositive rheumatoid arthritis of multiple sites Transaminitis Surgical History H/O arthroscopy of knee left knee H/O esophagectomy History of cataract surgery 2017 History of gastric surgery age 6 History of skin graft left knee History of tubal ligation Previous back surgery right L3-L4, right L5-S1 hemilaminotomy foraminotomy/ discectomy/ Family History Father Cancer Pancreatic cancer Mother Cancer Lung cancer with brain mets Daughter Cancer Lung cancer with brain mets Other CAD (coronary artery disease) Hypertension Denies family history of Rheumatoid arthritis Diabetes Chronic kidney disease (CKD) Systemic lupus erythematosus (SLE) in adult Lung disease Social History Quit status (tobacco): has quit using tobacco Year quit tobacco: 2000 [id number] Second hand smoke exposure: No Smoking risk assessment/counseling performed?: Yes Alcohol intake: current Alcohol type: beer Lives independently: Yes Household members: children Housing: House Marital status: Current occupational status: retired Pets and animals: Yes History of recent travel: No Current gender identity: Female Female Reproductive History: Date of last menstrual period: 02/08/21 Physical Exam Const: COMMON NORMALS: no acute distress GENERAL APPEARANCE: cooperative and comfortable ORIENTATION/CONSCIOUSNESS: Yes awake, Yes oriented to person, Yes oriented to place and Yes oriented to time HENMT: COMMON NORMALS: normocephalic, atraumatic and hearing grossly normal bilaterally HEAD & SCALP: normocephalic and atraumatic Neck/C-Spine: COMMON NORMALS: no JVD Resp: AUSCULTATION: rhonchi and wheezes Cardio: COMMON NORMALS: no JVD, regular rate, regular rhythm and No murmurs present (Cardio) RATE: regular rate RHYTHM: regular rhythm GI: COMMON NORMALS: Soft to palpation and No hepatosplenomegaly present AUSCULTATION: Yes normoactive bowel sounds PALPATION: Yes Soft to palpation, No Tenderness to palpation present (GI), No Guarding due to palpation present (GI) and Yes No hepatosplenomegaly present Extremity: COMMON NORMALS: normal to inspection, capillary refill normal, no clubbing, cyanosis or edema, no calf tenderness and no pedal edema Neuro: SENSORIUM/ORIENTATION: Yes oriented to person, Yes oriented to place and Yes oriented to time Skin: COMMON NORMALS: no rashes or lesions noted GENERAL SKIN EXAM: no rashes or lesions noted Course Vital Signs: Vital signs: Vital Signs Temperature 98.4 F 09/18/21 09:46 Pulse Rate 113 H 09/18/21 10:52 Respiratory Rate 33 H 09/18/21 10:52 Blood Pressure 121/78 09/18/21 10:52 Pulse Oximetry 93 09/18/21 10:52 MDM - SOB/Dyspnea MDM Narrative: Medical decision making narrative: Patient feeling better after nebulizers. Discussed with the patient. Continue nebulizers put on Medrol Dosepak start doxycycline. Incidental finding of lung nodule she needs follow-up with her primary care doctor discussed this with her directly. She should follow-up with Dr. Cheek in 4 to 6 weeks for reevaluation of the lung nodule seen on the CT today. Lab Data: Labs: Lab Results 09/18/21 09/18/21 09/18/21 10:24 10:40 10:40 WBC 14.0 10^3/uL H 10 ^3/uL (4.0-10.0) RBC 4.49 10^6/uL 10^6 /uL (4.1-5.3) Hgb 13.1 g/dL g/dL (11.5-15.3) Hct 41.7 % % (37.0-47.0) MCV 92.9 fl fl (81-99) MCH 29.2 pg pg (28.0-34.0) MCHC 31.4 g/dL g/dL (30.0-36.0) RDW 14.1 % % (12.1-15.1) Plt Count 210 10^3/cmm 10^3 /cmm (130-400) MPV 10.4 fL fL (7.4-10.4) Neut % (Auto) 88.3 % % Lymph % (Auto) 5.8 % % [place] % (Auto) 4.8 % % Eos % (Auto) 0.1 % % Baso % (Auto) 0.4 % % Neut # (Auto) 12.32 10^3/uL H 1 0^3/uL (1.8-7.7) Lymph # (Auto) 0.8 10^3/uL 10^3/ uL (0.8-4.8) [place] # (Auto) 0.7 10^3/uL 10^3/ uL (0.2-0.9) Eos # (Auto) 0.0 10^3/uL 10^3/ uL (0.0-0.8) Baso # (Auto) 0.1 10^3/uL 10^3/ uL (0.0-0.1) Nucleated RBC % (a uto) 0 % % Nucleated RBCs # 0.0 /100WBC /100W BC Specimen Type Arterial Sample Site Radial, right ABG pH 7.43 (7.35-7.45) ABG pCO2 43.9 mmHg mmHg (35-45) ABG pO2 211.0 mmHg H mmHg (80.0-100.0) ABG HCO3 28.8 mmol/L H mmo l/L (22-26) ABG O2 Saturation 98.1 ABG Base Excess 3.8 mmol/L H mmol /L (-2.0-2.0) Antony Test Pos A-a O2 Gradient Not Reportable Hematocrit 39.3 % % (37-47) Hgb O2 Saturation 97.6 % % (95-100) Carboxyhemoglobin 0.0 %THgb L %THgb (0.4-20.1) Methemoglobin 0.6 % % (0.4-1.5) Total Hemoglobin 12.8 g/dL g/dL (12-16) Sodium 135.0 mmol/L mmol /L 133 mmol/L L mmol /L (131-143) (136-145) Potassium 3.8 mmol/L mmol/L 4.0 mmol/L mmol/L (3.5-5.0) (3.5-5.1) Glucose 107.0 mg/dL mg/dL 106 mg/dL mg/dL (70-115) (65-115) Ionized Calcium 1.2 mmol/L mmol/L (1.1-1.4) O2 Delivery Device Nc O2 Liters/Min 3.0 % % FiO2 32.0 % % Aquatic Biologist ID Ej Chloride 93 mmol/L L mmol/ L (98-107) Carbon Dioxide 30 mmol/L H mmol/ L (22-29) Anion Gap 14.0 (5-19) BUN 9 mg/dL mg/dL (8-23) Creatinine 0.6 mg/dL mg/dL (0.5-0.9) GFR Calculation 99.7 mL/min mL/mi n (90-130) Calculated Osmolal ity 275 mOsm/kg L mOs m/kg (285-295) Calcium 8.9 mg/dL mg/dL (8.5-10.5) Total Bilirubin 0.5 mg/dL mg/dL (0.15-1.2) AST 18 U/L U/L (0-32) ALT 9 U/L U/L (0-33) Alkaline Phosphata se 145 IU/L H IU/L (35-105) Total Protein 6.7 g/dL g/dL (6.6-8.7) Albumin 3.5 g/dL g/dL (3.5-5.2) Globulin 3.2 g/dL g/dL (1.3-4.6) Nasal/Oral COVID-1 9 PCR SARS-CoV-2 Ag (Rap id) 09/18/21 09/18/21 10:45 10:45 WBC RBC Hgb Hct MCV MCH MCHC RDW Plt Count MPV Neut % (Auto) Lymph % (Auto) [place] % (Auto) Eos % (Auto) Baso % (Auto) Neut # (Auto) Lymph # (Auto) [place] # (Auto) Eos # (Auto) Baso # (Auto) Nucleated RBC % (a uto) Nucleated RBCs # Specimen Type Sample Site ABG pH ABG pCO2 ABG pO2 ABG HCO3 ABG O2 Saturation ABG Base Excess Antony Test A-a O2 Gradient Hematocrit Hgb O2 Saturation Carboxyhemoglobin Methemoglobin Total Hemoglobin Sodium Potassium Glucose Ionized Calcium O2 Delivery Device O2 Liters/Min FiO2 Aquatic Biologist ID Chloride Carbon Dioxide Anion Gap BUN Creatinine GFR Calculation Calculated Osmolal ity Calcium Total Bilirubin AST ALT Alkaline Phosphata se Total Protein Albumin Globulin Nasal/Oral COVID-1 9 PCR Not detected SARS-CoV-2 Ag (Rap id) Negative (Negative) Discharge Plan Discharge Patient Disposition: Home Clinical Impression: Acute exacerbation of chronic obstructive airways disease, Lung nodule Condition: Stable Prescriptions: New doxycycline hyclate 100 mg capsule 100 mg PO BID 10 Days Qty: 20 RF: 0 Medrol (He) 4 mg tablets,dose pack See Rx Instructions .ROUTE .COMPLEX Qty: 21 RF: 0 No Action fluticasone propionate [Flonase Allergy Relief] 50 mcg/actuation spray,suspension 2 spray intranasal QAM Qty: 16 RF: 3 losartan 100 mg tablet 100 mg PO DAILY@18 Qty: 90 RF: 2 alendronate 70 mg tablet 70 mg PO Q7D Qty: 15 RF: 1 Enbrel SureClick 50 mg/mL (1 mL) pen injector 50 mg SUBCUT Q7D Qty: 4 RF: 3 hydroxychloroquine 200 mg tablet See Rx Instructions PO .COMPLEX Qty: 135 RF: 1 Hold Instructions: Resume on 07/31/21. leflunomide 10 mg tablet 10 mg PO DAILY@18 Qty: 30 RF: 3 gabapentin 100 mg capsule 100 mg PO BID Qty: 180 RF: 1 aspirin [Aspirin Low Dose] 81 mg tablet,delayed release (DR/EC) 81 mg PO QAM RF: 0 Protonix 40 mg tablet,delayed release (DR/EC) 40 mg PO BID Qty: 180 RF: 3 furosemide [Lasix] 20 mg tablet 20 mg PO QAM Qty: 90 RF: 1 albuterol sulfate [ProAir HFA] 90 mcg/actuation HFA aerosol inhaler 2 puff INHALATION QID PRN (Reason: Shortness Of Breath) Qty: 6.7 RF: 2 Trelegy Ellipta 100-62.5-25 mcg blister with device 1 inh inhalation QAM Qty: 28 RF: 2 ipratropium-albuterol 0.5 mg-3 mg(2.5 mg base)/3 mL solution for nebulization 3 ml inhalation Q4H PRN (Reason: shortness of breath or wheezing) Qty: 90 RF: 0 prednisone 10 mg Tablet 10 mg PO DAILY PRN (Reason: FLARE UP) RF: 0 Synthroid 125 mcg Tablet 125 mcg PO QAM RF: 0 gabapentin 300 mg Capsule 300 mg PO BEDTIME RF: 0 budesonide 0.5 mg/2 mL Suspension For Nebulization 0.5 mg inhalation BID PRN (Reason: UNKNOWN) RF: 0 Lidoderm 5 % adhesive patch,medicated 1 patch topical . DIRECTED RF: 0 Lexapro 10 mg tablet 10 mg PO BEDTIME RF: 0 pravastatin 40 mg tablet 40 mg PO QPM RF: 0 potassium chloride 10 mEq tablet extended release 10 meq PO QAM RF: 0 fexofenadine 180 mg tablet 180 mg PO QAM RF: 0 temazepam [Restoril] 30 mg capsule 30 mg PO BEDTIME RF: 0 ferrous sulfate 325 mg (65 mg iron) tablet 325 mg PO DAILY@18 RF: 0 montelukast [Singulair] 10 mg tablet 10 mg PO QAM RF: 0 ergocalciferol (vitamin D2) 1,250 mcg (50,000 unit) capsule 50,000 unit PO Q14D RF: 0 magnesium oxide 400 mg magnesium capsule 400 mg PO DAILY@18 RF: 0 verapamil 240 mg capsule,ext rel. pellets 24 hr 240 mg PO QAM RF: 0 Discharge Orders: Discharge ED (Routine); Ordered 09/18/21 Ordered By: Delroy Ching Referrals: Ladonna Rutledge MD [Primary Care Provider] - Discharge Diet: Usual diet Discharge Activity: Increase activity as tolerated Patient Instructions: Opioid Safety Activity Restrictions/Additional Instructions: Follow-up with your primary care doctor with a boner meat within 1 week. In 4 to 6 weeks you need to see Dr. Lentz for a follow-up CT of your chest for the nodule seen on the CT done today. Coding Level of Care Code ED Lather Apprentice for Carrillo Medina
[2021-09-19 14:14] LABS: Coronavirus Test Green County Not Detected
== END 2021-09-18 13:26 | disposition home or self-care (01) ==
PROVIDERS: Emergency Provider Family Medicine; PCP Family Medicine
DX: J44.1 Chronic obstructive pulmonary disease with (acute) exacerbation (principal); R91.1 Solitary pulmonary nodule; Z79.82 Long term (current) use of aspirin; Z79.52 Long term (current) use of systemic steroids; Z79.899 Other long term (current) drug therapy; Z87.891 Personal history of nicotine dependence; E78.5 Hyperlipidemia, unspecified; I10 Essential (primary) hypertension; E03.9 Hypothyroidism, unspecified; M06.9 Rheumatoid arthritis, unspecified; Z99.81 Dependence on supplemental oxygen
CPT/HCPCS: 36600; 71045; 71275; 80051; 80053; 82330; 82805; 85025; 87426; 87635; 93005; 96374; 99283; J1100; Q9967

== ENCOUNTER → 2021-09-19 13:56 | Outpatient (BNVA) | payer MEDICARE, OTHER, SELFPAY | PROVIDERS: PCP Family Medicine; Visit Provider Internal Medicine Rheumatology | DX: M05.79 Rheumatoid arthritis with rheumatoid factor of multiple sites without organ or systems involvement (principal); Z79.899 Other long term (current) drug therapy; M54.16 Radiculopathy, lumbar region; Z71.89 Other specified counseling; Z87.891 Personal history of nicotine dependence | CPT/HCPCS: 99214 ==

== ENCOUNTER 2021-09-25 06:00 | Outpatient (RCR) | payer MEDICARE, OTHER, SELFPAY | END 2021-10-16 23:59 | disposition home or self-care (01) | LOC: TPT 06:00 | PROVIDERS: PCP Family Medicine; Referring Provider Family Medicine; Visit Provider Family Medicine | DX: M54.50 Low back pain, unspecified (principal) | CPT/HCPCS: 97110; 97162 ==

== ENCOUNTER 2021-10-01 08:54 | Inpatient (IN) | payer MEDICARE, OTHER, SELFPAY ==
[2021-10-01] VITALS (10 sets, daily range): BP systolic 77–109; BP diastolic 46–70; PULSE 76–112; RESP 18–28; TEMP 36.9; O2SAT 93–95; BMI 25.3
--- NOTE | 2021-10-01 09:27 | ECG_ITS ---
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 Measurements Intervals [place] Rate: 111 P: 61 VT: 150 QRS: -87 QRSD: 108 T: 59 QT: 341 QTc: 464 Interpretive Statements SINUS TACHYCARDIA POSSIBLE LEFT ATRIAL ENLARGEMENT [-0.1mV P-WAVE IN V1/V2] LEFT AXIS DEVIATION [QRS AXIS < -30] Compared to ECG 09/18/2021 10:04:26 Left-axis deviation now present ST (T wave) deviation no longer present Electronically Signed On 10-02-2021 12:41:57 INFERTILITY MEDICAL ASSISTANT by Sandy Glynn M.D. [id number]
--- NOTE | 2021-10-01 09:27 | XR_ITS ---
WS: [id number] Exam: XR chest 1V portable [id number] Date/Time of Exam: 10/01/2021 9:27 AM Reason For Exam: dyspnea/cough Comparison 09/18/2021. Increasing nodular type infiltrates noted throughout the right lung since prior study. There is also residual infiltrate in the left lower lobe. Probable small left pleural effusion. The lungs are fully expanded. Cardiomediastinal silhouette is unremarkable. There is some chronic rightward tracheal dev iation. Bony structures are intact. XR/XR chest 1V portable [id number] IMPRESSION: 1. Increasing nodular type infiltrates throughout the right lung since prior st udy. There is also residual infiltrate in the left lower lobe. 2. Small left pleural effusion.
--- NOTE | 2021-10-01 09:28 | W.ED.SOB ---
HPI - SOB/Dyspnea General: Chief Complaint: Shortness of Breath/Dyspnea Stated Complaint: SOB Time Seen by Provider: 10/01/21 09:16 History of Present Illness: HPI Narrative: 65-year-old female presents emergency room with complaint of shortness of breath nonproductive cough muscle aches subjective low-grade fever. She has a history of rheumatoid arthritis as well as a history of COPD was recently started on oxygen and is on 2 L/min she has been seen multiple times in the last few weeks started on various courses of steroids and antibiotics does not seem to get any improvement she has not recently been tested for Covid per her report. She has been vaccinated. She denies any chest pain denies any hemoptysis denies any history of coronary artery disease. MD elicited complaint: shortness of breath and cough Pertinent past history: COPD Onset (ago): week(s) Context: recent illness and occurred during exertion Timing: intermittent Severity: mild Exacerbating factors: exertion and coughing Relieving factors: oxygen, rest and bronchodilators Known history of: COPD Associated symptoms: Reports chest congestion, cough, fever(s) and myalgias; Deny abdominal pain, chest pain, diaphoresis, dizziness, extremity pain, hemoptysis, lightheadedness, nausea, orthopnea, palpitations, paresthesias, polydipsia, polyuria, rash, sense of impending doom, syncope or vomiting Treatment prior to arrival: oxygen Review of Systems Const: Reports: fever(s); Denies: diaphoresis ENMT: Denies: throat pain, ear or mastoid pain, nasal discharge or nasal congestion Card: Denies: chest pain, palpitations, lightheadedness, syncope or orthopnea Resp: Reports: chest congestion; Denies: hemoptysis GI: Denies: abdominal pain, nausea or vomiting : Denies: flank pain, difficulty voiding, dysuria, urinary frequency or urinary urgency Musc: Denies: extremity pain Skin/Breast: Denies: rash or pruritus Neuro: Denies: dizziness Endo: Denies: polyuria or polydipsia PFSH ED PFSH: Medical History Acute bronchitis Acute dyspnea Chronic steroid use COPD (chronic obstructive pulmonary disease) Uses home trilogy device, PRN oxygen COPD (chronic obstructive pulmonary disease) COPD exacerbation COVID-19 vaccine administered Depression Fever GERD (gastroesophageal reflux disease) High risk medication use History of aspiration pneumonia Hyperlipidemia Hypertension Hyponatremia Hypothyroidism Hypoxia Immunization counseling Immunization counseling Iron deficiency anemia Lumbar radiculopathy Pneumonia Rheumatoid arthritis with rheumatoid factor of multiple sites without organ or systems involvement Seropositive rheumatoid arthritis of multiple sites Transaminitis Surgical History H/O arthroscopy of knee left knee H/O esophagectomy History of cataract surgery 2017 History of gastric surgery age 6 History of skin graft left knee History of tubal ligation Previous back surgery right L3-L4, right L5-S1 hemilaminotomy foraminotomy/ discectomy/ Family History Father Cancer Pancreatic cancer Mother Cancer Lung cancer with brain mets Daughter Cancer Lung cancer with brain mets Other CAD (coronary artery disease) Hypertension Denies family history of Rheumatoid arthritis Diabetes Chronic kidney disease (CKD) Systemic lupus erythematosus (SLE) in adult Lung disease Social History Quit status (tobacco): has quit using tobacco Year quit tobacco: 2000 [id number] Second hand smoke exposure: No Smoking risk assessment/counseling performed?: Yes Alcohol intake: current Alcohol type: beer Lives independently: Yes Household members: children Housing: House Marital status: Current occupational status: retired Pets and animals: Yes History of recent travel: No Current gender identity: Female Female Reproductive History: Date of last menstrual period: 02/08/21 Physical Exam Const: COMMON NORMALS: no acute distress GENERAL APPEARANCE: cooperative and comfortable ORIENTATION/CONSCIOUSNESS: Yes awake, Yes oriented to person, Yes oriented to place and Yes oriented to time HENMT: COMMON NORMALS: normocephalic, atraumatic and hearing grossly normal bilaterally HEAD & SCALP: normocephalic and atraumatic Neck/C-Spine: COMMON NORMALS: no JVD Resp: COMMON NORMALS: normal respiratory effort, No retractions, No use of accessory muscles and clear to auscultation bilaterally AUSCULTATION: clear to auscultation bilaterally Cardio: COMMON NORMALS: no JVD, regular rate, regular rhythm and No murmurs present (Cardio) RATE: regular rate RHYTHM: regular rhythm GI: COMMON NORMALS: Soft to palpation and No hepatosplenomegaly present AUSCULTATION: Yes normoactive bowel sounds PALPATION: Yes Soft to palpation, No Tenderness to palpation present (GI), No Guarding due to palpation present (GI) and Yes No hepatosplenomegaly present Extremity: COMMON NORMALS: normal to inspection, capillary refill normal, no clubbing, cyanosis or edema, no calf tenderness and no pedal edema Neuro: SENSORIUM/ORIENTATION: Yes oriented to person, Yes oriented to place and Yes oriented to time Skin: COMMON NORMALS: no rashes or lesions noted GENERAL SKIN EXAM: no rashes or lesions noted Course Vital Signs: Vital signs: Vital Signs Temperature 97.9 F 10/02/21 11:59 Pulse Rate 79 10/02/21 11:59 Respiratory Rate 20 H 10/02/21 11:59 Blood Pressure 94/60 10/02/21 11:59 Pulse Oximetry 94 10/02/21 11:59 MDM - SOB/Dyspnea Lab Data: Labs: Lab Results 10/01/21 10/01/21 10/01/21 09:38 10:10 10:10 WBC 27.8 10^3/uL H 10 ^3/uL (4.0-10.0) RBC 3.90 10^6/uL L 10 ^6/uL (4.1-5.3) Hgb 11.5 g/dL g/dL (11.5-15.3) Hct 36.8 % L % (37.0-47.0) MCV 94.4 fl fl (81-99) MCH 29.5 pg pg (28.0-34.0) MCHC 31.3 g/dL g/dL (30.0-36.0) RDW 14.6 % % (12.1-15.1) Plt Count 283 10^3/cmm 10^3 /cmm (130-400) MPV 10.5 fL H fL (7.4-10.4) Neut % (Auto) 91.1 % % Lymph % (Auto) 3.2 % % [place] % (Auto) 4.0 % % Eos % (Auto) 0.4 % % Baso % (Auto) 0.5 % % Neut # (Auto) 25.29 10^3/uL H 1 0^3/uL (1.8-7.7) Lymph # (Auto) 0.9 10^3/uL 10^3/ uL (0.8-4.8) [place] # (Auto) 1.1 10^3/uL H 10^ 3/uL (0.2-0.9) Eos # (Auto) 0.1 10^3/uL 10^3/ uL (0.0-0.8) Baso # (Auto) 0.1 10^3/uL 10^3/ uL (0.0-0.1) Nucleated RBC % (a uto) 0 % % Nucleated RBCs # 0.0 /100WBC /100W BC D-Dimer Specimen Type Arterial Sample Site Radial, right ABG pH 7.44 (7.35-7.45) ABG pCO2 40.0 mmHg mmHg (35-45) ABG pO2 64.9 mmHg L mmHg (80.0-100.0) ABG HCO3 27.3 mmol/L H mmo l/L (22-26) ABG O2 Saturation 91.3 ABG Base Excess 3.0 mmol/L H mmol /L (-2.0-2.0) Antony Test Pos A-a O2 Gradient 22.4 mmHg H mmHg (5-10) Hematocrit 36.2 % L % (37-47) Hgb O2 Saturation 90.5 % L % (95-100) Carboxyhemoglobin 0.1 %THgb L %THgb (0.4-20.1) Methemoglobin 0.7 % % (0.4-1.5) Total Hemoglobin 11.8 g/dL L g/dL (12-16) Sodium 125.0 mmol/L L mm ol/L 126 mmol/L L mmol /L (131-143) (136-145) Potassium 4.0 mmol/L mmol/L 4.4 mmol/L mmol/L (3.5-5.0) (3.5-5.1) Glucose 73.0 mg/dL mg/dL 64 mg/dL L mg/dL (70-115) (65-115) Ionized Calcium 1.2 mmol/L mmol/L (1.1-1.4) O2 Delivery Device Nc O2 Liters/Min 5.0 % % FiO2 40.0 % % Dietitian Therapeutic ID Monro Chloride 87 mmol/L L mmol/ L (98-107) Carbon Dioxide 25 mmol/L mmol/L (22-29) Anion Gap 18.4 (5-19) BUN 18 mg/dL mg/dL (8-23) Creatinine 1.6 mg/dL H mg/dL (0.5-0.9) GFR Calculation 32.2 mL/min L mL/ min (90-130) Calculated Osmolal ity 262 mOsm/kg L mOs m/kg (285-295) Calcium 8.1 mg/dL L mg/dL (8.5-10.5) Total Bilirubin 0.4 mg/dL mg/dL (0.15-1.2) AST 14 U/L U/L (0-32) ALT 8 U/L U/L (0-33) Alkaline Phosphata se 90 IU/L IU/L (35-105) Creatine Kinase 49 U/L U/L (26-192) Troponin T Baselin e Troponin T 120 Min crow Delta Troponin T Total Protein 6.1 g/dL L g/dL (6.6-8.7) Albumin 2.7 g/dL L g/dL (3.5-5.2) Globulin 3.4 g/dL g/dL (1.3-4.6) Urine Color Urine Appearance Urine pH Ur Specific Gravit y Urine Protein Urine Glucose (UA) Urine Ketones Urine Blood Urine Nitrate Urine Bilirubin Urine Urobilinogen Ur Leukocyte Gillian ase Urine RBC Urine WBC Ur Squamous Epith Cells Amorphous Sediment Urine Bacteria SARS-CoV-2 Ag (Rap id) 10/01/21 10/01/21 10/01/21 10:10 10:10 10:12 WBC RBC Hgb Hct MCV MCH MCHC RDW Plt Count MPV Neut % (Auto) Lymph % (Auto) [place] % (Auto) Eos % (Auto) Baso % (Auto) Neut # (Auto) Lymph # (Auto) Stan[place] # (Auto) Eos # (Auto) Baso # (Auto) Nucleated RBC % (a uto) Nucleated RBCs # D-Dimer 1.76 ug/mIFEU H u g/mIFEU (0-0.59) Specimen Type Sample Site ABG pH ABG pCO2 ABG pO2 ABG HCO3 ABG O2 Saturation ABG Base Excess Antony Test A-a O2 Gradient Hematocrit Hgb O2 Saturation Carboxyhemoglobin Methemoglobin Total Hemoglobin Sodium Potassium Glucose Ionized Calcium O2 Delivery Device O2 Liters/Min FiO2 Dietitian Therapeutic ID Chloride Carbon Dioxide Anion Gap BUN Creatinine GFR Calculation Calculated Osmolal ity Calcium Total Bilirubin AST ALT Alkaline Phosphata se Creatine Kinase Troponin T Baselin e 32 ng/L H ng/L (0-10) Troponin T 120 Min crow Delta Troponin T Total Protein Albumin Globulin Urine Color Urine Appearance Urine pH Ur Specific Gravit y Urine Protein Urine Glucose (UA) Urine Ketones Urine Blood Urine Nitrate Urine Bilirubin Urine Urobilinogen Ur Leukocyte Gillian ase Urine RBC Urine WBC Ur Squamous Epith Cells Amorphous Sediment Urine Bacteria SARS-CoV-2 Ag (Rap id) Negative (Negative) 10/01/21 10/01/21 10:23 12:20 WBC RBC Hgb Hct MCV MCH MCHC RDW Plt Count MPV Neut % (Auto) Lymph % (Auto) Stanly % (Auto) Eos % (Auto) Baso % (Auto) Neut # (Auto) Lymph # (Auto) Stan[place] # (Auto) Eos # (Auto) Baso # (Auto) Nucleated RBC % (a uto) Nucleated RBCs # D-Dimer Specimen Type Sample Site ABG pH ABG pCO2 ABG pO2 ABG HCO3 ABG O2 Saturation ABG Base Excess Antony Test A-a O2 Gradient Hematocrit Hgb O2 Saturation Carboxyhemoglobin Methemoglobin Total Hemoglobin Sodium Potassium Glucose Ionized Calcium O2 Delivery Device O2 Liters/Min FiO2 Dietitian Therapeutic ID Chloride Carbon Dioxide Anion Gap BUN Creatinine GFR Calculation Calculated Osmolal ity Calcium Total Bilirubin AST ALT Alkaline Phosphata se Creatine Kinase Troponin T Baselin e Troponin T 120 Min crow 24.81 ng/L H ng/L (0-10) Delta Troponin T -7.19 ABS# L ABS# (0-10) Total Protein Albumin Globulin Urine Color Yellow (Yellow) Urine Appearance Clear (CLEAR) Urine pH 5 (5-7) Ur Specific Gravit y 1.025 (1.005-1.030) Urine Protein Neg (Negative) Urine Glucose (UA) Norm (Normal) Urine Ketones Negative (Negative) Urine Blood Neg (Negative) Urine Nitrate Negative (Negative) Urine Bilirubin 1+ H (Negative) Urine Urobilinogen Norm mg/dL mg/dL (Negative) Ur Leukocyte Gillian ase Trace H (Negative) Urine RBC 0-4 /hpf H /hpf (0-2) Urine WBC 5-10 /hpf H /hpf (0-5) Ur Squamous Epith Cells 0-4 /hpf H /hpf (0-5) Amorphous Sediment Not Reportable Urine Bacteria Trace /hpf /hpf (NONE) SARS-CoV-2 Ag (Rap id) Discharge Plan Discharge Patient Disposition: Admitted As Inpatient Admit Provider: Nguyễn Rodriguez Clinical Impression: Pneumonia, Hypoxemia, Chronic steroid use, Sepsis Condition: Stable Coding Level of Care Code ED Master Ocean for Chg Fwd Exam Comprehensive
[2021-10-01 09:52] LABS: ABG PH Result 7.44 (7.35-7.45); Alveolar-Arterial Oxygen Gradi 22.4 mmHg (5-10); Arterial Blood Gas Hematocrit 36.2 % (37-47); Blood Gas Allen Test Pos; Blood Gas Operator Identificat MONRO; Blood Gas Sample Site Radial, right; Blood Gas Sample Type Arterial; Carboxyhemoglobin 0.1 %THgb (0.4-20.1); HCO3 ABG 27.3 mmol/L (22-26); HGB O2 Sat 90.5 % (95-100); Ionized Calcium Level - ABG 1.2 mmol/L (1.1-1.4); Methemoglobin 0.7 % (0.4-1.5); Oxygen Device NC; Oxygen Saturation ABG 91.3; PO2 ABG 64.9 mmHg (80.0-100.0); Total Hemoglobin 11.8 g/dL (12-16)
[2021-10-01 10:52] LABS: Alanine Aminotransferase 8 U/L (0-33); Albumin Level 2.7 g/dL (3.5-5.2); Alkaline Phosphatase 90 IU/L (35-105); Aspartate Amino Transferase 14 U/L (0-32); Blood Urea Nitrogen 18 mg/dL (8-23); Calcium 8.1 mg/dL (8.5-10.5); Carbon Dioxide 25 mmol/L (22-29); Chloride 87 mmol/L (98-107); Creatine Phosphokinase 49 U/L (26-192); Globulin 3.4 g/dL (1.3-4.6); Glomerular Filtration Rate 32.2 mL/min (90-130); Glucose 64 mg/dL (65-115); Osmolality Calculated 262 mOsm/kg (285-295); Sodium 126 mmol/L (136-145); Total Bilirubin 0.4 mg/dL (0.15-1.2); Total Protein 6.1 g/dL (6.6-8.7)
[2021-10-01 10:53] LABS: Troponin(5th) Baseline 32 ng/L (0-10)
[2021-10-01 10:54] LABS: Anion Gap 18.4 (5-19); Potassium 4.4 mmol/L (3.5-5.1)
[2021-10-01 11:00] LABS: Basophils # 0.1 10^3/uL (0.0-0.1); Basophils % 0.5 %; Eosinophils # 0.1 10^3/uL (0.0-0.8); Eosinophils % 0.4 %; Hematocrit 36.8 % (37.0-47.0); Hemoglobin 11.5 g/dL (11.5-15.3); Lymphocytes # 0.9 10^3/uL (0.8-4.8); Lymphocytes % 3.2 %; Mean Corpuscular HGB Conc 31.3 g/dL (30.0-36.0); Mean Corpuscular Hemoglobin 29.5 pg (28.0-34.0); Mean Corpuscular Volume 94.4 fl (81-99); Mean Platelet Volume 10.5 fL (7.4-10.4); Monocytes # 1.1 10^3/uL (0.2-0.9); Neutrophils # 25.29 10^3/uL (1.8-7.7); Neutrophils % 91.1 %; Nucleated Red Blood Cells % 0 %; Platelet Count 283 10^3/cmm (130-400); Red Cell Distribution Width 14.6 % (12.1-15.1); White Blood Count 27.8 10^3/uL (4.0-10.0)
[2021-10-01 11:08] LABS: SARS Covid-2 Antigen Negative (Negative)
[2021-10-01 11:15] LABS: Slide Review Slide Review Perform
[2021-10-01 11:17] LABS: Bilirubin Urine 1+ (Negative); Blood Urine Neg (Negative); Glucose Urine UA Norm (Normal); Ketones Urine Negative (Negative); Nitrate Urine Negative (Negative); Protein Urine Neg (Negative); Specific Gravity, Urine 1.025 (1.005-1.030); Urine Appearance Clear (CLEAR); Urine Color Yellow (Yellow); Urobilinogen Urine Norm (Negative); pH Urine 5 (5-7)
[2021-10-01 11:18] LABS: Add Urine Microscopic? YES; Bacteria Urine TRACE /hpf; Leukocyte Esterase Urine Trace (Negative); RBC Urine 0-4 /hpf (0-2); Squamous Epithelial Cell Urine 0-4 /hpf (0-5)
[2021-10-01 11:19] LABS: Add Urine Culture? No
--- NOTE | 2021-10-01 11:27 | ECG_ITS ---
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 Measurements Intervals [place] Rate: 102 P: 53 [place]: 155 QRS: -69 QRSD: 110 T: 74 QT: 351 QTc: 458 Interpretive Statements SINUS TACHYCARDIA POSSIBLE LEFT ATRIAL ENLARGEMENT [-0.1mV P-WAVE IN V1/V2] LEFT AXIS DEVIATION [QRS AXIS < -30] Compared to ECG 10/01/2021 09:43:43 No significant changes Electronically Signed On 10-02-2021 12:59:07 STONE CHIMNEY MASON by Sandy Glynn M.D. [id number]
[2021-10-01 13:23] LABS: Troponin 5 2HR 24.81 ng/L (0-10)
[2021-10-01 13:25] LABS: Troponin 5 2HR Delta -7.19 ABS# (0-10)
[2021-10-01 14:49] LABS: D Dimer 1.76 ug/mIFEU (0-0.59)
--- NOTE | 2021-10-01 15:27 | ECG_ITS ---
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 Measurements Intervals [place] Rate: 82 P: 63 [place]: 171 QRS: 28 QRSD: 126 T: 98 QT: 400 QTc: 469 Interpretive Statements SINUS RHYTHM MODERATE INTRAVENTRICULAR CONDUCTION DELAY [110+ ms QRS DURATION] Compared to ECG 10/01/2021 11:38:32 Intraventricular conduction delay now present Sinus tachycardia no longer present Left-axis deviation no longer present Electronically Signed On 10-02-2021 12:57:13 SURGICAL INSTRUMENTS INSPECTOR by Sandy Glynn M.D. [id number]
--- NOTE | 2021-10-01 15:28 | PM.HP ---
Providers/Chief Complaint Primary Care Provider: Ladonna Rutledge MD Chief Complaint: SOB History of Present Illness Gabby Garcia is a 65 year old female with history of rheumatoid arthritis, COPD, uses 2 L of oxygen on as needed basis presented today with chief complaint of worsening shortness of breath. Patient is stating that her symptoms started on Friday when she woke up with shortness of breath. She has not noticed any chest pain or fever. She has not noticed any diarrhea. She is vaccinated for COVID-19. On Friday she experienced vomiting only one episode. With worsening shortness of breath with wheezing she decided to come to the hospital for further evaluation. In the ER she was diagnosed with community-acquired pneumonia , COVID-19 is negative, PCR has been sent, she was also given IV steroids At the time of my evaluation she was saturating well on 4 L nasal cannula no acute respiratory distress Started IV fluids for HANS, CBC and BMP consistent with HANS, high D-dimer, requested VQ scan, leukocytosis, sepsis criteria met, ABG is compensated, hypoxia is evident, troponin is downtrending sodium 126 Review of Systems Const: Reports: chills, body aches, fatigue and malaise Eyes: Denies: change in vision ENMT: Denies: throat pain Card: Reports: dyspnea on exertion; Denies: chest pain or swelling of feet/ankles Resp: Reports: dyspnea and non-productive cough GI: Denies: abdominal pain : Denies: flank pain Musc: Denies: neck pain Skin/Breast: Denies: rash Neuro: Denies: headache(s) Psych: Denies: anxiety Endo: Denies: polyuria Santos/Lymph: Denies: easy bruising All/Imm: Denies: urticaria Medications/Allergies Home Medications Medication Instructions Recorded Confirmed Last Taken Type aspirin 81 mg tablet,delayed 81 mg PO QAM tab 11/19/19 10/01/21 10/01/21 07:30 History release furosemide 20 mg tablet 20 mg PO QAM #90 tab 04/12/21 10/01/21 09/30/21 Rx pantoprazole 40 mg tablet,delayed 40 mg PO BID #180 tab 04/12/21 10/01/21 09/18/21 06:00 Rx release ergocalciferol (vitamin D2) 50,000 unit PO Q14D 05/21/21 10/01/21 09/30/21 History ferrous sulfate 325 mg PO DAILY@18 05/21/21 10/01/21 09/30/21 History fexofenadine 180 mg PO QAM 05/21/21 10/01/21 10/01/21 07:30 History magnesium oxide 400 mg PO DAILY@18 05/21/21 10/01/21 09/30/21 History montelukast [Singulair] 10 mg PO QAM 05/21/21 10/01/21 10/01/21 07:30 History potassium chloride 10 meq PO QAM 05/21/21 10/01/21 10/01/21 07:30 History pravastatin 40 mg PO QPM 05/21/21 10/01/21 09/30/21 History temazepam [Restoril] 30 mg PO BEDTIME 05/21/21 10/01/21 09/30/21 History albuterol sulfate 90 mcg/actuation 2 puff INHALATION QID PRN #6.7 g 07/05/21 10/01/21 Unknown Rx aerosol inhaler fluticasone propionate 50 2 spray INTRANASAL QAM #16 g 07/11/21 10/01/21 09/18/21 Rx mcg/actuation nasal spray,suspension losartan 100 mg tablet 100 mg PO DAILY@18 #90 tab 07/11/21 10/01/21 09/30/21 Rx ipratropium-albuterol 3 ml INHALATION Q4H PRN #90 ml 07/24/21 10/01/21 Unknown Rx verapamil 240 mg PO QAM 07/28/21 10/01/21 10/01/21 07:30 History gabapentin 100 mg capsule 100 mg PO BID #180 cap 08/17/21 10/01/21 10/01/21 07:30 Rx budesonide 0.5 mg INHALATION BID PRN 09/18/21 10/01/21 Unknown History escitalopram oxalate [Lexapro] 10 mg PO BEDTIME 09/18/21 10/01/21 09/30/21 History gabapentin 300 mg PO BEDTIME 09/18/21 10/01/21 09/30/21 History levothyroxine [Synthroid] 125 mcg PO QAM 09/18/21 10/01/21 10/01/21 History lidocaine [Lidoderm] 1 patch TOPICAL . DIRECTED 09/18/21 10/01/21 Unknown History prednisone 10 mg PO DAILY PRN 09/18/21 10/01/21 09/30/21 History alendronate 70 mg tablet 70 mg PO Q7D #15 tab 09/19/21 10/01/21 09/29/21 Rx etanercept 50 mg/mL (1 mL) 50 mg SUBCUT Q7D #4 ml 09/19/21 10/01/21 09/29/21 Rx subcutaneous pen injector hydroxychloroquine 200 mg tablet See Rx Instructions PO .COMPLEX 09/19/21 10/01/21 09/30/21 Rx #135 tab 2 tabs leflunomide 10 mg tablet 10 mg PO DAILY@18 #30 tab 09/19/21 10/01/21 09/30/21 Rx fluticasone fur. 100 mcg-umeclid 1 inh INHALATION QAM #28 ea 10/01/21 Unknown Rx 62.5 mcg-vilant 25 mcg inhalat.powder Allergies Allergy/AdvReac Type Severity Reaction Status Date / Time REINA Inhibitors Allergy ADR-Cough Verified 10/01/21 10:55 codeine Allergy ADR-Nausea Verified 10/01/21 10:55 hydrocodone Allergy ADR-Nausea Verified 10/01/21 10:55 Sulfa (Sulfonamide Allergy ALGY-Anaphy Verified 10/01/21 10:55 Antibiotics) laxis sulfamethoxazole Allergy ALGY-Anaphy Verified 10/01/21 10:55 [From Bactrim] laxis trimethoprim [From Bactrim] Allergy ALGY-Anaphy Verified 10/01/21 10:55 laxis PFSH Acute PFSH: Medical History Acute bronchitis Acute dyspnea Chronic steroid use COPD (chronic obstructive pulmonary disease) Uses home trilogy device, PRN oxygen COPD (chronic obstructive pulmonary disease) COPD exacerbation COVID-19 vaccine administered Depression Fever GERD (gastroesophageal reflux disease) High risk medication use History of aspiration pneumonia Hyperlipidemia Hypertension Hyponatremia Hypothyroidism Hypoxia Immunization counseling Immunization counseling Iron deficiency anemia Lumbar radiculopathy Pneumonia Rheumatoid arthritis with rheumatoid factor of multiple sites without organ or systems involvement Seropositive rheumatoid arthritis of multiple sites Transaminitis Surgical History H/O arthroscopy of knee left knee H/O esophagectomy History of cataract surgery 2017 History of gastric surgery age 6 History of skin graft left knee History of tubal ligation Previous back surgery right L3-L4, right L5-S1 hemilaminotomy foraminotomy/ discectomy/ Family History Father Cancer Pancreatic cancer Mother Cancer Lung cancer with brain mets Daughter Cancer Lung cancer with brain mets Other CAD (coronary artery disease) Hypertension Denies family history of Rheumatoid arthritis Diabetes Chronic kidney disease (CKD) Systemic lupus erythematosus (SLE) in adult Lung disease Social History Quit status (tobacco): has quit using tobacco Year quit tobacco: 2000 [id number] Second hand smoke exposure: No Smoking risk assessment/counseling performed?: Yes Alcohol intake: current Alcohol type: beer Lives independently: Yes Household members: children Housing: House Marital status: Current occupational status: retired Pets and animals: Yes History of recent travel: No Current gender identity: Female Female Reproductive History: Date of last menstrual period: 02/08/21 Vitals/I&O/Wt Last Vital Signs Temp 98.4 F 10/01/21 09:19 Pulse 82 10/01/21 14:35 Resp 28 H 10/01/21 09:19 BP 109/70 10/01/21 14:35 Pulse Ox 93 10/01/21 14:35 Weight last 48 hrs Weight 64.864 kg Physical Exam Narrative: EXAM NARRATIVE: Very pleasant early female Saturating well on 4 L nasal cannula Bilateral breath sounds with mild rhonchi at the bases Mild expiratory wheezing Abdomen soft S1, S2 Nonfocal neuro exam Abdomen is soft Alert oriented x3 GCS 15 Looks clinically dehydrated Chronic skin ulcers Data : 10/01/21 10:10 10/01/21 10:10 A&P Assessment and plan (1) Pneumonia: Status: Acute Qualifiers: Laterality: bilateral Lung location: unspecified part of lung Pneumonia type: due to unspecified organism Qualified Code(s): J18.9 - Pneumonia, unspecified organism (2) Hypoxemia: Status: Acute (3) Chronic steroid use: Status: Acute (4) Sepsis: Status: Acute Additional A&P Information Sepsis secondary to community-acquired pneumonia patient will be considered immunocompromised, chronic steroid use Criteria met with tachycardia, leukocytosis Start ceftriaxone and azithromycin and prednisone 40 mg Hemodynamically stable Acute COPD exacerbation with pneumonia requiring 4 L nasal cannula oxygen for acute on chronic hypoxia patient does use 2 L of oxygen on as needed basis at home DuoNeb every 4 as needed, Covid PCR sent, antigen is negative, she is vaccinated Requested VQ scan to rule out PE D-dimer is high Requested CT chest without contrast HANS secondary to dehydration IV fluid for next 48 hours hold Lasix and hydroxychloroquine and losartan Chronic steroid use no signs of adrenal insufficiency for now currently on prednisone 40 mg for wheezing Full code Cardiac diet DVT prophylaxis: Heparin Attestations Medical Necessity Statement*: More than 2 midnights anticipated for sepsis Time Spent in Patient Care: Greater than 35 minutes Coding Level of Care Code Acute Insulation Supervisor for Carrillo Medina Diagnoses Pneumonia J18.9 Laterality: bilateral Lung location: unspecified part of lung Pneumonia type: due to unspecified organism Hypoxemia R09.02 Chronic steroid use Sepsis A41.9
[2021-10-01 17:00] LABS: Troponin 5 6HR 15.68 ng/L (0-10)
[2021-10-01] MEDS: lidocaine 5% Patch 1 PATCH TOPICAL (17:37)
[2021-10-01] MEDS: ferrous sulfate EC 325 mg Tablet PO (17:37)
[2021-10-01] MEDS: magnesium oxide 400 mg tablet PO (17:37)
[2021-10-01] MEDS: atorvastatin 40 mg Tablet 20 MG PO (17:37)
[2021-10-01] MEDS: pantoprazole DR 40 mg Tablet PO (17:38)
--- NOTE | 2021-10-01 18:11 | CTR_ITS ---
PROCEDURE INFORMATION: Exam: CT Chest Without Contrast; Diagnostic Exam date and time: 10/01/2021 6:11 PM Age: 65 years old Clinical indication: Cough; Additional info: Hypoxia , pna, TECHNIQUE: Imaging protocol: Diagnostic computed tomography of the chest without contrast. Radiation optimization: All CT scans at this facility use at least one of these dose optimization techniques: automated exposure control; mA and/or kV adjustment per patient size (includes targeted exams where dose is matched to clinical indication); or iterative reconstruction. COMPARISON: CT angio chest PE protcl [id number] 09/18/2021 12:16 PM RADIATION DOSE METRICS: Total DLP (mGy-cm): 483.2 FINDINGS: Lungs: Diffuse bilateral nonspecific infiltrates throughout both lungs, many of which demonstrate a tree-in-bud morphology. 5 mm calcified granuloma left lower lobe. Pleural spaces: No pleural effusion or pneumothorax noted. Heart: No cardiomegaly demonstrated. Mediastinal space: Status post esophagectomy with gastric pull-through procedure. Aorta: Atherosclerosis of the thoracic aorta. No aneurysm. Lymph nodes: No pathologically enlarged lymph nodes are demonstrated. Calcified aortocaval lymph nodes consistent with old granulomatous disease. Liver: Calcified granulomas are seen in the liver. Spleen: Calcified granulomas are noted in the spleen. Kidneys and ureters: Nonobstructing 3 mm calculus upper pole left kidney. Bones/joints: Mild degenerative spine changes. No acute osseous abnormality. Soft tissues: The soft tissues appear unremarkable. CT/CT chest wo con [id number] IMPRESSION: 1. Status post esophagectomy with gastric pull-through procedure. 2. Diffuse bilateral nonspecific infiltrates throughout both lungs, many of which demonstrate a tree-in-bud morphology. Infiltrates have worsened when compared to 09/18/2021. Differential diagnostic considerations include infectious bronchiolitis versus mycobacterial infection versus nonspecific viral pneumonia. 3. Findings of old granulomatous disease are identified. Radiation Dose CTDIVOL = (mGy): DLP = 483.2 (mGy-cm)
[2021-10-01] MEDS: losartan 50 mg Tablet 100 MG PO (18:23)
[2021-10-01] MEDS: sodium chloride 0.9% 1,000 ML 75 ML IV (18:23)
[2021-10-01] MEDS: cefTRIAXone 1,000 MG in sodium chloride 0.9% (plus) 50 ML 100 MG IV (18:23)
[2021-10-01] MEDS: temazepam 15 mg Capsule 30 MG PO (21:26)
[2021-10-01] MEDS: gabapentin 300 mg Capsule PO (21:26)
[2021-10-02] VITALS (12 sets, daily range): BP systolic 94–122; BP diastolic 60–90; PULSE 66–91; RESP 15–26; TEMP 36.2–36.7; O2SAT 85–97
--- NOTE | 2021-10-02 | PC.NURSE ---
nurse notified of pts low SO2 rate of 85%.
[2021-10-02] MEDS: ipratropium-albuterol 3 mL Neb INHALATION ×2 (00:31→09:01)
[2021-10-02 01:36] LABS: ABG PCO2 54.9 mmHg (35-45); ABG PH Result 7.31 (7.35-7.45); Arterial Blood Gas Hematocrit 34.7 % (37-47); Base Excess ABG 0.5 mmol/L (-2.0-2.0); Blood Gas Allen Test Pos; Blood Gas Sample Site Radial, left; Blood Gas Sample Type Arterial; HCO3 ABG 27.6 mmol/L (22-26); Oxygen Device NC; PO2 ABG 63.2 mmHg (80.0-100.0)
[2021-10-02] MEDS: potassium chloride ER 10 mEq Tablet PO (05:39)
[2021-10-02] MEDS: aspirin 81 mg EC Tablet PO (05:39)
[2021-10-02] MEDS: verapamil ER 240 mg Tablet PO (05:39)
[2021-10-02] MEDS: montelukast sodium 10 mg Tablet PO (05:39)
[2021-10-02] MEDS: fluticasone nasal spray 16gm Btl 2 SPRAY INTRANASAL (05:39)
[2021-10-02] MEDS: levothyroxine 125 mcg Tablet PO (05:39)
[2021-10-02 06:43] LABS: Basophils # 0.1 10^3/uL (0.0-0.1); Basophils % 0.2 %; Hematocrit 33.6 % (37.0-47.0); Hemoglobin 10.6 g/dL (11.5-15.3); Lymphocytes # 0.3 10^3/uL (0.8-4.8); Lymphocytes % 1.2 %; Mean Corpuscular HGB Conc 31.5 g/dL (30.0-36.0); Mean Corpuscular Hemoglobin 29.1 pg (28.0-34.0); Mean Corpuscular Volume 92.3 fl (81-99); Mean Platelet Volume 11.1 fL (7.4-10.4); Monocytes % 3.8 %; Neutrophils # 24.18 10^3/uL (1.8-7.7); Neutrophils % 93.8 %; Nucleated Red Blood Cells % 0 %; Platelet Count 290 10^3/cmm (130-400); Red Blood Count 3.64 10^6/uL (4.1-5.3); Red Cell Distribution Width 14.5 % (12.1-15.1); White Blood Count 25.8 10^3/uL (4.0-10.0)
[2021-10-02 06:55] LABS: Alanine Aminotransferase 7 U/L (0-33); Albumin Level 2.7 g/dL (3.5-5.2); Alkaline Phosphatase 91 IU/L (35-105); Blood Urea Nitrogen 23 mg/dL (8-23); C Reactive Protein 308.2 mg/L (0.0-4.9); Calcium 8.1 mg/dL (8.5-10.5); Carbon Dioxide 21 mmol/L (22-29); Chloride 90 mmol/L (98-107); Globulin 3.3 g/dL (1.3-4.6); Glomerular Filtration Rate 55.3 mL/min (90-130); Glucose 145 mg/dL (65-115); Osmolality Calculated 270 mOsm/kg (285-295); Sodium 127 mmol/L (136-145); Total Bilirubin 0.2 mg/dL (0.15-1.2)
[2021-10-02 06:56] LABS: Procalcitonin 0.72 ng/mL (0-0.5)
[2021-10-02 07:00] LABS: Anion Gap 20.3 (5-19); Potassium 4.3 mmol/L (3.5-5.1)
[2021-10-02 07:01] LABS: Aspartate Amino Transferase 12 U/L (0-32); Lactate Dehydrogenase 295 U/L (135-214)
--- NOTE | 2021-10-02 07:23 | CT_ITS ---
WS: [id number] CTA OF THE CHEST WITH PULMONARY EMBOLISM PROTOCOL TECHNIQUE: High-resolution contrast enhanced CTA of the chest with coronal and sagittal reformatted i mages with pulmonary embolism protocol. MIP images are also reviewed. CLINICAL INFORMATION: hypoxia PNA COMPARISON: CT September 21, 2021 DLP: 556.[address] scans at [facility] use at least one of these dose optimization techniques: automated e xposure control; mA and/or kV adjustment per patient size (includes targeted exams where dose is matc hed to clinical indication); or iterative reconstruction. FINDINGS: Prior postoperative changes esophagectomy with gastric pull-through. Proximal main pulmonary arteries are patent. Segmental and subsegmental pulmonary arteries appear patent. No evidence of pulmonary em bolus. Patchy bilateral tree-in-bud type infiltrates are unchanged since October 01, 2020. No focal consoli dation or pleural fluid. No focal pneumonia. Normal caliber thoracic aorta. Aortic calcification. Cor onary calcification. No mediastinal or hilar lymphadenopathy. No axillary lymphadenopathy. Adrenal glands are normal. Mild thoracic kyphosis. Hypertrophic changes thoracic spine. CT/CT angio chest PE protcl [id number] IMPRESSION: 1. No evidence of pulmonary embolus. 2. Centrilobular nodules with tree-in-bud infiltrates unchanged and can be see n with respiratory bronchiolitis, infectious/inflammatory bronchiolitis to incl ude fungal, bacterial and viral etiologies, as well as atypical mycobacterial i nfection. 3. No focal pneumonia or pleural fluid. 4. Prior esophagectomy with gastric pull-through.
[2021-10-02] MEDS: iodixanol 320 mg/mL 100mL Btl IV (08:23)
[2021-10-02] MEDS: budesonide 0.5 mg/2 mL Neb INHALATION ×2 (09:01→21:53)
[2021-10-02] MEDS: azithromycin 250 mg Tablet 500 MG PO (09:24)
[2021-10-02] MEDS: pantoprazole DR 40 mg Tablet PO ×2 (09:24→18:38)
[2021-10-02] MEDS: lidocaine 5% Patch 1 PATCH TOPICAL ×2 (09:25→21:54)
--- NOTE | 2021-10-02 11:57 | PM.PN ---
Subjective Subjective: Interval history: Patient saturating well on 3 to 4 L nasal cannula did use BiPAP overnight CT requested this morning was unremarkable Procalcitonin 0.7 Leukocytosis improving CRP 308 Covid PCR result is pending Vitals/I&O/Wt Last Vital Signs Temp 97.8 F 10/02/21 08:00 Pulse 68 10/02/21 08:05 Resp 16 10/02/21 08:00 BP 103/66 10/02/21 08:00 Pulse Ox 94 10/02/21 08:05 10/01/21 10/02/21 10/02/21 22:59 06:59 14:59 Intake Total 50 / 50 820 / 870 360 / 360 Balance 50 / 50 820 / 870 360 / 360 Weight last 48 hrs Weight 64.864 kg Weight 64.864 kg Physical Exam Narrative: EXAM NARRATIVE: Saturating well on 4 L nasal cannula No audible stridor or wheezing noted mild rhonchi at the bases S1, S2 Abdomen soft Dose-limiting no edema EOMI, PERRLA Nonfocal neuro exam Data : 10/02/21 05:14 10/02/21 05:14 Micro: Microbiology 10/01/21 10:44 Gram Stain - Final Sputum - Expectorated Sputum Sputum Culture - Preliminary Gram Negative Rods A&P Assessment and plan (1) Sepsis: Status: Acute (2) Pneumonia: Status: Acute Qualifiers: Laterality: bilateral Lung location: unspecified part of lung Pneumonia type: due to unspecified organism Qualified Code(s): J18.9 - Pneumonia, unspecified organism (3) HANS (acute kidney injury): Status: Acute (4) COPD (chronic obstructive pulmonary disease): Status: Chronic Qualifiers: COPD type: COPD with acute exacerbation Qualified Code(s): J44.1 - Chronic obstructive pulmonary disease with (acute) exacerbation (5) Chronic steroid use: Status: Acute (6) Hyponatremia: Status: Acute Additional A&P Information Sepsis related to pneumonia Continue ceftriaxone and azithromycin Continue inhaled steroids Cultures negative patient is afebrile leukocytosis improving CTA rule out PE chronic changes noted no acute inflammatory changes noted Continue IV steroids, I will decrease the dose HANS related to dehydration, creatinine improved with IV fluid hydration hydroxychloroquine on hold losartan on hold Lasix on hold Acute COPD exacerbation Will need atypical micro coverage currently doing well on 4 L of cannula Covid PCR is pending CTA rule out PE Full code Cardiac diet Heparin Plan to discharge her tomorrow if Covid PCR result is negative she can follow-up with her local telephone operator outpatient Attestations Medical Necessity Statement*: Anticipating discharge in next 48 hours if white count is less than 20,000 Time Spent in Patient Care: less than 15 minutes Coding Level of Care Code Acute Frame Builder for g Fwd Diagnoses Sepsis A41.9 Pneumonia J18.9 Laterality: bilateral Lung location: unspecified part of lung Pneumonia type: due to unspecified organism HANS (acute kidney injury) N17.9 COPD (chronic obstructive pulmonary disease) J44.1 COPD type: COPD with acute exacerbation Chronic steroid use Hyponatremia E87.1
[2021-10-02 16:15] LABS: Coronavirus Test Green County Not Detected
[2021-10-02] MEDS: atorvastatin 40 mg Tablet 20 MG PO (18:37)
[2021-10-02] MEDS: magnesium oxide 400 mg tablet PO (18:38)
[2021-10-02] MEDS: cefTRIAXone 1,000 MG in sodium chloride 0.9% (plus) 50 ML 100 MG IV (18:38)
[2021-10-02] MEDS: ferrous sulfate EC 325 mg Tablet PO (18:38)
[2021-10-02] MEDS: temazepam 15 mg Capsule 30 MG PO (21:52)
[2021-10-02] MEDS: gabapentin 300 mg Capsule PO (21:54)
[2021-10-03] VITALS (7 sets, daily range): BP systolic 99–124; BP diastolic 65–75; PULSE 76–91; RESP 14–17; TEMP 36.6; O2SAT 92–97
[2021-10-03 05:32] LABS: Basophils % 0.1 %; Hematocrit 33.9 % (37.0-47.0); Hemoglobin 10.5 g/dL (11.5-15.3); Lymphocytes # 0.3 10^3/uL (0.8-4.8); Lymphocytes % 1.6 %; Mean Corpuscular Hemoglobin 28.6 pg (28.0-34.0); Mean Corpuscular Volume 92.4 fl (81-99); Mean Platelet Volume 10.7 fL (7.4-10.4); Monocytes # 0.7 10^3/uL (0.2-0.9); Monocytes % 3.4 %; Neutrophils # 17.79 10^3/uL (1.8-7.7); Nucleated Red Blood Cells % 0 %; Platelet Count 316 10^3/cmm (130-400); Red Blood Count 3.67 10^6/uL (4.1-5.3); Red Cell Distribution Width 14.4 % (12.1-15.1); White Blood Count 18.9 10^3/uL (4.0-10.0)
[2021-10-03 05:56] LABS: Anion Gap 14.6 (5-19); Blood Urea Nitrogen 25 mg/dL (8-23); Calcium 8.3 mg/dL (8.5-10.5); Carbon Dioxide 27 mmol/L (22-29); Chloride 96 mmol/L (98-107); Glomerular Filtration Rate 83.5 mL/min (90-130); Glucose 119 mg/dL (65-115); Osmolality Calculated 282 mOsm/kg (285-295); Potassium 4.6 mmol/L (3.5-5.1); Sodium 133 mmol/L (136-145)
[2021-10-03] MEDS: verapamil ER 240 mg Tablet PO (06:42)
[2021-10-03] MEDS: potassium chloride ER 10 mEq Tablet PO (06:42)
[2021-10-03] MEDS: aspirin 81 mg EC Tablet PO (06:42)
[2021-10-03] MEDS: montelukast sodium 10 mg Tablet PO (06:42)
[2021-10-03] MEDS: levothyroxine 125 mcg Tablet PO (06:42)
[2021-10-03] MEDS: fluticasone nasal spray 16gm Btl 2 SPRAY INTRANASAL (06:43)
[2021-10-03] MEDS: budesonide 0.5 mg/2 mL Neb INHALATION (08:43)
[2021-10-03] MEDS: azithromycin 250 mg Tablet 500 MG PO (09:28)
[2021-10-03] MEDS: pantoprazole DR 40 mg Tablet PO (09:29)
[2021-10-03] MEDS: lidocaine 5% Patch 1 PATCH TOPICAL (09:29)
--- NOTE | 2021-10-03 11:10 | PM.DCS ---
Discharge Providers Date of Admission: 10/01/21 12:44 Date of Discharge: October 03, 2021 Attending Provider at Admission: Nguyễn Rodriguez MD Attending Provider at Discharge: Nguyễn Rodriguez MD Primary Care Provider: Ladonna Rutledge MD Diagnoses at Discharge Discharge Diagnosis (1) Sepsis: Status: Acute (2) Pneumonia: Status: Acute (3) HANS (acute kidney injury): Status: Acute (4) COPD (chronic obstructive pulmonary disease): Status: Chronic Permanent problem details: Uses home trilogy device, PRN oxygen Qualifiers: COPD type: COPD with acute exacerbation Qualified Code(s): J44.1 - Chronic obstructive pulmonary disease with (acute) exacerbation (5) Chronic steroid use: Status: Acute (6) Hyponatremia: Status: Acute Reason for Visit Reason for Visit: SOB Hospital Course Hospital Course History of Present Illness Gabby Garcia is a 65 year old female with history of rheumatoid arthritis, COPD, uses 2 L of oxygen on as needed basis presented today with chief complaint of worsening shortness of breath. Patient is stating that her symptoms started on Friday when she woke up with shortness of breath. She has not noticed any chest pain or fever. She has not noticed any diarrhea. She is vaccinated for COVID-19. On Friday she experienced vomiting only one episode. With worsening shortness of breath with wheezing she decided to come to the hospital for further evaluation. In the ER she was diagnosed with community-acquired pneumonia , COVID-19 is negative, PCR has been sent, she was also given IV steroids At the time of my evaluation she was saturating well on 4 L nasal cannula no acute respiratory distress Started IV fluids for HANS, CBC and BMP consistent with HANS, high D-dimer, requested VQ scan, leukocytosis, sepsis criteria met, ABG is compensated, hypoxia is evident, troponin is downtrending sodium 126 Hospital course Patient was admitted for acute on chronic hypoxic respiratory failure related to COPD exacerbation, sepsis criteria met at the time of admission, patient was started on ceftriaxone and azithromycin along with prednisone 40 mg which improved her symptoms, her oxygen requirement did improve and FiO2 was titrated down from 4 L to 2 L which is around her baseline. Covid PCR unremarkable, bacterial antigen negative, secondary to high D-dimer CTA chest was requested. Creatinine improved he did not show any pulmonary embolism. Patient does follow-up with engineering technologist outpatient. Her HANS improved with IV fluid hydration. Losartan, hydroxychloroquine and Lasix were held during hospitalization. She will be discharged on Medrol pack and doxycycline. She remained afebrile leukocytosis improved. She already has an appointment with her engineering technologist in first week of October. CTA chest: IMPRESSION: 1. No evidence of pulmonary embolus. 2. Centrilobular nodules with tree-in-bud infiltrates unchanged and can be seen with respiratory bronchiolitis, infectious/inflammatory bronchiolitis to include fungal, bacterial and viral etiologies, as well as atypical mycobacterial infection. 3. No focal pneumonia or pleural fluid. 4. Prior esophagectomy with gastric pull-through. Physical Exam Narrative: EXAM NARRATIVE: Saturating well on 2L nasal cannula No audible stridor or wheezing noted mild rhonchi at the bases S1, S2 Abdomen soft Dose-limiting no edema EOMI, PERRLA Nonfocal neuro exam Discharge Data Data Completed and Pending: Completed Studies During Hospitalization Category Date Time Status CT angio chest PE protcl [id number] Stat Cat Scan 10/02/21 07:[address] chest wo con 7 1250 Stat Cat Scan 10/01/21 18:11 Completed XR chest 1V quang ble [id number] Stat Exams 10/01/21 09:27 Completed Pending at discharge Category Date Time Status Bacterial Antigen Routine Lab 10/01/21 18:08 Uncollected Legionella Antige n STAT Routine Lab 10/01/21 18:06 Uncollected Labs from last 24 hours 10/03/21 10/03/21 10/01/21 04:31 04:31 10:12 WBC 18.9 H RBC 3.67 L Hgb 10.5 L Hct 33.9 L MCV 92.4 MCH 28.6 MCHC 31.0 RDW 14.4 Plt Count 316 MPV 10.7 H Neut % (Auto) 94.0 Lymph % (Auto) 1.6 [place] % (Auto) 3.4 Eos % (Auto) 0.0 Baso % (Auto) 0.1 Neut # (Auto) 17.79 H Lymph # (Auto) 0.3 L [place] # (Auto) 0.7 Eos # (Auto) 0.0 Baso # (Auto) 0.0 Nucleated RBC % (a uto) 0 Nucleated RBCs # 0.0 Sodium 133 L Potassium 4.6 Chloride 96 L Carbon Dioxide 27 Anion Gap 14.6 BUN 25 H Creatinine 0.7 GFR Calculation 83.5 L Glucose 119 H Calculated Osmolal ity 282 L Calcium 8.3 L Nasal/Oral COVID-1 9 PCR Not detected Vitals: Last Vital Signs Temp 97.9 F 10/03/21 08:00 Pulse 90 10/03/21 08:49 Resp 16 10/03/21 08:49 BP 122/75 10/03/21 08:00 Pulse Ox 93 10/03/21 08:49 Discharge Plan Discharge Patient Disposition: Home Condition: Stable Prescriptions: New doxycycline hyclate 100 mg capsule 100 mg PO BID 3 Days Qty: 6 RF: 0 Medrol (He) 4 mg tablets,dose pack See Rx Instructions .ROUTE .COMPLEX Qty: 21 RF: 0 Continued fluticasone propionate [Flonase Allergy Relief] 50 mcg/actuation spray,suspension 2 spray intranasal QAM Qty: 16 RF: 3 losartan 100 mg tablet 100 mg PO DAILY@18 Qty: 90 RF: 2 alendronate 70 mg tablet 70 mg PO Q7D Qty: 15 RF: 1 Enbrel SureClick 50 mg/mL (1 mL) pen injector 50 mg SUBCUT Q7D Qty: 4 RF: 3 hydroxychloroquine 200 mg tablet See Rx Instructions PO .COMPLEX Qty: 135 RF: 1 Hold Instructions: Resume on 07/31/21. leflunomide 10 mg tablet 10 mg PO DAILY@18 Qty: 30 RF: 3 gabapentin 100 mg capsule 100 mg PO BID Qty: 180 RF: 1 aspirin [Aspirin Low Dose] 81 mg tablet,delayed release (DR/EC) 81 mg PO QAM RF: 0 Protonix 40 mg tablet,delayed release (DR/EC) 40 mg PO BID Qty: 180 RF: 3 furosemide [Lasix] 20 mg tablet 20 mg PO QAM Qty: 90 RF: 1 albuterol sulfate [ProAir HFA] 90 mcg/actuation HFA aerosol inhaler 2 puff INHALATION QID PRN (Reason: Shortness Of Breath) Qty: 6.7 RF: 2 ipratropium-albuterol 0.5 mg-3 mg(2.5 mg base)/3 mL solution for nebulization 3 ml inhalation Q4H PRN (Reason: shortness of breath or wheezing) Qty: 90 RF: 0 prednisone 10 mg Tablet 10 mg PO DAILY PRN (Reason: FLARE UP) RF: 0 levothyroxine [Synthroid] 125 mcg Tablet 125 mcg PO QAM RF: 0 gabapentin 300 mg Capsule 300 mg PO BEDTIME RF: 0 budesonide 0.5 mg/2 mL Suspension For Nebulization 0.5 mg inhalation BID PRN (Reason: UNKNOWN) RF: 0 lidocaine [Lidoderm] 5 % adhesive patch,medicated 1 patch topical . DIRECTED RF: 0 escitalopram oxalate [Lexapro] 10 mg tablet 10 mg PO BEDTIME RF: 0 pravastatin 40 mg tablet 40 mg PO QPM RF: 0 potassium chloride 10 mEq tablet extended release 10 meq PO QAM RF: 0 fexofenadine 180 mg tablet 180 mg PO QAM RF: 0 temazepam [Restoril] 30 mg capsule 30 mg PO BEDTIME RF: 0 ferrous sulfate 325 mg (65 mg iron) tablet 325 mg PO DAILY@18 RF: 0 montelukast [Singulair] 10 mg tablet 10 mg PO QAM RF: 0 ergocalciferol (vitamin D2) 1,250 mcg (50,000 unit) capsule 50,000 unit PO Q14D RF: 0 magnesium oxide 400 mg magnesium capsule 400 mg PO DAILY@18 RF: 0 verapamil 240 mg capsule,ext rel. pellets 24 hr 240 mg PO QAM RF: 0 Discharge Orders: Discharge Order (Routine); Ordered 10/03/21 Ordered By: Nguyễn Rodriguez Referrals: Ladonna Rutledge MD [Primary Care Provider] - 10/18/21 11:00 am Discharge Diet: Cardiac Discharge Activity: Increase activity as tolerated Patient Instructions: Doxycycline (By mouth), Methylprednisolone (By mouth), Opioid Safety Discharge Attestations Time Spent in Discharge Care*: less than 30 min Status at Discharge: Cognitive status at discharge: cognitively intact, Behavioral status at discharge: cooperative, Quality Metrics Clinical Quality Measures During this hospital stay, did patient experience: None Coding Level of Care Code Acute [facility] note Diagnoses Sepsis A41.9 Pneumonia J18.9 HANS (acute kidney injury) N17.9 COPD (chronic obstructive pulmonary disease) J44.1 COPD type: COPD with acute exacerbation Chronic steroid use Hyponatremia E87.1
== END 2021-10-03 14:04 | disposition home or self-care (01) | DRG 871 ==
LOC: ER 09:16 → MEDSURG 16:40
PROVIDERS: Student in an Organized Health Care Education/Training Program; Admitting Provider Internal Medicine; Emergency Provider Family Medicine; PCP Family Medicine; Visit Provider Internal Medicine
DX: A41.9 Sepsis, unspecified organism (principal); J96.21 Acute and chronic respiratory failure with hypoxia; J44.1 Chronic obstructive pulmonary disease with (acute) exacerbation; J44.0 Chronic obstructive pulmonary disease with (acute) lower respiratory infection; N17.9 Acute kidney failure, unspecified; Z16.29 Resistance to other single specified antibiotic; E87.1 Hypo-osmolality and hyponatremia; M05.70 Rheumatoid arthritis with rheumatoid factor of unspecified site without organ or systems involvement; Z99.81 Dependence on supplemental oxygen; Z79.52 Long term (current) use of systemic steroids; F32.A Depression, unspecified; K21.9 Gastro-esophageal reflux disease without esophagitis; E78.5 Hyperlipidemia, unspecified; I10 Essential (primary) hypertension; E03.9 Hypothyroidism, unspecified; D50.9 Iron deficiency anemia, unspecified; Z87.01 Personal history of pneumonia (recurrent); Z87.891 Personal history of nicotine dependence; E86.0 Dehydration; B96.5 Pseudomonas (aeruginosa) (mallei) (pseudomallei) as the cause of diseases classified elsewhere; Z79.51 Long term (current) use of inhaled steroids; Z79.82 Long term (current) use of aspirin
CPT/HCPCS: 36415; 36600; 71045; 71250; 71275; 80048; 80051; 80053; 81001; 82330; 82550; 82803; 82805; 83615; 84145; 84484; 85025; 85378; 86140; 87070; 87077; 87186; 87205; 87426; 87635; 87641; 93005; 94640; 94660; 94664; 96374; 99285; J0696; J2920; J2930; J7030; J7626; Q0144; Q9967

== ENCOUNTER 2022-02-28 09:55 | Inpatient (IN) | payer MEDICARE, OTHER, SELFPAY ==
[2022-02-28] VITALS (39 sets, daily range): BP systolic 74–121; BP diastolic 34–80; PULSE 66–89; RESP 17–33; TEMP 36.6; O2SAT 92–100; BMI 19.6
--- NOTE | 2022-02-28 10:20 | XR_ITS ---
WS: [id number] Portable AP upright chest, 02/28/2022 Clinical Data: dyspnea/cough Comparison: Portable chest, 10/01/2021. Findings: The heart is enlarged. There is patchy opacity behind the left heart which could represent consolidation, effusion and atelectasis. The right lung is clear. The aortic arch and descending thor acic aorta show minimal calcification and tortuosity. Monitor leads are on the chest wall. No nodules or masses are seen. There is no pneumothorax. XR/XR chest 1V portable [id number] Impression: 1. Cardiomegaly and atherosclerosis. 2. Patchy retrocardiac opacity which could represent consolidation, effusion an d/or atelectasis.
[2022-02-28 10:38] LABS: ABG PCO2 36.4 mmHg (35-45); ABG PH Result 7.26 (7.35-7.45); Arterial Blood Gas Hematocrit 25.7 % (37-47); Blood Gas Sample Site Brachial, right; Blood Gas Sample Type Arterial; Carboxyhemoglobin 0.3 %THgb (0.4-20.1); HCO3 ABG 16.3 mmol/L (22-26); HGB O2 Sat 98.3 % (95-100); Ionized Calcium Level - ABG 1.2 mmol/L (1.1-1.4); Methemoglobin 1.1 % (0.4-1.5); Oxygen Saturation ABG 99.7; Total Hemoglobin 8.4 g/dL (12-16)
[2022-02-28 10:45] LABS: Alanine Aminotransferase 14 U/L (0-33); Albumin Level 2.3 g/dL (3.5-5.2); Alkaline Phosphatase 198 IU/L (35-105); Blood Urea Nitrogen 45 mg/dL (8-23); Calcium 8.9 mg/dL (8.5-10.5); Carbon Dioxide 16 mmol/L (22-29); Chloride 90 mmol/L (98-107); Creatine Phosphokinase 154 U/L (26-192); Globulin 3.4 g/dL (1.3-4.6); Glomerular Filtration Rate 13.4 mL/min (90-130); Glucose 42 mg/dL (65-115); Osmolality Calculated 270 mOsm/kg (285-295); Sodium 126 mmol/L (136-145); Total Bilirubin 0.2 mg/dL (0.15-1.2); Total Protein 5.7 g/dL (6.6-8.7)
[2022-02-28 10:49] LABS: Anion Gap 25.6 (5-19); Aspartate Amino Transferase 28 U/L (0-32); Potassium 5.6 mmol/L (3.5-5.1)
[2022-02-28 11:18] LABS: Hematocrit 31.6 % (37.0-47.0); Hemoglobin 9.1 g/dL (11.5-15.3); Mean Corpuscular HGB Conc 28.8 g/dL (30.0-36.0); Mean Corpuscular Hemoglobin 27.7 pg (28.0-34.0); Mean Corpuscular Volume 96.3 fl (81-99); Mean Platelet Volume 10.4 fL (7.4-10.4); Platelet Count 244 10^3/cmm (130-400); Red Blood Count 3.28 10^6/uL (4.1-5.3); Red Cell Distribution Width 16.2 % (12.1-15.1); White Blood Count 17.3 10^3/uL (4.0-10.0)
[2022-02-28] MEDS: SODIUM CHLORIDE 0.9% 1510.47 ML IV (11:18)
[2022-02-28] MEDS: piperacillin-tazobactam 3.375 GM in sodium chloride 0.9% (plus) 50 ML IV (11:32)
[2022-02-28] MEDS: vancomycin 1,000 MG in sodium chloride 0.9% 250 ML 250 MG IV (11:42)
[2022-02-28 11:44] LABS: Slide Review Slide Review Perform; Total Cells Counted 100 (0-100)
[2022-02-28 11:45] LABS: Absolute Eosinophils 0.3 10^3/cmm (0.0-0.7); Absolute Neutrophil 15.9 10^3/cmm (1.4-6.5); Absolute Segmented Neutrophil 12.1 10/cmm (1.6-7.1); Band Neutrophils Absolute 3.8 10^3/cmm (0.0-1.2); Eosinophils 2 %; Lymphocytes 4 %; Lymphocytes Absolute 0.7 10^3/cmm (1.2-3.4); Monocytes Absolute 0.2 10^3/cmm (0.1-0.6); Platelet Estimate Normal (Normal); Segmented Neutrophils 70 %
[2022-02-28] MEDS: iodixanol 320 mg/mL 100mL Btl IV (12:03)
[2022-02-28] MEDS: calcium chloride 10% Syr 10 mL 1 GM IVP (12:05)
[2022-02-28] MEDS: sodium bicarbonate 8.4% 1 mEq/mL 50mL Syr 100 MEQ IVP (12:07)
[2022-02-28] MEDS: levofloxacin-dextrose 5 % 750 MG/150 ML PREMIX 100 MG IV (12:15)
--- NOTE | 2022-02-28 12:20 | ED_ITS ---
HPI - SOB/Dyspnea General: Chief Complaint: Shortness of Breath/Dyspnea Stated Complaint: RESP. DISTRESS Time Seen by Provider: 02/28/22 10:19 Source: patient Mode of arrival: EMS Limitations: altered mental status History of Present Illness: HPI Narrative: 66-year-old female presents to the emergency room with complaints of progressively worsening shortness of breath the last 4 days as well as having a fall. She reported that she fell and got dizzy and hit left side of her head on the stove as she fell. There is no report of vomiting on arrival here she is in respiratory distress and tachypneic. She was also found to be hypoglycemic. She denies any chest or abdominal pain just complaining of the difficulty breathing. According to old record she has a history rheumatoid arthritis COPD and is usually uses 2 L by nasal cannula on an as-needed basis. MD elicited complaint: shortness of breath and cough Pertinent past history: COPD Onset (ago): day(s) (4) Context: recent illness Timing: constant Severity: severe Exacerbating factors: nothing Relieving factors: oxygen and bronchodilators Known history of: COPD Associated symptoms: Reports chest congestion and cough; Deny abdominal pain, chest pain, diaphoresis, dizziness, extremity pain, fever(s), hemoptysis, lightheadedness, myalgias, nausea, orthopnea, palpitations, paresthesias, polydipsia, polyuria, rash, sense of impending doom, syncope or vomiting Treatment prior to arrival: oxygen and bronchodilator Related Data: Home oxygen amount: 2 liters Review of Systems General: Reports: ROS unobtainable due to medical condition (Difficult to obtain due to respiratory distress) Const: Denies: fever(s) or diaphoresis Card: Denies: chest pain, palpitations, lightheadedness, syncope or orthopnea Resp: Reports: chest congestion; Denies: hemoptysis GI: Denies: abdominal pain, nausea or vomiting Musc: Denies: extremity pain Neuro: Denies: dizziness Endo: Denies: polyuria or polydipsia PFS ED PFSH: Medical History Acute bronchitis Acute dyspnea Chronic steroid use COPD (chronic obstructive pulmonary disease) Uses home trilogy device, PRN oxygen COPD (chronic obstructive pulmonary disease) COPD exacerbation COVID-19 vaccine administered Depression Fever GERD (gastroesophageal reflux disease) High risk medication use History of aspiration pneumonia Hyperlipidemia Hypertension Hyponatremia Hypothyroidism Hypoxia Immunization counseling Immunization counseling Iron deficiency anemia Lumbar radiculopathy Pneumonia Rheumatoid arthritis with rheumatoid factor of multiple sites without organ or systems involvement Seropositive rheumatoid arthritis of multiple sites Transaminitis Surgical History H/O arthroscopy of knee left knee H/O esophagectomy History of cataract surgery 2017 History of gastric surgery age 6 History of skin graft left knee History of tubal ligation Previous back surgery right L3-L4, right L5-S1 hemilaminotomy foraminotomy/ discectomy/ Family History Father Cancer Pancreatic cancer Mother Cancer Lung cancer with brain mets Daughter Cancer Lung cancer with brain mets Other CAD (coronary artery disease) Hypertension Denies family history of Rheumatoid arthritis Diabetes Chronic kidney disease (CKD) Systemic lupus erythematosus (SLE) in adult Lung disease Social History Smoking and tobacco status: former smoker Quit status (tobacco): has quit using tobacco Year quit tobacco: 2000 [id number] Second hand smoke exposure: No Smoking risk assessment/counseling performed?: Yes Alcohol intake: current Alcohol type: beer Lives independently: Yes Household members: children Housing: House Marital status: Current occupational status: retired Pets and animals: Yes History of recent travel: No Current gender identity: Female Female Reproductive History: Date of last menstrual period: 02/08/21 Physical Exam Const: ORIENTATION/CONSCIOUSNESS: Yes awake HENMT: COMMON NORMALS: normocephalic and atraumatic HEAD & SCALP: normo cephalic and atraumatic Neck/C-Spine: COMMON NORMALS: no JVD Resp: COMMON NORMALS: normal respiratory effort, No retractions, No use of accessory muscles and clear to auscultation bilaterally AUSCULTATION: clear to auscultation bilaterally Cardio: COMMON NORMALS: no JVD, regular rate, regular rhythm and No murmurs present (Cardio) RATE: regular rate RHYTHM: regular rhythm GI: COMMON NORMALS: Soft to palpation and No hepatosplenomegaly present AUSCULTATION: Yes normoactive bowel sounds PALPATION: Yes Soft to palpation, No Tenderness to palpation present (GI), No Guarding due to palpation present (GI) and Yes No hepatosplenomegaly present Extremity: COMMON NORMALS: normal to inspection, capillary refill normal, no clubbing, cyanosis or edema, no calf tenderness and no pedal edema Skin: COMMON NORMALS: no rashes or lesions noted GENERAL SKIN EXAM: no rashes or lesions noted Course Vital Signs: Vital signs: Vital Signs Temperature 97.9 F 03/04/22 04:00 Pulse Rate 106 H 03/04/22 06:45 Respiratory Rate 16 03/04/22 04:08 Blood Pressure 186/88 03/04/22 04:00 Pulse Oximetry 99 03/04/22 04:08 MDM - SOB/Dyspnea Medical Decision Making Acute exacerbation COPD with hyperkalemia hyponatremia. Patient has metabolic acidosis to likely secondary to the acute kidney injury. Medical Records I reviewed the patient's medical records. Lab Data I reviewed the patient's lab results. : 03/04/22 03:52 03/04/22 03:52 Labs/Radiology: Radiology Impressions Chest X-Ray 02/28/22 10:20 Impression: 1. Cardiomegaly and atherosclerosis. 2. Patchy retrocardiac opacity which could represent consolidation, effusion and/or atelectasis. Head CT 02/28/22 12:21 IMPRESSION: 1. No acute intracranial hemorrhage or edema. 2. Mild atrophy and very mild small vessel ischemic disease. Pelvis X-Ray 02/28/22 12:21 Impression: Negative for fracture. Renal Ultrasound 03/01/22 12:14 IMPRESSION: Normal renal ultrasound Chest CT 03/03/22 15:31 IMPRESSION: 1. Small right pleural fluid collection. 2. Partial esophagectomy with gastric pull-through. 3. Moderate calcified coronary artery disease. 4. Complete collapse of the left lower lobe with air bronchograms. 5. [id number] bilateral upper lobe pneumonia with mild right lower lobe pneumonia. Laboratory Results WBC 17.3 10^3/uL (4.0-10.0) H 02/28/22 11:12 Corrected WBC Cancelled 02/28/22 10:12 RBC 3.28 10^6/uL (4.1-5.3) L 02/28/22 11:12 Hgb 9.1 g/dL (11.5-15.3) L 02/28/22 11:12 Hct 31.6 % (37.0-47.0) L 02/28/22 11:12 MCV 96.3 fl (81-99) 02/28/22 11:12 MCH 27.7 pg (28.0-34.0) L 02/28/22 11:12 MCHC 28.8 g/dL (30.0-36.0) L 02/28/22 11:12 RDW 16.2 % (12.1-15.1) H 02/28/22 11:12 Plt Count 244 10^3/cmm (130-400) 02/28/22 11:12 MPV 10.4 fL (7.4-10.4) 02/28/22 11:12 Gran % Cancelled 02/28/22 10:12 Neut % (Auto) Cancelled 02/28/22 10:12 Lymph % (Auto) Not Reportable 02/28/22 11:12 [place] % (Auto) Not Reportable 02/28/22 11:12 Eos % (Auto) Cancelled 02/28/22 10:12 Baso % (Auto) Cancelled 02/28/22 10:12 Neut # (Auto) Cancelled 02/28/22 10:12 Lymph # (Auto) Not Reportable 02/28/22 11:12 [place] # (Auto) Not Reportable 02/28/22 11:12 Eos # (Auto) Cancelled 02/28/22 10:12 Baso # (Auto) Cancelled 02/28/22 10:12 Absolute Gran (auto) Cancelled 02/28/22 10:12 Nucleated RBC % (auto) Cancelled 02/28/22 10:12 Total Counted 100 (0-100) 02/28/22 11:12 Atypical Lymphs % 0.0 % (0-5) 02/28/22 11:12 Absolute Neutrophils 15.9 10^3/cmm (1.4-6.5) H 02/28/22 11:12 Segmented Neutrophils 70 % 02/28/22 11:12 Abs Segm Neuts (Man) 12.1 10/cmm (1.6-7.1) H 02/28/22 11:12 Band Neutrophils 22.0 % 02/28/22 11:12 Abs Band Neuts (Man) 3.8 10^3/cmm (0.0-1.2) H 02/28/22 11:12 Absolute Lymphocytes 0.7 10^3/cmm (1.2-3.4) L 02/28/22 11:12 Lymphocytes (Manual) 4 % 02/28/22 11:12 Monocytes (Manual) 1.0 % 02/28/22 11:12 Absolute Monocytes 0.2 10^3/cmm (0.1-0.6) 02/28/22 11:12 Eosinophils (Manual) 2 % 02/28/22 11:12 Absolute Eosinophils 0.3 10^3/cmm (0.0-0.7) 02/28/22 11:12 Basophils (Manual) 0.0 % 02/28/22 11:12 Absolute Basophils 0.0 10^3/cmm (0.0-0.2) 02/28/22 11:12 Metamyelocytes 1.0 % 02/28/22 11:12 Nucleated RBCs # Cancelled 02/28/22 10:12 Platelet Estimate Normal (Normal) 02/28/22 11:12 Specimen Type Arterial 02/28/22 10:25 Sample Site Brachial, right 02/28/22 10:25 ABG pH 7.26 (7.35-7.45) L 02/28/22 10:25 ABG pCO2 36.4 mmHg (35-45) 02/28/22 10:25 ABG pO2 223.0 mmHg (80.0-100.0) H 02/28/22 10:25 ABG HCO3 16.3 mmol/L (22-26) L 02/28/22 10:25 ABG O2 Saturation 99.7 02/28/22 10:25 ABG Base Excess -10.0 mmol/L (-2.0-2.0) L 02/28/22 10:25 Antony Test N/a 02/28/22 10:25 Hematocrit 25.7 % (37-47) L 02/28/22 10:25 Hgb O2 Saturation 98.3 % (95-100) 02/28/22 10:25 Carboxyhemoglobin 0.3 %THgb (0.4-20.1) L 02/28/22 10:25 Methemoglobin 1.1 % (0.4-1.5) 02/28/22 10:25 Total Hemoglobin 8.4 g/dL (12-16) L 02/28/22 10:25 Sodium 127.0 mmol/L (131-143) L 02/28/22 10:25 Potassium 5.0 mmol/L (3.5-5.0) 02/28/22 10:25 Glucose 38.0 mg/dL (70-115) L 02/28/22 10:25 Ionized Calcium 1.2 mmol/L (1.1-1.4) 02/28/22 10:25 O2 Delivery Device Neb mask 02/28/22 10:25 O2 Liters/Min 8.0 % 02/28/22 10:25 Offset Pressman ID Hinja 02/28/22 10:25 Sodium 126 mmol/L (136-145) L 02/28/22 10:12 Potassium 5.6 mmol/L (3.5-5.1) H 02/28/22 10:12 Chloride 90 mmol/L (98-107) L 02/28/22 10:12 Carbon Dioxide 16 mmol/L (22-29) L 02/28/22 10:12 Anion Gap 25.6 (5-19) H 02/28/22 10:12 BUN 45 mg/dL (8-23) H 02/28/22 10:12 Creatinine 3.4 mg/dL (0.5-0.9) H 02/28/22 10:12 GFR Calculation 13.4 mL/min (90-130) L 02/28/22 10:12 Glucose 42 mg/dL (65-115) L 02/28/22 10:12 POC Glucose 102 mg/dL (70-110) 02/28/22 12:49 Calculated Osmolality 270 mOsm/kg (285-295) L 02/28/22 10:12 Lactic Acid 1.0 mmol/L (0.5-2.2) 02/28/22 10:12 Calcium 8.9 mg/dL (8.5-10.5) 02/28/22 10:12 Total Bilirubin 0.2 mg/dL (0.15-1.2) 02/28/22 10:12 AST 28 U/L (0-32) 02/28/22 10:12 ALT 14 U/L (0-33) 02/28/22 10:12 Alkaline Phosphatase 198 IU/L (35-105) H 02/28/22 10:12 Creatine Kinase 154 U/L (26-192) 02/28/22 10:12 Total Protein 5.7 g/dL (6.6-8.7) L 02/28/22 10:12 Albumin 2.3 g/dL (3.5-5.2) L 02/28/22 10:12 Globulin 3.4 g/dL (1.3-4.6) 02/28/22 10:12 Discharge Plan Discharge Patient Disposition: Admitted As Inpatient Admit Provider: Shun Mars Clinical Impression: COPD exacerbation, Pneumonia, Hyperkalemia, Acute kidney injury superimposed on CKD, Hyponatremia Condition: Stable Coding Level of Care Code ED Data Services Developer for [facility] Fwd Exam Comprehensive
--- NOTE | 2022-02-28 12:21 | CT_ITS ---
WS: [id number] CT HEAD NONCONTRAST HISTORY: fall, closed head injury TECHNIQUE: Contiguous axial imaging performed through the brain in 2.5 mm imaging. Bone and soft tiss ue windows. Sagittal and coronal reformats reviewed. All CT scans at [facility] use at least one of these dose optimization techniques: automated exposure control; mA and/or kV adjustment per pa tient size (includes targeted exams where dose is matched to clinical indication); or iterative recon struction. DLP: 891.72 mGy.cm COMPARISON: 05/06/2018 No acute intracranial hemorrhage, midline shift or mass effect. Mild atrophy and mild chronic ischemic disease. Small lacunar infarct in the anterior limb LEFT inter nal capsule. Ventricles: Normal size with no hydrocephalus. Paranasal sinuses: As visualized are clear. Mastoid air cells: Well pneumatized. Calvarium and scalp: Skull is intact with no soft tissue edema or swelling. Stable lytic area in the high RIGHT parietal bone. CT/CT head wo con* [id number] IMPRESSION: 1. No acute intracranial hemorrhage or edema. 2. Mild atrophy and very mild small vessel ischemic disease.
--- NOTE | 2022-02-28 12:21 | XR_ITS ---
WS: [id number] Pelvis, AP view, 02/28/2022 Clinical Data: fall Comparison: Pelvis, 05/06/2018. Findings: No fractures or dislocations are seen. The SI joints and pubic symphysis are intact. The soft tissues are not remarkable. XR/XR pelvis 1-2V* [id number] Impression: Negative for fracture.
[2022-02-28] MEDS: dextrose 10% 250 ML 500 ML (12:44)
[2022-02-28] MEDS: dextrose 10% 1,000 ML 150 ML IV (12:45)
--- NOTE | 2022-02-28 13:48 | PC.NURSE ---
Pt arrived with BG 38 Pt BG 28 at 1219 Pt BG 102 @ 1252 At this time 1348 pt BG is 134
--- NOTE | 2022-02-28 14:20 | PC.NURSE ---
Updated pt's family on plan of care at this time.
--- NOTE | 2022-02-28 15:09 | P.HP_ITS ---
Providers/Chief Complaint Admitting Physician: Shun Mars MD Primary Care Provider: Ladonna Rutledge MD Chief Complaint: RESP. DISTRESS History of Present Illness Gabby Garcia is a 66 year old female with past medical history of COPD not regularly on home oxygen, use oxygen as needed.chronic steroid use and immunocompromised status with rheumatoid arthritis, Covid, post Covid she has taken her 2 dose of Covid vaccine, hypertension, hypothyroidism, came in with chief complaint of?worsening shortness of breath, cough, generalized weakness, subjective fever, nausea, going on for the last couple of days, she also experienced fall at home after being dizzy, hit left side of her head on the stove as she fell. She denies any chest pain , fever , abdominal pain , vomiting. On arrival in the ER: She was worked up for above-mentioned complaint: Pertinent imaging studies: CT head wo con: No acute intracranial hemorrhage or edema. X-ray pelvis: No fracture XR chest: Suggestive of possible pneumonia, Pertinent labs: WBC : 17.3 , H&H:9.1/31.6 , PLT : 244 , Serum sodium 126 serum potassium :5.6 , BUN/SCR : 45/.3.4 , serum bicarbonate 16 Random blood sugar: 38 ABG: pH 7.26 PCO2 36, PO2 223, on 8 L Patient received hyperkalemia treatment in the ER, she was also started on D10 water in the ER Last fingerstick glucose is 134. Review of Systems General: Reports: 10 or more systems reviewed and unremarkable except in HPI and below Const: Denies: fever(s), chills, body aches, change in appetite or diaphoresis Card: Denies: palpitations, edema, swelling of feet/ankles, dyspnea on exertion, orthopnea or leg pain with exertion Resp: Denies: dyspnea, productive cough, wheezing or pain on inspiration GI: Denies: abdominal pain, nausea, vomiting, diarrhea or constipation : Denies: flank pain Musc: Denies: back pain, extremity pain or extremity swelling Neuro: Denies: headache(s), difficulty walking or confusion Medications/Allergies Home Medications Medication Instructions Recorded Confirmed Last Taken Type aspirin 81 mg tablet,delayed 81 mg PO QAM tab 11/19/19 02/26/22 10/01/21 07:30 History release (Aspirin Low Dose) magnesium oxide 400 mg PO DAILY@18 05/21/21 02/26/22 09/30/21 History albuterol sulfate 90 mcg/actuation 2 puff INHALATION QID PRN #6.7 g 07/05/21 02/26/22 Unknown Rx aerosol inhaler (ProAir HFA) losartan 100 mg tablet 100 mg PO DAILY@18 #90 tab 07/11/21 02/26/22 09/30/21 Rx ipratropium 0.5 mg-albuterol 3 mg 3 ml INHALATION Q4H PRN #90 ml 07/24/21 02/26/22 Unknown Rx (2.5 mg base)/3 mL nebulization soln budesonide 0.5 mg/2 mL suspension 0.5 mg INHALATION BID PRN 09/18/21 02/26/22 Unknown History for nebulization prednisone 10 mg tablet 10 mg PO DAILY PRN 09/18/21 02/26/22 09/30/21 History alendronate 70 mg tablet 70 mg PO Q7D #15 tab 09/19/21 02/26/22 09/29/21 Rx etanercept 50 mg/mL (1 mL) 50 mg SUBCUT Q7D #4 ml 09/19/21 02/26/22 09/29/21 Rx subcutaneous pen injector (Enbrel SureClick) hydroxychloroquine 200 mg tablet See Rx Instructions PO .COMPLEX 09/19/21 02/26/22 09/30/21 Rx #135 tab 2 tabs leflunomide 10 mg tablet 10 mg PO DAILY@18 #30 tab 09/19/21 02/26/22 09/30/21 Rx fluticasone propionate 50 2 spray INTRANASAL QAM #16 g 10/16/21 02/26/22 Unknown Rx mcg/actuation nasal spray,suspension (Flonase Allergy Relief) ipratropium 0.5 mg-albuterol 3 mg 3 ml INHALATION Q6H PRN #90 ml 10/23/21 02/26/22 Unknown Rx (2.5 mg base)/3 mL nebulization soln ergocalciferol (vitamin D2) 1,250 50,000 unit PO Q14D #8 cap 01/29/22 02/26/22 Unknown Rx mcg (50,000 unit) capsule escitalopram oxalate 10 mg tablet 10 mg PO BEDTIME #30 tab 01/29/22 02/26/22 Unknown Rx (Lexapro) ferrous sulfate 325 mg (65 mg 325 mg PO DAILY@18 #30 tab 01/29/22 02/26/22 Unk nown Rx iron) tablet fexofenadine 180 mg tablet 180 mg PO QAM #30 tab 01/29/22 02/26/22 Unknown Rx furosemide 20 mg tablet (Lasix) 20 mg PO QAM #90 tab 01/29/22 02/26/22 Unknown Rx levothyroxine 125 mcg tablet 125 mcg PO QAM #90 tab 01/29/22 02/26/22 Unknown Rx (Synthroid) lidocaine 5 % topical patch 1 patch TOPICAL . DIRECTED #30 ea 01/29/22 02/26/22 Unknown Rx (Lidoderm) montelukast 10 mg tablet 10 mg PO QAM #30 tab 01/29/22 02/26/22 Unknown Rx (Singulair) pantoprazole 40 mg tablet,delayed 40 mg PO BID #180 tab 01/29/22 02/26/22 Unknown Rx release (Protonix) potassium chloride 10 mEq 10 meq PO QAM #30 tab 01/29/22 02/26/22 Unknown Rx tablet,extended release pravastatin 40 mg tablet 40 mg PO QPM #90 tab 01/29/22 02/26/22 Unknown Rx temazepam 30 mg capsule (Restoril) 30 mg PO BEDTIME #30 cap 01/29/22 02/26/22 Unknown Rx verapamil 240 mg 24 hr 240 mg PO QAM #30 cap 01/29/22 02/26/22 Unknown Rx capsule,extended release budesonide 160 mcg-glycopyr 9 2 inh INHALATION BID 02/26/22 02/26/22 Unknown History mcg-formot 4.8 mcg/actuation HFA inhaler (Breztri Aerosphere) honey 80 % topical gel (MediHoney 1 applic TOPICAL BID #44 ml 02/26/22 02/26/22 Unknown Rx (honey)) gabapentin 300 mg capsule 300 mg PO BID 02/28/22 02/28/22 Unknown History Allergies Allergy/AdvReac Type Severity Reaction Status Date / Time REINA Inhibitors Allergy ADR-Cough Verified 02/28/22 15:33 codeine Allergy ADR-Nausea Verified 02/28/22 15:33 hydrocodone Allergy ADR-Nausea Verified 02/28/22 15:33 Sulfa (Sulfonamide Allergy ALGY-Anaphy Verified 02/28/22 15:33 Antibiotics) laxis sulfamethoxazole Allergy ALGY-Anaphy Verified 02/28/22 15:33 [From Bactrim] laxis trimethoprim [From Bactrim] Allergy ALGY-Anaphy Verified 02/28/22 15:33 laxis PFSH Acute PFSH: Medical History Acute bronchitis Acute dyspnea Chronic steroid use COPD (chronic obstructive pulmonary disease) Uses home trilogy device, PRN oxygen COPD (chronic obstructive pulmonary disease) COPD exacerbation COVID-19 vaccine administered Depression Fever GERD (gastroesophageal reflux disease) High risk medication use History of aspiration pneumonia Hyperlipidemia Hypertension Hyponatremia Hypothyroidism Hypoxia Immunization counseling Immunization counseling Iron deficiency anemia Lumbar radiculopathy Pneumonia Rheumatoid arthritis with rheumatoid factor of multiple sites without organ or systems involvement Seropositive rheumatoid arthritis of multiple sites Transaminitis Surgical History H/O arthroscopy of knee left knee H/O esophagectomy History of cataract surgery 2017 History of gastric surgery age 6 History of skin graft left knee History of tubal ligation Previous back surgery right L3-L4, right L5-S1 hemilaminotomy foraminotomy/ discectomy/ Family History Father Cancer Pancreatic cancer Mother Cancer Lung cancer with brain mets Daughter Cancer Lung cancer with brain mets Other CAD (coronary artery disease) Hypertension Denies family history of Rheumatoid arthritis Diabetes Chronic kidney disease (CKD) Systemic lupus erythematosus (SLE) in adult Lung disease Social History Smoking and tobacco status: former smoker Quit status (tobacco): has quit using tobacco Year quit tobacco: 2000 [id number] Second hand smoke exposure: No Smoking risk assessment/counseling performed?: Yes Alcohol intake: current Alcohol type: beer Lives independently: Yes Household members: children Housing: House Marital status: Current occupational status: retired Pets and animals: Yes History of recent travel: No Current gender identity: Female Female Reproductive History: Date of last menstrual period: 02/08/21 Vitals/I&O/Wt Last Vital Signs Pulse 71 02/28/22 14:11 Resp 18 02/28/22 12:00 BP 121/80 02/28/22 12:00 Pulse Ox 98 02/28/22 14:11 02/28/22 02/28/22 02/28/22 06:59 14:59 22:59 Intake Total 112.5 / 112.5 Balance 112.5 / 112.5 Weight last 48 hrs Weight 50.349 kg Physical Exam Const: COMMON NORMALS: patient oriented x3 HENMT: COMMON NORMALS: normocephalic and atraumatic HEAD & SCALP: nor mocephalic and atraumatic EXTERNAL EAR: Yes external ears normal Eye: GENERAL EYE: appearance normal, both eyes and all related structures Chest: CHEST: Yes Symmetrical chest wall rise Resp: COMMON NORMALS: normal respiratory effort and No retractions EFFORT & INSPECTION: Yes symmetric chest movement OTHER: Coarse breath sounds with bilateral rhonchi Cardio: COMMON NORMALS: regular rate, regular rhythm, S1 normal heart sound present, S2 normal heart sound present, No gallops present (Cardio), No murmurs present (Cardio), No rub (Cardio) and Peripheral pulses 2+ throughout RATE: regular rate RHYTHM: regular rhythm HEART SOUNDS: S1 normal heart sound present and S2 normal heart sound present PERIPHERAL PULSES: Peripheral pulses 2+ throughout GI: COMMON NORMALS: Normal to inspection, nondistended, normoactive bowel sounds present, Soft to palpation, non-tender, No hepatosplenomegaly present and no masses AUSCULTATION: Yes normoactive bowel sounds PALPATION: Yes Soft to palpation and Yes No hepatosplenomegaly present RECTAL EXAM: deferred Extremity: COMMON NORMALS: no clubbing, cyanosis or edema and no pedal edema Neuro: COMMON NORMALS: patient oriented x3 Data : 02/28/22 11:12 02/28/22 10:12 Micro: Microbiology 02/28/22 10:14 Blood Culture - Preliminary Blood SPECIMEN COLLECTED 02/28/22 10:12 Blood Culture - Preliminary Blood SPECIMEN COLLECTED CT Head: My impression: No acute intracranial pathology Radiologist's impression: 1.? No acute intracranial hemorrhage or edema. 2.? Mild atrophy and very mild small vessel ischemic disease. A&P Assessment and plan (1) COPD exacerbation: Status: Acute (2) COPD exacerbation: Status: Acute (3) Hypertension: Status: Acute (4) Hypothyroidism: Status: Acute (5) Rheumatoid arthritis: Status: Acute (6) Hyperkalemia: Status: Acute (7) Acute kidney injury superimposed on CKD: Status: Acute Plan 66 year old female with past medical history of COPD not regularly on home oxygen, use oxygen as needed.chronic steroid use and immunocompromised status with rheumatoid arthritis, Covid, post Covid she has taken her 2 dose of Covid vaccine, hypertension, hypothyroidism, came in with chief complaint of?worsening shortness of breath, cough, generalized weakness, subjective fever, nausea, going on for the last couple of days, she also experienced fall at home after being dizzy, hit left side of her head on the stove as she fell. Assessment: #HANS : Likely secondary to acute hypotension, resulting in ATN , patient is on Lasix losartan At home, came in with hypotension Baseline serum creatinine: 0.6-1 Admission serum creatinine 3.4 Monitor BMP Random urine sodium Random urine creatinine Monitor intake output charting Avoid nephrotoxic Renal ultrasound Continue IV hydration with D5 normal saline at 75 cc an hour Vasopressors are needed #Acute hyperkalemia: Likely secondary to HANS patient is also on potassium supplement at home. Received hyperkalemia routine medication in the ER Monitor serum potassium cardiac monitor technician #Hypovolemic hyponatremia: Continue IV hydration with NS Urine electrolytes TSH Cortisol Urine osmolality Serum osmolality Lipid panel #COPD exacerbation Continue Solu-Medrol 60 mg IV twice daily DuoNebs Supplemental oxygen as needed Incentive spirometer / flutter valve #Increased anion gap metabolic acidosis: Likely secondary to HANS #Acute hypoglycemia: Unclear etiology, over simplification possible poor oral intake Continue D5 NS Monitor fingerstick glucose every 4 hours Currently has no signs of hypoglycemia #Leukocytosis: Low clinical suspicion for infection likely secondary to chronic steroid use. Less likely pneumonia. Empirically on ceftriaxone, and azithromycin Follow blood cultures Urine culture Lactic acid procalcitonin #CODE STATUS: Full code #DVT prophylaxis on heparin Attestations Medical Necessity Statement*: SHe needs to be in hospital for management of HANS hyperkalemia hyponatremia.Anticipated length of stay greater than 2 midnights Time Spent in Patient Care: Greater than 35 minutes (>than 50% of time spent in counselling and/or direct pt care on unit) . Critical Care Time: The high probability of a clinically significant, sudden or life threatening deterioration of the patient's [] system(s) required my full and direct attention, intervention and personal management. The critical care time is as shown. 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
--- NOTE | 2022-02-28 15:34 | PC.PHAR ---
pt unable to verify medications- could not reach contacts to verify. MEDICATIONS VERIFIED BY [facility]SA[facility] AT [facility].
[2022-02-28] MEDS: ipratropium-albuterol 3 mL Neb INHALATION ×2 (15:40→20:42)
[2022-02-28] MEDS: cefTRIAXone 1,000 MG in sodium chloride 0.9% (plus) 50 ML 100 MG IV (16:26)
[2022-02-28 16:41] LABS: Oxygen Device NEB MASK
[2022-02-28] MEDS: dextrose 5%-sod chloride 0.9% 1,000 ML 75 ML IV (16:46)
[2022-02-28] MEDS: azithromycin 500 MG in sodium chloride 0.9% 250 ML 250 MG IV (16:48)
[2022-02-28] MEDS: heparin 5,000 unit/mL INJ 1 mL 5000 UNIT SUBCUT (16:51)
[2022-02-28 18:04] LABS: Anion Gap 20.7 (5-19); Blood Urea Nitrogen 41 mg/dL (8-23); Calcium 8.5 mg/dL (8.5-10.5); Carbon Dioxide 19 mmol/L (22-29); Chloride 95 mmol/L (98-107); Glomerular Filtration Rate 15.5 mL/min (90-130); Glucose 45 mg/dL (65-115); Osmolality Calculated 277 mOsm/kg (285-295); Potassium 4.7 mmol/L (3.5-5.1); Sodium 130 mmol/L (136-145)
[2022-02-28] MEDS: ferrous sulfate EC 325 mg Tablet PO (18:09)
[2022-03-01] VITALS (83 sets, daily range): BP systolic 97–137; BP diastolic 53–75; PULSE 84–99; RESP 14–34; TEMP 36.4–36.9; O2SAT 92–100
[2022-03-01] MEDS: ipratropium-albuterol 3 mL Neb INHALATION ×7 (00:17→23:21)
[2022-03-01] MEDS: heparin 5,000 unit/mL INJ 1 mL 5000 UNIT SUBCUT ×2 (02:44→14:18)
[2022-03-01 05:22] LABS: Basophils # 0.1 10^3/uL (0.0-0.1); Basophils % 0.5 %; Eosinophils # 0.1 10^3/uL (0.0-0.8); Eosinophils % 0.6 %; Hematocrit 28.5 % (37.0-47.0); Hemoglobin 8.7 g/dL (11.5-15.3); Lymphocytes # 0.2 10^3/uL (0.8-4.8); Lymphocytes % 1.4 %; Mean Corpuscular HGB Conc 30.5 g/dL (30.0-36.0); Mean Corpuscular Hemoglobin 27.4 pg (28.0-34.0); Mean Corpuscular Volume 89.6 fl (81-99); Monocytes # 0.3 10^3/uL (0.2-0.9); Monocytes % 2.1 %; Neutrophils # 14.34 10^3/uL (1.8-7.7); Nucleated Red Blood Cells % 0 %; Platelet Count 199 10^3/cmm (130-400); Red Blood Count 3.18 10^6/uL (4.1-5.3); Red Cell Distribution Width 16.3 % (12.1-15.1); White Blood Count 15.3 10^3/uL (4.0-10.0)
[2022-03-01] MEDS: aspirin 81 mg EC Tablet PO (06:16)
[2022-03-01] MEDS: levothyroxine 125 mcg Tablet PO (06:16)
[2022-03-01] MEDS: dextrose 5%-sod chloride 0.9% 1,000 ML 75 ML IV ×2 (06:17→20:38)
[2022-03-01 06:19] LABS: Slide Review Slide Review Perform
[2022-03-01 06:33] LABS: Alanine Aminotransferase 13 U/L (0-33); Albumin Level 2.1 g/dL (3.5-5.2); Alkaline Phosphatase 182 IU/L (35-105); Blood Urea Nitrogen 43 mg/dL (8-23); Calcium 7.6 mg/dL (8.5-10.5); Carbon Dioxide 16 mmol/L (22-29); Chloride 97 mmol/L (98-107); Globulin 3.1 g/dL (1.3-4.6); Glomerular Filtration Rate 13.9 mL/min (90-130); Glucose 126 mg/dL (65-115); Osmolality Calculated 284 mOsm/kg (285-295); Phosphorus 4.1 mg/dL (2.5-4.5); Sodium 131 mmol/L (136-145); Total Bilirubin 0.2 mg/dL (0.15-1.2); Total Protein 5.2 g/dL (6.6-8.7)
[2022-03-01 06:44] LABS: Anion Gap 23.3 (5-19); Aspartate Amino Transferase 26 U/L (0-32); Potassium 5.3 mmol/L (3.5-5.1)
[2022-03-01 07:40] LABS: Glucose Point of Care 129 mg/dL (70-110)
[2022-03-01 08:17] LABS: Bacillus cereus group Not Detected (NOT DETECT); Bacillus subtillis group Not Detected (NOT DETECT); Corynebacterium Not Detected (NOT DETECT); Cutibacterium acnes (P.acnes) Not Detected (NOT DETECT); Enterococcus Not Detected (NOT DETECT); Enterococcus faecalis Not Detected (NOT DETECT); Enterococcus faecium Not Detected (NOT DETECT); Lactobacillus species Not Detected (NOT DETECT); Listeria Not Detected (NOT DETECT); Listeria monocytogenes Not Detected (NOT DETECT); Micrococcus Not Detected (NOT DETECT); Pan Candida Not Detected (NOT DETECT); Pan Gram-Negative Not Detected (NOT DETECT); Staphylococcus epidermidis Not Detected (NOT DETECT); Staphylococcus lugdunensis Not Detected (NOT DETECT); Staphylococcus species Detected (NOT DETECT); Streptococcus agalactiae Not Detected (NOT DETECT); Streptococcus anginosus group Not Detected (NOT DETECT); Streptococcus pneumoniae Not Detected (NOT DETECT); Streptococcus pyogenes Not Detected (NOT DETECT); Streptococcus species Not Detected (NOT DETECT); mecA Detected (NOT DETECT); mecC Not Detected (NOT DETECT)
[2022-03-01] MEDS: sodium polystyrene sulfonate 15 gm/60 mL Btl PO (08:49)
--- NOTE | 2022-03-01 10:31 | USCV_ITS ---
Gabby Garcia Age: 66 Gender: F : 1955 Exam Date: 03/01/2022 11:18 Ordering Phys: Shun Mars MD Technologist: Caterina Kapoor Exam Location: [facility] [place] Indication: SEPSIS MRSA BP: 112 / 67 HR: 91 Rhythm: Sinus Technical Quality: Adequate MEASUREMENTS (Male / Female) Normal Values 2D ECHO LV Diastolic Diameter PLAX 4.4 cm 4.2 - 5.9 / 3.9 - 5.3 cm LV Systolic Diameter PLAX 3.0 cm LV Chamber Size 4.1 cm IVS Diastolic Thickness 1.5 cm 0.6 - 1.0 / 0.6 - 0.9 cm IVS Systolic Thickness 1.6 cm LVPW Diastolic Thickness 1.3 cm 0.6 - 1.0 / 0.6 - 0.9 cm LVPW Systolic Thickness 1.5 cm RV Chamber Size 3.9 cm LVOT Diameter 2.0 cm LV Ejection Fraction 2D Teich 61.0 % LV Ejection Fraction MOD 2C 72.2 % LV Ejection Fraction 2C AL 71.9 % LA Diameter 2.6 cm LA Width 3.5 cm LA Height 4.8 cm RA Width 4.0 cm RA Height 4.7 cm Aorta at Sinotubular Diameter 2.1 cm DOPPLER AV Peak Velocity 168.0 cm/s LVOT Peak Velocity 77.0 cm/s AV Area Cont Eq vti 1.7 cm squared AV Area Cont Eq pk 1.5 cm squared MV Area PHT 6.9 cm squared Mitral E to A Ratio 0.8 MV E' Velocity 62.5 cm/s Mitral E to MV E' Ratio 8.7 Mitral E to LV E' Lateral Ratio 9.8 Mitral E to LV E' Septal Ratio 7.8 TR Peak Velocity 233.1 cm/s TR Peak Gradient 21.7 mmHg TR Mean Velocity 169.7 cm/s TR Mean Gradient 13.2 mmHg TR Velocity Time Integral 69.5 cm TV Peak E Velocity 84.0 cm/s PV Peak Velocity 73.0 cm/s RV Acceleration Time 0.1 s RV Ejection Time 0.3 s RV AcT/ET 0.3 FINDINGS Left Ventricle Normal left ventricular size, systolic function and mildly increased wall thickness, with no regional wall motion abnormalities. Left ventricular ejection fraction is estimated at 60 %. Grade II diastolic dysfunction, moderately elevated filling pressures. Abnormal septal motion consistent with conduction abnormality. Right Ventricle Normal right ventricular size and systolic function. Right ventricular systolic pressure 24 mmHg. Right Atrium Normal right atrial size. Right atrial pressure estimated at 3 mm Hg. Left Atrium Mildly increased left atrial size. Mitral Valve Mild mitral annular calcification. No mitral valve stenosis. Trace mitral valve regurgitation. Aortic Valve Mildly thickened and calcified trileaflet aortic valve. Trace aortic valve regurgitation. Tricuspid Valve Structurally normal tricuspid valve. No tricuspid valve stenosis. Trace to mild tricuspid valve regurgitation. Pulmonic Valve Structurally normal pulmonic valve. No pulmonary valve stenosis. Trace pulmonary valve regurgitation. Pericardium No pericardial effusion. Aorta Normal-sized aortic root. Normal-sized inferior vena cava. CONCLUSIONS 1. Normal left ventricular size, systolic function and mildly increased wall thickness, with no regional wall motion abnormalities. Left ventricular ejection fraction is estimated at 60 %. Grade II diastolic dysfunction, moderately elevated filling pressures. 2. Normal right ventricular size and systolic function. 3. Pulmonary artery pressure estimated at 24 mmHg. 4. When compared to prior echocardiogram dated 05/23/2021, there may not have been any significant change. 5. No evidence of valvular vegetation based on the study. SAW may be considered, clinical correlation is advised. Sandy Glynn MD (Electronically Signed) Final Date: 01 March 2022 18:18 S
--- NOTE | 2022-03-01 10:51 | PC.CHAP ---
Pastoral Care Encounter/Spiritual Assessment Type of Contact [] Declined checkroom chief visit [] Patient/Family/Request visit [] Outpatient visit [] Follow-up visit [] Physician referral [] Code/Alert [x] Routine visit [] Staff referral [] Actively dying [] Patient sleeping [] Family support [] [] Out of room [] Palliative care [] [] Receiving care in room [] Pre-surgical visit [] Trauma [] Long length of stay [x] ICU visit [] Other: Relational/Emotional Strength [] Patient feels connected with others/family/visitors/staff [] Distress [] Loneliness/isolation [] Abandonment Spirituality of Patient [] Person of Laya [] Attends Zoroastrianism of their Laya [] Believes in Prayer [] Reads Bible or Islam materials [] There are Spiritual issues to be addressed 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 Interventions [x] Prayer [] Active listening [] Non-anxious presence [] Spiritual/emotional support [] Crisis/trauma care [] Spiritual counseling [] Bereavement support [] Provided bereavement packet [] Provided Bible/devotional materials [] Provided toy/stuffed animal, coloring book to patient or family member [] Provided Communion [] Anointing/[place] [] Salvation [x] Completed spiritual assessment [] Other: Impact on Illness or Injury [] Angry [] Fearful [] Anxious [] Often cries [] Exhaustion [] Unable to work [] Unable to attend christian [] Unable to walk/stand [] Unable to read [] Unable to drive [] Unable to eat/drink [] Unable to sleep [] Unable to be with family [] Patient intubated [] Other: Summary Time spent with patient
[2022-03-01] MEDS: vancomycin 750 MG in sodium chloride 0.9% 250 ML 250 MG IV (11:02)
[2022-03-01 11:27] LABS: Glucose Point of Care 128 mg/dL (70-110)
--- NOTE | 2022-03-01 12:14 | US_ITS ---
WS: [id number] ULTRASOUND RENAL TECHNIQUE: Ultrasound examination of both kidneys. CLINICAL INFORMATION: HANS COMPARISON: None. FINDINGS: RIGHT: Right kidney is normal in size and appearance. Echogenicity: Normal. Cortical thickness: 1.3 cm; Normal. Hydronephrosis: None. Perinephric fluid: None. Right kidney measures: 10.0 cm x 4.2 cm x 5.1 cm. LEFT: Left kidney is normal in size and appearance. Echogenicity: Normal. Cortical thickness: 1.8 cm; Normal. Hydronephrosis: None. Perinephric fluid: None. Left kidney measures: 10.2 cm x 4.9 cm x 5.6 cm. Normal visualized aorta. Bladder not well distended. US/US renal BI* [id number] IMPRESSION: Normal renal ultrasound
[2022-03-01] MEDS: cefTRIAXone 1,000 MG in sodium chloride 0.9% (plus) 50 ML 100 MG IV (14:18)
[2022-03-01] MEDS: azithromycin 500 MG in sodium chloride 0.9% 250 ML 250 MG IV (15:03)
[2022-03-01 15:29] LABS: Glucose Point of Care 28 mg/dL (70-110)
[2022-03-01 15:29] LABS: Glucose Point of Care 102 mg/dL (70-110)
[2022-03-01 15:29] LABS: Glucose Point of Care 28 mg/dL (70-110)
[2022-03-01 15:29] LABS: Glucose Point of Care 134 mg/dL (70-110)
--- NOTE | 2022-03-01 16:26 | PC.NURSE ---
Report called to TEXTILES SALES REPRESENTATIVE on MedSurg. Patient transferred to room 271 via bed with the assistance of AARON Hendrix. Patient denied pain at this time, but did appear flushed denied SOB. AARON Carter reported to bedside at this time as well. This nurse showed AARON Carter patient's bed sores and addressed patient A&Ox4. Patient requested a glass of water and SPRAYER OPERATOR notified of patient's arrival to get current set of vitals, see V/S as documented.
--- NOTE | 2022-03-01 17:08 | P.PN_ITS ---
Subjective Subjective: Patient was seen and examined this morning, overnight she required Levophed, which has been stopped this morning, hypontremia is improving, serum creatinine initially improved and it has again risen up slightly. Documented 500 cc urine output. No fever overnight. Medications: Medication Review Details: The high probability of a clinically significant, sudden or life threatening deterioration of the patient's [] system(s) required my full and direct attention, intervention and personal management. The critical care time is as shown. This time is in addition to time spent performing any reported procedures but includes the following: [x] Data and vital sign review and interpretation [x] Patient assessment, examination and intervention [x] Documentation [x] Medication orders and management Vitals/I&O/Wt Last Vital Signs Temp 98.5 F 03/01/22 13:00 Pulse 94 03/01/22 15:45 Resp 24 H 03/01/22 15:45 BP 111/67 03/01/22 16:00 Pulse Ox 98 03/01/22 15:45 03/01/22 03/01/22 03/01/22 06:59 14:59 22:59 Intake Total 1075.692 / 1503.192 190.833 / 190.833 250 / 440.833 Output Total 375 / 525 Balance 700.692 / 978.192 190.833 / 190.833 250 / 440.833 Weight last 48 hrs Weight 50.349 kg Weight 50.349 kg Physical Exam Const: COMMON NORMALS: patient oriented x3 HENMT: COMMON NORMALS: normocephalic, atraumatic and external ears normal HEAD & SCALP: normocephalic and atraumatic EXTERNAL EAR: Yes external ears normal Eye: GENERAL EYE: appearance normal, both eyes and all related structures Chest: COMMONS NORMALS: normal inspection of the chest and normal palpation of entire chest wall CHEST: Yes Symmetrical chest wall rise Resp: COMMON NORMALS: normal respiratory effort and No retractions EFFORT & INSPECTION: Yes symmetric chest movement OTHER: Coarse breath sounds with bilateral rhonchi Cardio: COMMON NORMALS: regular rate, regular rhythm, S1 normal heart sound present, S2 normal heart sound present, No gallops present (Cardio), No murmurs present (Cardio), No rub (Cardio) and Peripheral pulses 2+ throughout RATE: regular rate RHYTHM: regular rhythm HEART SOUNDS: S1 normal heart sound present and S2 normal heart sound present PERIPHERAL PULSES: Peripheral pulses 2+ throughout GI: COMMON NORMALS: Normal to inspection, nondistended, normoactive bowel sounds present, Soft to palpation, non-tender, No hepatosplenomegaly present and no masses AUSCULTATION: Yes normoactive bowel sounds PALPATION: Yes Soft to palpation and Yes No hepatosplenomegaly present RECTAL EXAM: deferred Extremity: COMMON NORMALS: no clubbing, cyanosis or edema and no pedal edema Neuro: COMMON NORMALS: patient oriented x3 Data : 03/01/22 04:20 03/01/22 04:20 Micro: Microbiology 02/28/22 10:14 Blood Culture - Preliminary Blood Methicillin Resis Staph Aureus 02/28/22 10:12 Blood Culture - Preliminary Blood Methicillin Resis Staph Aureus A&P Assessment and plan (1) COPD exacerbation: Status: Acute (2) Hypertension: Status: Acute (3) Hypothyroidism: Status: Acute (4) Rheumatoid arthritis: Status: Acute (5) Hyperkalemia: Status: Acute (6) Acute kidney injury superimposed on CKD: Status: Acute Plan 66 year old female with past medical history of COPD not regularly on home oxygen, use oxygen as needed.chronic steroid use and immunocompromised status with rheumatoid arthritis, Covid, post Covid she has taken her 2 dose of Covid vaccine, hypertension, hypothyroidism, came in with chief complaint of?worsening shortness of breath, cough, generalized weakness, subjective fever, nausea, going on for the last couple of days, she also experienced fall at home after being dizzy, hit left side of her head on the stove as she fell. Assessment: #HANS : Likely secondary to acute hypotension, resulting in ATN , patient is on Lasix losartan, At home, came in with hypotension, as well as sepsis. Baseline serum creatinine: 0.6-1 Admission serum creatinine 3.4 Monitor BMP Random urine sodium Random urine creatinine Monitor intake output charting Avoid nephrotoxic Renal ultrasound:Normal renal ultrasound Continue IV hydration with D5 normal saline at 75 cc an hour Vasopressors are needed #Sepsis secondary to MRSA bacteremia. Blood culture positive for:12/21: MRSA Patient required Levophed Follow repeat blood culture 2D echo: Urine culture: Lactic acid : procalcitonin: Currently on vancomycin ,and ceftriaxone #Acute hyperkalemia: Likely secondary to HANS patient is also on potassium supplement at home. Received hyperkalemia routine medication in the ER Monitor serum potassium equipment monitor phototypesetting #Hypovolemic hyponatremia: Continue IV hydration with NS Urine electrolytes TSH Cortisol Urine osmolality Serum osmolality Lipid panel #COPD exacerbation Continue Solu-Medrol 60 mg IV twice daily DuoNebs Supplemental oxygen as needed Incentive spirometer / flutter valve #Increased anion gap metabolic acidosis: Likely secondary to HANS #Acute hypoglycemia: Unclear etiology, over simplification possible poor oral intake Continue D5 NS Monitor fingerstick glucose every 4 hours Currently has no signs of hypoglycemia #CODE STATUS: Full code #DVT prophylaxis on heparin Attestations Medical Necessity Statement*: Patient is to be in hospital management of sepsis, HANS, Time Spent in Patient Care: Greater than 35 minutes (>than 50% of time spent in counselling and/or direct pt care on unit) . 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
[2022-03-01] MEDS: FUROsemide 10 mg/mL SDV 2mL 20 MG IVP (17:57)
[2022-03-01] MEDS: ferrous sulfate EC 325 mg Tablet PO (17:59)
[2022-03-01 18:41] LABS: Creatinine Urine, Random 45 mg/dL (28-217); Urine Random Sodium 31 mmol/L
[2022-03-01 18:45] LABS: Add Urine Microscopic? YES; Bilirubin Urine Neg (Negative); Blood Urine 2+ (Negative); Glucose Urine UA Norm (Normal); Ketones Urine Negative (Negative); Leukocyte Esterase Urine Negative (Negative); Nitrate Urine Negative (Negative); Protein Urine Neg (Negative); Specific Gravity, Urine 1.015 (1.005-1.030); Urine Appearance Clear (CLEAR); Urine Color Yellow (Yellow); Urobilinogen Urine Norm (Negative); pH Urine 5 (5-7)
[2022-03-01 18:49] LABS: Add Urine Culture? No; Bacteria Urine 2+ /hpf; Renal Epithelial Cells Urine 0-4 /hpf; Squamous Epithelial Cell Urine 15-25 /hpf (0-5)
[2022-03-02] VITALS (14 sets, daily range): BP systolic 128–178; BP diastolic 8–94; PULSE 71–108; RESP 16–18; TEMP 36.4–36.7; O2SAT 96–99
[2022-03-02] MEDS: ipratropium-albuterol 3 mL Neb INHALATION ×5 (03:01→22:11)
[2022-03-02] MEDS: heparin 5,000 unit/mL INJ 1 mL 5000 UNIT SUBCUT ×2 (04:17→16:24)
[2022-03-02 05:48] LABS: Basophils % 0.2 %; Hematocrit 24.6 % (37.0-47.0); Hemoglobin 7.2 g/dL (11.5-15.3); Lymphocytes # 0.3 10^3/uL (0.8-4.8); Lymphocytes % 2.1 %; Mean Corpuscular HGB Conc 29.3 g/dL (30.0-36.0); Mean Corpuscular Volume 92.1 fl (81-99); Mean Platelet Volume 10.4 fL (7.4-10.4); Monocytes # 0.5 10^3/uL (0.2-0.9); Monocytes % 4.2 %; Neutrophils % 92.1 %; Nucleated Red Blood Cells % 0 %; Platelet Count 196 10^3/cmm (130-400); Red Blood Count 2.67 10^6/uL (4.1-5.3); Red Cell Distribution Width 16.6 % (12.1-15.1); White Blood Count 12.4 10^3/uL (4.0-10.0)
[2022-03-02] MEDS: levothyroxine 125 mcg Tablet PO (05:56)
[2022-03-02] MEDS: aspirin 81 mg EC Tablet PO (05:56)
[2022-03-02 06:06] LABS: Slide Review Slide Review Perform
[2022-03-02 06:14] LABS: Anion Gap 16.6 (5-19); Blood Urea Nitrogen 40 mg/dL (8-23); Calcium 6.7 mg/dL (8.5-10.5); Carbon Dioxide 19 mmol/L (22-29); Chloride 104 mmol/L (98-107); Glomerular Filtration Rate 15.5 mL/min (90-130); Glucose 124 mg/dL (65-115); Osmolality Calculated 293 mOsm/kg (285-295); Potassium 3.6 mmol/L (3.5-5.1); Sodium 136 mmol/L (136-145)
[2022-03-02 06:15] LABS: Procalcitonin 1.33 ng/mL (0-0.5)
[2022-03-02 07:55] LABS: Lactic Sepsis W/Reflex 0.7 mmol/L (0.5-2.2)
[2022-03-02] MEDS: dextrose 5%-sod chloride 0.9% 1,000 ML 75 ML IV (10:03)
[2022-03-02] MEDS: FUROsemide 10 mg/mL SDV 2mL 20 MG IVP (11:21)
--- NOTE | 2022-03-02 15:05 | P.PN_ITS ---
Subjective Subjective: Patient was seen and examined this morning, was complaining of shortness of breath, bilateral crackles in both lung medrano, will discontinue IV fluids, give Lasix 20 one-time dose IV, serum creatinine has slightly trended down, no fever overnight, hypornatremia has resolved , hyperkalemia resolved. Medications: Medication Review Details: Generic Name Dose Route Start Last Admin Trade Name Edyq PRN Reason Stop Dose Admin Albuterol/Ipratrop ium 3 ml 02/28/22 20:00 03/02/22 11:45 Ipratropium-Albu terol 3 Ml Neb INHALATION 3 ml Q4H.RESPIRATORY S CH Administration Aspirin 81 mg 03/01/22 06:00 03/02/22 05:56 Aspirin 81 Mg Ec Tablet PO 81 mg QAM BYRON Administration Ferrous Sulfate 325 mg 02/28/22 18:00 03/01/22 17:59 Ferrous Sulfate Ec 325 Mg Tablet PO 325 mg DAILY@18 BYRON Administration Heparin Sodium (Po rcine) 5,000 unit 02/28/22 15:15 03/02/22 04:17 Heparin 5,000 Un it/Ml Inj 1 Ml SUBCUT 5,000 unit Q12H BYRON Administration Ceftriaxone Sodium 1,000 mg/ 50 mls @ 100 mls/ hr 02/28/22 15:15 03/01/22 14:48 Sodium Chloride IV Infused Q24H BYRON Infusion Protocol Vancomycin HCl 750 mg/ Sodium 250 mls @ 250 mls /hr 03/01/22 11:00 03/01/22 11:07 Chloride IV Infused Q48H BYRON Infusion Protocol Levothyroxine Sodi um 125 mcg 03/01/22 06:00 03/02/22 05:56 Levothyroxine 12 5 Mcg Tablet PO 125 mcg QAM BYRON Administration Methylprednisolone Sodium Succinate 60 mg 02/28/22 18:00 03/02/22 08:22 Methylprednisolo ne Sod Succ 125 Mg /2 Ml Inj IVP 60 mg BID BYRON Administration Vitals/I&O/Wt Last Vital Signs Temp 98.0 F 03/02/22 12:00 Pulse 107 H 03/02/22 12:00 Resp 18 03/02/22 12:00 BP 168/94 03/02/22 12:00 Pulse Ox 97 03/02/22 12:00 04/16/22 04/16/22 04/16/22 06:59 14:59 22:59 Intake Total 1050 / 1050 Output Total 550 / 630 Balance -550 / 764.047 0355 / 1050 Weight last 48 hrs Weight 50.349 kg Physical Exam Const: COMMON NORMALS: patient oriented x3 HENMT: COMMON NORMALS: normocephalic, atraumatic and external ears normal HEAD & SCALP: normocephalic and atraumatic EXTERNAL EAR: Yes external ears normal Eye: GENERAL EYE: appearance normal, both eyes and all related structures Chest: COMMONS NORMALS: normal inspection of the chest and normal palpation of entire chest wall CHEST: Yes Symmetrical chest wall rise Resp: COMMON NORMALS: normal respiratory effort and No retractions EFFORT & INSPECTION: Yes symmetric chest movement OTHER: Bilateral crackles in both the lungs medrano Cardio: COMMON NORMALS: regular rate, regular rhythm, S1 normal heart sound present, S2 normal heart sound present, No gallops present (Cardio), No murmurs present (Cardio), No rub (Cardio) and Peripheral pulses 2+ throughout RATE: regular rate RHYTHM: regular rhythm HEART SOUNDS: S1 normal heart sound present and S2 normal heart sound present PERIPHERAL PULSES: Peripheral pulses 2+ throughout GI: COMMON NORMALS: Normal to inspection, nondistended, normoactive bowel sounds present, Soft to palpation, non-tender, No hepatosplenomegaly present and no masses AUSCULTATION: Yes normoactive bowel sounds PALPATION: Yes Soft to palpation and Yes No hepatosplenomegaly present RECTAL EXAM: deferred Extremity: COMMON NORMALS: no clubbing, cyanosis or edema and no pedal edema Neuro: COMMON NORMALS: patient oriented x3 Urinary Catheter Management: Vora: Cath Placed During This Visit: yes Reason for Continuing Indwelling Catheter: Other Urinary Catheter Date of Insertion: 03/01/22 Urinary Catheter Time of Insertion: 18:14 Data : 03/02/22 04:54 03/02/22 04:54 Micro: Microbiology 03/02/22 04:50 Blood Culture - Preliminary Blood SPECIMEN COLLECTED 03/02/22 04:54 Blood Culture - Preliminary Blood SPECIMEN COLLECTED A&P Assessment and plan (1) COPD exacerbation: Status: Acute (2) Hypertension: Status: Acute (3) Hypothyroidism: Status: Acute (4) Rheumatoid arthritis: Status: Acute (5) Hyperkalemia: Status: Acute (6) Acute kidney injury superimposed on CKD: Status: Acute Plan 66 year old female with past medical history of COPD not regularly on home oxygen, use oxygen as needed.chronic steroid use and immunocompromised status w ith rheumatoid arthritis, Covid, post Covid she has taken her 2 dose of Covid vaccine, hypertension, hypothyroidism, came in with chief complaint of?worsening shortness of breath, cough, generalized weakness, subjective fever, nausea, going on for the last couple of days, she also experienced fall at home after being dizzy, hit left side of her head on the stove as she fell. Assessment: #HANS : Likely secondary to acute hypotension, resulting in ATN , patient is on Lasix losartan, At home, came in with hypotension, as well as sepsis. Baseline serum creatinine: 0.6-1 Admission serum creatinine 3.4 Monitor BMP Random urine sodium: 31 Random urine creatinine: 45 FENA Is consistent with: 1.7 %) intrinsic ( ATN , AIN , GN ) Urinalysis: 10-15 WBC/HPF, urine RBC: 10-15/HPF , no amorphous sediments, urine 2+ bacteria Monitor intake output charting Avoid nephrotoxic Renal ultrasound:Normal renal ultrasound Was on IV hydration with D5 normal saline at 75 cc an hour Vasopressors are needed #Sepsis secondary to MRSA bacteremia. Blood culture positive for:12/21: MRSA Patient required Levophed Follow repeat blood culture 2D echo: Normal LV size and systolic function mildly increased wall thickness,no RWMA, estimated EF 60% grade 2 diastolic dysfunction, moderately elevated filling pressures, normal RV size and systolic function. No valvular vegetation. Urine culture: Lactic acid : procalcitonin:1.33 (difficult interpret in the presence of HANS ) Currently on vancomycin ,and ceftriaxone #Acute hyperkalemia: Likely secondary to HANS patient is also on potassium supplement at home. Received hyperkalemia routine medication in the ER Monitor serum potassium supervisor carding #Hypovolemic hyponatremia: Was on IV hydration with NS Urine electrolytes TSH Cortisol Urine osmolality Serum osmolality Lipid panel #COPD exacerbation Continue Solu-Medrol 60 mg IV twice daily DuoNebs Supplemental oxygen as needed Incentive spirometer / flutter valve #Increased anion gap metabolic acidosis: Likely secondary to HANS #Acute hypoglycemia: Unclear etiology, over simplification possible poor oral intake Continue D5 NS Monitor fingerstick glucose every 4 hours Currently has no signs of hypoglycemia #CODE STATUS: Full code #DVT prophylaxis on heparin Attestations Medical Necessity Statement*: Patient is still in hospital management of sepsis, HANS. Time Spent in Patient Care: Greater than 35 minutes (>than 50% of time spent in counselling and/or direct pt care on unit) . Coding Level of Care Code Acute [employer] Manager for g Fwd Exam Comprehensive Diagnoses COPD exacerbation J44.1 Hypertension I10 Hypothyroidism E03.9 Rheumatoid arthritis M06.9 Hyperkalemia E87.5 Acute kidney injury superimposed on CKD N17.9; N18.9
[2022-03-02] MEDS: amlodipine 5 mg Tablet PO (16:24)
[2022-03-02] MEDS: sodium bicarbonate 650 mg Tablet 1300 MG PO ×2 (16:24→20:29)
[2022-03-02] MEDS: cefTRIAXone 1,000 MG in sodium chloride 0.9% (plus) 50 ML 100 MG IV (16:25)
[2022-03-02] MEDS: ferrous sulfate EC 325 mg Tablet PO (18:50)
[2022-03-03] VITALS (20 sets, daily range): BP systolic 163–183; BP diastolic 73–93; PULSE 100–109; RESP 16–18; TEMP 36.4–36.8; O2SAT 98–100
[2022-03-03] MEDS: ipratropium-albuterol 3 mL Neb INHALATION ×7 (01:30→23:36)
[2022-03-03] MEDS: heparin 5,000 unit/mL INJ 1 mL 5000 UNIT SUBCUT ×2 (04:03→15:58)
[2022-03-03] MEDS: aspirin 81 mg EC Tablet PO (05:25)
[2022-03-03] MEDS: levothyroxine 125 mcg Tablet PO (05:25)
[2022-03-03 05:34] LABS: Basophils % 0.1 %; Hematocrit 27.1 % (37.0-47.0); Hemoglobin 8.1 g/dL (11.5-15.3); Lymphocytes # 0.3 10^3/uL (0.8-4.8); Lymphocytes % 3.3 %; Mean Corpuscular HGB Conc 29.9 g/dL (30.0-36.0); Mean Corpuscular Hemoglobin 27.1 pg (28.0-34.0); Mean Corpuscular Volume 90.6 fl (81-99); Mean Platelet Volume 10.2 fL (7.4-10.4); Monocytes # 0.4 10^3/uL (0.2-0.9); Monocytes % 5.5 %; Neutrophils # 6.81 10^3/uL (1.8-7.7); Neutrophils % 89.7 %; Nucleated Red Blood Cells % 0 %; Platelet Count 190 10^3/cmm (130-400); Red Blood Count 2.99 10^6/uL (4.1-5.3); Red Cell Distribution Width 16.6 % (12.1-15.1); White Blood Count 7.6 10^3/uL (4.0-10.0)
[2022-03-03 05:50] LABS: Blood Urea Nitrogen 45 mg/dL (8-23); Calcium 7.7 mg/dL (8.5-10.5); Carbon Dioxide 23 mmol/L (22-29); Chloride 105 mmol/L (98-107); Glomerular Filtration Rate 16.8 mL/min (90-130); Glucose 113 mg/dL (65-115); Osmolality Calculated 304 mOsm/kg (285-295); Sodium 141 mmol/L (136-145)
[2022-03-03 06:04] LABS: Slide Review Slide Review Perform
--- NOTE | 2022-03-03 06:52 | PM.PN ---
Subjective Subjective: Patient was seen and examined this morning, states that the weakness has improved, working with physical therapy, good urine output overnight, serum creatinine has improved slightly. Has been afebrile, blood pressure is above the goal. Medications: Medication Review Details: Generic Name Dose Route Start Last Admin Trade Name Tal PRN Reason Stop Dose Admin Albuterol/Ipratrop ium 3 ml 02/28/22 20:00 03/02/22 11:45 Ipratropium-Albu terol 3 Ml Neb INHALATION 3 ml Q4H.RESPIRATORY S CH Administration Aspirin 81 mg 03/01/22 06:00 03/02/22 05:56 Aspirin 81 Mg Ec Tablet PO 81 mg QAM BYRON Administration Ferrous Sulfate 325 mg 02/28/22 18:00 03/01/22 17:59 Ferrous Sulfate Ec 325 Mg Tablet PO 325 mg DAILY@18 BYRON Administration Heparin Sodium (Po rcine) 5,000 unit 02/28/22 15:15 03/02/22 04:17 Heparin 5,000 Un it/Ml Inj 1 Ml SUBCUT 5,000 unit Q12H BYRON Administration Ceftriaxone Sodium 1,000 mg/ 50 mls @ 100 mls/ hr 02/28/22 15:15 03/01/22 14:48 Sodium Chloride IV Infused Q24H BYRON Infusion Protocol Vancomycin HCl 750 mg/ Sodium 250 mls @ 250 mls /hr 03/01/22 11:00 03/01/22 11:07 Chloride IV Infused Q48H BYRON Infusion Protocol Levothyroxine Sodi um 125 mcg 03/01/22 06:00 03/02/22 05:56 Levothyroxine 12 5 Mcg Tablet PO 125 mcg QAM BYRON Administration Methylprednisolone Sodium Succinate 60 mg 02/28/22 18:00 03/02/22 08:22 Methylprednisolo ne Sod Succ 125 Mg /2 Ml Inj IVP 60 mg BID BYRON Administration Vitals/I&O/Wt Last Vital Signs Temp 98.1 F 03/03/22 04:00 Pulse 102 H 03/03/22 05:55 Resp 16 03/03/22 04:00 BP 163/81 03/03/22 05:15 Pulse Ox 100 03/03/22 04:00 03/02/22 03/02/22 03/03/22 14:59 22:59 06:59 Intake Total 1170 / 1170 150 / 1320 100 / 1420 Output Total 1100 / 1100 500 / 1600 Balance 1170 / 1170 -950 / 220 -400 / -180 Physical Exam Const: COMMON NORMALS: patient oriented x3 HENMT: COMMON NORMALS: normocephalic, atraumatic and external ears normal HEAD & SCALP: normocephalic and atraumatic EXTERNAL EAR: Yes external ears normal Eye: GENERAL EYE: appearance normal, both eyes and all related structures Chest: COMMONS NORMALS: normal inspection of the chest and normal palpation of entire chest wall CHEST: Yes Symmetrical chest wall rise Resp: COMMON NORMALS: normal respiratory effort and No retractions EFFORT & INSPECTION: Yes symmetric chest movement OTHER: Bilateral crackles in both the lungs medrano Cardio: COMMON NORMALS: regular rate, regular rhythm, S1 normal heart sound present, S2 normal heart sound present, No gallops present (Cardio), No murmurs present (Cardio), No rub (Cardio) and Peripheral pulses 2+ throughout RATE: regular rate RHYTHM: regular rhythm HEART SOUNDS: S1 normal heart sound present and S2 normal heart sound present PERIPHERAL PULSES: Peripheral pulses 2+ throughout GI: COMMON NORMALS: Normal to inspection, nondistended, normoactive bowel sounds present, Soft to palpation, non-tender, No hepatosplenomegaly present and no masses AUSCULTATION: Yes normoactive bowel sounds PALPATION: Yes Soft to palpation and Yes No hepatosplenomegaly present RECTAL EXAM: deferred : COMMON NORMALS: Yes no CVA tenderness BLADDER/KIDNEY EXAM: Yes no CVA tenderness Back/Pelvis: COMMON NORMALS: no CVA tenderness Extremity: COMMON NORMALS: no clubbing, cyanosis or edema and no pedal edema Neuro: COMMON NORMALS: patient oriented x3 Urinary Catheter Management: Vora: Cath Placed During This Visit: yes Reason for Continuing Indwelling Catheter: Other Urinary Catheter Date of Insertion: 03/01/22 Urinary Catheter Time of Insertion: 18:14 Data : 03/03/22 04:45 03/03/22 04:45 Micro: Microbiology 03/02/22 04:50 Blood Culture - Preliminary Blood 03/02/22 04:54 Blood Culture - Preliminary Blood NEGATIVE TO DATE A&P Assessment and plan (1) COPD exacerbation: Status: Acute (2) Hypertension: Status: Acute (3) Hypothyroidism: Status: Acute (4) Rheumatoid arthritis: Status: Acute (5) Hyperkalemia: Status: Acute (6) Acute kidney injury superimposed on CKD: Status: Acute Plan 66 year old female with past medical history of COPD not regularly on home oxygen, use oxygen as needed.chronic steroid use and immunocompromised status with rheumatoid arthritis, Covid, post Covid she has taken her 2 dose of Covid vaccine, hypertension, hypothyroidism, came in with chief complaint of?worsening shortness of breath, cough, generalized weakness, subjective fever, nausea, going on for the last couple of days, she also experienced fall at home after being dizzy, hit left side of her head on the stove as she fell. Assessment: #HANS : Likely secondary to acute hypotension, resulting in ATN , patient is on Lasix losartan, At home, came in with hypotension, as well as sepsis. Baseline serum creatinine: 0.6-1 Admission serum creatinine 3.4 Monitor BMP Random urine sodium: 31 Random urine creatinine: 45 FENA Is consistent with: 1.7 %) intrinsic ( ATN , AIN , GN ) Urinalysis: 10-15 WBC/HPF, urine RBC: 10-15/HPF , no amorphous sediments, urine 2+ bacteria Monitor intake output charting Avoid nephrotoxic Renal ultrasound:Normal renal ultrasound Was on IV hydration with D5 normal saline at 75 cc an hour Vasopressors are needed Possible renal consult #Sepsis secondary to MRSA bacteremia ,PNA CT chest without contrast: Complete collapse of the left lower lobe with air bronchograms.[id number] bilateral upper lobe pneumonia with mild right lower lobe pneumonia. 2D echo: Normal LV size and systolic function mildly increased wall thickness,no RWMA, estimated EF 60% grade 2 diastolic dysfunction, moderately elevated filling pressures, normal RV size and systolic function. No valvular vegetation. Blood culture positive for:12/21: MRSA ( 02/28 ) Repeat blood culture : 2/3 (MRSA ) ( 03/03) Follow repeat blood culture : Urine culture: Lactic acid : procalcitonin:1.33 (difficult interpret in the presence of HANS ) Currently on vancomycin ,and ceftriaxone Off Levophed Cardiology on board for possible SAW #Acute hyperkalemia: Likely secondary to HANS patient is also on potassium supplement at home. 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 #Hypovolemic hyponatremia: Was on IV hydration with NS Urine electrolytes TSH Cortisol Urine osmolality Serum osmolality Lipid panel #COPD exacerbation Continue Solu-Medrol 60 mg IV twice daily DuoNebs Supplemental oxygen as needed Incentive spirometer / flutter valve #Increased anion gap metabolic acidosis: Likely secondary to HANS #Acute hypoglycemia: Unclear etiology, over simplification possible poor oral intake Continue D5 NS Monitor fingerstick glucose every 4 hours Currently has no signs of hypoglycemia #CODE STATUS: Full code #DVT prophylaxis on heparin Attestations Medical Necessity Statement*: Patient is to be in hospital for management of sepsis. Time Spent in Patient Care: Greater than 35 minutes (>than 50% of time spent in counselling and/or direct pt care on unit). Coding Level of Care Code Acute Clinical Rehab Specialist for Chg Fwd Exam Comprehensive Diagnoses COPD exacerbation J44.1 Hypertension I10 Hypothyroidism E03.9 Rheumatoid arthritis M06.9 Hyperkalemia E87.5 Acute kidney injury superimposed on CKD N17.9; N18.9
[2022-03-03 08:13] LABS: Bacillus cereus group Not Detected (NOT DETECT); Bacillus subtillis group Not Detected (NOT DETECT); Corynebacterium Not Detected (NOT DETECT); Cutibacterium acnes (P.acnes) Not Detected (NOT DETECT); Enterococcus Not Detected (NOT DETECT); Enterococcus faecalis Not Detected (NOT DETECT); Enterococcus faecium Not Detected (NOT DETECT); Lactobacillus species Not Detected (NOT DETECT); Listeria Not Detected (NOT DETECT); Listeria monocytogenes Not Detected (NOT DETECT); Micrococcus Not Detected (NOT DETECT); Pan Candida Not Detected (NOT DETECT); Pan Gram-Negative Not Detected (NOT DETECT); Staphylococcus epidermidis Not Detected (NOT DETECT); Staphylococcus lugdunensis Not Detected (NOT DETECT); Staphylococcus species Detected (NOT DETECT); Streptococcus agalactiae Not Detected (NOT DETECT); Streptococcus anginosus group Not Detected (NOT DETECT); Streptococcus pneumoniae Not Detected (NOT DETECT); Streptococcus pyogenes Not Detected (NOT DETECT); Streptococcus species Not Detected (NOT DETECT); mecA Detected (NOT DETECT); mecC Not Detected (NOT DETECT)
[2022-03-03] MEDS: sodium bicarbonate 650 mg Tablet 1300 MG PO ×3 (08:14→20:42)
[2022-03-03] MEDS: amlodipine 5 mg Tablet PO (08:14)
[2022-03-03] MEDS: vancomycin 750 MG in sodium chloride 0.9% 250 ML 250 MG IV (10:59)
[2022-03-03] MEDS: FUROsemide 20 mg Tablet PO (12:03)
--- NOTE | 2022-03-03 12:53 | PC.SOCIAL ---
Pg 2 IMM Explained to pt Pg 2 IMM. No questions voiced. Provided pt a copy. Initialed, dated, & timed a copy & placed in chart.
[2022-03-03] MEDS: cefTRIAXone 1,000 MG in sodium chloride 0.9% (plus) 50 ML 100 MG IV (15:28)
--- NOTE | 2022-03-03 15:31 | CTR_ITS ---
PROCEDURE INFORMATION: Exam: CT Chest Without Contrast; Diagnostic Exam date and time: 03/03/2022 4:34 PM Age: 66 years old Clinical indication: Fever; Prior surgery; Surgery date: 6+ months; Surgery type: Esophagus as child; Patient HX: Sepsis w MRSA; Additional info: Sepsis, MRSA TECHNIQUE: Imaging protocol: Diagnostic computed tomography of the chest without contrast. Radiation optimization: All CT scans at this facility use at least one of these dose optimization techniques: automated exposure control; mA and/or kV adjustment per patient size (includes targeted exams where dose is matched to clinical indication); or iterative reconstruction. COMPARISON: CT chest con [id number] 10/01/2021 9:10 PM RADIATION DOSE METRICS: Total DLP (mGy-cm): 320.04 FINDINGS: Lungs: Complete collapse of the left lower lobe with air bronchograms. [id number] bilateral upper lobe pneumonia with mild right lower lobe pneumonia. Pleural spaces: Small right pleural fluid collection. Heart: Moderate calcified coronary artery disease. Mediastinal space: Partial esophagectomy with gastric pull-through. Lymph nodes: Calcified left hilar nodes and/or mediastinal nodes and/or lung granulomas consistent with old granulomatous disease. Aorta: Calcification of the thoracic aorta and/or great vessels consistent with atherosclerotic vessel disease. Calcification of the abdominal aorta and/or iliac arteries consistent with atherosclerotic vessel disease. Liver: Calcified hepatic granulomas. Spleen: Calcified splenic granulomas. Kidneys and ureters: One or more nonobstructing left renal calyceal stones. Bones/joints: Mild thoracic spondylosis. Soft tissues: Unremarkable. CT/CT chest con [id number] IMPRESSION: 1. Small right pleural fluid collection. 2. Partial esophagectomy with gastric pull-through. 3. Moderate calcified coronary artery disease. 4. Complete collapse of the left lower lobe with air bronchograms. 5. [id number] bilateral upper lobe pneumonia with mild right lower lobe pneumonia.
[2022-03-03] MEDS: ferrous sulfate EC 325 mg Tablet PO (17:35)
[2022-03-03] MEDS: lidocaine 1% 5 ML in potassium chloride premix 100 ML 50 ML IV (18:34)
[2022-03-04] VITALS (22 sets, daily range): BP systolic 108–186; BP diastolic 72–113; PULSE 66–120; RESP 16–117; TEMP 36.4–37; O2SAT 98–100
[2022-03-04] MEDS: ipratropium-albuterol 3 mL Neb INHALATION ×5 (04:09→19:56)
[2022-03-04] MEDS: heparin 5,000 unit/mL INJ 1 mL 5000 UNIT SUBCUT ×2 (04:33→15:22)
[2022-03-04 04:56] LABS: Basophils % 0.1 %; Hematocrit 23.8 % (37.0-47.0); Hemoglobin 7.3 g/dL (11.5-15.3); Lymphocytes # 0.2 10^3/uL (0.8-4.8); Lymphocytes % 3.3 %; Mean Corpuscular HGB Conc 30.7 g/dL (30.0-36.0); Mean Corpuscular Hemoglobin 27.3 pg (28.0-34.0); Mean Corpuscular Volume 89.1 fl (81-99); Mean Platelet Volume 10.1 fL (7.4-10.4); Monocytes # 0.5 10^3/uL (0.2-0.9); Monocytes % 7.3 %; Neutrophils # 5.89 10^3/uL (1.8-7.7); Neutrophils % 87.2 %; Nucleated Red Blood Cells % 0 %; Platelet Count 115 10^3/cmm (130-400); Red Blood Count 2.67 10^6/uL (4.1-5.3); Red Cell Distribution Width 16.9 % (12.1-15.1); White Blood Count 6.8 10^3/uL (4.0-10.0)
[2022-03-04 05:09] LABS: Blood Urea Nitrogen 57 mg/dL (8-23); Calcium 8.7 mg/dL (8.5-10.5); Carbon Dioxide 23 mmol/L (22-29); Chloride 101 mmol/L (98-107); Glomerular Filtration Rate 19.2 mL/min (90-130); Glucose 132 mg/dL (65-115); Osmolality Calculated 300 mOsm/kg (285-295); Sodium 136 mmol/L (136-145)
[2022-03-04 05:12] LABS: Anion Gap 15.4 (5-19); Potassium 3.4 mmol/L (3.5-5.1)
[2022-03-04] MEDS: aspirin 81 mg EC Tablet PO (06:09)
[2022-03-04] MEDS: levothyroxine 125 mcg Tablet PO (06:09)
--- NOTE | 2022-03-04 07:23 | PC.NURSE ---
Report received from Emma WALKER at this time.
--- NOTE | 2022-03-04 08:00 | CTR_ITS ---
PROCEDURE INFORMATION: Exam: CT Abdomen And Pelvis Without Contrast Exam date and time: 03/04/2022 8:58 AM Age: 66 years old Clinical indication: Nausea; Prior surgery; Surgery type: Gastric surgery, tubal; Additional info: Sepsis TECHNIQUE: Imaging protocol: Computed tomography of the abdomen and pelvis without contrast. Radiation optimization: All CT scans at this facility use at least one of these dose optimization techniques: automated exposure control; mA and/or kV adjustment per patient size (includes targeted exams where dose is matched to clinical indication); or iterative reconstruction. COMPARISON: CT chest wo con [id number] 03/03/2022 4:34 PM RADIATION DOSE METRICS: Total DLP (mGy-cm): 1093.43 FINDINGS: Lungs: There is left lower lobe consolidation and volume loss. Scattered multifocal bilateral ground-glass opacities in both lung bases. Prior pulmonary granulomatous disease. Pleural spaces: Small bilateral pleural effusions. Heart: Calcified coronary artery atherosclerotic plaque visualized. Diaphragm: Elevated left hemidiaphragm. Liver: Multiple calcified granulomas in the liver. Gallbladder and bile ducts: No calcified gallstones. Suspect gallbladder wall thickening with pericholecystic fluid. Pancreas: No pancreatic enlargement, peripancreatic inflammation, or ductal dilation. Spleen: Multiple calcified granulomas in the spleen. Adrenal glands: No mass. Kidneys and ureters: Bilateral perirenal edema. Left nephrolithiasis. No hydronephrosis. Stomach and bowel: Prior gastric pull-through procedure. There is gastrointestinal contrast in the stomach and small bowel. No bowel obstruction, colitis or diverticulitis. Appendix: No evidence of appendicitis. Intraperitoneal space: No ascites or pneumoperitoneum. Arteries: No abdominal aortic aneurysm. Lymph nodes: No pathologically enlarged lymph nodes. Urinary bladder: The urinary bladder is decompressed with a Vora catheter. Reproductive: 2.8 cm left ovarian cyst. Bones/joints: Multilevel disc degeneration and facet arthropathy in the lumbar spine and lower thoracic spine. Soft tissues: Bilateral subcutaneous body wall edema. CT/CT abdomen pelvis wo con [id number] IMPRESSION: 1. No calcified gallstones, but there are signs that might indicate acute cholecystitis, in the correct clinical setting. 2. Left nephrolithiasis without urinary tract obstruction.
[2022-03-04] MEDS: amlodipine 10 mg Tablet PO (08:12)
[2022-03-04] MEDS: sodium bicarbonate 650 mg Tablet 1300 MG PO (08:13)
--- NOTE | 2022-03-04 09:09 | PC.NURSE ---
Patient returned from CT at this time.
[2022-03-04] MEDS: iohexol 300 mg/mL 50 mL Btl PO (09:11)
[2022-03-04] MEDS: hyDRALAzine 25 mg Tablet PO (15:22)
[2022-03-04 15:40] LABS: Vancomycin Random 15.3 ug/mL (20.0-40.0)
[2022-03-04 15:51] LABS: Thyroid Stimulating Hormone 0.35 uIU/mL (0.27-4.20)
[2022-03-04 15:52] LABS: Procalcitonin 0.61 ng/mL (0-0.5)
[2022-03-04 16:03] LABS: Iron 102 ug/dL (37-145)
--- NOTE | 2022-03-04 16:16 | PM.PN ---
Subjective Subjective: Hospital course, labs appreciated. On examination patient sitting on bedside commode. Able to complete conversation. Denies any nausea vomiting, headache. States she has been having recurrent pneumonias since late July. Was getting stronger and able to ambulate without walker till around 2 weeks ago when she started feeling weak again. Denies any more difficulty breathing than usual. States urine output has been decreasing for the last couple of weeks as well. States for last 3 weeks she has been having pressure ulcer at the base of heels and wound on the right knee. Vitals/I&O/Wt Last Vital Signs Temp 97.9 F 03/04/22 16:03 Pulse 120 H 03/04/22 16:03 Resp 16 03/04/22 16:03 BP 108/86 03/04/22 16:03 Pulse Ox 98 03/04/22 16:03 03/04/22 03/04/22 03/04/22 06:59 14:59 22:59 Intake Total 60 / 1435 710 / 710 200 / 910 Output Total 1200 / 1200 Balance -1140 / 235 710 / 710 200 / 910 Physical Exam Const: COMMON NORMALS: patient oriented x3 HENMT: COMMON NORMALS: normocephalic, atraumatic and external ears normal HEAD & SCALP: normocephalic and atraumatic EXTERNAL EAR: Yes external ears normal Eye: GENERAL EYE: appearance normal, both eyes and all related structures Chest: COMMONS NORMALS: normal inspection of the chest and normal palpation of entire chest wall CHEST: Yes Symmetrical chest wall rise Resp: COMMON NORMALS: normal respiratory effort and No retractions EFFORT & INSPECTION: Yes symmetric chest movement OTHER: Bilateral crackles in both the lungs medrano Cardio: COMMON NORMALS: regular rate, regular rhythm, S1 normal heart sound present, S2 normal heart sound present, No gallops present (Cardio), No murmurs present (Cardio), No rub (Cardio) and Peripheral pulses 2+ throughout RATE: regular rate RHYTHM: regular rhythm HEART SOUNDS: S1 normal heart sound present and S2 normal heart sound present PERIPHERAL PULSES: Peripheral pulses 2+ throughout GI: COMMON NORMALS: Normal to inspection, nondistended, normoactive bowel sounds present, Soft to palpation, non-tender, No hepatosplenomegaly present and no masses AUSCULTATION: Yes normoactive bowel sounds PALPATION: Yes Soft to palpation and Yes No hepatosplenomegaly present RECTAL EXAM: deferred : COMMON NORMALS: Yes no CVA tenderness BLADDER/KIDNEY EXAM: Yes no CVA tenderness Back/Pelvis: COMMON NORMALS: no CVA tenderness Extremity: COMMON NORMALS: no clubbing, cyanosis or edema and no pedal edema Neuro: COMMON NORMALS: patient oriented x3 Skin: NARRATIVE SKIN EXAM: 2 small circular wounds present on right knee, nonfluctuant, clean base. Clean-cut present on right mora without any fluctuance and purulence. Also has bilateral small pressure ulcers on heels. Urinary Catheter Management: Vora: Cath Placed During This Visit: yes Reason for Continuing Indwelling Catheter: Other Urinary Catheter Date of Insertion: 03/01/22 Urinary Catheter Time of Insertion: 18:14 Data : 03/04/22 03:52 03/04/22 03:52 Micro: Microbiology 03/02/22 04:54 Blood Culture - Preliminary Blood Methicillin Resis Staph Aureus 03/02/22 04:50 Blood Culture - Preliminary Blood Methicillin Resis Staph Aureus A&P Assessment and plan (1) Sepsis: Status: Acute (2) MRSA bacteremia: Status: Acute (3) Acute kidney injury superimposed on CKD: Status: Acute (4) COPD exacerbation: Status: Acute (5) Hypertension: Status: Acute (6) Hypothyroidism: Status: Acute (7) Rheumatoid arthritis: Status: Acute (8) Hyperkalemia: Status: Acute (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 Baseline creatinine normal. Trending down currently. 2.5 today. Most likely secondary to ATN from sepsis. Cannot rule out glomerulonephritis secondary to MRSA bacteremia. Patient on Lasix, losartan at home. Medical reconciliation done for nephrotoxic drugs. Urine analysis appreciated. Monitor urine output. BMP daily. FENA Is consistent with: 1.7 %) intrinsic ( ATN , AIN , GN ) Sepsis secondary to MRSA bacteremia: Could be secondary to pneumonia versus multiple pressure ulcers on bilateral heel and mild cellulitis of right knee. CT chest results appreciated. Cannot rule out chronic resolving consolidation bronchogram pneumonia versus possible septic emboli. CT abdomen pelvis results appreciated. Continue with vancomycin. Stop ceftriaxone. Keep Vanco trough levels over 15. Check Vanco random level. Repeat Vanco and daily for now. Keep mean artery pressure 65 mmHg Blood cultures from 03/02 also positive. Repeat blood cultures in a.m. Once blood cultures negative will plan for PICC line placement for prolonged antibiotic course. Case discussed with cardiology for possible SAW to rule out infective endocarditis. Patient is agreeable. Immunocompromised secondary to chronic steroid use, hydroxychloroquine and leflunomide as an outpatient. Continue with steroids for now. Decrease Solu-Medrol to 40 mg IV daily for now. Will wean off quickly to home dose. Anemia: Baseline hemoglobin around 11. Trending down gradually since admission. 7.3 today. Could be secondary to chronic slow bleed versus sepsis versus acute kidney injury. Blood transfusion to keep hemoglobin over 8. Check iron panel, stool studies, haptoglobin, LDH, vitamin B12, folate, reticulocyte count. Protonix twice daily. Depending on stool occult blood will consult surgery for possible endoscopy. Hypertension: Goal pressure less than 140/90 mmHg. Blood pressure is better. Patient tachycardic. Restart home dose of verapamil. Hold off on amlodipine for now. If needed can add hydralazine. COPD exacerbation Resolved. Weaning Solu-Medrol as above. DuoNebs every 6 hour. For supplementation keeping saturation over 88%. Increased anion gap metabolic acidosis: Likely secondary to HANS. Resolved. Check iron panel, vitamin B12, folate, lipid panel, A1c. Continuing home iron supplementation. Restart other chronic home medications including atorvastatin, aspirin, Lexapro, gabapentin, Restoril at bedtime. CODE STATUS: Full code DVT prophylaxis on heparin Protonix OPD prophylaxis. Attestations Medical Necessity Statement*: Hospitalization for management of MRSA bacteremia, HANS, anemia Time Spent in Patient Care: Greater than 35 minutes Coding Level of Care Code Acute Strike Planning Applications for [facility] Fwd Diagnoses COPD exacerbation J44.1 Hypertension I10 Hypothyroidism E03.9 Rheumatoid arthritis M06.9 Hyperkalemia E87.5 Acute kidney injury superimposed on CKD N17.9; N18.9 MRSA bacteremia R78.81; B95.62 Sepsis A41.9 Immunodeficiency secondary to chemotherapy Z79.899 Pressure ulcers of skin of multiple topographic sites L89.90 Cellulitis of knee, right L03.115
[2022-03-04 16:23] LABS: Unsaturated Iron Binding < 17 ug/dL (112-347)
[2022-03-04 17:24] LABS: Glucose Point of Care 133 mg/dL (70-110)
[2022-03-04 17:39] LABS: Reticulocyte % 0.7 % (0.5-2.0)
[2022-03-04 18:00] LABS: Lactate Dehydrogenase 642 U/L (135-214)
[2022-03-04 18:15] LABS: Vitamin B12 1003 pg/mL (232-1245)
[2022-03-04 18:16] LABS: Folate Level 4.3 ng/mL (4.8-37.3)
[2022-03-04] MEDS: atorvastatin 40 mg Tablet 20 MG PO (18:19)
[2022-03-04] MEDS: gabapentin 300 mg Capsule PO (18:19)
[2022-03-04] MEDS: ferrous sulfate EC 325 mg Tablet PO (18:19)
[2022-03-04] MEDS: pantoprazole DR 40 mg Tablet PO (18:19)
--- NOTE | 2022-03-04 19:01 | PC.NURSE ---
Report to Shwetha WALKER at this time.
[2022-03-04] MEDS: temazepam 15 mg Capsule 30 MG PO (20:11)
[2022-03-04] MEDS: escitalopram 10 mg Tablet PO (20:12)
[2022-03-04] MEDS: sodium chloride 0.9% (100 ml) 100 ML (22:10)
[2022-03-05] VITALS (24 sets, daily range): BP systolic 138–183; BP diastolic 72–94; PULSE 66–107; RESP 14–20; TEMP 36.1–37.2; O2SAT 90–100
[2022-03-05] MEDS: ipratropium-albuterol 3 mL Neb INHALATION ×5 (00:08→21:28)
[2022-03-05] MEDS: heparin 5,000 unit/mL INJ 1 mL 5000 UNIT SUBCUT (02:50)
[2022-03-05] MEDS: verapamil ER 240 mg Tablet PO (05:12)
[2022-03-05] MEDS: levothyroxine 125 mcg Tablet PO (05:12)
[2022-03-05] MEDS: aspirin 81 mg EC Tablet PO (05:12)
[2022-03-05 06:17] LABS: Basophils % 0.4 %; Hematocrit 26.3 % (37.0-47.0); Hemoglobin 8.6 g/dL (11.5-15.3); Lymphocytes # 0.4 10^3/uL (0.8-4.8); Lymphocytes % 4.8 %; Mean Corpuscular HGB Conc 32.7 g/dL (30.0-36.0); Mean Corpuscular Hemoglobin 27.9 pg (28.0-34.0); Mean Corpuscular Volume 85.4 fl (81-99); Mean Platelet Volume 9.8 fL (7.4-10.4); Monocytes # 0.7 10^3/uL (0.2-0.9); Monocytes % 8.7 %; Neutrophils # 6.93 10^3/uL (1.8-7.7); Neutrophils % 82.8 %; Nucleated Red Blood Cells % 0 %; Platelet Count 57 10^3/cmm (130-400); Red Blood Count 3.08 10^6/uL (4.1-5.3); Red Cell Distribution Width 15.8 % (12.1-15.1); White Blood Count 8.4 10^3/uL (4.0-10.0)
[2022-03-05 06:43] LABS: Alanine Aminotransferase 9 U/L (0-33); Albumin Level 2.5 g/dL (3.5-5.2); Alkaline Phosphatase 194 IU/L (35-105); Anion Gap 13.7 (5-19); Aspartate Amino Transferase 18 U/L (0-32); Blood Urea Nitrogen 49 mg/dL (8-23); Calcium 8.7 mg/dL (8.5-10.5); Carbon Dioxide 26 mmol/L (22-29); Chloride 103 mmol/L (98-107); Chol HDL Ratio 2.07 mg/dL (0.0-4.40); Cholesterol 145 mg/dL (0-200); Glomerular Filtration Rate 23.4 mL/min (90-130); Glucose 97 mg/dL (65-115); HDL Cholesterol 70 mg/dL (60-100); LDL Cholesterol Calculated 52 mg/dL (50-129); Osmolality Calculated 303 mOsm/kg (285-295); Sodium 140 mmol/L (136-145); Total Bilirubin 0.8 mg/dL (0.15-1.2); Total Protein 4.5 g/dL (6.6-8.7); Triglycerides 113 mg/dL (0-150); VLDL Cholestrol Calculation 23 mg/dL (0-30)
[2022-03-05 06:45] LABS: Potassium 2.7 mmol/L (3.5-5.1)
[2022-03-05 06:49] LABS: Vancomycin Random 13.6 ug/mL (20.0-40.0)
[2022-03-05 06:58] LABS: Slide Review Slide Review Perform
[2022-03-05 06:59] LABS: Add RBC Morph Yes; RBC Morph Comp Yes; Schistocytes 1+
[2022-03-05 07:00] LABS: Pathology Refferal No
--- NOTE | 2022-03-05 07:20 | P.CONIM_ITS ---
Providers/Reason For Consult Consulting Physician/Specialty*: Dr. Glynn, Cardiology Reason for Consult*: SAW for persistent MRSA bacteremia Attending Physician: Shawn Sena MD Primary Care Provider: Ladonna Rutledge MD History of Present Illness History of Present Illness Gabby Garcia is a 66 year old female with past medical history of COPD on oxygen as needed, rheumatoid arthritis on chronic steroid use and immunocompromised, h/o Covid infection, hypertension, hypothyroidism and h/o recurrent pneumonia 10-12 times since 07/2021. She came in with chief complaint of?worsening shortness of breath, cough, generalized weakness, nausea for the last couple of days. She also experienced fall at home after being dizzy, hit left side of her head on the stove as she fell. She denies any chest pain , fever , abdominal pain and vomiting. On arrival to the ER, CT head showed no acute intracranial hemorrhage or edema. XR chest: Suggestive of possible pneumonia. Pertinent labs: WBC : 17.3 , H&H:9.1/31.6 , PLT : 244 ,Serum sodium 126 serum potassium :5.6 , BUN/Cr : 45/.3.4 , serum bicarbonate 16. ABG: pH 7.26 PCO2 36, PO2 223, on 8 L. Patient received hyperkalemia treatment in the ER, she was also started on D10 water in the ER. Blood Cx x 2 on 02/28 and 03/04 grew MRSA. Review of Systems General: Reports: 10 or more systems reviewed and unremarkable except in HPI and below Const: Denies: fever(s), chills, body aches, change in appetite or diaphoresis Card: Denies: palpitations, edema, swelling of feet/ankles, dyspnea on exertion, orthopnea or leg pain with exertion Resp: Denies: dyspnea, productive cough, wheezing or pain on inspiration GI: Denies: abdominal pain, nausea, vomiting, diarrhea or constipation : Denies: flank pain Musc: Denies: back pain, extremity pain or extremity swelling Neuro: Denies: headache(s), difficulty walking or confusion Medications/Allergies Home Medications Medication Instructions Recorded Confirmed Last Taken Type aspirin 81 mg tablet,delayed 81 mg PO QAM tab 11/19/19 02/28/22 10/01/21 07:30 History release (Aspirin Low Dose) magnesium oxide 400 mg PO DAILY@18 05/21/21 02/28/22 09/30/21 History albuterol sulfate 90 mcg/actuation 2 puff INHALATION QID PRN #6.7 g 07/05/21 02/28/22 Unknown Rx aerosol inhaler (ProAir HFA) losartan 100 mg tablet 100 mg PO DAILY@18 #90 tab 07/11/21 02/28/22 09/30/21 Rx ipratropium 0.5 mg-albuterol 3 mg 3 ml INHALATION Q4H PRN #90 ml 07/24/21 02/28/22 Unknown Rx (2.5 mg base)/3 mL nebulization soln budesonide 0.5 mg/2 mL suspension 0.5 mg INHALATION BID PRN 09/18/21 02/28/22 Unknown History for nebulization prednisone 10 mg tablet 10 mg PO DAILY PRN 09/18/21 02/28/22 09/30/21 History alendronate 70 mg tablet 70 mg PO Q7D #15 tab 09/19/21 02/28/22 09/29/21 Rx etanercept 50 mg/mL (1 mL) 50 mg SUBCUT Q7D #4 ml 09/19/21 02/28/22 09/29/21 Rx subcutaneous pen injector (Enbrel SureClick) hydroxychloroquine 200 mg tablet See Rx Instructions PO .COMPLEX 09/19/21 02/28/22 09/30/21 Rx #135 tab 2 tabs leflunomide 10 mg tablet 10 mg PO DAILY@18 #30 tab 09/19/21 02/28/22 09/30/21 Rx fluticasone propionate 50 2 spray INTRANASAL QAM #16 g 10/16/21 02/28/22 Unknown Rx mcg/actuation nasal spray,suspension (Flonase Allergy Relief) ipratropium 0.5 mg-albuterol 3 mg 3 ml INHALATION Q6H PRN #90 ml 10/23/21 02/28/22 Unknown Rx (2.5 mg base)/3 mL nebulization soln ergocalciferol (vitamin D2) 1,250 50,000 unit PO Q14D #8 cap 01/29/22 02/28/22 Unknown Rx mcg (50,000 unit) capsule escitalopram oxalate 10 mg tablet 10 mg PO BEDTIME #30 tab 01/29/22 02/28/22 Unknown Rx (Lexapro) ferrous sulfate 325 mg (65 mg 325 mg PO DAILY@18 #30 tab 01/29/22 02/28/22 Unknown Rx iron) tablet fexofenadine 180 mg tablet 180 mg PO QAM #30 tab 01/29/22 02/28/22 Unknown Rx furosemide 20 mg tablet (Lasix) 20 mg PO QAM #90 tab 01/29/22 02/28/22 Unknown Rx levothyroxine 125 mcg tablet 125 mcg PO QAM #90 tab 01/29/22 02/28/22 Unknown Rx (Synthroid) lidocaine 5 % topical patch 1 patch TOPICAL . DIRECTED #30 ea 01/29/22 02/28/22 Unknown Rx (Lidoderm) montelukast 10 mg tablet 10 mg PO QAM #30 tab 01/29/22 02/28/22 Unknown Rx (Singulair) pantoprazole 40 mg tablet,delayed 40 mg PO BID #180 tab 01/29/22 02/28/22 Unknown Rx release (Protonix) potassium chloride 10 mEq 10 meq PO QAM #30 tab 01/29/22 02/28/22 Unknown Rx tablet,extended release pravastatin 40 mg tablet 40 mg PO QPM #90 tab 01/29/22 02/28/22 Unknown Rx temazepam 30 mg capsule (Restoril) 30 mg PO BEDTIME #30 cap 01/29/22 02/28/22 Unknown Rx verapamil 240 mg 24 hr 240 mg PO QAM #30 cap 01/29/22 02/28/22 Unknown Rx capsule,extended release budesonide 160 mcg-glycopyr 9 2 inh INHALATION BID 02/26/22 02/28/22 Unknown History mcg-formot 4.8 mcg/actuation HFA inhaler (Breztri Aerosphere) honey 80 % topical gel (MediHoney 1 applic TOPICAL BID #44 ml 02/26/22 02/28/22 Unknown Rx (honey)) gabapentin 300 mg capsule 300 mg PO BID 02/28/22 02/28/22 Unknown History Allergies Allergy/AdvReac Type Severity Reaction Status Date / Time REINA Inhibitors Allergy ADR-Cough Verified 02/28/22 15:33 codeine Allergy ADR-Nausea Verified 02/28/22 15:33 hydrocodone Allergy ADR-Nausea Verified 02/28/22 15:33 Sulfa (Sulfonamide Allergy ALGY-Anaphy Verified 02/28/22 15:33 Antibiotics) laxis sulfamethoxazole Allergy ALGY-Anaphy Verified 02/28/22 15:33 [From Bactrim] laxis trimethoprim [From Bactrim] Allergy ALGY-Anaphy Verified 02/28/22 15:33 laxis Current Medications Generic Name Dose Route Start Last Admin Trade Name Edyq PRN Reason Stop Dose Admin Albuterol/Ipratropium 3 ml 02/28/22 20:00 03/05/22 03:16 Ipratropium-Albuterol 3 Ml Neb INHALATION 3 ml Q4H.RESPIRATORY BYRON Administration Aspirin 81 mg 03/01/22 06:00 03/05/22 05:12 Aspirin 81 Mg Ec Tablet PO 81 mg QAM BYRON Administration Atorvastatin Calcium 20 mg 03/04/22 18:00 03/04/22 18:19 Atorvastatin 40 Mg Tablet PO 20 mg QPM BYRON Administration Escitalopram Oxalate 10 mg 03/04/22 21:00 03/04/22 20:12 Escitalopram 10 Mg Tablet PO 10 mg BEDTIME BYRON Administration Ferrous Sulfate 325 mg 02/28/22 18:00 03/04/22 18:19 Ferrous Sulfate Ec 325 Mg Tablet PO 325 mg DAILY@18 BYRON Administration Gabapentin 300 mg 03/04/22 18:00 03/04/22 18:19 Gabapentin 300 Mg Capsule PO 300 mg BID BYRON Administration Heparin Sodium (Porcine) 5,000 unit 02/28/22 15:15 03/05/22 02:50 Heparin 5,000 Unit/Ml Inj 1 Ml SUBCUT 5,000 unit Q12H BYRON Administration Hydralazine HCl 25 mg 03/04/22 15:00 03/04/22 15:22 Hydralazine 25 Mg Tablet PO 25 mg TID BYRON Administration Vancomycin HCl 750 mg/ Sodium 250 mls @ 250 mls/hr 03/01/22 11:00 03/03/22 12:04 Chloride IV Infused Q48H BYRON Infusion Protocol Levothyroxine Sodium 125 mcg 03/01/22 06:00 03/05/22 05:12 Levothyroxine 125 Mcg Tablet PO 125 mcg QAM BYRON Administration Pantoprazole Sodium 40 mg 03/04/22 18:00 03/04/22 18:[address] 40 Mg Tablet PO 40 mg BID BYRON Administration Temazepam 30 mg 03/04/22 21:00 03/04/22 20:11 Temazepam 15 Mg Capsule PO 30 mg BEDTIME BYRON Administration Verapamil HCl 240 mg 03/05/22 06:00 03/05/22 05:12 Verapamil Er 240 Mg Tablet PO 240 mg QAM BYRON Administration PFSH Acute PFSH: Medical History Acute bronchitis Acute dyspnea Chronic hypercapnic respiratory failure Chronic steroid use COPD (chronic obstructive pulmonary disease) Uses home trilogy device, PRN oxygen COPD (chronic obstructive pulmonary disease) COPD exacerbation COVID-19 vaccine administered Depression Fever GERD (gastroesophageal reflux disease) High risk medication use History of aspiration pneumonia Hyperlipidemia Hypertension Hyponatremia Hypothyroidism Hypoxia Immunization counseling Immunization counseling Iron deficiency anemia Lumbar radiculopathy Pneumonia Rheumatoid arthritis with rheumatoid factor of multiple sites without organ or systems involvement Seropositive rheumatoid arthritis of multiple sites Transaminitis Surgical History H/O arthroscopy of knee left knee H/O esophagectomy History of cataract surgery 2017 History of gastric surgery age 6 History of skin graft left knee History of tubal ligation Previous back surgery right L3-L4, right L5-S1 hemilaminotomy foraminotomy/ discectomy/ Family History Father Cancer Pancreatic cancer Mother Cancer Lung cancer with brain mets Daughter Cancer Lung cancer with brain mets Other CAD (coronary artery disease) Hypertension Denies family history of Rheumatoid arthritis Diabetes Chronic kidney disease (CKD) Systemic lupus erythematosus (SLE) in adult Lung disease Social History Smoking and tobacco status: former smoker Quit status (tobacco): has quit using tobacco Year quit tobacco: 2000 [id number] Second hand smoke exposure: No Smoking risk assessment/counseling performed?: Yes Alcohol intake: current Alcohol type: beer Lives independently: Yes Household members: children Housing: House Marital status: Current occupational status: retired Pets and animals: Yes History of recent travel: No Current gender identity: Female Female Reproductive History: Date of last menstrual period: 02/08/21 Vitals/I&O/Wt Last Vital Signs Temp 97.9 F 03/05/22 04:00 Pulse 93 03/05/22 06:00 Resp 16 03/05/22 04:00 BP 183/87 03/05/22 04:00 Pulse Ox 100 03/05/22 04:00 03/04/22 03/05/22 03/05/22 22:59 06:59 14:59 Intake Total 300 / 1010 450 / 1460 Output Total 420 / 420 1650 / 2070 Balance -120 / 590 -1200 / -610 Physical Exam Narrative: GENERAL: frail elederly looking lady in no acute distress HEENT: Extraocular movement intact. + pallorm No icterus. left forehead bruising+ NECK: No JVD. CARDIOVASCULAR SYSTEM: S1-S2 regular. Tachycardia+; No murmur rubs or gallops. RESPIRATORY SYSTEM: Chest clear to auscultation. No wheezes, + rhonchi. c oughing intermittently ABDOMEN: Soft, nontender and nondistended. Normal bowel sounds present. EXTREMITIES: No cyanosis. No edema. No signs of chronic venous insufficiency. BI SOLUTIONS ARCHITECT: Patient is alert oriented ?3. No focal neurological deficits. SKIN: Normal turgor and temperature. extensive upper and lower extremity bruising noted PSYCH: Normal insight and judgment. Urinary Catheter Management: Vora: Cath Placed During This Visit: yes Reason for Continuing Indwelling Catheter: Other Urinary Catheter Date of Insertion: 03/01/22 Urinary Catheter Time of Insertion: 18:14 Data : 03/05/22 05:15 03/05/22 05:15 Micro: Microbiology 03/04/22 17:06 Stool Lactoferrin - Final Stool C.difficile Toxin B Gene (PCR) - Final Occult Blood (FIT) - Final 03/05/22 05:20 Blood Culture - Preliminary Blood SPECIMEN COLLECTED 03/05/22 05:15 Blood Culture - Preliminary Blood SPECIMEN COLLECTED 03/02/22 04:54 Blood Culture - Preliminary Blood Methicillin Resis Staph Aureus 03/02/22 04:50 Blood Culture - Preliminary Blood Methicillin Resis Staph Aureus Other data: TTE (03/01/22) CONCLUSIONS ?1. Normal left ventricular size, systolic function and mildly ?increased wall thickness, with no regional wall motion ?abnormalities. Left ventricular ejection fraction is estimated ?at? 60 %. Grade II diastolic dysfunction, moderately elevated ?filling pressures. ?2. Normal right ventricular size and systolic function. ?3. Pulmonary artery pressure estimated at 24 mmHg.? ?4. When compared to prior echocardiogram dated 05/23/2021, there ?may not have been any significant change. ?5. No evidence of valvular vegetation based on the study.? SAW ?may be considered, clinical correlation is advised. A&P Assessment and plan (1) Sepsis: Status: Acute (2) MRSA bacteremia: I will proceed with SAW today with sx back up. Dr. West is aware. Status: Acute Plan Recurrent pneumonia Multilobar pneumonia HANS Thrombocytopenia Anemia Hypertension Tachycardia H/o partial esophagectomy and gastric pull through sx 15 years ago Rheumatoid arthritis Immunocompromised secondary to chronic steroid use, hydroxychloroquine and leflunomide Thank you for allowing me to participate in patient's care. Please feel free to call with questions or concerns.? Coding Level of Care Code Acute Electoral Officer for g Fwd Diagnoses Sepsis A41.9 MRSA bacteremia R78.81; B95.62
[2022-03-05 07:34] LABS: Estmated Average Glucose 88; Hemoglobin A1C 4.7 % (4.0-6.0)
[2022-03-05] MEDS: gabapentin 300 mg Capsule PO ×2 (08:14→17:25)
[2022-03-05] MEDS: pantoprazole DR 40 mg Tablet PO ×2 (08:14→17:25)
[2022-03-05] MEDS: lidocaine 1% 5 ML in potassium chloride premix 100 ML 25 ML IV (10:36)
[2022-03-05] MEDS: vancomycin 1,000 MG in sodium chloride 0.9% 250 ML 250 MG IV (10:36)
[2022-03-05] MEDS: sodium chloride 0.9% 1,000 ML 30 ML IV (11:59)
--- NOTE | 2022-03-05 12:00 | USCV_ITS ---
Gabby Garcia Age: 66 Gender: F : 1955 Exam Date: 03/05/2022 12:25 Ordering Phys: Sandy Glynn MD ([email or web address]) Technologist: LAURA [place] [facility] [place]: MRSA bacteremia, R/O ENDOCARDITIS BP: 156 / 82 HR: 75 Rhythm: Sinus Technical Quality: Adequate MEASUREMENTS (Male / Female) Normal Values Medications Patient given IV sedation by anesthesia service, for details please refer to the anesthesia report. Complications Patient tolerated procedure well. Proc. Components The patient was brought to the SAW examination room in a fasting state after obtaining an informed consent. SAW was performed at multiple levels. FINDINGS Left Ventricle Normal left ventricular size, systolic function with no regional wall motion abnormalities. Left ventricular ejection fraction is estimated at 60-65 %. Right Ventricle Normal right ventricular size and systolic function. Right Atrium Normal right atrial size. Left Atrium Mildly increased left atrial size. LA Appendage Normal left atrial appendage. Normal flow velocities in the left atrial appendage. No thrombus visualized in the left atrial appendage. IA Septum Normal interatrial septum. No patent foramen ovale. No evidence for an atrial septal defect. Mitral Valve Mild mitral annular calcification. Structurally normal mitral valve. No mitral valve stenosis. Trace mitral valve regurgitation. Aortic Valve Mildly thickened and calcified trileaflet aortic valve. No aortic valve stenosis. Mild aortic valve regurgitation. Tricuspid Valve Structurally normal tricuspid valve. Trace tricuspid valve regurgitation. Pulmonic Valve Structurally normal pulmonic valve. No pulmonary valve stenosis. Trace pulmonary valve regurgitation. Pericardium No pericardial effusion. Aorta Normal size aortic root and proximal ascending aorta. Grade 3 atheroma in aortic arch. No evidence of aortic dilation aneurysm or dissection. CONCLUSIONS 1. Normal left ventricular size and systolic function with no regional wall motion abnormalities. Left ventricular ejection fraction is estimated at 60-65 %. 2. Normal right ventricular size and systolic function. 3. No evidence of valvular vegetation. 4. Mild aortic regurgitation. Sandy Glynn MD (Electronically Signed) Final Date: 06 March 2022 16:13 S
--- NOTE | 2022-03-05 12:02 | ANES.PREANE2 ---
Documented by User: Perico Mack Jr, HEALTH AND WELLNESS MANAGER 03/05/22 12:08 Pre-Anesthetic Assessment Height/Weight: Height 1.6 m Weight 50.349 kg Temp Pulse Resp BP Pulse Ox 97.1 F L 82 18 152/94 100 03/05/22 11:53 03/05/22 11:53 03/05/22 11:53 03/05/22 11:53 03/05/22 11:53 Preop Diagnosis: History of colon polyps. Operation Date: 03/05/22 12:00 Proposed Procedures p SAW(Not Applicable) - Sandy Glynn MD Familial anesthetic complications: none Was Beta Brittany taken within 24 hours: N/A Was Clonidine taken within 24 hours: N/A Last Intake: 23:00 Social No alcohol and No tobacco stop 21 yrs ago Exam alert, oriented x 3, clear to auscultation bilaterally and regular rate & rhythm Airway Submandibular: within normal limits Cervical ROM: within normal limits Mallampati: Class II Dentition: full Pulmonary Chronic Obstructive Pulmonary Disease, Cough, Exertional Dyspnea and Shortness of Breath CV/HEM Arrythmia, Hypertension and Palpitations None reported Hepatic None reported GI Gastroesophageal Reflux Disease (not controlled) Metabolic Thyroid Disease [facility] [place]/[facility] Rheumatoid Arthritis Neuropsych None reported Anesthetic Plan ASA status: 3 Anesthesia: General Risk of > 500 ml blood loss (7ml/kg in children): No Medications/Allergies Home Medications Medication Instructions Recorded Confirmed Last Taken Type aspirin 81 mg tablet,delayed 81 mg PO QAM tab 11/19/19 02/28/22 10/01/21 07:30 History release (Aspirin Low Dose) magnesium oxide 400 mg PO DAILY@18 05/21/21 02/28/22 09/30/21 History albuterol sulfate 90 mcg/actuation 2 puff INHALATION QID PRN #6.7 g 07/05/21 02/28/22 Unknown Rx aerosol inhaler (ProAir HFA) losartan 100 mg tablet 100 mg PO DAILY@18 #90 tab 07/11/21 02/28/22 09/30/21 Rx ipratropium 0.5 mg-albuterol 3 mg 3 ml INHALATION Q4H PRN #90 ml 07/24/21 02/28/22 Unknown Rx (2.5 mg base)/3 mL nebulization soln budesonide 0.5 mg/2 mL suspension 0.5 mg INHALATION BID PRN 09/18/21 02/28/22 Unknown History for nebulization prednisone 10 mg tablet 10 mg PO DAILY PRN 09/18/21 02/28/22 09/30/21 History alendronate 70 mg tablet 70 mg PO Q7D #15 tab 09/19/21 02/28/22 09/29/21 Rx etanercept 50 mg/mL (1 mL) 50 mg SUBCUT Q7D #4 ml 09/19/21 02/28/22 09/29/21 Rx subcutaneous pen injector (Enbrel SureClick) hydroxychloroquine 200 mg tablet See Rx Instructions PO .COMPLEX 09/19/21 02/28/22 09/30/21 Rx #135 tab 2 tabs leflunomide 10 mg tablet 10 mg PO DAILY@18 #30 tab 09/19/21 02/28/22 09/30/21 Rx fluticasone propionate 50 2 spray INTRANASAL QAM #16 g 10/16/21 02/28/22 Unknown Rx mcg/actuation nasal spray,suspension (Flonase Allergy Relief) ipratropium 0.5 mg-albuterol 3 mg 3 ml INHALATION Q6H PRN #90 ml 10/23/21 02/28/22 Unknown Rx (2.5 mg base)/3 mL nebulization soln ergocalciferol (vitamin D2) 1,250 50,000 unit PO Q14D #8 cap 01/29/22 02/28/22 Unknown Rx mcg (50,000 unit) capsule escitalopram oxalate 10 mg tablet 10 mg PO BEDTIME #30 tab 01/29/22 02/28/22 Unknown Rx (Lexapro) ferrous sulfate 325 mg (65 mg 325 mg PO DAILY@18 #30 tab 01/29/22 02/28/22 Unknown Rx iron) tablet fexofenadine 180 mg tablet 180 mg PO QAM #30 tab 01/29/22 02/28/22 Unknown Rx furosemide 20 mg tablet (Lasix) 20 mg PO QAM #90 tab 01/29/22 02/28/22 Unknown Rx levothyroxine 125 mcg tablet 125 mcg PO QAM #90 tab 01/29/22 02/28/22 Unknown Rx (Synthroid) lidocaine 5 % topical patch 1 patch TOPICAL . DIRECTED #30 ea 01/29/22 02/28/22 Unknown Rx (Lidoderm) montelukast 10 mg tablet 10 mg PO QAM #30 tab 01/29/22 02/28/22 Unknown Rx (Singulair) pantoprazole 40 mg tablet,delayed 40 mg PO BID #180 tab 01/29/22 02/28/22 Unknown Rx release (Protonix) potassium chloride 10 mEq 10 meq PO QAM #30 tab 01/29/22 02/28/22 Unknown Rx tablet,extended release pravastatin 40 mg tablet 40 mg PO QPM #90 tab 01/29/22 02/28/22 Unknown Rx temazepam 30 mg capsule (Restoril) 30 mg PO BEDTIME #30 cap 01/29/22 02/28/22 Unknown Rx verapamil 240 mg 24 hr 240 mg PO QAM #30 cap 01/29/22 02/28/22 Unknown Rx capsule,extended release budesonide 160 mcg-glycopyr 9 2 inh INHALATION BID 02/26/22 02/28/22 Unknown History mcg-formot 4.8 mcg/actuation HFA inhaler (Breztri Aerosphere) honey 80 % topical gel (Intivixney 1 applic TOPICAL BID #44 ml 02/26/22 02/28/22 Unknown Rx (honey)) gabapentin 300 mg capsule 300 mg PO BID 02/28/22 02/28/22 Unknown History Allergies Allergy/AdvReac Type Severity Reaction Status Date / Time REINA Inhibitors Allergy ADR-Cough Verified 02/28/22 15:33 codeine Allergy ADR-Nausea Verified 02/28/22 15:33 hydrocodone Allergy ADR-Nausea Verified 02/28/22 15:33 Sulfa (Sulfonamide Allergy ALGY-Anaphy Verified 02/28/22 15:33 Antibiotics) laxis sulfamethoxazole Allergy ALGY-Anaphy Verified 02/28/22 15:33 [From Bactrim] laxis trimethoprim [From Bactrim] Allergy ALGY-Anaphy Verified 02/28/22 15:33 laxis Current Medications Generic Name Dose Route Start Last Admin Trade Name Freq PRN Reason Stop Dose Admin Albuterol/Ipratropium 3 ml 02/28/22 20:00 03/05/22 11:41 Ipratropium-Albuterol 3 Ml Neb INHALATION Not Given Q4H.RESPIRATORY BYRON Aspirin 81 mg 03/01/22 06:00 03/05/22 05:12 Aspirin 81 Mg Ec Tablet PO 81 mg QAM BYRON Administration Atorvastatin Calcium 20 mg 03/04/22 18:00 03/04/22 18:19 Atorvastatin 40 Mg Tablet PO 20 mg QPM BYRON Administration Escitalopram Oxalate 10 mg 03/04/22 21:00 03/04/22 20:12 Escitalopram 10 Mg Tablet PO 10 mg BEDTIME BYRON Administration Ferrous Sulfate 325 mg 02/28/22 18:00 03/04/22 18:19 Ferrous Sulfate Ec 325 Mg Tablet PO 325 mg DAILY@18 BYRON Administration Gabapentin 300 mg 03/04/22 18:00 03/05/22 08:14 Gabapentin 300 Mg Capsule PO 300 mg BID BYRON Administration Heparin Sodium (Porcine) 5,000 unit 02/28/22 15:15 03/05/22 02:50 Heparin 5,000 Unit/Ml Inj 1 Ml SUBCUT 5,000 unit Q12H BYRON Administration Vancomycin HCl 1,000 mg/ 250 mls @ 250 mls/hr 03/05/22 10:30 03/05/22 11:37 Sodium Chloride IV Infused Q48H BYRON Infusion Protocol Lidocaine HCl 5 ml/ Potassium 105 mls @ 25 mls/hr 03/05/22 10:00 03/05/22 10:36 Chloride IV 03/05/22 14:11 25 mls/hr ONCE ONE Administration Sodium Chloride 1,000 mls @ 30 mls/hr 03/05/22 12:00 03/05/22 11:59 Sodium Chloride 0.9% IV 03/06/22 11:59 30 mls/hr .Q24H BYRON Administration Levothyroxine Sodium 125 mcg 03/01/22 06:00 03/05/22 05:12 Levothyroxine 125 Mcg Tablet PO 125 mcg QAM BYRON Administration Methylprednisolone Sodium Succinate 40 mg 03/05/22 09:00 03/05/22 08:14 Methylprednisolone Sod Succ 40 Mg/Ml Inj IVP 40 mg DAILY BYRON Administration Pantoprazole Sodium 40 mg 03/04/22 18:00 03/05/22 08:[address] 40 Mg Tablet PO 40 mg BID BYRON Administration Temazepam 30 mg 03/04/22 21:00 03/04/22 20:11 Temazepam 15 Mg Capsule PO 30 mg BEDTIME BYRON Administration Verapamil HCl 240 mg 03/05/22 06:00 03/05/22 05:12 Verapamil Er 240 Mg Tablet PO 240 mg QAM BYRON Administration PFSH Anesthesia Medical History Acute bronchitis Acute dyspnea Chronic hypercapnic respiratory failure Chronic steroid use COPD (chronic obstructive pulmonary disease) Uses home trilogy device, PRN oxygen COPD (chronic obstructive pulmonary disease) COPD exacerbation COVID-19 vaccine administered Depression Fever GERD (gastroesophageal reflux disease) High risk medication use History of aspiration pneumonia Hyperlipidemia Hypertension Hyponatremia Hypothyroidism Hypoxia Immunization counseling Immunization counseling Iron deficiency anemia Lumbar radiculopathy Pneumonia Rheumatoid arthritis with rheumatoid factor of multiple sites without organ or systems involvement Seropositive rheumatoid arthritis of multiple sites Transaminitis Surgical History H/O arthroscopy of knee left knee H/O esophagectomy History of cataract surgery 2017 History of gastric surgery age 6 History of skin graft left knee History of tubal ligation Previous back surgery right L3-L4, right L5-S1 hemilaminotomy foraminotomy/ discectomy/ Family History Father Cancer Pancreatic cancer Mother Cancer Lung cancer with brain mets Daughter Cancer Lung cancer with brain mets Other CAD (coronary artery disease) Hypertension Denies family history of Rheumatoid arthritis Diabetes Chronic kidney disease (CKD) Systemic lupus erythematosus (SLE) in adult Lung disease Social History Smoking and tobacco status: former smoker Quit status (tobacco): has quit using tobacco Year quit tobacco: 2000 [id number] Second hand smoke exposure: No Smoking risk assessment/counseling performed?: Yes Alcohol intake: current Alcohol type: beer Lives independently: Yes Household members: children Housing: House Marital status: Current occupational status: retired Pets and animals: Yes History of recent travel: No Current gender identity: Female Female Reproductive History Date of last menstrual period: 02/08/21 Data Anesthesia : 03/05/22 05:15 03/05/22 05:15 Short CBC 03/04/22 03/05/22 Range/Units 03:52 05:15 WBC 6.8 8.4 (4.0-10.0) 10^3/uL Hgb 7.3 L 8.6 L (11.5-15.3) g/dL Hct 23.8 L 26.3 L (37.0-47.0) % MCV 89.1 85.4 (81-99) fl Plt Count 115 L D 57 L D (130-400) 10^3/cmm Neut % (Auto) 87.2 82.8 % Neut # (Auto) 5.89 6.93 (1.8-7.7) 10^3/uL BMP 03/04/22 03/05/22 03:52 05:15 Sodium 136 140 Potassium 3.4 L 2.7 L* Chloride 101 103 Carbon Dioxide 23 26 BUN 57 H 49 H Creatinine 2.5 H 2.1 H Glucose 132 H 97 Calcium 8.7 8.7 Liver Function 03/05/22 Range/Units 05:15 Total Bilirubin 0.8 (0.15-1.2) mg/dL AST 18 (0-32) U/L ALT 9 (0-33) U/L Alkaline Phosphatase 194 H (35-105) IU/L Albumin 2.5 L (3.5-5.2) g/dL Blood Bank 03/04/22 17:13 Blood Type O Positive Rho(D) Type Positive Antibody Screen Negative Coags 03/05/22 05:15 Fibrin Degrad Products TNP Microbiology 03/04/22 17:06 Stool Lactoferrin - Final Stool Enteric Pathogens (PCR) - Final C.difficile Toxin B Gene (PCR) - Final Occult Blood (FIT) - Final 03/02/22 04:50 Blood Culture - Final Blood Methicillin Resis Staph Aureus 03/02/22 04:54 Blood Culture - Final Blood Methicillin Resis Staph Aureus 03/05/22 05:20 Blood Culture - Preliminary Blood SPECIMEN COLLECTED 03/05/22 05:15 Blood Culture - Preliminary Blood SPECIMEN COLLECTED Cardiac Studies: Echocardiogram 03/01/22 Echocardiogram Ultrasound 03/31/20
--- NOTE | 2022-03-05 13:59 | PM.PROC ---
Procedure Note: Date of procedure: 03/05/22 Pre-procedure diagnosis: MRSA bacteremia, r/o IE Procedure: SAW Procedure note Indication: Persistent MRSA bacteremia, rule out infective endocarditis Sedation: Patient was intubated and sedated by anesthesia The patient was brought down to GI lab. Procedure was explained to the patient in detail and informed consent was obtained. Timeout was called. After achieving adequate sedation, the probe was inserted on first attempt. No blood on the probe post procedure. Prelim report: [Normal left ventricle size and systolic function. No left atrial or left atrial appendage mass or thrombus visualized. No ASD or PFO identified. No evidence of valvular vegetation] Full report to follow. Patient tolerated the procedure well and initial recovery in GI lab; subsequently was transferred to the floor for further management. Findings of the study were discussed with the patient. I will sign off. Coding Level of Care Code Acute Rn Complex Care for Carrillo Medina
--- NOTE | 2022-03-05 14:31 | P.PN_ITS ---
Subjective Subjective: Patient seen post SAW. Tolerated procedure well. Extubated to room air. Denies any nausea vomiting, headache. Has remained hemodynamically stable and afebrile overnight. Vitals/I&O/Wt Last Vital Signs Temp 97.0 F L 03/05/22 12:50 Pulse 80 03/05/22 13:15 Resp 20 H 03/05/22 13:15 BP 144/78 03/05/22 13:15 Pulse Ox 90 03/05/22 13:15 03/04/22 03/05/22 03/05/22 22:59 06:59 14:59 Intake Total 300 / 1010 450 / 1460 250 / 250 Output Total 420 / 420 1650 / 2070 805 / 805 Balance -120 / 590 -1200 / -610 -555 / -555 Physical Exam Const: COMMON NORMALS: patient oriented x3 HENMT: COMMON NORMALS: normocephalic, atraumatic and external ears normal HEAD & SCALP: normocephalic and atraumatic EXTERNAL EAR: Yes external ears normal Eye: GENERAL EYE: appearance normal, both eyes and all related structures Chest: COMMONS NORMALS: normal inspection of the chest and normal palpation of entire chest wall CHEST: Yes Symmetrical chest wall rise Resp: COMMON NORMALS: normal respiratory effort and No retractions EFFORT & INSPECTION: Yes symmetric chest movement OTHER: Bilateral crackles in both the lungs medrano Cardio: COMMON NORMALS: regular rate, regular rhythm, S1 normal heart sound present, S2 normal heart sound present, No gallops present (Cardio), No murmurs present (Cardio), No rub (Cardio) and Peripheral pulses 2+ throughout RATE: regular rate RHYTHM: regular rhythm HEART SOUNDS: S1 normal heart sound present and S2 normal heart sound present PERIPHERAL PULSES: Peripheral pulses 2+ throughout GI: COMMON NORMALS: Normal to inspection, nondistended, normoactive bowel sounds present, Soft to palpation, non-tender, No hepatosplenomegaly present and no masses AUSCULTATION: Yes normoactive bowel sounds PALPATION: Yes Soft to palpation and Yes No hepatosplenomegaly present RECTAL EXAM: deferred : COMMON NORMALS: Yes no CVA tenderness BLADDER/KIDNEY EXAM: Yes no CVA tenderness Back/Pelvis: COMMON NORMALS: no CVA tenderness Extremity: COMMON NORMALS: no clubbing, cyanosis or edema and no pedal edema Neuro: COMMON NORMALS: patient oriented x3 Skin: NARRATIVE SKIN EXAM: 2 small circular wounds present on right knee, nonfluctuant, clean base. Clean-cut present on right mora without any fluctuance and purulence. Also has bilateral small pressure ulcers on heels. Urinary Catheter Management: Vora: Cath Placed During This Visit: yes Reason for Continuing Indwelling Catheter: Other Urinary Catheter Date of Insertion: 03/01/22 Urinary Catheter Time of Insertion: 18:14 Data : 03/05/22 05:15 03/05/22 05:15 Micro: Microbiology 03/04/22 17:06 Stool Lactoferrin - Final Stool Enteric Pathogens (PCR) - Final Parasite Antigen Panel - Final C.difficile Toxin B Gene (PCR) - Final Occult Blood (FIT) - Final 03/02/22 04:50 Blood Culture - Final Blood Methicillin Resis Staph Aureus 03/02/22 04:54 Blood Culture - Final Blood Methicillin Resis Staph Aureus 03/05/22 05:20 Blood Culture - Preliminary Blood SPECIMEN COLLECTED 03/05/22 05:15 Blood Culture - Preliminary Blood SPECIMEN COLLECTED A&P Assessment and plan (1) Sepsis: Status: Acute (2) MRSA bacteremia: Status: Acute (3) Acute kidney injury superimposed on CKD: Status: Acute (4) Thrombocytopenia: Status: Acute (5) Anemia: Status: Acute (6) COPD exacerbation: Status: Acute (7) Hypertension: Status: Acute (8) Hypothyroidism: Status: Acute (9) Rheumatoid arthritis: Status: Acute (10) Hyperkalemia: Status: Acute (11) 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 Baseline creatinine normal. Trending down currently. Most likely secondary to ATN from sepsis. Cannot rule out glomerulonephritis secondary to MRSA bacteremia. Patient on Lasix, losartan at home. Medical reconciliation done for nephrotoxic drugs. Urine analysis appreciated. Monitor urine output. BMP daily. FENA Is consistent with: 1.7 % consistent with intrinsic ( ATN , AIN , GN ) Sepsis secondary to MRSA bacteremia: Could be secondary to pneumonia versus multiple pressure ulcers on bilateral heel and mild cellulitis of right knee. CT chest results appreciated. Cannot rule out chronic resolving consolidation post pneumonia versus possible septic emboli. CT abdomen pelvis results appreciated. Post SAW. Prelim report negative for any vegetation. Continue with vancomycin. Keep Vanco trough levels over 15. Check Vanco random level daily for now. Change vancomycin dosage accordingly. Keep mean artery pressure 65 mmHg Blood cultures from 02/28 and 03/02 also positive. Repeat blood cultures sent on 03/05. Once blood cultures negative will plan for PICC line placement for prolonged antibiotic course. Immunocompromised secondary to chronic steroid use, hydroxychloroquine and leflunomide as an outpatient. Continue with Solu-Medrol to 40 mg IV daily for now. Will wean off quickly to home dose. Hemolytic anemia: Baseline hemoglobin around 11. Trending down gradually since admission. Post monitor blood transfusion. 8.6 today. Iron panel within normal limits, folic acid mildly on the lower side, haptoglobin low, LDH elevated, vitamin B12, reticulocyte counts are within normal. Consistent with possible hemolytic anemia. Protonix twice daily. Depending on stool occult blood will consult surgery for possible endoscopy. Thrombocytopenia: Platelet count worsened today. 57,000. Normal on day of admission. Cannot rule out TTP versus DIC secondary to sepsis versus possible HIT. Check DIC panel, peripheral smear for schistocytes, HIT assay, Adamts 13. Depending on the result of the blood work will discuss with the patient regardin g further treatment plans. If positive for TTP patient will need plasmapheresis for which she will need to be transferred to a higher center. Hypertension: Goal pressure less than 140/90 mmHg. Blood pressure is better. Patient tachycardic. Continuing home dose of verapamil. Added hydralazine 25 mg 3 times daily. COPD exacerbation Resolved. Weaning Solu-Medrol as above. DuoNebs every 6 hour. For supplementation keeping saturation over 88%. Increased anion gap metabolic acidosis: Likely secondary to HANS. Resolved. Replace potassium. Restart other chronic home medications including atorvastatin, aspirin, Lexapro, gabapentin, Restoril at bedtime. CODE STATUS: Full code DVT prophylaxis on heparin Protonix OPD prophylaxis. 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
--- NOTE | 2022-03-05 14:55 | PC.SOCIAL ---
IMM update IMM updated with patient. Copy Pg 2 provided. Verbalized an understanding. Initialled, dated, timed, and placed in chart.
[2022-03-05] MEDS: hyDRALAzine 25 mg Tablet PO ×2 (15:06→21:04)
--- NOTE | 2022-03-05 16:42 | PC.NURSE ---
Patient went for SAW today, post procedure monitoring complete. Vital signs stable. Vora discontinued, waiting for patient to urinate. IVs patent. Patient has several skin tears that dressings were changed. Will continue to monitor and give report to night nurse.
[2022-03-05] MEDS: atorvastatin 40 mg Tablet 20 MG PO (17:24)
[2022-03-05] MEDS: ferrous sulfate EC 325 mg Tablet PO (17:25)
[2022-03-05 18:36] LABS: D Dimer 6.57 ug/mIFEU (0-0.59); INR 0.92 (0.8-1.2); Partial Thromboplastin Time 22.2 SECONDS (23.9-36.7)
[2022-03-05] MEDS: escitalopram 10 mg Tablet PO (21:04)
[2022-03-05] MEDS: temazepam 15 mg Capsule 30 MG PO (21:04)
[2022-03-06] VITALS (23 sets, daily range): BP systolic 155–178; BP diastolic 73–92; PULSE 76–102; RESP 14–24; TEMP 36.4–36.6; O2SAT 88–100
[2022-03-06] MEDS: ipratropium-albuterol 3 mL Neb INHALATION ×7 (01:33→23:34)
[2022-03-06] MEDS: levothyroxine 125 mcg Tablet PO (05:33)
[2022-03-06] MEDS: verapamil ER 240 mg Tablet PO (05:33)
[2022-03-06] MEDS: aspirin 81 mg EC Tablet PO (05:33)
[2022-03-06 06:24] LABS: Hematocrit 24.8 % (37.0-47.0); Hemoglobin 7.7 g/dL (11.5-15.3); Mean Corpuscular Hemoglobin 27.7 pg (28.0-34.0); Mean Corpuscular Volume 89.2 fl (81-99); Platelet Count 33 10^3/cmm (130-400); Red Blood Count 2.78 10^6/uL (4.1-5.3); Red Cell Distribution Width 17.1 % (12.1-15.1); White Blood Count 9.2 10^3/uL (4.0-10.0)
[2022-03-06 06:28] LABS: Vancomycin Random 20.4 ug/mL (20.0-40.0)
[2022-03-06 08:02] LABS: Slide Review Slide Review Perform
[2022-03-06 08:05] LABS: Absolute Segmented Neutrophil 7.5 10/cmm (1.6-7.1); Band Neutrophils Absolute 0.8 10^3/cmm (0.0-1.2); Lymphocytes 2 %; Monocytes Absolute 0.4 10^3/cmm (0.1-0.6); Segmented Neutrophils 82 %; Total Cells Counted 100 (0-100)
[2022-03-06 08:06] LABS: Absolute Neutrophil 8.4 10^3/cmm (1.4-6.5); Platelet Estimate Decreased (Normal); Poikilocytosis 1+; Schistocytes 2+
[2022-03-06 08:07] LABS: Eosinophils 0 %; LAB Peripheral Smear Sent for Review; Lymphocytes Absolute 0.2 10^3/cmm (1.2-3.4)
[2022-03-06] MEDS: gabapentin 300 mg Capsule PO ×2 (08:24→17:41)
[2022-03-06] MEDS: hyDRALAzine 25 mg Tablet PO ×3 (08:25→20:54)
[2022-03-06] MEDS: pantoprazole DR 40 mg Tablet PO ×2 (08:25→17:40)
[2022-03-06 08:30] LABS: Alanine Aminotransferase 10 U/L (0-33); Albumin Level 2.6 g/dL (3.5-5.2); Alkaline Phosphatase 240 IU/L (35-105); Anion Gap 13.2 (5-19); Aspartate Amino Transferase 19 U/L (0-32); Blood Urea Nitrogen 49 mg/dL (8-23); Calcium 8.5 mg/dL (8.5-10.5); Carbon Dioxide 25 mmol/L (22-29); Chloride 102 mmol/L (98-107); Glomerular Filtration Rate 29.9 mL/min (90-130); Glucose 103 mg/dL (65-115); Osmolality Calculated 297 mOsm/kg (285-295); Potassium 3.2 mmol/L (3.5-5.1); Sodium 137 mmol/L (136-145); Total Bilirubin 0.8 mg/dL (0.15-1.2); Total Protein 4.6 g/dL (6.6-8.7)
[2022-03-06 09:21] LABS: D Dimer 6.01 ug/mIFEU (0-0.59); Fibrinogen 314 mg/dL (174-498); INR 0.93 (0.8-1.2); Partial Thromboplastin Time 20.6 SECONDS (23.9-36.7)
--- NOTE | 2022-03-06 16:19 | PM.PN ---
Subjective Subjective: Patient seen post SAW. Tolerated procedure well. Extubated to room air. Denies any nausea vomiting, headache. Has remained hemodynamically stable and afebrile overnight. Vitals/I&O/Wt Last Vital Signs Temp 97.5 F L 03/06/22 08:00 Pulse 85 03/06/22 16:02 Resp 17 03/06/22 15:57 BP 155/78 03/06/22 12:00 Pulse Ox 94 03/06/22 15:57 03/06/22 03/06/22 03/06/22 06:59 14:59 22:59 Intake Total 100 / 1505 144 / 144 Output Total 900 / 900 Balance 100 / 400 -756 / -756 Physical Exam Const: COMMON NORMALS: patient oriented x3 HENMT: COMMON NORMALS: normocephalic, atraumatic and external ears normal HEAD & SCALP: normocephalic and atraumatic EXTERNAL EAR: Yes external ears normal Eye: GENERAL EYE: appearance normal, both eyes and all related structures Chest: COMMONS NORMALS: normal inspection of the chest and normal palpation of entire chest wall CHEST: Yes Symmetrical chest wall rise Resp: COMMON NORMALS: normal respiratory effort and No retractions EFFORT & INSPECTION: Yes symmetric chest movement OTHER: Bilateral crackles in both the lungs medrano Cardio: COMMON NORMALS: regular rate, regular rhythm, S1 normal heart sound present, S2 normal heart sound present, No gallops present (Cardio), No murmurs present (Cardio), No rub (Cardio) and Peripheral pulses 2+ throughout RATE: regular rate RHYTHM: regular rhythm HEART SOUNDS: S1 normal heart sound present and S2 normal heart sound present PERIPHERAL PULSES: Peripheral pulses 2+ throughout GI: COMMON NORMALS: Normal to inspection, nondistended, normoactive bowel sounds present, Soft to palpation, non-tender, No hepatosplenomegaly present and no masses AUSCULTATION: Yes normoactive bowel sounds PALPATION: Yes Soft to palpation and Yes No hepatosplenomegaly present RECTAL EXAM: deferred : COMMON NORMALS: Yes no CVA tenderness BLADDER/KIDNEY EXAM: Yes no CVA tenderness Back/Pelvis: COMMON NORMALS: no CVA tenderness Extremity: COMMON NORMALS: no clubbing, cyanosis or edema and no pedal edema Neuro: COMMON NORMALS: patient oriented x3 Skin: NARRATIVE SKIN EXAM: 2 small circular wounds present on right knee, nonfluctuant, clean base. Clean-cut present on right mora without any fluctuance and purulence. Also has bilateral small pressure ulcers on heels. 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 (2) Sepsis: Status: Acute (3) MRSA bacteremia: Status: Acute (4) Acute kidney injury superimposed on CKD: Status: Acute (5) Thrombocytopenia: Status: Acute (6) Anemia: Status: Acute (7) COPD exacerbation: Status: Acute (8) Hypertension: Status: Acute (9) Hypothyroidism: Status: Acute (10) Rheumatoid arthritis: Status: Acute (11) Pressure ulcers of skin of multiple topographic sites: Status: Acute (12) Cellulitis of knee, right: Status: Acute (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 33,000 today. No active signs of bleeding. Hemoglobin 7.7. Schistocytes present in peripheral smear. DIC panel shows elevated D-dimer, normal fibrinogen, normal INR and PTT. HIT panel pending. Labs consistent with TTP. Patient would need plasmapheresis versus rituximab going forward for treatment. Unfortunately both not available in hospital. Confirmed with patient and she is okay with transfer. Called [facility] was not available. Because punctuation patient has been accepted and is on waitlist. HANS : Multifactorial. Baseline creatinine normal. Trending down currently. Most likely secondary to ATN from sepsis. Cannot rule out glomerulonephritis secondary to MRSA bacteremia. Patient on Lasix, losartan at home. Medical reconciliation done for nephrotoxic drugs. Urine analysis appreciated. Monitor urine output. BMP daily. FENA Is consistent with: 1.7 % consistent with intrinsic ( ATN , AIN , GN ) Sepsis secondary to MRSA bacteremia: Could be secondary to pneumonia versus multiple pressure ulcers on bilateral heel and mild cellulitis of right knee. CT chest results appreciated. Cannot rule out chronic resolving consolidation post pneumonia versus possible septic emboli. CT abdomen pelvis results appreciated. Post SAW. Prelim report negative for any vegetation. Continue with vancomycin. Keep Vanco trough levels over 15. Check Vanco random level daily for now. Change vancomycin dosage accordingly. Keep mean artery pressure 65 mmHg Blood cultures from 02/28 and 03/02 also positive. Repeat blood cultures sent on 03/05 so far negative. 1 3 blood cultures remain negative will most likely need a PICC line placement. Immunocompromised secondary to chronic steroid use, hydroxychloroquine and leflunomide as an outpatient. Note Solu-Medrol 30 mg IV daily. At home patient takes 10 mg prednisone as needed basis. Will wean off quickly to home dose. Hemolytic anemia: Baseline hemoglobin around 11. Trending down gradually since admission. Post monitor blood transfusion. 8.6 today. Iron panel within normal limits, folic acid mildly on the lower side, haptoglobin low, LDH elevated, vitamin B12, reticulocyte counts are within normal. Consistent with possible hemolytic anemia. Protonix twice daily. Depending on stool occult blood will consult surgery for possible endoscopy. Hypertension: Goal pressure less than 140/90 mmHg. Blood pressure is better. Patient tachycardic. Continuing home dose of verapamil. Added hydralazine 25 mg 3 times daily. COPD exacerbation Resolved. Weaning Solu-Medrol as above. DuoNebs every 6 hour. For supplementation keeping saturation over 88%. Increased anion gap metabolic acidosis: Likely secondary to HANS. Resolved. Replace potassium. Restart other chronic home medications including atorvastatin, aspirin, Lexapro, gabapentin, Restoril at bedtime. CODE STATUS: Full code SCDs for DVT prophylaxis. Hold heparin given thrombocytopenia. Protonix for PUD prophylaxis. Discharge planning: Given evidence of TTP in setting of MRSA bacteremia, HANS, hemolytic anemia transfer was sought and confirmed with the patient. Patient has been accepted by Dr. Ojeda/hospitalist at [facility] though patient awaiting bed. Attestations Medical Necessity Statement*: Requires further hospitalization for management of TTP, HANS, anemia in setting of MRSA bacteremia while transfer to a higher center for plasmapheresis is set up. Time Spent in Patient Care: Greater than 35 minutes Coding Level of Care Code Acute Credit Or Loans Officer for Chg Fwd Diagnoses Sepsis A41.9 MRSA bacteremia R78.81; B95.62 Acute kidney injury superimposed on CKD N17.9; N18.9 Thrombocytopenia D69.6 Anemia D64.9 COPD exacerbation J44.1 Hypertension I10 Hypothyroidism E03.9 Rheumatoid arthritis M06.9 Immunodeficiency secondary to chemotherapy Z79.899 Pressure ulcers of skin of multiple topographic sites L89.90 Cellulitis of knee, right L03.115 TTP (thrombotic thrombocytopenic purpura) M31.19 Current chronic use of systemic steroids Z79.52
--- NOTE | 2022-03-06 16:20 | PC.NURSE ---
Patient had uneventful shift. Sat in chair most of the shift. Vitals stable. Patient is set to be transferred to higher level of care and is currently waiting for a bed. Will continue to monitor and give report to night nurse.
--- NOTE | 2022-03-06 17:08 | PM.PN ---
Subjective Subjective: Patient is doing better. Denies any unusual shortness of breath. No fever or chills. The vital signs remained stable. Blood pressure slightly elevated Medications: Medication Review Details: Current Medications Acetaminophen (Acetaminophen 325 Mg Tablet) 650 mg PO Q6H PRN PRN Reason: Mild/Mod Pain Or Temp >/= 101 Albuterol/Ipratropium (Ipratropium-Albuterol 3 Ml Neb) 3 ml INHALATION Q4H.RESPIRATORY [facility] Last Admin: 03/06/22 15:57 Dose: 3 ml Documented by: Aspirin (Aspirin 81 Mg Ec Tablet) 81 mg PO QAM [facility] Last Admin: 03/06/22 05:33 Dose: 81 mg Documented by: Atorvastatin Calcium (Atorvastatin 40 Mg Tablet) 20 mg PO QPM [facility] Last Admin: 03/05/22 17:24 Dose: 20 mg Documented by: Bisacodyl (Bisacodyl 5 Mg Tablet) 10 mg PO DAILY PRN; Protocol PRN Reason: Constipation (see protocol) Escitalopram Oxalate (Escitalopram 10 Mg Tablet) 10 mg PO BEDTIME [facility] Last Admin: 03/05/22 21:04 Dose: 10 mg Documented by: Ferrous Sulfate (Ferrous Sulfate Ec 325 Mg Tablet) 325 mg PO DAILY@18 [facility] Last Admin: 03/05/22 17:25 Dose: 325 mg Documented by: Gabapentin (Gabapentin 300 Mg Capsule) 300 mg PO BID [facility] Last Admin: 03/06/22 08:24 Dose: 300 mg Documented by: Hydralazine HCl (Hydralazine 25 Mg Tablet) 25 mg PO TID [facility] Last Admin: 03/06/22 15:58 Dose: 25 mg Documented by: Vancomycin HCl 1,000 mg/ (Sodium Chloride) 250 mls @ 250 mls/hr IV Q48H [facility]; Protocol Last Infusion: 03/05/22 11:37 Dose: Infused Documented by: Levothyroxine Sodium (Levothyroxine 125 Mcg Tablet) 125 mcg PO QAM [facility] Last Admin: 03/06/22 05:33 Dose: 125 mcg Documented by: Methylprednisolone Sodium Succinate (Methylprednisolone Sod Succ 40 Mg/Ml Inj) 30 mg IVP DAILY [facility] Ondansetron HCl (Ondansetron 2 Mg/Ml Sdv 2 Ml) 4 mg IVP Q8H PRN PRN Reason: vomiting, or N/V if npo Pantoprazole Sodium (Pantoprazole Dr 40 Mg Tablet) 40 mg PO BID [facility] Last Admin: 03/06/22 08:25 Dose: 40 mg Documented by: Temazepam (Temazepam 15 Mg Capsule) 30 mg PO BEDTIME [facility] Last Admin: 03/05/22 21:04 Dose: 30 mg Documented by: Verapamil HCl (Verapamil Er 240 Mg Tablet) 240 mg PO QAM [facility] Last Admin: 03/06/22 05:33 Dose: 240 mg Documented by: Vitals/I&O/Wt Last Vital Signs Temp 97.5 F L 03/06/22 08:00 Pulse 85 03/06/22 16:02 Resp 17 03/06/22 15:57 BP 155/78 03/06/22 12:00 Pulse Ox 94 03/06/22 15:57 03/06/22 03/06/22 03/06/22 06:59 14:59 22:59 Intake Total 100 / 1505 144 / 144 Output Total 900 / 900 Balance 100 / 400 -756 / -756 Physical Exam Narrative: GENERAL: The patient is alert and oriented times three. Not in any acute distress. HEENT: No significant pallor, icterus or lymphadenopathy.Oral cavity: There are no mucous membrane lesions. NECK: Trachea appears to be central. No masses noted. No JVD or thyromegaly appreciated. RESPIRATORY: The sternotomy wound is healing with no bleeding or signs of infection. BREASTS: Deferred. HEART: The heart sounds are normal. No S3 or S4. No significant murmurs. No pericardial rub ABDOMEN: No vessel pulsations or distention. No tenderness. No organomegaly appreciated. Bowel sounds are normally heard. : Deferred. RECTAL: Deferred. LYMPHATIC: No lymphadenopathy noted in the neck. EXTREMITIES: No edema or cyanosis. MUSCULOSKELETAL: No acute joint deformities or swelling SKIN: There are no significant rashes or ecchymosis NEUROPSYCHIATRIC: The patient is alert and oriented x3. Appears to be in a good mood. No tremors or rigidity noted. Urinary Catheter Management: Vora: Cath Placed During This Visit: yes Reason for Continuing Indwelling Catheter: Other Urinary Catheter Date of Insertion: 03/01/22 Urinary Catheter Time of Insertion: 18:14 Data : 03/06/22 05:11 03/06/22 05:11 Other Labs: Laboratory Last Values WBC 9.2 10^3/uL (4.0-10.0) 03/06/22 05:11 Corrected WBC Cancelled 02/28/22 10:12 RBC 2.78 10^6/uL (4.1-5.3) L 03/06/22 05:11 Hgb 7.7 g/dL (11.5-15.3) L 03/06/22 05:11 Hct 24.8 % (37.0-47.0) L 03/06/22 05:11 MCV 89.2 fl (81-99) 03/06/22 05:11 MCH 27.7 pg (28.0-34.0) L 03/06/22 05:11 MCHC 31.0 g/dL (30.0-36.0) D 03/06/22 05:11 RDW 17.1 % (12.1-15.1) H 03/06/22 05:11 Plt Count 33 10^3/cmm (130-400) L D 03/06/22 05:11 MPV TNP 03/06/22 05:11 Gran % Cancelled 02/28/22 10:12 Neut % (Auto) 82.8 % 03/05/22 05:15 Lymph % (Auto) Not Reportable 03/06/22 05:11 [place] % (Auto) Not Reportable 03/06/22 05:11 Eos % (Auto) 0.0 % 03/05/22 05:15 Baso % (Auto) 0.4 % 03/05/22 05:15 Reticulocyte % (Auto) 0.7 % (0.5-2.0) 03/04/22 17:13 Neut # (Auto) 6.93 10^3/uL (1.8-7.7) 03/05/22 05:15 Lymph # (Auto) Not Reportable 03/06/22 05:11 [place] # (Auto) Not Reportable 03/06/22 05:11 Eos # (Auto) 0.0 10^3/uL (0.0-0.8) 03/05/22 05:15 Baso # (Auto) 0.0 10^3/uL (0.0-0.1) 03/05/22 05:15 Absolute Gran (auto) Cancelled 02/28/22 10:12 Nucleated RBC % (auto) 0 % 03/05/22 05:15 Total Counted 100 (0-100) 03/06/22 05:11 Atypical Lymphs % 0.0 % (0-5) 03/06/22 05:11 Absolute Neutrophils 8.4 10^3/cmm (1.4-6.5) H 03/06/22 05:11 Segmented Neutrophils 82 % 03/06/22 05:11 Abs Segm Neuts (Man) 7.5 10/cmm (1.6-7.1) H 03/06/22 05:11 Band Neutrophils 9.0 % 03/06/22 05:11 Abs Band Neuts (Man) 0.8 10^3/cmm (0.0-1.2) 03/06/22 05:11 Absolute Lymphocytes 0.2 10^3/cmm (1.2-3.4) L 03/06/22 05:11 Lymphocytes (Manual) 2 % 03/06/22 05:11 Monocytes (Manual) 4.0 % 03/06/22 05:11 Absolute Monocytes 0.4 10^3/cmm (0.1-0.6) 03/06/22 05:11 Eosinophils (Manual) 0 % 03/06/22 05:11 Absolute Eosinophils 0.0 10^3/cmm (0.0-0.7) 03/06/22 05:11 Basophils (Manual) 0.0 % 03/06/22 05:11 Absolute Basophils 0.0 10^3/cmm (0.0-0.2) 03/06/22 05:11 Metamyelocytes 2.0 % 03/06/22 05:11 Myelocytes 1.0 % 03/06/22 05:11 Nucleated RBCs # 0.0 /100WBC 03/05/22 05:15 Pathologist Review No 03/05/22 05:15 Platelet Estimate Decreased (Normal) L 03/06/22 05:11 Poikilocytosis 1+ H 03/06/22 05:11 Schistocytes 2+ H 03/06/22 05:11 Haptoglobin 10.0 mg/L (30-200) L 03/04/22 17:13 PT 12.80 SECONDS (12.1-14.9) 03/06/22 08:22 INR 0.93 (0.8-1.2) 03/06/22 08:22 APTT 20.6 SECONDS (23.9-36.7) L 03/06/22 08: Fibrinogen 314 mg/dL (174-498) 03/06/22 08:22 Fibrin Degrad Products TNP 03/06/22 08:22 D-Dimer 6.01 ug/mIFEU (0-0.59) H 03/06/22 08:22 Specimen Type Arterial 02/28/22 10:25 Sample Site Brachial, right 02/28/22 10:25 ABG pH 7.26 (7.35-7.45) L 02/28/22 10:25 ABG pCO2 36.4 mmHg (35-45) 02/28/22 10:25 ABG pO2 223.0 mmHg (80.0-100.0) H 02/28/22 10:25 ABG HCO3 16.3 mmol/L (22-26) L 02/28/22 10:25 ABG O2 Saturation 99.7 02/28/22 10:25 ABG Base Excess -10.0 mmol/L (-2.0-2.0) L 02/28/22 10:25 Antony Test N/a 02/28/22 10:25 Hematocrit 25.7 % (37-47) L 02/28/22 10:25 Hgb O2 Saturation 98.3 % (95-100) 02/28/22 10:25 Carboxyhemoglobin 0.3 %THgb (0.4-20.1) L 02/28/22 10:25 Methemoglobin 1.1 % (0.4-1.5) 02/28/22 10:25 Total Hemoglobin 8.4 g/dL (12-16) L 02/28/22 10:25 Sodium 127.0 mmol/L (131-143) L 02/28/22 10:25 Potassium 5.0 mmol/L (3.5-5.0) 02/28/22 10:25 Glucose 38.0 mg/dL (70-115) L 02/28/22 10:25 Ionized Calcium 1.2 mmol/L (1.1-1.4) 02/28/22 10:25 O2 Delivery Device Neb mask 02/28/22 10:25 O2 Liters/Min 8.0 % 02/28/22 10:25 Drill Sharpener ID Mindy 02/28/22 10:25 Sodium 137 mmol/L (136-145) 03/06/22 05:11 Potassium 3.2 mmol/L (3.5-5.1) L 03/06/22 05:11 Chloride 102 mmol/L (98-107) 03/06/22 05:11 Carbon Dioxide 25 mmol/L (22-29) 03/06/22 05:11 Anion Gap 13.2 (5-19) 03/06/22 05:11 BUN 49 mg/dL (8-23) H 03/06/22 05:11 Creatinine 1.7 mg/dL (0.5-0.9) H 03/06/22 05:11 GFR Calculation 29.9 mL/min (90-130) L 03/06/22 05:11 Glucose 103 mg/dL (65-115) 03/06/22 05:11 POC Glucose 133 mg/dL (70-110) H 03/04/22 16:42 Estimat Average Glucose 88 03/05/22 05:15 Hemoglobin A1c 4.7 % (4.0-6.0) 03/05/22 05:15 Calculated Osmolality 297 mOsm/kg (285-295) H 03/06/22 05:11 Lactic Acid 0.7 mmol/L (0.5-2.2) 03/02/22 07:18 Calcium 8.5 mg/dL (8.5-10.5) 03/06/22 05:11 Phosphorus 4.1 mg/dL (2.5-4.5) 03/01/22 04:20 Iron 102 ug/dL (37-145) 03/04/22 03:52 TIBC 118.99498 mcg/dl 03/04/22 03:52 % Saturation 85.0 % (20-50) H 03/04/22 03:52 Unsat Iron Binding < 17 ug/dL (112-347) L 03/04/22 03:52 Total Bilirubin 0.8 mg/dL (0.15-1.2) 03/06/22 05:11 AST 19 U/L (0-32) 03/06/22 05:11 ALT 10 U/L (0-33) 03/06/22 05:11 Alkaline Phosphatase 240 IU/L (35-105) H 03/06/22 05:11 Lactate Dehydrogenase 642 U/L (135-214) H 03/04/22 17:13 Creatine Kinase 154 U/L (26-192) 02/28/22 10:12 Total Protein 4.6 g/dL (6.6-8.7) L 03/06/22 05:11 Albumin 2.6 g/dL (3.5-5.2) L 03/06/22 05:11 Globulin 2.0 g/dL (1.3-4.6) 03/06/22 05:11 Triglycerides 113 mg/dL (0-150) 03/05/22 05:15 Triglycerides Cancelled 03/05/22 05:15 Cholesterol 145 mg/dL (0-200) 03/05/22 05:15 Cholesterol Cancelled 03/05/22 05:15 LDL Cholesterol, Calc 52 mg/dL (50-129) 03/05/22 05:15 LDL Cholesterol, Calc Cancelled 03/05/22 05:15 Total VLDL Cholesterol 23 mg/dL (0-30) 03/05/22 05:15 Total VLDL Cholesterol Cancelled 03/05/22 05:15 HDL Cholesterol 70 mg/dL (60-100) 03/05/22 05:15 HDL Cholesterol Cancelled 03/05/22 05:15 Cholesterol/HDL Ratio 2.07 mg/dL (0.0-4.40) 03/05/22 05:15 Cholesterol/HDL Ratio Cancelled 03/05/22 05:15 Vitamin B12 1003 pg/mL (232-1245) 03/04/22 17:13 Folate 4.3 ng/mL (4.8-37.3) L 03/04/22 17:13 Procalcitonin 0.61 ng/mL (0-0.5) H 03/04/22 03:52 TSH 0.35 uIU/mL (0.27-4.20) 03/04/22 03:52 Urine Color Yellow (Yellow) 03/01/22 18:12 Urine Appearance Clear (CLEAR) 03/01/22 18:12 Urine pH 5 (5-7) 03/01/22 18:12 Ur Specific [place] 1.015 (1.005-1.030) 03/01/22 18:12 Urine Protein Neg (Negative) 03/01/22 18:12 Urine Glucose (UA) Norm (Normal) 03/01/22 18:12 Urine Ketones Negative (Negative) 03/01/22 18:12 Urine Blood 2+ (Negative) H 03/01/22 18:12 Urine Nitrate Negative (Negative) 03/01/22 18:12 Urine Bilirubin Neg (Negative) 03/01/22 18:12 Urine Urobilinogen Norm mg/dL (Negative) 03/01/22 18:12 Ur Leukocyte Esterase Negative (Negative) 03/01/22 18:12 Urine RBC 10-15 /hpf (0-2) H 03/01/22 18:12 Urine WBC 10-15 /hpf (0-5) H 03/01/22 18:12 Ur Squamous Epith Cells 15-25 /hpf (0-5) H 03/01/22 18:12 Ur Renal Epithelial Cell 0-4 /hpf 03/01/22 18:12 Amorphous Sediment Not Reportable 03/01/22 18:12 Urine Bacteria 2+ /hpf (NONE) H 03/01/22 18:12 Ur Random Sodium 31 mmol/L 03/01/22 18:12 Urine Creatinine 45 mg/dL (28-217) 03/01/22 18:12 Random Vancomycin 20.4 ug/mL (20.0-40.0) 03/06/22 05:47 Blood Type O Positive 03/04/22 17:13 Rho(D) Type Positive 03/04/22 17:13 Antibody Screen Negative 03/04/22 17:13 Crossmatch See Detail 03/04/22 17:13 Micro: Microbiology 03/05/22 05:20 Blood Culture - Preliminary Blood NEGATIVE TO DATE 03/05/22 05:15 Blood Culture - Preliminary Blood NEGATIVE TO DATE 03/04/22 17:06 Stool Lactoferrin - Final Stool Enteric Pathogens (PCR) - Final Parasite Antigen Panel - Final C.difficile Toxin B Gene (PCR) - Final Occult Blood (FIT) - Final Coding Level of Care Code Acute Ground Services Instructor for Chg Fwjessica
[2022-03-06] MEDS: ferrous sulfate EC 325 mg Tablet PO (17:40)
[2022-03-06] MEDS: atorvastatin 40 mg Tablet 20 MG PO (17:40)
[2022-03-06] MEDS: escitalopram 10 mg Tablet PO (20:54)
[2022-03-06] MEDS: temazepam 15 mg Capsule 30 MG PO (20:54)
[2022-03-07] VITALS (23 sets, daily range): BP systolic 120–172; BP diastolic 61–98; PULSE 84–107; RESP 16–18; TEMP 36–37.2; O2SAT 92–100
[2022-03-07 03:04] LABS: Basophils % 0.1 %; Hematocrit 22.9 % (37.0-47.0); Hemoglobin 7.1 g/dL (11.5-15.3); Lymphocytes # 0.3 10^3/uL (0.8-4.8); Lymphocytes % 2.8 %; Mean Corpuscular Hemoglobin 27.4 pg (28.0-34.0); Mean Corpuscular Volume 88.4 fl (81-99); Monocytes # 0.6 10^3/uL (0.2-0.9); Monocytes % 4.9 %; Neutrophils # 10.69 10^3/uL (1.8-7.7); Neutrophils % 88.1 %; Nucleated Red Blood Cells % 0 %; Platelet Count 29 10^3/cmm (130-400); Red Blood Count 2.59 10^6/uL (4.1-5.3); Red Cell Distribution Width 17.1 % (12.1-15.1); White Blood Count 12.1 10^3/uL (4.0-10.0)
[2022-03-07] MEDS: ipratropium-albuterol 3 mL Neb INHALATION ×6 (03:13→23:27)
[2022-03-07 03:31] LABS: Alanine Aminotransferase 13 U/L (0-33); Albumin Level 2.7 g/dL (3.5-5.2); Alkaline Phosphatase 275 IU/L (35-105); Aspartate Amino Transferase 18 U/L (0-32); Blood Urea Nitrogen 61 mg/dL (8-23); Carbon Dioxide 25 mmol/L (22-29); Chloride 104 mmol/L (98-107); Globulin 2.3 g/dL (1.3-4.6); Glomerular Filtration Rate 29.9 mL/min (90-130); Glucose 107 mg/dL (65-115); Osmolality Calculated 308 mOsm/kg (285-295); Sodium 140 mmol/L (136-145); Total Bilirubin 0.9 mg/dL (0.15-1.2)
[2022-03-07 04:30] LABS: Slide Review Slide Review Perform
--- NOTE | 2022-03-07 04:33 | PC.NURSE ---
i reported low temp 96.8 to nurse
[2022-03-07] MEDS: aspirin 81 mg EC Tablet PO (05:34)
[2022-03-07] MEDS: verapamil ER 240 mg Tablet PO (05:34)
[2022-03-07] MEDS: levothyroxine 125 mcg Tablet PO (05:34)
[2022-03-07] MEDS: gabapentin 300 mg Capsule PO ×2 (08:15→17:48)
[2022-03-07] MEDS: hyDRALAzine 25 mg Tablet PO ×3 (08:15→20:45)
[2022-03-07] MEDS: pantoprazole DR 40 mg Tablet PO ×2 (08:15→17:48)
--- NOTE | 2022-03-07 08:45 | PC.SOCIAL ---
IMM update IMM updated with patient. Verbalized an understanding. Copy Pg 2 provided. Initialled, dated, timed, and placed in chart.
[2022-03-07] MEDS: potassium chloride ER 20 mEq Tablet 80 MEQ PO (10:27)
[2022-03-07] MEDS: vancomycin 1,000 MG in sodium chloride 0.9% 250 ML 250 MG IV (10:34)
[2022-03-07] MEDS: sodium chloride 0.9% (100 ml) 100 ML (13:11)
[2022-03-07 14:01] LABS: SARS Covid-2 Antigen Negative (Negative)
[2022-03-07 14:27] LABS: Bacillus cereus group Not Detected (NOT DETECT); Bacillus subtillis group Not Detected (NOT DETECT); Corynebacterium Not Detected (NOT DETECT); Cutibacterium acnes (P.acnes) Not Detected (NOT DETECT); Enterococcus Not Detected (NOT DETECT); Enterococcus faecalis Not Detected (NOT DETECT); Enterococcus faecium Not Detected (NOT DETECT); Lactobacillus species Not Detected (NOT DETECT); Listeria Not Detected (NOT DETECT); Listeria monocytogenes Not Detected (NOT DETECT); Micrococcus Not Detected (NOT DETECT); Pan Candida Not Detected (NOT DETECT); Pan Gram-Negative Not Detected (NOT DETECT); Staphylococcus epidermidis Not Detected (NOT DETECT); Staphylococcus lugdunensis Not Detected (NOT DETECT); Staphylococcus species Detected (NOT DETECT); Streptococcus agalactiae Not Detected (NOT DETECT); Streptococcus anginosus group Not Detected (NOT DETECT); Streptococcus pneumoniae Not Detected (NOT DETECT); Streptococcus pyogenes Not Detected (NOT DETECT); Streptococcus species Not Detected (NOT DETECT); mecA Detected (NOT DETECT); mecC Not Detected (NOT DETECT)
--- NOTE | 2022-03-07 15:31 | P.TS_ITS ---
Transfer Summary Providers Date of Admission: 02/28/22 12:59 Date of Discharge/Transfer: 03/07/22 Attending Provider at Admission: Shun Mars MD Attending Provider at Transfer: Shawn Sena MD Primary Care Provider: Ladonna Rutledge MD Transfer Plans: Anticipated date of transfer: 03/07/22 . 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 DISTRESS Brief History: History has per H&P: Gabby aGrcia is a 66 year old female with past medical history of COPD not regularly on home oxygen, use oxygen as needed.chronic steroid use and immunocompromised status with rheumatoid arthritis, Covid, post Covid she has taken her 2 dose of Covid vaccine, hypertension, hypothyroidism, came in with chief complaint of?worsening shortness of breath, cough, generalized weakness, subjective fever, nausea, going on for the last couple of days, she also ex perienced fall at home after being dizzy, hit left side of her head on the stove as she fell. Hospital Course Hospital Course Patient admitted to hospital for further evaluation and management of sepsis. On admission she was found to be in HANS, acute hyperkalemia, hyponatremia along with new anemia. She was Axa started on IV hydration and broad-spectrum antibiotics given her history of immunocompromise status secondary to medication for rheumatoid arthritis. During admission she was found to have blood cultures positive for MRSA for which she was started on broad-spectrum antibiotics which were later tailored as per culture sensitivities. Patient's blood cultures so far have remained positive from 02/28, 03/02 and subsequently from 03/05. Given persistent positive blood cultures her antibiotics have been changed from vancomycin to daptomycin. Given persistent positive MRSA bacteremia patient underwent SAW which ruled out infective endocarditis. During hospitalization patient has remained hemodynamically stable and her kidney function had continued to improve. Patient required monitor blood transfusion. Patient was found to have persistent anemia along with worsening thrombocytopenia for which diagnosis of possible DIC versus TTP were entertained. Patient's blood peripheral smear is positive for schistocytes. Blood work for DIC consistent with elevated D-dimer but normal fibrinogen, FDP and INR which are all consistent with patient having TTP. Given patient developing TTP in setting of persistent MRSA bacteremia she did not require plasmaphoresis going forward for further treatment. As plasmaphoresis is not available currently at our facility along with no availability of hematology transfer to a higher center was sought. Patient was accepted by Dr. Barajas at [facility] and is being transferred in hemodynamically stable condition. Physical Exam Const: COMMON NORMALS: patient oriented x3 HENMT: COMMON NORMALS: normocephalic, atraumatic and external ears normal HEAD & SCALP: normocephalic and atraumatic EXTERNAL EAR: Yes external ears normal Eye: GENERAL EYE: appearance normal, both eyes and all related structures Chest: COMMONS NORMALS: normal inspection of the chest and normal palpation of entire chest wall CHEST: Yes Symmetrical chest wall rise Resp: COMMON NORMALS: normal respiratory effort and No retractions EFFORT & INSPECTION: Yes symmetric chest movement OTHER: Bilateral crackles in both the lungs medrano Cardio: COMMON NORMALS: regular rate, regular rhythm, S1 normal heart sound present, S2 normal heart sound present, No gallops present (Cardio), No murmurs present (Cardio), No rub (Cardio) and Peripheral pulses 2+ throughout RATE: regular rate RHYTHM: regular rhythm HEART SOUNDS: S1 normal heart sound present and S2 normal heart sound present PERIPHERAL PULSES: Peripheral pulses 2+ throughout GI: COMMON NORMALS: Normal to inspection, nondistended, normoactive bowel sounds present, Soft to palpation, non-tender, No hepatosplenomegaly present and no masses AUSCULTATION: Yes normoactive bowel sounds PALPATION: Yes Soft to palpation and Yes No hepatosplenomegaly present RECTAL EXAM: deferred : COMMON NORMALS: Yes no CVA tenderness BLADDER/KIDNEY EXAM: Yes no CVA tenderness Back/Pelvis: COMMON NORMALS: no CVA tenderness Extremity: COMMON NORMALS: no clubbing, cyanosis or edema and no pedal edema Neuro: COMMON NORMALS: patient oriented x3 Skin: NARRATIVE SKIN EXAM: 2 small circular wounds present on right knee, nonfluctuant, clean base. Clean- cut present on right mora without any fluctuance and purulence. Also has bilateral small pressure ulcers on heels. Urinary Catheter Management: Vora: Cath Placed During This Visit: yes Reason for Continuing Indwelling Catheter: Other Urinary Catheter Date of Insertion: 03/01/22 Urinary Catheter Time of Insertion: 18:14 TS Data Studies Completed and Pending Pending at discharge Category Date Time Status Arterial Blood Gas Full Stat Lab 02/28/22 10:25 Results Blood Culture AM LABS Lab 03/05/22 05:20 Results Complete Blood Count w/Auto AM LABS Lab 03/08/22 04:00 Ordered Complete Blood Count w/Auto AM LABS Lab 03/09/22 04:00 Ordered Comprehensive Metabolic Panel AM LABS Lab 03/08/22 04:00 Ordered Comprehensive Metabolic Panel AM LABS Lab 03/09/22 04:00 Ordered DIC Profile AM LABS Lab 03/08/22 04:00 Ordered Heparin Induced Thrombocytopen Stat Lab 03/05/22 17:14 Received Miscellaneous Test QAM Lab 03/05/22 05:15 Received Miscellaneous Test Routine Lab 03/05/22 05:15 Received Miscellaneous Test Routine Lab 03/06/22 08:22 Received Sputum Culture and Gram Stain Stat Lab 02/28/22 10:20 Uncollected Labs from last 24 hours 03/07/22 03/07/22 03/07/22 13:28 02:30 02:30 WBC 12.1 H RBC 2.59 L Hgb 7.1 L Hct 22.9 L MCV 88.4 MCH 27.4 L MCHC 31.0 RDW 17.1 H Plt Count 29 L MPV Neut % (Auto) 88.1 Lymph % (Auto) 2.8 Reeves % (Auto) 4.9 Eos % (Auto) 0.0 Baso % (Auto) 0.1 Neut # (Auto) 10.69 H Lymph # (Auto) 0.3 L Reeves # (Auto) 0.6 Eos # (Auto) 0.0 Baso # (Auto) 0.0 Nucleated RBC % (auto) 0 Nucleated RBCs # 0.0 Sodium 140 Potassium 3.0 L Chloride 104 Carbon Dioxide 25 Anion Gap 14.0 BUN 61 H Creatinine 1.7 H GFR Calculation 29.9 L Glucose 107 Calculated Osmolality 308 H Calcium 8.0 L Total Bilirubin 0.9 AST 18 ALT 13 Alkaline Phosphatase 275 H Total Protein 5.0 L Albumin 2.7 L Globulin 2.3 Random Vancomycin SARS-CoV-2 Ag (Rapid) Negative Blood Type Rho(D) Type Antibody Screen Crossmatch 03/07/22 03/04/22 02:30 17:13 WBC RBC Hgb Hct MCV MCH MCHC RDW Plt Count MPV Neut % (Auto) Lymph % (Auto) Reeves % (Auto) Eos % (Auto) Baso % (Auto) Neut # (Auto) Lymph # (Auto) Reeves # (Auto) Eos # (Auto) Baso # (Auto) Nucleated RBC % (auto) Nucleated RBCs # Sodium Potassium Chloride Carbon Dioxide Anion Gap BUN Creatinine GFR Calculation Glucose Calculated Osmolality Calcium Total Bilirubin AST ALT Alkaline Phosphatase Total Protein Albumin Globulin Random Vancomycin 17.0 L SARS-CoV-2 Ag (Rapid) Blood Type O Positive Rho(D) Type Positive Antibody Screen Negative Crossmatch See Detail Completed Studies During Hospitalization Category Date Time Status CT abdomen pelvis wo con [id number] Routine Cat Scan 03/04/22 08:[address] chest wo con [id number] Routine Cat Scan 03/03/22 15:[address] head wo con* [id number] Stat Cat Scan 02/28/22 12:21 Completed XR chest 1V portable [id number] Stat Exams 02/28/22 10:20 Completed XR pelvis 1-2V* [id number] Stat Exams 02/28/22 12:21 Completed CV. echo complete* [id number] Routine Ultrasound 03/01/22 10:31 Completed CV. echo transesophageal [id number] Routine Ultrasound 03/05/22 12:00 Completed US renal BI* [id number] Routine Ultrasound 03/01/22 12:14 Completed Laboratory Last Values WBC 12.1 10^3/uL (4.0-10.0) H 03/07/22 02:30 Corrected WBC Cancelled 02/28/22 10:12 RBC 2.59 10^6/uL (4.1-5.3) L 03/07/22 02:30 Hgb 7.1 g/dL (11.5-15.3) L 03/07/22 02:30 Hct 22.9 % (37.0-47.0) L 03/07/22 02:30 MCV 88.4 fl (81-99) 03/07/22 02:30 MCH 27.4 pg (28.0-34.0) L 03/07/22 02:30 MCHC 31.0 g/dL (30.0-36.0) 03/07/22 02:30 RDW 17.1 % (12.1-15.1) H 03/07/22 02:30 Plt Count 29 10^3/cmm (130-400) L 03/07/22 02:30 MPV fL (7.4-10.4) 03/07/22 02:30 Gran % Cancelled 02/28/22 10:12 Neut % (Auto) 88.1 % 03/07/22 02:30 Lymph % (Auto) 2.8 % 03/07/22 02:30 Reeves % (Auto) 4.9 % 03/07/22 02:30 Eos % (Auto) 0.0 % 03/07/22 02:30 Baso % (Auto) 0.1 % 03/07/22 02:30 Reticulocyte % (Auto) 0.7 % (0.5-2.0) 03/04/22 17:13 Neut # (Auto) 10.69 10^3/uL (1.8-7.7) H 03/07/22 02:30 Lymph # (Auto) 0.3 10^3/uL (0.8-4.8) L 03/07/22 02:30 Reeves # (Auto) 0.6 10^3/uL (0.2-0.9) 03/07/22 02:30 Eos # (Auto) 0.0 10^3/uL (0.0-0.8) 03/07/22 02:30 Baso # (Auto) 0.0 10^3/uL (0.0-0.1) 03/07/22 02:30 Absolute Gran (auto) Cancelled 02/28/22 10:12 Nucleated RBC % (auto) 0 % 03/07/22 02:30 Total Counted 100 (0-100) 03/06/22 05:11 Atypical Lymphs % 0.0 % (0-5) 03/06/22 05:11 Absolute Neutrophils 8.4 10^3/cmm (1.4-6.5) H 03/06/22 05:11 Segmented Neutrophils 82 % 03/06/22 05:11 Abs Segm Neuts (Man) 7.5 10/cmm (1.6-7.1) H 03/06/22 05:11 Band Neutrophils 9.0 % 03/06/22 05:11 Abs Band Neuts (Man) 0.8 10^3/cmm (0.0-1.2) 03/06/22 05:11 Absolute Lymphocytes 0.2 10^3/cmm (1.2-3.4) L 03/06/22 05:11 Lymphocytes (Manual) 2 % 03/06/22 05:11 Monocytes (Manual) 4.0 % 03/06/22 05:11 Absolute Monocytes 0.4 10^3/cmm (0.1-0.6) 03/06/22 05:11 Eosinophils (Manual) 0 % 03/06/22 05:11 Absolute Eosinophils 0.0 10^3/cmm (0.0-0.7) 03/06/22 05:11 Basophils (Manual) 0.0 % 03/06/22 05:11 Absolute Basophils 0.0 10^3/cmm (0.0-0.2) 03/06/22 05:11 Metamyelocytes 2.0 % 03/06/22 05:11 Myelocytes 1.0 % 03/06/22 05:11 Nucleated RBCs # 0.0 /100WBC 03/07/22 02:30 Pathologist Review No 03/05/22 05:15 Platelet Estimate Decreased (Normal) L 03/06/22 05:11 Poikilocytosis 1+ H 03/06/22 05:11 Schistocytes 2+ H 03/06/22 05:11 Haptoglobin 10.0 mg/L (30-200) L 03/04/22 17:13 PT 12.80 SECONDS (12.1-14.9) 03/06/22 08:22 INR 0.93 (0.8-1.2) 03/06/22 08:22 APTT 20.6 SECONDS (23.9-36.7) L 03/06/22 08:22 Fibrinogen 314 mg/dL (174-498) 03/06/22 08:22 Fibrin Degrad Products TNP 03/06/22 08:22 D-Dimer 6.01 ug/mIFEU (0-0.59) H 03/06/22 08:22 Specimen Type Arterial 02/28/22 10:25 Sample Site Brachial, right 02/28/22 10:25 ABG pH 7.26 (7.35-7.45) L 02/28/22 10:25 ABG pCO2 36.4 mmHg (35-45) 02/28/22 10:25 ABG pO2 223.0 mmHg (80.0-100.0) H 02/28/22 10:25 ABG HCO3 16.3 mmol/L (22-26) L 02/28/22 10:25 ABG O2 Saturation 99.7 02/28/22 10:25 ABG Base Excess -10.0 mmol/L (-2.0-2.0) L 02/28/22 10:25 Antony Test N/a 02/28/22 10:25 Hematocrit 25.7 % (37-47) L 02/28/22 10:25 Hgb O2 Saturation 98.3 % (95-100) 02/28/22 10:25 Carboxyhemoglobin 0.3 %THgb (0.4-20.1) L 02/28/22 10:25 Methemoglobin 1.1 % (0.4-1.5) 02/28/22 10:25 Total Hemoglobin 8.4 g/dL (12-16) L 02/28/22 10:25 Sodium 127.0 mmol/L (131-143) L 02/28/22 10:25 Potassium 5.0 mmol/L (3.5-5.0) 02/28/22 10:25 Glucose 38.0 mg/dL (70-115) L 02/28/22 10:25 Ionized Calcium 1.2 mmol/L (1.1-1.4) 02/28/22 10:25 O2 Delivery Device Neb mask 02/28/22 10:25 O2 Liters/Min 8.0 % 02/28/22 10:25 Student ID Mindy 02/28/22 10:25 Sodium 140 mmol/L (136-145) 03/07/22 02:30 Potassium 3.0 mmol/L (3.5-5.1) L 03/07/22 02:30 Chloride 104 mmol/L (98-107) 03/07/22 02:30 Carbon Dioxide 25 mmol/L (22-29) 03/07/22 02:30 Anion Gap 14.0 (5-19) 03/07/22 02:30 BUN 61 mg/dL (8-23) H 03/07/22 02:30 Creatinine 1.7 mg/dL (0.5-0.9) H 03/07/22 02:30 GFR Calculation 29.9 mL/min (90-130) L 03/07/22 02:30 Glucose 107 mg/dL (65-115) 03/07/22 02:30 POC Glucose 133 mg/dL (70-110) H 03/04/22 16:42 Estimat Average Glucose 88 03/05/22 05:15 Hemoglobin A1c 4.7 % (4.0-6.0) 03/05/22 05:15 Calculated Osmolality 308 mOsm/kg (285-295) H 03/07/22 02:30 Lactic Acid 0.7 mmol/L (0.5-2.2) 03/02/22 07:18 Calcium 8.0 mg/dL (8.5-10.5) L 03/07/22 02:30 Phosphorus 4.1 mg/dL (2.5-4.5) 03/01/22 04:20 Iron 102 ug/dL (37-145) 03/04/22 03:52 TIBC 118.86378 mcg/dl 03/04/22 03:52 % Saturation 85.0 % (20-50) H 03/04/22 03:52 Unsat Iron Binding < 17 ug/dL (112-347) L 03/04/22 03:52 Total Bilirubin 0.9 mg/dL (0.15-1.2) 03/07/22 02:30 AST 18 U/L (0-32) 03/07/22 02:30 ALT 13 U/L (0-33) 03/07/22 02:30 Alkaline Phosphatase 275 IU/L (35-105) H 03/07/22 02:30 Lactate Dehydrogenase 642 U/L (135-214) H 03/04/22 17:13 Creatine Kinase 154 U/L (26-192) 02/28/22 10:12 Total Protein 5.0 g/dL (6.6-8.7) L 03/07/22 02:30 Albumin 2.7 g/dL (3.5-5.2) L 03/07/22 02:30 Globulin 2.3 g/dL (1.3-4.6) 03/07/22 02:30 Triglycerides 113 mg/dL (0-150) 03/05/22 05:15 Triglycerides Cancelled 03/05/22 05:15 Cholesterol 145 mg/dL (0-200) 03/05/22 05:15 Cholesterol Cancelled 03/05/22 05:15 LDL Cholesterol, Calc 52 mg/dL (50-129) 03/05/22 05:15 LDL Cholesterol, Calc Cancelled 03/05/22 05:15 Total VLDL Cholesterol 23 mg/dL (0-30) 03/05/22 05:15 Total VLDL Cholesterol Cancelled 03/05/22 05:15 HDL Cholesterol 70 mg/dL (60-100) 03/05/22 05:15 HDL Cholesterol Cancelled 03/05/22 05:15 Cholesterol/HDL Ratio 2.07 mg/dL (0.0-4.40) 03/05/22 05:15 Cholesterol/HDL Ratio Cancelled 03/05/22 05:15 Vitamin B12 1003 pg/mL (232-1245) 03/04/22 17:13 Folate 4.3 ng/mL (4.8-37.3) L 03/04/22 17:13 Procalcitonin 0.61 ng/mL (0-0.5) H 03/04/22 03:52 TSH 0.35 uIU/mL (0.27-4.20) 03/04/22 03:52 Urine Color Yellow (Yellow) 03/01/22 18:12 Urine Appearance Clear (CLEAR) 03/01/22 18:12 Urine pH 5 (5-7) 03/01/22 18:12 Ur Specific Ripley 1.015 (1.005-1.030) 03/01/22 18:12 Urine Protein Neg (Negative) 03/01/22 18:12 Urine Glucose (UA) Norm (Normal) 03/01/22 18:12 Urine Ketones Negative (Negative) 03/01/22 18:12 Urine Blood 2+ (Negative) H 03/01/22 18:12 Urine Nitrate Negative (Negative) 03/01/22 18:12 Urine Bilirubin Neg (Negative) 03/01/22 18:12 Urine Urobilinogen Norm mg/dL (Negative) 03/01/22 18:12 Ur Leukocyte Esterase Negative (Negative) 03/01/22 18:12 Urine RBC 10-15 /hpf (0-2) H 03/01/22 18:12 Urine WBC 10-15 /hpf (0-5) H 03/01/22 18:12 Ur Squamous Epith Cells 15-25 /hpf (0-5) H 03/01/22 18:12 Ur Renal Epithelial Cell 0-4 /hpf 03/01/22 18:12 Amorphous Sediment Not Reportable 03/01/22 18:12 Urine Bacteria 2+ /hpf (NONE) H 03/01/22 18:12 Ur Random Sodium 31 mmol/L 03/01/22 18:12 Urine Creatinine 45 mg/dL (28-217) 03/01/22 18:12 Random Vancomycin 17.0 ug/mL (20.0-40.0) L 03/07/22 02:30 SARS-CoV-2 Ag (Rapid) Negative (Negative) 03/07/22 13:28 Blood Type O Positive 03/04/22 17:13 Rho(D) Type Positive 03/04/22 17:13 Antibody Screen Negative 03/04/22 17:13 Crossmatch See Detail 03/04/22 17:13 Radiology Impressions Chest X-Ray 02/28/22 10:20 Impression: 1. Cardiomegaly and atherosclerosis. 2. Patchy retrocardiac opacity which could represent consolidation, effusion and/or atelectasis. Head CT 02/28/22 12:21 IMPRESSION: 1. No acute intracranial hemorrhage or edema. 2. Mild atrophy and very mild small vessel ischemic disease. Pelvis X-Ray 02/28/22 12:21 Impression: Negative for fracture. Renal Ultrasound 03/01/22 12:14 IMPRESSION: Normal renal ultrasound Chest CT 03/03/22 15:31 IMPRESSION: 1. Small right pleural fluid collection. 2. Partial esophagectomy with gastric pull-through. 3. Moderate calcified coronary artery disease. 4. Complete collapse of the left lower lobe with air bronchograms. 5. [id number] bilateral upper lobe pneumonia with mild right lower lobe pneumonia. Abdomen/Pelvis CT 03/04/22 08:00 IMPRESSION: 1. No calcified gallstones, but there are signs that might indicate acute cholecystitis, in the correct clinical setting. 2. Left nephrolithiasis without urinary tract obstruction. SAW: CONCLUSIONS ?1. Normal left ventricular size and systolic function with no?regional wall motion abnormalities. Left ventricular ejection ?fraction is estimated at 60-65 %. ?2. Normal right ventricular size and systolic function. ?3. No evidence of valvular vegetation.? ?4. Mild aortic regurgitation. ?Sandy Glynn MD ?(Electronically Signed) ?Final Date:? ? ? 06 March 2022 ? 16:13 Echocardiogram: CONCLUSIONS ?1. Normal left ventricular size, systolic function and mildly?increased wall thickness, with no regional wall motion?abnormalities. Left ventricular ejection fraction is estimated?at? 60 %. Grade II diastolic dysfunction, moderately elevated?filling pressures. ?2. Normal right ventricular size and systolic function. ?3. Pulmonary artery pressure estimated at 24 mmHg.? ?4. When compared to prior echocardiogram dated 05/23/2021, there?may not have been any significant change. ?5. No evidence of valvular vegetation based on the study.? SAW?may be considered, clinical correlation is advised. ?Sandy Glynn MD ?(Electronically Signed) ?Final Date:? ? ? 01 March 2022 ? 18:18 Recent Clincial Data Last Vital Signs Temp 98 F 03/07/22 14:35 Pulse 97 03/07/22 14:35 Resp 18 03/07/22 14:35 BP 146/71 03/07/22 14:35 Pulse Ox 100 03/07/22 14:35 Vital Signs Temp Pulse Resp BP Pulse Ox 03/07/22 14:35 98 F 97 18 146/71 100 03/07/22 13:35 98 F 91 16 124/71 100 03/07/22 13:20 98 F 91 16 120/69 100 03/07/22 12:59 97.9 F 88 16 137/68 99 03/07/22 11:44 88 03/07/22 11:39 91 18 99 03/07/22 11:24 98.9 F 91 17 137/98 100 03/07/22 07:57 93 03/07/22 07:50 98 18 100 03/07/22 07:27 97.9 F 107 H 17 148/84 100 03/07/22 04:00 96.8 F L 91 17 172/83 100 Intake & Output/Weight 03/05/22 03/06/22 03/07/22 03/08/22 06:59 06:59 06:59 06:59 Intake Total 1460 / 1460 1505 / 1505 294 / 294 1310 / 1310 Output Total 2070 / 0 1105 / 1105 3480 / 3480 Balance -610 / -610 400 / 400 -3186 / -3186 1310 / 1310 Vitals Last Vital Signs Temp 98 F 03/07/22 14:35 Pulse 97 03/07/22 14:35 Resp 18 03/07/22 14:35 BP 146/71 03/07/22 14:35 Pulse Ox 100 03/07/22 14:35 TS Medications Medications Acetaminophen (Acetaminophen 325 Mg Tablet) 650 mg PO Q6H PRN PRN Reason: Mild/Mod Pain Or Temp >/= 101 Albuterol/Ipratropium (Ipratropium-Albuterol 3 Ml Neb) 3 ml INHALATION Q4H.RESPIRATORY [facility] Last Admin: 03/07/22 11:38 Dose: 3 ml Documented by: Aspirin (Aspirin 81 Mg Ec Tablet) 81 mg PO QAM [facility] Last Admin: 03/07/22 05:34 Dose: 81 mg Documented by: Atorvastatin Calcium (Atorvastatin 40 Mg Tablet) 20 mg PO QPM [facility] Last Admin: 03/06/22 17:40 Dose: 20 mg Documented by: Bisacodyl (Bisacodyl 5 Mg Tablet) 10 mg PO DAILY PRN; Protocol PRN Reason: Constipation (see protocol) Escitalopram Oxalate (Escitalopram 10 Mg Tablet) 10 mg PO BEDTIME [facility] Last Admin: 03/06/22 20:54 Dose: 10 mg Documented by: Ferrous Sulfate (Ferrous Sulfate Ec 325 Mg Tablet) 325 mg PO DAILY@18 [facility] Last Admin: 03/06/22 17:40 Dose: 325 mg Documented by: Gabapentin (Gabapentin 300 Mg Capsule) 300 mg PO BID [facility] Last Admin: 03/07/22 08:15 Dose: 300 mg Documented by: Hydralazine HCl (Hydralazine 25 Mg Tablet) 25 mg PO TID [facility] Last Admin: 03/07/22 14:48 Dose: 25 mg Documented by: Vancomycin HCl 1,000 mg/ (Sodium Chloride) 250 mls @ 250 mls/hr IV Q48H [place]; Protocol Last Infusion: 03/07/22 11:37 Dose: Infused Documented by: Levothyroxine Sodium (Levothyroxine 125 Mcg Tablet) 125 mcg PO QAM [facility] Last Admin: 03/07/22 05:34 Dose: 125 mcg Documented by: Methylprednisolone Sodium Succinate (Methylprednisolone Sod Succ 40 Mg/Ml Inj) 30 mg IVP DAILY [facility] Last Admin: 03/07/22 08:15 Dose: 30 mg Documented by: Ondansetron HCl (Ondansetron 2 Mg/Ml Sdv 2 Ml) 4 mg IVP Q8H PRN PRN Reason: vomiting, or N/V if npo Pantoprazole Sodium (Pantoprazole Dr 40 Mg Tablet) 40 mg PO BID [facility] Last Admin: 03/07/22 08:15 Dose: 40 mg Documented by: Temazepam (Temazepam 15 Mg Capsule) 30 mg PO BEDTIME [facility] Last Admin: 03/06/22 20:54 Dose: 30 mg Documented by: Verapamil HCl (Verapamil Er 240 Mg Tablet) 240 mg PO QAM [facility] Last Admin: 03/07/22 05:34 Dose: 240 mg Documented by: Discontinued Medications Albuterol/Ipratropium (Ipratropium-Albuterol 3 Ml Neb) 3 ml INHALATION ONCE ONE Stop: 02/28/22 11:05 Last Admin: 02/28/22 16:00 Dose: Not Given Documented by: Albuterol/Ipratropium (Ipratropium-Albuterol 3 Ml Neb) 3 ml INHALATION Q4H [facility] Last Admin: 02/28/22 15:40 Dose: 3 ml Documented by: Amlodipine Besylate (Amlodipine 5 Mg Tablet) 5 mg PO DAILY [facility] Last Admin: 03/03/22 08:14 Dose: 5 mg Documented by: Amlodipine Besylate (Amlodipine 10 Mg Tablet) 10 mg PO DAILY [facility] Last Admin: 03/04/22 08:12 Dose: 10 mg Documented by: Benzocaine (Cetylpyridinium Lozenge) 1 each MUCOUS MEM ONCE ONE Stop: 03/05/22 11:50 Last Admin: 03/05/22 13:52 Dose: Not Given Documented by: Calcium Chloride (Calcium Chloride 10% Syr 10 Ml) 1 gm IVP ONCE ONE Stop: 02/28/22 11:41 Last Admin: 02/28/22 12:05 Dose: 1 gm Documented by: Dexamethasone (Dexamethasone 4 Mg/Ml Inj) Confirm Administered Dose 4 mg .ROUTE .STK-MED ONE Stop: 03/05/22 12:11 Fentanyl (Fentanyl 50 Mcg/Ml Inj 2ml) 50 mcg IVP Q10M PRN PRN Reason: Preop Pain Fentanyl (Fentanyl 50 Mcg/Ml Inj 2ml) Confirm Administered Dose 100 mcg .ROUTE .STK-MED ONE Stop: 03/05/22 11:57 Furosemide (Furosemide 10 Mg/Ml Sdv 2ml) 20 mg IVP ONCE ONE Stop: 03/01/22 17:30 Last Admin: 03/01/22 17:57 Dose: 20 mg Documented by: Furosemide (Furosemide 10 Mg/Ml Sdv 2ml) 20 mg IVP ONCE ONE Stop: 03/02/22 10:26 Last Admin: 03/02/22 11:21 Dose: 20 mg Documented by: Furosemide (Furosemide 20 Mg Tablet) 20 mg PO ONCE ONE Stop: 03/03/22 11:22 Last Admin: 03/03/22 12:03 Dose: 20 mg Documented by: Heparin Sodium (Porcine) (Heparin 5,000 Unit/Ml Inj 1 Ml) 5,000 unit SUBCUT Q12H [facility] Last Admin: 03/05/22 02:50 Dose: 5,000 unit Documented by: Hydralazine HCl (Hydralazine 25 Mg Tablet) 25 mg PO TID [facility] Last Admin: 03/04/22 15:22 Dose: 25 mg Documented by: Piperacillin Sod/Tazobactam (Sod 3.375 gm/ Sodium Chloride) 50 mls @ 100 mls/hr IV ONCE ONE; Protocol Stop: 02/28/22 11:29 Last Admin: 02/28/22 11:32 Dose: 100 mls/hr Documented by: Vancomycin HCl 1,000 mg/ (Sodium Chloride) 250 mls @ 250 mls/hr IV ONCE ONE; Protocol Stop: 02/28/22 11:59 Last Admin: 02/28/22 11:42 Dose: 250 mls/hr Documented by: Levofloxacin/Dextrose (Levaquin-D5w) 750 mg in 150 mls @ 100 mls/hr IV ONCE ONE; Protocol Stop: 02/28/22 12:29 Last Admin: 02/28/22 12:15 Dose: 100 mls/hr Documented by: Norepinephrine Bitartrate 4 mg (/ Dextrose) 254 mls @ 0 mls/hr IV .Q0M [facility]; Protocol Last Titration: 03/01/22 04:02 Dose: 0 mcg/min, 0 mls/hr Documented by: Sodium Chloride (Sodium Chloride 0.9%) 1,510.47 mls @ 1,510.47 mls/hr 30 ml/kg infuse over 1 hr (1510.47 ml) IV .Q1H ONE Stop: 02/28/22 12:03 Last Admin: 02/28/22 11:18 Dose: 1,510.47 mls/hr Documented by: Dextrose (D10w) 1,000 mls @ 75 mls/hr IV .[id number] [facility] Last Admin: 03/03/22 08:44 Dose: Not Given Documented by: Dextrose 35.5 ml/ Sterile (Water 14.5 ml/ N/A) 50 mls @ 200 mls/hr IV ONCE ONE Stop: 02/28/22 12:59 Last Admin: 03/02/22 07:53 Dose: Not Given Documented by: Dextrose (D10w) Confirm Administered Dose 250 mls @ as directed .ROUTE .STK-MED ONE Stop: 02/28/22 12:35 Last Infusion: 03/03/22 08:44 Dose: Infused Documented by: Dextrose/Sodium Chloride (Dextrose 5%-Sod Chloride 0.9%) 1,000 mls @ 75 mls/hr IV .[id number] [facility] Last Infusion: 03/02/22 10:43 Dose: Infused Documented by: Ceftriaxone Sodium 1,000 mg/ (Sodium Chloride) 50 mls @ 100 mls/hr IV Q24H [facility]; Protocol Last Infusion: 03/03/22 16:59 Dose: Infused Documented by: Azithromycin 500 mg/ Sodium (Chloride) 250 mls @ 250 mls/hr IV Q24H [facility]; Protocol Last Infusion: 03/01/22 16:29 Dose: Infused Documented by: Vancomycin HCl 750 mg/ Sodium (Chloride) 250 mls @ 250 mls/hr IV Q48H [facility]; Protocol Last Infusion: 03/03/22 12:04 Dose: Infused Documented by: Lidocaine HCl 5 ml/ Potassium (Chloride) 105 mls @ 50 mls/hr IV ONCE ONE Stop: 03/03/22 19:45 Last Infusion: 03/03/22 22:15 Dose: Infused Documented by: Sodium Chloride (Sodium Chloride 0.9% (100 Ml)) Confirm Administered Dose 100 mls @ as directed .ROUTE .STK-MED ONE Stop: 03/04/22 22:05 Last Infusion: 03/05/22 01:04 Dose: Infused Documented by: Lidocaine HCl 5 ml/ Potassium (Chloride) 105 mls @ 25 mls/hr IV ONCE ONE Stop: 03/05/22 14:11 Last Infusion: 03/05/22 14:33 Dose: Infused Documented by: Sodium Chloride (Sodium Chloride 0.9%) 1,000 mls @ 30 mls/hr IV .Q24H [facility] Stop: 03/06/22 11:59 Last Infusion: 03/05/22 14:33 Dose: Infused Documented by: Lidocaine HCl (Lidocaine 1%) Confirm Administered Dose 20 mls @ as directed .ROUTE .STK-MED ONE Stop: 03/05/22 11:54 Sodium Chloride (Sodium Chloride 0.9% (100 Ml)) Confirm Administered Dose 100 mls @ as directed .ROUTE .[facility] ONE Stop: 03/07/22 12:45 Last Infusion: 03/07/22 13:12 Dose: Infused Documented by: Iodixanol (Iodixanol 320 Mg/Ml 100ml Btl) 0 ml IV ONCE ONE Stop: 02/28/22 12:03 Last Admin: 02/28/22 12:03 Dose: 80 ml Documented by: Iohexol (Iohexol 300 Mg/Ml 50 Ml Btl) 0 ml PO ONCE ONE Stop: 03/04/22 09:04 Last Admin: 03/04/22 09:11 Dose: 25 ml Documented by: Methylprednisolone Sodium Succinate (Methylprednisolone Sod Succ 125 Mg/2 Ml Inj) 60 mg IVP BID [facility] Last Admin: 03/04/22 08:13 Dose: 60 mg Documented by: Methylprednisolone Sodium Succinate (Methylprednisolone Sod Succ 40 Mg/Ml Inj) 40 mg IVP DAILY [facility] Last Admin: 03/06/22 08:24 Dose: 40 mg Documented by: Midazolam HCl (Midazolam 1 Mg/Ml Inj 2 Ml) 2 mg IVP Q5M PRN PRN Reason: Preop Anxiety Ondansetron HCl (Ondansetron 2 Mg/Ml Sdv 2 Ml) 4 mg IVP Q15M PRN PRN Reason: Nausea/Vomiting PACU PHASE II Ondansetron HCl (Ondansetron 2 Mg/Ml Sdv 2 Ml) 4 mg IVP Q5M PRN PRN Reason: NAUSEA AND VOMITING Potassium Chloride (Potassium Chloride Er 20 Meq Tablet) 80 meq PO ONCE ONE Stop: 03/07/22 09:42 Last Admin: 03/07/22 10:27 Dose: 80 meq Documented by: Propofol (Propofol 10 Mg/Ml Sdv 20 Ml) Confirm Administered Dose 200 mg .ROUTE .STK-MED ONE Stop: 03/05/22 11:54 Sodium Bicarbonate (Sodium Bicarbonate 8.4% 1 Meq/Ml 50ml Syr) 100 meq IVP ONCE ONE Stop: 02/28/22 11:41 Last Admin: 02/28/22 12:07 Dose: 100 meq Documented by: Sodium Bicarbonate (Sodium Bicarbonate 650 Mg Tablet) 1,300 mg PO TID [place] Last Admin: 03/04/22 08:13 Dose: 1,300 mg Documented by: Sodium Polystyrene Sulfonate (Sodium Polystyrene Sulfonate 15 Gm/60 Ml Btl) 15 gm PO ONCE ONE Stop: 03/01/22 08:02 Last Admin: 03/01/22 08:49 Dose: 15 gm Documented by: Allergies REINA Inhibitors Allergy (Verified 02/28/22 15:33) ADR-Cough codeine Allergy (Verified 02/28/22 15:33) ADR-Nausea hydrocodone Allergy (Verified 02/28/22 15:33) ADR-Nausea Sulfa (Sulfonamide Antibiotics) Allergy (Verified 02/28/22 15:33) ALGY-Anaphylaxis sulfamethoxazole [From Bactrim] Allergy (Verified 02/28/22 15:33) ALGY-Anaphylaxis trimethoprim [From Bactrim] Allergy (Verified 02/28/22 15:33) ALGY-Anaphylaxis Home Medications aspirin 81 mg tablet,delayed release (Aspirin Low Dose) 81 mg PO QAM tab 11/19/19 [History Confirmed 02/28/22] magnesium oxide 400 mg PO DAILY@18 05/21/21 [History Confirmed 02/28/22] albuterol sulfate 90 mcg/actuation aerosol inhaler (ProAir HFA) 2 puff INHALATION QID PRN #6.7 g 07/05/21 [Rx Confirmed 02/28/22] losartan 100 mg tablet 100 mg PO DAILY@18 #90 tab 07/11/21 [Rx Confirmed 02/28/22] ipratropium 0.5 mg-albuterol 3 mg (2.5 mg base)/3 mL nebulization soln 3 ml INHALATION Q4H PRN #90 ml 07/24/21 [Rx Confirmed 02/28/22] budesonide 0.5 mg/2 mL suspension for nebulization 0.5 mg INHALATION BID PRN 09/18/21 [History Confirmed 02/28/22] prednisone 10 mg tablet 10 mg PO DAILY PRN 09/18/21 [History Confirmed 02/28/22] alendronate 70 mg tablet 70 mg PO Q7D #15 tab 09/19/21 [Rx Confirmed 02/28/22] etanercept 50 mg/mL (1 mL) subcutaneous pen injector (Enbrel SureClick) 50 mg SUBCUT Q7D #4 ml 09/19/21 [Rx Confirmed 02/28/22] hydroxychloroquine 200 mg tablet See Rx Instructions PO .COMPLEX #135 tab 09/19/21 [Rx Confirmed 02/28/22] leflunomide 10 mg tablet 10 mg PO DAILY@18 #30 tab 09/19/21 [Rx Confirmed 02/28/22] fluticasone propionate 50 mcg/actuation nasal spray,suspension (Flonase Allergy Relief) 2 spray INTRANASAL QAM #16 g 10/16/21 [Rx Confirmed 02/28/22] ipratropium 0.5 mg-albuterol 3 mg (2.5 mg base)/3 mL nebulization soln 3 ml INHALATION Q6H PRN #90 ml 10/23/21 [Rx Confirmed 02/28/22] ergocalciferol (vitamin D2) 1,250 mcg (50,000 unit) capsule 50,000 unit PO Q14D #8 cap 01/29/22 [Rx Confirmed 02/28/22] escitalopram oxalate 10 mg tablet (Lexapro) 10 mg PO BEDTIME #30 tab 01/29/22 [Rx Confirmed 02/28/22] ferrous sulfate 325 mg (65 mg iron) tablet 325 mg PO DAILY@18 #30 tab 01/29/22 [Rx Confirmed 02/28/22] fexofenadine 180 mg tablet 180 mg PO QAM #30 tab 01/29/22 [Rx Confirmed 02/28/22] furosemide 20 mg tablet (Lasix) 20 mg PO QAM #90 tab 01/29/22 [Rx Confirmed 02/28/22] levothyroxine 125 mcg tablet (Synthroid) 125 mcg PO QAM #90 tab 01/29/22 [Rx Confirmed 02/28/22] lidocaine 5 % topical patch (Lidoderm) 1 patch TOPICAL . DIRECTED #30 ea 01/29/22 [Rx Confirmed 02/28/22] montelukast 10 mg tablet (Singulair) 10 mg PO QAM #30 tab 01/29/22 [Rx Confirmed 02/28/22] pantoprazole 40 mg tablet,delayed release (Protonix) 40 mg PO BID #180 tab 01/29/22 [Rx Confirmed 02/28/22] potassium chloride 10 mEq tablet,extended release 10 meq PO QAM #30 tab 01/29/22 [Rx Confirmed 02/28/22] pravastatin 40 mg tablet 40 mg PO QPM #90 tab 01/29/22 [Rx Confirmed 02/28/22] temazepam 30 mg capsule (Restoril) 30 mg PO BEDTIME #30 cap 01/29/22 [Rx Confirmed 02/28/22] verapamil 240 mg 24 hr capsule,extended release 240 mg PO QAM #30 cap 01/29/22 [Rx Confirmed 02/28/22] budesonide 160 mcg-glycopyr 9 mcg-formot 4.8 mcg/actuation HFA inhaler (Breztri Aerosphere) 2 inh INHALATION BID 02/26/22 [History Confirmed 02/28/22] honey 80 % topical gel (MediHoney (honey)) 1 applic TOPICAL BID #44 ml 02/26/22 [Rx Confirmed 02/28/22] gabapentin 300 mg capsule 300 mg PO BID 02/28/22 [History Confirmed 02/28/22] Discharge Plan Discharge Patient Disposition: Home Condition: Stable Prescriptions: No Action losartan 100 mg tablet 100 mg PO DAILY@18 Qty: 90 2RF ipratropium-albuterol 0.5 mg-3 mg(2.5 mg base)/3 mL solution for nebulization 3 ml inhalation Q6H PRN (Reason: wheezing) Qty: 90 3RF alendronate 70 mg tablet 70 mg PO Q7D Qty: 15 1RF Rx Instructions: on Friday. Enbrel SureClick 50 mg/mL (1 mL) pen injector 50 mg SUBCUT Q7D Qty: 4 3RF Rx Instructions: on Saturdays. hydroxychloroquine 200 mg tablet See Rx Instructions PO .COMPLEX Qty: 135 1RF Hold Instructions: Resume on 07/31/21. Rx Instructions: alternate taking 1 tab one day and 2 tabs the next day. leflunomide 10 mg tablet 10 mg PO DAILY@18 Qty: 30 3RF ergocalciferol (vitamin D2) 1,250 mcg (50,000 unit) capsule 50,000 unit PO Q14D Qty: 8 3RF Rx Instructions: on sundays escitalopram oxalate [Lexapro] 10 mg tablet 10 mg PO BEDTIME Qty: 30 3RF ferrous sulfate 325 mg (65 mg iron) tablet 325 mg PO DAILY@18 Qty: 30 3RF fexofenadine 180 mg tablet 180 mg PO QAM Qty: 30 3RF furosemide [Lasix] 20 mg tablet 20 mg PO QAM Qty: 90 1RF levothyroxine [Synthroid] 125 mcg tablet 125 mcg PO QAM Qty: 90 1RF lidocaine [Lidoderm] 5 % adhesive patch,medicated 1 patch topical . DIRECTED Qty: 30 3RF Rx Instructions: leave on most painful area for up to 12 hrs montelukast [Singulair] 10 mg tablet 10 mg PO QAM Qty: 30 3RF Protonix 40 mg tablet,delayed release (DR/EC) 40 mg PO BID Qty: 180 3RF potassium chloride 10 mEq tablet extended release 10 meq PO QAM Qty: 30 3RF pravastatin 40 mg tablet 40 mg PO QPM Qty: 90 1RF temazepam [Restoril] 30 mg capsule 30 mg PO BEDTIME Qty: 30 2RF verapamil 240 mg capsule,ext rel. pellets 24 hr 240 mg PO QAM Qty: 30 3RF aspirin [Aspirin Low Dose] 81 mg tablet,delayed release (DR/EC) 81 mg PO QAM 0RF Breztri Aerosphere 160-9-4.8 mcg/actuation HFA aerosol inhaler 2 inh inhalation BID 0RF MediHoney (honey) 80 % gel 1 applic topical BID Qty: 44 0RF albuterol sulfate [ProAir HFA] 90 mcg/actuation HFA aerosol inhaler 2 puff INHALATION QID PRN (Reason: Shortness Of Breath) Qty: 6.7 2RF fluticasone propionate [Flonase Allergy Relief] 50 mcg/actuation spray,suspension 2 spray intranasal QAM Qty: 16 3RF Rx Instructions: administer into each nostril ipratropium-albuterol 0.5 mg-3 mg(2.5 mg base)/3 mL solution for nebulization 3 ml inhalation Q4H PRN (Reason: shortness of breath or wheezing) Qty: 90 0RF prednisone 10 mg Tablet 10 mg PO DAILY PRN (Reason: FLARE UP) 0RF budesonide 0.5 mg/2 mL Suspension For Nebulization 0.5 mg inhalation BID PRN (Reason: UNKNOWN) 0RF magnesium oxide 400 mg magnesium capsule 400 mg PO DAILY@18 0RF gabapentin 300 mg Capsule 300 mg PO BID 0RF Referrals: Ladonna Rutledge MD [Primary Care Provider] - Patient Instructions: Opioid Safety Transfer Attestations Time Spent in Transfer Care: greater than 30 min Specific Discharge Activities: educating patient, discussing with pcp/other providers, discussing with case loader operator/social workers/dc planners, documenting/other paperwork and evaluating patient/reviewing data Status at Transfer: Cognitive status at transfer: cognitively intact ; Behavioral status at transfer: cooperative ; Functional status at transfer: uses cane/walker ; Overall status at transfer: patient is not back to baseline Quality Metrics Clinical Quality Measures [ No reported AMI, CVA or VTE this stay] Coding Level of Care Code Acute Artillery Officer for g Fwd Diagnoses 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
--- NOTE | 2022-03-07 16:04 | CTR_ITS ---
PROCEDURE INFORMATION: Exam: CT Lumbar Spine Without Contrast Exam date and time: 03/07/2022 9:01 PM Age: 66 years old Clinical indication: Pain; [place]; Additional info: Possible discitis TECHNIQUE: Imaging protocol: Computed tomography images of the lumbar spine without contrast. Radiation optimization: All CT scans at this facility use at least one of these dose optimization techniques: automated exposure control; mA and/or kV adjustment per patient size (includes targeted exams where dose is matched to clinical indication); or iterative reconstruction. COMPARISON: MRI Lumbar Spine w/wo [id number] 03/11/2016 3:21 PM RADIATION DOSE METRICS: Total DLP (mGy-cm): 758.25 FINDINGS: Vertebrae: No fracture. No loss of endplate cortical integrity. There is normal vertebral body alignment. There are normal vertebral body heights. T12-L1: Severe disc space narrowing. Disc protrusion results in mild canal stenosis without foraminal narrowing. L1-L2: Moderate disc space narrowing. Disc protrusion results in mild canal stenosis without foraminal stenosis. L2-L3: Mild disc space narrowing. Disc protrusion and facet hypertrophy result in mild-moderate canal stenosis without foraminal stenosis. L3-L4: Mild disc space narrowing. Disc protrusion results in mild canal stenosis and in combination with facet hypertrophy results in mild bilateral foraminal narrowing. L4-L5: Moderate disc space narrowing. Moderate canal stenosis secondary to large central disc protrusion. There is mild left neural foraminal stenosis. L5-S1: Severe disc space narrowing. Large disc extrusion results in moderate canal stenosis. There is mild to moderate bilateral neural foraminal stenosis. Soft tissues: Unremarkable. CT/CT lumbar spine wo con* [id number] IMPRESSION: 1. No fracture. 2. No evidence of discitis. 3. Multilevel degenerative disc and joint disease. Findings are most pronounced at L4-L5 and L5-S1.
--- NOTE | 2022-03-07 16:04 | CTR_ITS ---
PROCEDURE INFORMATION: Exam: CT Thoracic Spine Without Contrast Exam date and time: 03/07/2022 8:55 PM Age: 66 years old Clinical indication: Pain in thoracic spine; Additional info: Possible discitis TECHNIQUE: Imaging protocol: Computed tomography images of the thoracic spine without contrast. Radiation optimization: All CT scans at this facility use at least one of these dose optimization techniques: automated exposure control; mA and/or kV adjustment per patient size (includes targeted exams where dose is matched to clinical indication); or iterative reconstruction. COMPARISON: [place] [id number] 02/03/2020 3:16 PM RADIATION DOSE METRICS: Total DLP (mGy-cm): 1842.71 FINDINGS: Vertebrae: There is normal vertebral body alignment. There are normal vertebral body heights. Endplate cortical integrity is intact. No fracture. Discs/Spinal canal/Neural foramina: Mild, diffuse disc space narrowing. Soft tissues: Unremarkable. Lungs: There is streaky atelectasis or scar in the left lung. Pleural spaces: Small right pleural effusion. Mediastinum: There are changes of esophagectomy and gastric pull-through. Other findings: The CT/CT thoracic spin wo con* [id number] IMPRESSION: 1. No fracture. 2. No evidence of discitis. 3. Small right pleural effusion.
--- NOTE | 2022-03-07 16:14 | PC.NURSE ---
Patient hgb dropped overnight, 1 unit of blood currently running. Vitals stable. Patient sat up in chair for majority of shift. Still waiting for a bed at [place], will continue to call transfer center to check status of bed. Will continue to monitor and rebeamer report to night nurse.
[2022-03-07] MEDS: atorvastatin 40 mg Tablet 20 MG PO (17:48)
[2022-03-07] MEDS: ferrous sulfate EC 325 mg Tablet PO (17:48)
[2022-03-07] MEDS: escitalopram 10 mg Tablet PO (20:45)
[2022-03-07] MEDS: temazepam 15 mg Capsule 30 MG PO (20:45)
[2022-03-08] VITALS (11 sets, daily range): BP systolic 138–159; BP diastolic 74–83; PULSE 80–101; RESP 16–18; TEMP 36.4–36.8; O2SAT 93–99
[2022-03-08] MEDS: ipratropium-albuterol 3 mL Neb INHALATION ×2 (03:34→08:05)
[2022-03-08 05:25] LABS: Basophils % 0.2 %; Hematocrit 27.9 % (37.0-47.0); Hemoglobin 9.1 g/dL (11.5-15.3); Lymphocytes # 0.5 10^3/uL (0.8-4.8); Lymphocytes % 2.9 %; Mean Corpuscular HGB Conc 32.6 g/dL (30.0-36.0); Mean Corpuscular Volume 85.8 fl (81-99); Monocytes # 0.9 10^3/uL (0.2-0.9); Monocytes % 5.5 %; Neutrophils # 13.92 10^3/uL (1.8-7.7); Neutrophils % 88.9 %; Nucleated Red Blood Cells % 0.1 %; Platelet Count 34 10^3/cmm (130-400); Red Blood Count 3.25 10^6/uL (4.1-5.3); Red Cell Distribution Width 16.7 % (12.1-15.1); White Blood Count 15.7 10^3/uL (4.0-10.0)
[2022-03-08] MEDS: verapamil ER 240 mg Tablet PO (05:40)
[2022-03-08] MEDS: levothyroxine 125 mcg Tablet PO (05:40)
[2022-03-08] MEDS: aspirin 81 mg EC Tablet PO (05:40)
[2022-03-08 05:59] LABS: Alanine Aminotransferase 19 U/L (0-33); Albumin Level 2.8 g/dL (3.5-5.2); Alkaline Phosphatase 359 IU/L (35-105); Aspartate Amino Transferase 21 U/L (0-32); Blood Urea Nitrogen 62 mg/dL (8-23); Calcium 8.3 mg/dL (8.5-10.5); Carbon Dioxide 22 mmol/L (22-29); Chloride 105 mmol/L (98-107); Globulin 2.4 g/dL (1.3-4.6); Glomerular Filtration Rate 32.1 mL/min (90-130); Glucose 81 mg/dL (65-115); Osmolality Calculated 305 mOsm/kg (285-295); Sodium 139 mmol/L (136-145); Total Bilirubin 0.8 mg/dL (0.15-1.2); Total Protein 5.2 g/dL (6.6-8.7)
[2022-03-08 06:17] LABS: D Dimer 3.31 ug/mIFEU (0-0.59); Fibrinogen 248 mg/dL (174-498); INR 0.99 (0.8-1.2); Partial Thromboplastin Time 23.3 SECONDS (23.9-36.7)
--- NOTE | 2022-03-08 07:44 | PC.NURSE ---
Report given to Clemente WALKER at [facility] [phone]
[2022-03-08] MEDS: gabapentin 300 mg Capsule PO ×2 (08:01→17:31)
[2022-03-08] MEDS: hyDRALAzine 25 mg Tablet PO (08:01)
[2022-03-08] MEDS: pantoprazole DR 40 mg Tablet PO ×2 (08:01→17:35)
--- NOTE | 2022-03-08 10:02 | P.PN_ITS ---
Subjective Subjective: Patient could not go yesterday as beds were not available. I am told today that bed has been made available. Report has been called and is awaiting transport. Examination patient is sitting comfortably in chair. Denies any nausea vomiting, headache. States she is feeling better. Has remained hemodynamically stable and afebrile. Vitals/I&O/Wt Last Vital Signs Temp 97.8 F 03/08/22 08:00 Pulse 98 03/08/22 08:00 Resp 17 03/08/22 08:00 BP 159/76 03/08/22 08:00 Pulse Ox 97 03/08/22 08:00 03/07/22 03/08/22 03/08/22 22:59 06:59 14:59 Intake Total 450 / 1760 Output Total 600 / 600 100 / 700 Balance -150 / 1160 -100 / 1060 Physical Exam Const: COMMON NORMALS: patient oriented x3 HENMT: COMMON NORMALS: normocephalic, atraumatic and external ears normal HEAD & SCALP: normocephalic and atraumatic EXTERNAL EAR: Yes external ears normal Eye: GENERAL EYE: appearance normal, both eyes and all related structures Chest: COMMONS NORMALS: normal inspection of the chest and normal palpation of entire chest wall CHEST: Yes Symmetrical chest wall rise Resp: COMMON NORMALS: normal respiratory effort and No retractions EFFORT & INSPECTION: Yes symmetric chest movement OTHER: Bilateral crackles in both the lungs medrano Cardio: COMMON NORMALS: regular rate, regular rhythm, S1 normal heart sound present, S2 normal heart sound present, No gallops present (Cardio), No murmurs present (Cardio), No rub (Cardio) and Peripheral pulses 2+ throughout RATE: regular rate RHYTHM: regular rhythm HEART SOUNDS: S1 normal heart sound present and S2 normal heart sound present PERIPHERAL PULSES: Peripheral pulses 2+ throughout GI: COMMON NORMALS: Normal to inspection, nondistended, normoactive bowel sounds present, Soft to palpation, non-tender, No hepatosplenomegaly present and no masses AUSCULTATION: Yes normoactive bowel sounds PALPATION: Yes Soft to palpation and Yes No hepatosplenomegaly present RECTAL EXAM: deferred : COMMON NORMALS: Yes no CVA tenderness BLADDER/KIDNEY EXAM: Yes no CVA tenderness Back/Pelvis: COMMON NORMALS: no CVA tenderness Extremity: COMMON NORMALS: no clubbing, cyanosis or edema and no pedal edema Neuro: COMMON NORMALS: patient oriented x3 Skin: NARRATIVE SKIN EXAM: 2 small circular wounds present on right knee, nonfluctuant, clean base. Clean- cut present on right mora without any fluctuance and purulence. Also has bilateral small pressure ulcers on heels. Urinary Catheter Management: Vora: Cath Placed During This Visit: yes Reason for Continuing Indwelling Catheter: Other Urinary Catheter Date of Insertion: 03/01/22 Urinary Catheter Time of Insertion: 18:14 Data : 03/08/22 05:04 03/08/22 05:04 Micro: Microbiology 03/05/22 05:20 Blood Culture - Preliminary Blood Methicillin Resis Staph Aureus 03/05/22 05:15 Blood Culture - Preliminary Blood Methicillin Resis Staph Aureus 03/08/22 05:04 Blood Culture - Preliminary Blood SPECIMEN COLLECTED 03/08/22 05:02 Blood Culture - Preliminary Blood SPECIMEN COLLECTED A&P Assessment and plan (1) TTP (thrombotic thrombocytopenic purpura): Status: Acute (2) Sepsis: Status: Acute (3) MRSA bacteremia: Status: Acute (4) Acute kidney injury superimposed on CKD: Status: Acute (5) Thrombocytopenia: Status: Acute (6) Anemia: Status: Acute (7) COPD exacerbation: Status: Acute (8) Hypertension: Status: Acute (9) Hypothyroidism: Status: Acute (10) Rheumatoid arthritis: Status: Acute (11) Pressure ulcers of skin of multiple topographic sites: Status: Acute (12) Cellulitis of knee, right: Status: Acute (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 33,000 today. No active signs of bleeding. Hemoglobin 7.7. Schistocytes present in peripheral smear. DIC panel shows elevated D-dimer, normal fibrinogen, normal INR and PTT. HIT panel pending. Labs consistent with TTP. Patient would need plasmapheresis versus rituximab going forward for treatment. Unfortunately both not available in hospital. Confirmed with patient and she is okay with transfer. Called [facility] and Erna Salcedo was not available. Because punctuation patient has been accepted and is on waitlist. HANS : Multifactorial. Baseline creatinine normal. Trending down currently. Most likely secondary to ATN from sepsis. Cannot rule out glomerulonephritis secondary to MRSA bacteremia. Patient on Lasix, losartan at home. Medical reconciliation done for nephrotoxic drugs. Urine analysis appreciated. Monitor urine output. BMP daily. FENA Is consistent with: 1.7 % consistent with intrinsic ( ATN , AIN , GN ) Sepsis secondary to MRSA bacteremia: Could be secondary to pneumonia versus multiple pressure ulcers on bilateral heel and mild cellulitis of right knee. CT chest results appreciated. Cannot rule out chronic resolving consolidation post pneumonia versus possible septic emboli. CT abdomen pelvis results appreciated. Post SAW. Prelim report negative for any vegetation. Continue with vancomycin. Keep Vanco trough levels over 15. Check Vanco random level daily for now. Change vancomycin dosage accordingly. Keep mean artery pressure 65 mmHg Blood cultures from 02/28 and 03/02 also positive. Repeat blood cultures sent on 03/05 so far negative. 1 3 blood cultures remain negative will most likely need a PICC line placement. Immunocompromised secondary to chronic steroid use, hydroxychloroquine and leflunomide as an outpatient. Note Solu-Medrol 30 mg IV daily. At home patient takes 10 mg prednisone as needed basis. Will wean off quickly to home dose. Hemolytic anemia: Baseline hemoglobin around 11. Trending down gradually since admission. Post monitor blood transfusion. 8.6 today. Iron panel within normal limits, folic acid mildly on the lower side, haptoglobin low, LDH elevated, vitamin B12, reticulocyte counts are within normal. Consistent with possible hemolytic anemia. Protonix twice daily. Depending on stool occult blood will consult surgery for possible endoscopy. Hypertension: Goal pressure less than 140/90 mmHg. Blood pressure is better. Patient tachycardic. Continuing home dose of verapamil. Added hydralazine 25 mg 3 times daily. COPD exacerbation Resolved. Weaning Solu-Medrol as above. DuoNebs every 6 hour. For supplementation keeping saturation over 88%. Increased anion gap metabolic acidosis: Likely secondary to HANS. Resolved. Replace potassium. Restart other chronic home medications including atorvastatin, aspirin, Lexapro, gabapentin, Restoril at bedtime. CODE STATUS: Full code SCDs for DVT prophylaxis. Hold heparin given thrombocytopenia. Protonix for PUD prophylaxis. Plan for day: Plan to consult to [facility] for further treatment of TTP. Antibiotics changed from vancomycin to daptomycin given persistent MRSA bacteremia. Repeat blood cultures sent today on 03/08. Patient has remained hemodynamically stable and afebrile. CT spine yesterday negative for discitis. Patient does have small pleural effusion so empyema could not be ruled out given recurrent pneumonias in the last 5 months. But will defer thoracentesis given plan for transfer to [facility] for treatment of TTP. Hemoglobin improving to 9.1 today, platelet count stable with slight improvement 34,000, creatinine improving slightly to 1.6. Attestations Medical Necessity Statement*: Requires further hospitalization for management of MRSA bacteremia, TTP while transfer to [facility] for further treatment is sought. 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
[2022-03-08] MEDS: ferrous sulfate EC 325 mg Tablet PO (17:32)
[2022-03-08] MEDS: atorvastatin 40 mg Tablet 20 MG PO (17:36)
[2022-03-09 16:58] LABS: Heparin Induced Platelet AB NEGATIVE (NEGATIVE); Patient O.D 0.027
[2022-03-11 22:43] LABS: UFH High Dose, 100 IU/ML 2 % release; UFH Low Dose, 0.1 IU/ML 2 % release; UFH Low Dose, 0.5 IU/ML 2 % release; UFH SRA Result NEGATIVE (NEGATIVE)
== END 2022-03-08 18:30 | disposition short-term general hospital (02) | DRG 871 ==
LOC: ER 12:21 → ICU 15:08 → MEDSURG 03-01 16:26
PROVIDERS: Internal Medicine Cardiovascular Disease; Admitting Provider Internal Medicine; Emergency Provider Family Medicine; PCP Family Medicine; Visit Provider Student in an Organized Health Care Education/Training Program
PROC: B24BZZ4 Ultrasonography of Heart with Aorta, Transesophageal (ICD-10-PCS; CPT 93312; principal; 2022-03-05 12:00)
DX: A41.02 Sepsis due to Methicillin resistant Staphylococcus aureus (principal); J18.9 Pneumonia, unspecified organism; N17.0 Acute kidney failure with tubular necrosis; M31.19 Other thrombotic microangiopathy; J44.1 Chronic obstructive pulmonary disease with (acute) exacerbation; J44.0 Chronic obstructive pulmonary disease with (acute) lower respiratory infection; E87.1 Hypo-osmolality and hyponatremia; E87.2 Acidosis; D84.821 Immunodeficiency due to drugs; D58.9 Hereditary hemolytic anemia, unspecified; L03.115 Cellulitis of right lower limb; B95.62 Methicillin resistant Staphylococcus aureus infection as the cause of diseases classified elsewhere; M05.9 Rheumatoid arthritis with rheumatoid factor, unspecified; Z99.81 Dependence on supplemental oxygen; Z98.1 Arthrodesis status; Z87.891 Personal history of nicotine dependence; E87.5 Hyperkalemia; Z86.16 Personal history of COVID-19; I10 Essential (primary) hypertension; E03.9 Hypothyroidism, unspecified; Z79.899 Other long term (current) drug therapy; Z79.51 Long term (current) use of inhaled steroids; Z79.82 Long term (current) use of aspirin; Z79.52 Long term (current) use of systemic steroids; L89.892 Pressure ulcer of other site, stage 2; L89.621 Pressure ulcer of left heel, stage 1; L89.611 Pressure ulcer of right heel, stage 1; Z87.01 Personal history of pneumonia (recurrent); E16.2 Hypoglycemia, unspecified; I95.9 Hypotension, unspecified
CPT/HCPCS: 36415; 36416; 36430; 36600; 51702; 70450; 71045; 71250; 71275; 72128; 72131; 72170; 74176; 76770; 80048; 80051; 80053; 80061; 80202; 80503; 81001; 82274; 82330; 82550; 82575; 82607; 82746; 82805; 82962; 83010; 83036; 83540; 83550; 83605; 83615; 83630; 84100; 84145; 84300; 84443; 85007; 85025; 85045; 85378; 85384; 85397; 85610; 85730; 86850; 86900; 86920; 87040; 87077; 87150; 87186; 87205; 87426; 87493; 87506; 93306; 93312; 93320; 93325; 94640; 94660; 96365; 96367; 96372; 97110; 97116; 97161; 97165; 97530; 97535; 99291; J0456; J0696; J0878; J1100; J1644; J1940; J1956; J2543; J2704; J2920; J2930; J3010; J3370; J3480; J3490; J7030; J7050; J7799; P9016; Q9967